=== PATIENT | female | born 1940 | race Caucasian/White ===

== ENCOUNTER 2019-03-13 09:21 | Emergency (ER) | payer OTHER ==
--- NOTE | 2019-03-13 10:03 | RAD REPORT ---
EXAM DESCRIPTION: CT - CTHCSPWOC - 03/13/2019 9:51 am CLINICAL HISTORY: Trauma, head and neck injury. PAIN COMPARISON: No comparisons TECHNIQUE: Axial 5 mm thick images of the head were obtained. Axial 2 mm thick images of the cervical spine were obtained with sagittal and coronal reconstruction images generated and reviewed. All CT scans are performed using dose optimization technique as appropriate and may include automated exposure control or mA/KV adjustment according to patient size. FINDINGS: CT HEAD WITHOUT CONTRAST: No acute hemorrhage, hydrocephalus or extra-axial collection is identified.Advanced generalized brain atrophy is present with advanced periventricular and deep white matter chronic microvascular ischemi c changes.No areas of brain edema or midline shift. The paranasal sinuses and mastoids are clear.The calvarium is intact. 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 Moderate multilevel cervical degenerative changes. Nonspecific sclerosis is seen i nvolving the right petrous apex and clivus of unclear etiology and significance. IMPRESSION: No acute intracranial or cervical spine findings.
--- NOTE | 2019-03-13 10:15 | RAD REPORT ---
EXAM DESCRIPTION: RAD - Chest Single View - 03/13/2019 10:09 am CLINICAL HISTORY: TRAUMA Chest pain. COMPARISON: CHEST SINGLE VIEW dated 04/16/2015 FINDINGS: Portable technique limits examination quality. The lungs are grossly clear. The heart is mildly prominent. No displaced fractures.Left-sided port ca theter tip in the SVC. IMPRESSION: No acute intrathoracic process suspected.
--- NOTE | 2019-03-13 10:21 | RAD REPORT ---
EXAM DESCRIPTION: RAD - Ankle Left 3 View - 03/13/2019 10:10 am CLINICAL HISTORY: Trauma, ankle pain COMPARISON: None. FINDINGS: Transverse fracture of the medial malleolus is present distraction measuring 2 mm. No disp lacement. An oblique fracture is present through the distal fibula. No distraction or angulation defo rmity. Patient also has a coronal oriented fracture of the posterior malleolus. Ankle mortise is norm ally positioned. No joint effusion seen. No joint space narrowing. Soft tissue swelling is present. N o foreign body. IMPRESSION: Trimalleolar fracture left ankle as detailed.
--- NOTE | 2019-03-13 10:46 | RAD REPORT ---
EXAM DESCRIPTION: RAD - Tib Fib Left - 03/13/2019 10:10 am CLINICAL HISTORY: PAIN COMPARISON: Ankle Left 3 View dated 03/13/2019 FINDINGS: Osteopenia is noted. Fracture is seen involving the proximal neck of the fibula. Trimalleo lar ankle fracture is also present.
[2019-03-13] MEDS ORDERED: HYDROMORPHONE HCL 0.5 MG/0.5 ML INJ ONE ×2 (11:11→13:22)
[2019-03-13 11:24] LABS: Absolute Lymphocytes (CBC) 2.4 K/uL (0.7-4.9); Basophils % 0.7 % (0-1.3); Hematocrit 46.6 % (36.0-45.0); Lymphocytes % 16.2 % (15.3-44.8); MPV 9.1 fL (7.6-11.3); RBC Red Blood Cell Count 5.11 M/uL (3.86-4.86)
[2019-03-13 11:26] LABS: Protime INR 0.96
[2019-03-13 11:29] LABS: Potassium 3.8 mmol/L (3.5-5.1)
--- NOTE | 2019-03-13 11:36 | EKG ---
Test Date: 2019-03-13 Test Time: 10:17:38 Emergency Response Technician: ANTONIO MEASUREMENT RESULTS: Intervals: Rate: 77 DC: QRSD: 82 QT: 322 QTc: 364 [place]: P: DC: QRS: 45 T: 263 INTERPRETIVE STATEMENTS: Atrial fibrillation Septal infarct, age undetermined Abnormal ECG Compared to ECG 04/17/2015 05:41:57 Atrial flutter no longer present ST (T wave) deviation no longer present Myocardial infarct finding still present Electronically Signed On 03-13-19 11:35:27 CDT by Edu Mccloud
--- NOTE | 2019-03-13 13:03 | EDPHYS ---
Physician Documentation [facility] Name: Radha Hastings Age: 78 yrs Sex: Female : 1940 Arrival Date: 03/13/2019 Time: 09:20 Bed 17 Private MD: ED Physician Kuldeep Cade HPI: 03/13 12:55 This 78 yrs old Female presents to ER via EMS with complaints of Fall Injury. gs 12:55 Details of fall: The patient fell from an upright position, while walking. Onset: The gs symptoms/episode began/occurred acutely, just prior to arrival. 12:59 Associated injuries: The patient sustained injury to the head, abrasion, anterior gs aspect of left ankle, obvious fracture, painful injury, swelling. Severity of symptoms: in the emergency department the symptoms are unchanged. The patient has not experienced similar symptoms in the past. Historical: - Allergies: 09:23 Ambien; ch 09:23 Compazine; 09:23 [place]; 09:23 Aspirin; - Home Meds: 09:26 Buspirone Oral [Active]; clopidogrel oral oral [Active]; Digoxin Oral [Active]; ch duloxetine oral oral [Active]; Hyoscyamine Sulfate SL [Active]; Lisinopril Oral [Active]; Morphine Oral [Active]; naproxen Oral [Active]; Bisacodyl Oral [Active]; felodipine oral oral [Active]; Prednisone Oral [Active]; tizanidine oral oral [Active]; - PMHx: 09:23 Atrial Fib; Hypertension; brain tumor; Thyroid problem; ch - Immunization history:: Adult Immunizations up to date. - Social history:: Smoking status: Patient/guardian denies using tobacco. - Immunization history: Last tetanus immunization: - up to date. - Ebola Screening: : Patient negative for fever greater than or equal to 101.5 degrees Fahrenheit, and additional compatible Ebola Virus Disease symptoms Patient denies exposure to infectious person Patient denies travel to an Ebola-affected area in the 21 days before illness onset No symptoms or risks identified at this time. ROS: 12:59 All other systems are negative. gs Exam: 12:59 Head/Face: Normocephalic, atraumatic. Eyes: Pupils equal round and reactive to light, gs extra-ocular motions intact. Lids and lashes normal. Conjunctiva and sclera are non-icteric and not injected. Cornea within normal limits. Periorbital areas with no swelling, redness, or edema. ENT: Nares patent. No nasal discharge, no septal abnormalities noted. Tympanic membranes are normal and external auditory canals are clear. Oropharynx with no redness, swelling, or masses, exudates, or evidence of obstruction, uvula midline. Mucous membranes moist. Neck: Trachea midline, no thyromegaly or masses palpated, and no cervical lymphadenopathy. Supple, full range of motion without nuchal rigidity, or vertebral point tenderness. No Meningismus. Chest/axilla: Normal chest wall appearance and motion. Nontender with no deformity. No lesions are appreciated. Cardiovascular: Regular rate and rhythm with a normal S1 and S2. No gallops, murmurs, or rubs. Normal PMI, no JVD. No pulse deficits. Respiratory: Lungs have equal breath sounds bilaterally, clear to auscultation and percussion. No rales, rhonchi or wheezes noted. No increased work of breathing, no retractions or nasal flaring. Abdomen/GI: Soft, non-tender, with normal bowel sounds. No distension or tympany. No guarding or rebound. No evidence of tenderness throughout. Back: No spinal tenderness. No costovertebral tenderness. Full range of motion. Skin: Warm, dry with normal turgor. Normal color with no rashes, no lesions, and no evidence of cellulitis. Neuro: Awake and alert, GCS 15, oriented to person, place, time, and situation. Cranial nerves II-XII grossly intact. Motor strength 5/5 in all extremities. Sensory grossly intact. Cerebellar exam normal. Normal gait. 12:59 Constitutional: The patient appears alert, awake, in obvious distress, severely distressed. 12:59 Musculoskeletal/extremity: Pulses: are normal with no appreciated deficits, Sensation intact. Joints: the left ankle displays deformity, painful range of motion, swelling, tenderness. Vital Signs: 09:26 BP 148 / 82; Pulse 86; Resp 14; Temp 98.5; Pulse Ox 99% on R/A; Weight 90.72 kg; Height ch 5 ft. 5 in. (165.10 cm); 11:05 BP 116 / 79; Pulse 77; Resp 16; Pulse Ox 99% ; sv 11:30 BP 109 / 69; Pulse 81; Resp 15; Pulse Ox 97% ; sv 12:39 BP 106 / 61; Pulse 84; Resp 19; Pulse Ox 95% ; sv 13:34 BP 123 / 79; Pulse 95; Resp 16; Pulse Ox 95% ; sv 09:26 Body Mass Index 33.28 (90.72 kg, 165.10 cm) ch Jeanette Coma Score: 09:40 Eye Response: spontaneous(4). Verbal Response: oriented(5). Motor Response: obeys ch commands(6). Total: 15. 11:05 Eye Response: spontaneous(4). Verbal Response: oriented(5). Motor Response: obeys sv commands(6). Total: 15. Trauma Score (Adult): 09:40 Eye Response: spontaneous(1); Verbal Response: oriented(1); Motor Response: obeys ch commands(2); Systolic BP: > 89 mm Hg(4); Respiratory Rate: 10 to 29 per min(4); Jeanette Score: 15; Trauma Score: 12 11:05 Eye Response: spontaneous(1); Verbal Response: oriented(1); Motor Response: obeys sv commands(2); Systolic BP: > 89 mm Hg(4); Respiratory Rate: 10 to 29 per min(4); [place] Score: 15; Trauma Score: 12 Procedures: 12:59 Splinting: Splint applied to left leg using Orthoglass splint, applied by tech. Examined by me, post splint application: neurovascular intact, 2+ distal pulses palpable, brisk capillary refill noted, Patient tolerated well. MDM: 09:30 Patient medically screened. 12:59 Differential diagnosis: closed head injury, fracture. Data reviewed: vital signs, nurses notes, lab test result(s), EKG, radiologic studies. Counseling: I had a detailed discussion with the patient and/or guardian regarding: the historical points, exam findings, and any diagnostic results supporting the discharge/admit diagnosis, the need for outpatient follow up. Response to treatment: the patient's symptoms have mildly improved after treatment. Physician consultation: Zach Alvarez MD regarding patient's condition, need to evaluate the patient as soon as possible, and will see patient in 2-3 days, arrangements for home health and wheelchair obtained. 03/13 09:32 Order name: CBC with Diff; Complete Time: 12:07 03/13 09:32 Order name: Basic Metabolic Panel; Complete Time: 12:07 03/13 09:32 Order name: CT Head C Spine; Complete Time: 10:51 03/13 09:32 Order name: Ankle Left 3 View XRAY; Complete Time: 10:51 03/13 09:32 Order name: Tib Fib Left XRAY; Complete Time: 10:51 03/13 09:32 Order name: Protime (+inr); Complete Time: 12:07 03/13 09:32 Order name: Chest Single View XRAY; Complete Time: 10:51 03/13 09:32 Order name: EKG; Complete Time: 09:33 03/13 09:32 Order name: EKG - Nurse/Tech; Complete Time: 11:47 03/13 10:17 Order name: Splint - Ankle: Orthoglass: Stirrup; Complete Time: 12:15 03/13 10:17 Order name: Splint - Ankle: Posterior; Complete Time: 12:15 03/13 11:02 Order name: Social Service Consult; Complete Time: 12:55 EDMS Administered Medications: 11:05 Drug: Dilaudid 0.5 mg {Note: RASS1.} Route: IVP; Site: right forearm; sv 12:00 Follow up: Response: No adverse reaction; RASS: Alert and Calm (0) sv 13:33 Drug: Dilaudid 0.5 mg Route: IVP; Site: right forearm; sv 13:53 Follow up: Response: No adverse reaction; RASS: Alert and Calm (0) sv Disposition: 03/13/19 13:02 Discharged to Home. Impression: Trimalleolar fracture of lower leg. - Condition is Stable. - Discharge Instructions: Ankle Fracture, [id number]. - Medication Reconciliation Form, Thank You Letter, Antibiotic Education, Prescription Opioid Use form. - Follow up: Zach Alvarez MD; When: 2 - 3 days; Reason: Re-evaluation by your physician. - Notes: nonweightbearing Signatures: Dispatcher [employer] EDMS Hilda Peraza RN RN Catrachita Nieves RN RN sv Starr, Gregory, MD MD Corrections: (The following items were deleted from the chart) 13:49 13:02 03/13/2019 13:02 Discharged to Home. Impression: Trimalleolar fracture of lower sv leg. Condition is Stable. Forms are Medication Reconciliation Form, Thank You Letter, Antibiotic Education, Prescription Opioid Use. Follow up: Zach Alvarez; When: 2 - 3 days; Reason: Re-evaluation by your physician. gs
--- NOTE | 2019-03-13 13:03 | ER ---
Nurse's Notes [facility] Name: Radha Hastings Age: 78 yrs Sex: Female : 1940 Arrival Date: 03/13/2019 Time: 09:20 Bed 17 Private MD: Diagnosis: Trimalleolar fracture of lower leg Presentation: 03/13 09:21 Presenting complaint: EMS states: slipped in dog vomit, her ankle twisted. obvious ch deformity. Transition of care: patient was not received from another setting of care. Onset of symptoms was March 13, 2019 at 08:50. Risk Assessment: Do you want to hurt yourself or someone else? Patient reports no desire to harm self or others. Initial Sepsis Screen: Does the patient meet any 2 criteria? No. Patient's initial sepsis screen is negative. Does the patient have a suspected source of infection? No. Patient's initial sepsis screen is negative. Care prior to arrival: None. 09:21 Method Of Arrival: EMS: [facility] 09:21 Acuity: [place] 3 10:07 Mechanism of Injury: Fall from standing position. Trauma event details: Injury occurred in the [facility], Injury occurred: at home. Injury occurred: March 13, 2019 Injury occurred at: 08:50. Triage Assessment: 09:26 General: Appears in no apparent distress. uncomfortable, Behavior is cooperative, ch appropriate for age. Pain: Complains of pain in medial aspect of left calf, left medial ankle, left hinkle and anterior aspect of left ankle Pain currently is 6 out of 10 on a pain scale. Neuro: No deficits noted. Level of Consciousness is awake, alert, obeys commands, Oriented to person, place, time, situation, Drophammer Operator are equal bilaterally Weakness Speech is normal, Facial symmetry appears normal, Facial symmetry: tongue is midline. Trauma Activation: Alert Physician: ED Physician; Name: ; Notified At: ; Arrived At: Physician: General Surgeon; Name: ; Notified At: ; Arrived At: Physician: Radiology; Name: ; Notified At: ; Arrived At: Physician: Respiratory; Name: ; Notified At: ; Arrived At: Physician: Lab; Name: ; Notified At: ; Arrived At: Historical: - Allergies: 09:23 Ambien; ch 09:23 Compazine; 09:23 [place]; ch 09:23 Aspirin; ch - Home Meds: 09:26 Buspirone Oral [Active]; clopidogrel oral oral [Active]; Digoxin Oral [Active]; ch duloxetine oral oral [Active]; Hyoscyamine Sulfate SL [Active]; Lisinopril Oral [Active]; Morphine Oral [Active]; naproxen Oral [Active]; Bisacodyl Oral [Active]; felodipine oral oral [Active]; Prednisone Oral [Active]; tizanidine oral oral [Active]; - PMHx: 09:23 Atrial Fib; Hypertension; brain tumor; Thyroid problem; ch - Immunization history:: Adult Immunizations up to date. - Social history:: Smoking status: Patient/guardian denies using tobacco. - Immunization history: Last tetanus immunization: - up to date. - Ebola Screening: : Patient negative for fever greater than or equal to 101.5 degrees Fahrenheit, and additional compatible Ebola Virus Disease symptoms Patient denies exposure to infectious person Patient denies travel to an Ebola-affected area in the 21 days before illness onset No symptoms or risks identified at this time. Screenin:40 Abuse screen: Denies threats or abuse. Denies injuries from another. Tuberculosis ch screening: No symptoms or risk factors identified. 09:40 Nutritional screening: No deficits noted. Fall Risk Fall in past 12 months (25 points). ch Secondary diagnosis (15 points) No IV (0 pts). Ambulatory Aid- Crutches/Cane/Walker (15 pts). Gait- Impaired (20 pts.). Mental Status- Overestimates/Forgets Limitations (15 pts.). Total Golden Fall Scale indicates High Risk Score (45 or more points). Fall prevention measures have been instituted. Side Rails Up X 2 Placed Close to Nursing Station Frequent Obs/Assessments Occuring Family Present and informed to notify staff if the need to leave the bedside As available patient and family educated on Fall Prevention Program and Strategies. Primary Survey: :40 NO uncontrolled hemorrhage observed. 09:40 A: The patient is alert. Airway: patent. Breathing/Chest: Respiratory pattern: regular, Respiratory effort: spontaneous, unlabored, Breath sounds: clear. Circulation: Heart tones present. Disability Alert. Exposure/Environment: All clothing and personal items were removed. Forensic evidence collection is not deemed to be indicated at this time. Items placed in patient belonging bag. There is no evidence of uncontrolled external bleeding. Obvious injury(ies) are noted at this time: L ankle / lower leg A warming method has been applied: A warm blanket has been provided to the patient. 11:00 Reassessment Airway Airway Patent Oxygen No O2 Oral cavity Clear Trachea Midline sv Breathing/Chest Respiratory pattern Regular Respiratory effort Spontaneous Unlabored Chest inspection Symmetrical Circulation Heart tones Present Pulses Palpable Color [place] Temperature Warm Dry Disability Alert. Secondary Survey: 09:40 HEENT: No deficits noted. Gastrointestinal: No deficits noted. Abdomen is soft, Bowel ch sounds present in all quadrants. Palpation No deficit noted. : No signs and/or symptoms were reported regarding the genitourinary system. Musculoskeletal: Capillary refill < 3 seconds, in bilateral fingers. toes. Bony deformity noted of left lateral ankle and anterior aspect of left ankle and left hinkle. Assessment: 09:40 Pain: Complains of pain in left lateral ankle and left leg Pain currently is 2 out of ch 10 on a pain scale. 09:47 General: Appears in no apparent distress. comfortable. 12:15 Reassessment: Patient appears in no apparent distress at this time. Patient and/or sv family updated on plan of care and expected duration. Pain level reassessed. Patient is alert, oriented x 3, equal unlabored respirations, skin warm/dry/pink. Cardiovascular: Capillary refill < 3 seconds is brisk in left toes on skin. Patient's skin is warm and dry. 13:10 Reassessment: Pt waiting for prescription written for wheelchair at home. sv Vital Signs: 09:26 BP 148 / 82; Pulse 86; Resp 14; Temp 98.5; Pulse Ox 99% on R/A; Weight 90.72 kg; Height ch 5 ft. 5 in. (165.10 cm); 11:05 BP 116 / 79; Pulse 77; Resp 16; Pulse Ox 99% ; sv 11:30 BP 109 / 69; Pulse 81; Resp 15; Pulse Ox 97% ; sv 12:39 BP 106 / 61; Pulse 84; Resp 19; Pulse Ox 95% ; sv 13:34 BP 123 / 79; Pulse 95; Resp 16; Pulse Ox 95% ; sv 09:26 Body Mass Index 33.28 (90.72 kg, 165.10 cm) Jeanette Coma Score: 09:40 Eye Response: spontaneous(4). Verbal Response: oriented(5). Motor Response: obeys ch commands(6). Total: 15. 11:05 Eye Response: spontaneous(4). Verbal Response: oriented(5). Motor Response: obeys sv commands(6). Total: 15. Trauma Score (Adult): 09:40 Eye Response: spontaneous(1); Verbal Response: oriented(1); Motor Response: obeys ch commands(2); Systolic BP: > 89 mm Hg(4); Respiratory Rate: 10 to 29 per min(4); [place] Score: 15; Trauma Score: 12 11:05 Eye Response: spontaneous(1); Verbal Response: oriented(1); Motor Response: obeys sv commands(2); Systolic BP: > 89 mm Hg(4); Respiratory Rate: 10 to 29 per min(4); [place] Score: 15; Trauma Score: 12 ED Course: 09:20 Patient arrived in ED. ch 09:22 Triage completed. ch 09:24 Kuldeep Cade MD is Attending Physician. gs 09:26 Arm band placed on right wrist. Patient placed in an exam room, on lunchroom monitor, on pulse oximetry. 09:40 Patient has correct armband on for positive identification. Placed in gown. Bed in low ch position. Call light in reach. Side rails up X2. 09:40 Patient maintains SpO2 saturation greater than 95% on room air. Thermoregulation: warm ch blanket given to patient. 09:40 Missed attempt(s): 22 gauge in right forearm. 24 gauge in right upper arm. ch 09:51 CT Head C Spine In Process Unspecified. EDMS 09:57 Catrachita Nieves RN is Primary Nurse. sv 09:57 Report received from Hilda JASON. sv 10:03 Ankle Left 3 View XRAY In Process Unspecified. EDMS 10:03 Tib Fib Left XRAY In Process Unspecified. EDMS 10:03 Chest Single View XRAY In Process Unspecified. EDMS 10:39 EKG done, by geoscience laboratory technician. reviewed by Kuldeep Cade MD. at1 10:50 Missed attempt(s): 24 gauge in right forearm. done by Kaylan JASON. Bleeding controlled, sv band aid applied, catheter tip intact. 11:00 Accessed peripheral vein via ultrasound, utilizing dynamic ultrasound technique using sv ,sterile technique, per hospital protocol. Clean \T\ dry. Dressing intact. Good blood return. Flushes easily. 22G diffusics. 12:15 Orthoglass splint: Posterior short lleg splint applied on left leg. stirrup splint sv applied on left leg. 13:02 Zach Alvarez MD is Referral Physician. 13:14 faxed prescription and documentation to Rachelle at [phone]. gm 13:34 Cleaned of incontinence. sv 13:48 No provider procedures requiring assistance completed. IV discontinued, intact, sv bleeding controlled, No redness/swelling at site. Pressure dressing applied. Administered Medications: 11:05 Drug: Dilaudid 0.5 mg {Note: RASS1.} Route: IVP; Site: right forearm; sv 12:00 Follow up: Response: No adverse reaction; RASS: Alert and Calm (0) sv 13:33 Drug: Dilaudid 0.5 mg Route: IVP; Site: right forearm; sv 13:53 Follow up: Response: No adverse reaction; RASS: Alert and Calm (0) sv Intake: 09:40 PO: 0ml; Total: 0ml. Outcome: 11:50 Patient's length of stay in the Emergency Department was greater than 2 hours. due to sv waiting for manager social media to come speak to MD and family.Patient's length of stay extended due to 13:02 Discharge ordered by MD. 13:49 Discharged to home via wheelchair, with family, via [employer] wheelchair van sv 13:49 Condition: stable 13:49 Discharge instructions given to patient, family, Instructed on discharge instructions, follow up and referral plans. Demonstrated understanding of instructions, follow-up care. 13:49 Patient left the ED. sv Signatures: Dispatcher [employer] EDMS Hilda Peraza, RN EREN Catrachita Nieves RN RN sv Meghan Yusuf, director of recruiting EKG Tat1 Kuldeep Cade MD MD gs Moya, Gabriella
[2019-03-13 13:54] VITALS: TEMP 98.5
[2019-03-13 13:58] VITALS: BP 123/79; O2SAT 95
== END 2019-03-13 13:49 | disposition home or self-care (01) ==
LOC: ER 09:21
PROC: 2W3RX1Z Immobilization of Left Lower Leg using Splint (ICD-10-PCS; principal; 2019-03-13)
DX: S82.852A Displaced trimalleolar fracture of left lower leg, initial encounter for closed fracture (principal); W19.XXXA Unspecified fall, initial encounter; Y93.01 Activity, walking, marching and hiking; Y92.9 Unspecified place or not applicable; I10 Essential (primary) hypertension; I48.91 Unspecified atrial fibrillation; E07.9 Disorder of thyroid, unspecified
CPT/HCPCS: 93005; 85025; 80048; 36415; 85610; 70450; 72125; 71045; 73590; 73610; 96374; 99285; 29515; J1170 ×2

== ENCOUNTER 2019-03-18 16:40 | Observation (INO) | payer OTHER ==
[2019-03-18] MEDS ORDERED: MORPHINE 2 MG/ML SYR IV PRN (17:12)
[2019-03-18] MEDS ORDERED: ACETAMINOPHEN 500 MG TAB PO PRN (17:12)
[2019-03-18] MEDS ORDERED: ONDANSETRON 4 MG/2 ML VIAL IV PRN (17:12)
[2019-03-18 18:51] VITALS: BMI 32.5
[2019-03-18] MEDS ORDERED: HYDROCODONE/APAP 5/325 MG TAB PO PRN (19:33)
--- NOTE | 2019-03-18 20:13 | RAD REPORT ---
EXAM DESCRIPTION: RAD - Chest Pa And Lat (2 Views) - 03/18/2019 6:15 pm CLINICAL HISTORY: cough COMPARISON: March 13 TECHNIQUE: PA and lateral views of the chest were obtained. FINDINGS: The lungs are clear. Lung markings are similar to comparison. No failure or volume overlo ad suspected. Port-A-Cath is in place on the left. Heart size is normal and central vasculature is wi thin normal limits. No pleural effusion or pneumothorax seen. No acute bony finding noted. No aort ic abnormality. No significant change from comparison. IMPRESSION: No acute cardiopulmonary process.
[2019-03-18] MEDS: HYDROCODONE/APAP 10/325 TAB PO PRN (20:19)
[2019-03-18 20:50] LABS: Urine Appearance CLOUDY; Urine Bilirubin NEGATIVE (NEG); Urine Blood NEGATIVE (NEG); Urine Color YELLOW; Urine Glucose NEGATIVE (NEG); Urine Protein NEGATIVE (NEG); Urine pH 6.5 (5.0-7.0)
[2019-03-18 20:52] LABS: Urine Microscopic Reflex ORDER UMIC
[2019-03-18 20:59] LABS: Urine Amorphous Sediment 1+ /HPF (NONE SEEN); Urine Bacteria <20 /HPF (<20); Urine Culture Reflex Order REFLEXED; Urine RBC <5 /HPF (NONE SEEN)
[2019-03-18] MEDS: GABAPENTIN 300 MG CAP PO SCH (22:26)
[2019-03-18] MEDS: D5 0.45 NS 1,000 ML IV SCH (22:28)
[2019-03-18] MEDS: LISINOPRIL 20 MG TAB PO SCH (22:40)
[2019-03-18 22:49] LABS: Absolute Lymphocytes (CBC) 2.8 K/uL (0.7-4.9); Basophils % 0.9 % (0-1.3); Hematocrit 38.5 % (36.0-45.0); Lymphocytes % 27.2 % (15.3-44.8); MPV 9.1 fL (7.6-11.3); RBC Red Blood Cell Count 4.23 M/uL (3.86-4.86)
[2019-03-18 23:04] LABS: Albumin 3.1 g/dL (3.4-5.0); Bilirubin Total 0.8 mg/dL (0.2-1.0); Magnesium 2.1 mg/dL (1.8-2.4); Phosphorus 2.8 mg/dL (2.5-4.9); Potassium 3.4 mmol/L (3.5-5.1); Protein, Total 5.8 g/dL (6.4-8.2)
[2019-03-18] MEDS ORDERED: POTASSIUM 25 MEQ EFFERV TAB PO ONE (23:44)
--- NOTE | 2019-03-19 00:20 | CON ---
Date of Consultation: 03/18/[address] Lee's service on 03/18/2019. I have seen the patient on 03/18/2019. Reason For Consultation: Cardiac clearance for ankle fracture and history of atrial fibrillation. History Of Present Illness: Ms. Hastings is a 78-year-old white woman. She has a history of atrial fib rillation that is chronic. She has a history of brain tumor, thyroid disorder, and hypertension. No previous history of coronary artery disease or congestive heart failure. No previous history of CAB G or stents. Denied any diabetes or dyslipidemia. She broke her ankle on 03/13/2019, was admitted o n 03/18/2019 for ankle surgery on 03/19/[address] Alvarez. The patient denied any chest pain, pa lpitation, nausea, vomiting, diaphoresis, PND, orthopnea, pedal edema, palpitations, or syncope. Past Medical History: As stated above. Allergies: ASPIRIN, AMBIEN, SKIP, AND COMPAZINE. Review of Systems: Negative. Social History: Negative. Family History: Noncontributory. Medications At Home: Tegretol, Omnicef, Cymbalta, Toprol, Zestril, Plavix, Plendil, and Zocor. Physical Examination: General: She is very pleasant, alert and oriented x3. She was in atrial fibrillation at a rate of 8 2. She was afebrile. HEENT: Negative. Neck: Supple without any bruit, lymphadenopathy, JVD, or thyromegaly. Chest: Clear to auscultation and percussion. Cardiac: Revealed atrial fibrillation and what sounds like an aortic sclerosis, murmur. Abdomen: Benign. Extremities: Revealed no clubbing, cyanosis, or edema. Her left leg was wrapped with an Baljinder bandage . Skin: Dry and intact. She had pulses in the distal extremities. Neurological: She was nonfocal. Diagnostic Data: Her chest x-ray was negative. Laboratory evaluation was pending. EKG showed atria l fibrillation at a rate of 82. Impression And Plan: 1.Patient with chronic atrial fibrillation. No previous cardiac workup available to us. No history of coronary artery disease or congestive heart failure. She is clinically asymptomatic from a heart standpoint. Nevertheless, I still like to get an echocardiogram on her. She is not taking any bloo d thinners except for Plavix. I would not necessarily wait for the echo before cardiac clearance. I think she is at acceptable risk from a perioperative mortality standpoint. 2.History of brain tumor. 3.History of dyslipidemia. 4.History of hypertension, well controlled. 5.History of hypothyroidism. I would personally continue her present regimen. I cleared her for piña rgery. Get an echocardiogram and I will follow her along with Dr. Alvarez. EMMETT/DOROTHEA Voice ID: [id number] Report ID: [id number]
[2019-03-19] MEDS: HYDROCODONE/APAP 10/325 TAB PO PRN ×2 (00:38→23:07)
--- NOTE | 2019-03-19 03:00 | HP ---
Date of Admission: 03/18/2019 Primary Care Physician: None. Consultants: Dr. Alvarez, Orthopedics; and Dr. Christensen, Cardiology. Chief Complaint: Ankle fracture. Code Status: DNR. History Of Present Illness: The patient is a 78-year-old female with past medical history of TIA, CVA in 2004, hypertension, meningioma, status post radiation therapy 1 year ago, who was recently initiated on hospice, who had a mechanical fall, slipping on dog vomitus and fell and fractured her ankle on the left side. Patient was evaluated by Dr. Alvarez and then was admitted directly to the hospital for further evaluation and management. Patient reports pain. She was placed in a sugar-tong cast and has been nonweightbearing. The patient's symptoms are constant, moderate, progressively worsening. Denies any fevers, chills, chest pain, or shortness of breath. Past Medical History: Hypertension, history of TIA/CVA in 2004, meningioma, status post radiation therapy at [facility], last therapy was 1 year ago, bone graft in the neck, back surgery, appendectomy, cholecystectomy. Allergies: TO ASPIRIN, COMPAZINE, AND AMBIEN. Medications: List reviewed. Social History: Patient denies any tobacco use, alcohol use, or illicit drug use. The patient normally uses a walker for ambulation, currently is nonambulatory due to her fracture, has been getting around in the wheelchair. Has good social support. Lives at home. Family History: Noncontributory in this 78-year-old. Review of Systems: Ten-point system reviewed, negative except as per HPI. Physical Examination: Vital Signs: Temperature is 98, heart rate 77 blood pressure 127/67, respirations 18, O2 saturation 95% on room air. General: Awake, alert, oriented x3. Some mild distress due to pain. Elderly female. HEENT: Normocephalic, atraumatic. PERRLA. EOMI. Moist mucous membranes. Oropharynx is clear. Poor dentition. Conjunctivae anicteric. Neck: Supple. No JVD. Trachea midline. CV: S1, S2. No murmurs. Peripheral pulses present. Respiratory: Moving air well bilaterally. No wheezing or stridor. No use of accessory muscles. Gastrointestinal: Abdomen is soft, nontender, nondistended. Positive bowel sounds. No guarding or rigidity. Extremities: No clubbing, cyanosis. The patient has minimal edema of the left lower extremity. Neuro: Cranial nerves 2 through 12 intact grossly. No focal neurological deficit. Speech is normal. Musculoskeletal: Left lower extremity decreased range of motion in splint with Baljinder bandage around. Tenderness to palpation. Skin: No rashes. Normal skin turgor. Psych: Mood is okay. Affect is full. Insight and judgment are good. Laboratory Data: Labs are currently pending. Imaging Studies: Tib-fib x-ray from 03/13/2019 shows osteopenia, fracture involving the proximal neck of the fibula, trimalleolar ankle fracture is also present. CT scan of the head and neck also from March 13, 2019 shows no acute hemorrhage, hydrocephalus, or extra-axial collection. Advanced generalized brain atrophy present with advanced periventricular and deep white matter chronic microvascular ischemic changes. No areas of the brain with edema or midline shift. Paranasal sinuses and mastoids are clear. Calvarium is intact. 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 No prevertebral soft tissue swelling. Multilevel degenerative changes, sclerosis, nonspecific, involving the right petrous apex and clivus of unclear etiology and significance. No acute intracranial or cervical spine findings. Assessment And Plan: A 78-year-old female with: 1. Status post mechanical fall. 2. Left trimalleolar ankle fracture and proximal neck of the fibula fracture. The patient currently nonambulatory with a splint in place. Dr. Alvarez has been consulted. He recommends surgical intervention. The patient will need cardiac clearance. We will obtain EKG and echocardiogram, consult Cardiology. Patient does have a history of atrial fibrillation; however, not on any anticoagulants. 3. History of transient ischemic attack, cerebrovascular accident. No residual deficits. We will resume home medications as appropriate. We will hold any anti-platelet therapy due to impending surgery. 4. Essential hypertension. Resume home medications as appropriate. 5. History of meningioma, status post radiation therapy 1 year ago at [facility]. CT head from the does not identify any meningioma. According to the patient, meningioma has shrunk after radiation therapy. We will need to obtain records and verify diagnosis. Patient apparently has been on hospice since August. 6. History of atrial fibrillation, rate controlled, not on any anticoagulation at this time. We will continue with cardiac monitoring. Check INR. Plan: Admit the patient to Med-Surg, place as inpatient. Anticipate surgery in a.m. once cardiac clearance has been obtained. Length of stay >2 midnights SARKIS Voice ID: [id number] MTDD
[2019-03-19] MEDS: MORPHINE 4 MG/ML SYR IV PRN ×2 (05:11→20:53)
[2019-03-19 06:05] LABS: Protime INR 0.99
[2019-03-19 06:07] LABS: Absolute Lymphocytes (CBC) 2.7 K/uL (0.7-4.9); Basophils % 0.9 % (0-1.3); Lymphocytes % 33.8 % (15.3-44.8); RBC Red Blood Cell Count 4.16 M/uL (3.86-4.86)
[2019-03-19 06:17] LABS: Albumin 3.1 g/dL (3.4-5.0); Potassium 3.9 mmol/L (3.5-5.1); Protein, Total 5.8 g/dL (6.4-8.2)
--- NOTE | 2019-03-19 06:52 | EKG ---
Test Date: 2019-03-18 Test Time: 17:27:28 Director Of Diagnostic Imaging: SANG MEASUREMENT RESULTS: Intervals: Rate: 81 VT: QRSD: 82 QT: 360 QTc: 418 Athena: P: VT: QRS: 40 T: -9 INTERPRETIVE STATEMENTS: Atrial fibrillation Nonspecific ST and T wave abnormality, probably digitalis effect Abnormal ECG Compared to ECG 03/13/2019 10:17:38 ST (T wave) deviation now present Myocardial infarct finding no longer present Electronically Signed On 03-19-19 06:51:41 CDT by Edu Mccloud
[2019-03-19] MEDS ORDERED: KCL 20 MEQ/100 mL IVPB 20 MEQ/100 ML BAG IV SCH (08:00)
[2019-03-19] MEDS ORDERED: INFLUENZA VACCINE (for 3y+) 0.5 ML DOSE IMVAC ONE (08:00)
[2019-03-19] MEDS ORDERED: DULOXETINE 20 MG CAP PO SCH (09:00)
[2019-03-19] MEDS: FELODIPINE 5 MG TAB PO SCH (09:26)
[2019-03-19] MEDS: predniSONE 5 MG TAB PO SCH (09:27)
[2019-03-19] MEDS: GABAPENTIN 300 MG CAP PO SCH ×3 (09:27→20:56)
[2019-03-19] MEDS: HYOSCYAMINE SULF 0.125 MG TAB PO SCH (09:27)
[2019-03-19] MEDS: DIGOXIN 0.125 MG TABLET PO SCH (09:28)
[2019-03-19] MEDS: DULOXETINE 30 MG CAP PO SCH (09:28)
[2019-03-19] MEDS: D5 0.45 NS 1,000 ML IV SCH ×2 (09:30→23:06)
[2019-03-19] MEDS ORDERED: NS 0.9% VIAL 20 ML ONE (10:59)
[2019-03-19] MEDS ORDERED: LIDOCAINE 2% MPF 5 ML VIAL ONE ×2 (11:00→11:45)
[2019-03-19] MEDS ORDERED: dexAMETHasone 10 MG/ML VIAL ONE (11:00)
[2019-03-19] MEDS ORDERED: MIDAZOLAM HCL 2 MG/2 ML INJ ONE (11:00)
[2019-03-19] MEDS ORDERED: ROPLVACAINE HCL 40 ML ONE (11:01)
[2019-03-19] MEDS ORDERED: FENTANYL CITR 100 MCG/2 ML ONE (11:44)
[2019-03-19] MEDS ORDERED: PROPOFOL 200 MG/20 ML VIAL IV ONE (11:45)
--- NOTE | 2019-03-19 11:57 | PN ---
Patient was seen and examined. Chart reviewed and case discussed with RN and Dr. Mccloud as well as Steffany Alvarez. Patient has been cleared from cardiac standpoint for ankle surgery. The patient's mery n is well controlled. No family at the bedside. Medications: List reviewed. Physical Examination: Vital Signs: Temperature 97.4, heart rate 82, blood pressure 133/69, respirations 18, O2 at 92% on r oom air. General: Awake, alert, oriented x3. Elderly female, obese, not in any acute distress. CV: S1, S2. Irregularly irregular. Respiratory: Moving air well bilaterally. No wheezing or stridor. No use of accessory muscles. Gastrointestinal: Abdomen is soft, nontender, nondistended. Positive bowel sounds. No guarding or rigidity. Extremities: No clubbing, cyanosis, mild edema of the left lower extremity. Musculoskeletal: Left lower extremity in splint and Baljinder wrapped. Decreased range of motion. Neurologic: Nonfocal. Laboratory Data: Sodium 141, potassium 3.9, chloride 107, CO2 of 31, BUN 14, creatinine 0.83, glucos e 104, calcium 8.1. WBC 8.1, H and H 13.5 and 38, platelets 230, neutrophils 52%. Assessment And Plan: A 78-year-old female with; 1.Status post mechanical fall. 2.Left trimalleolar ankle fracture and proximal neck of fibula fracture. Cleared for surgery from C ardiology standpoint. Scheduled for surgery at [address] Alvarez. 3.History of transient ischemic attack, cerebrovascular accident. No residual deficits. We will ho ld Plavix due to impending surgery, stable. 4.Essential hypertension, stable. Continue home medications. 5.History of meningioma or other brain tumor, status post radiation therapy. Recent head CT from does not show any signs of meningioma. 6.History of atrial fibrillation, rate controlled. We will continue beta naresh, not on any antico agulation other than Plavix which was held due to surgery. 7.Obesity, BMI 34.4. Plan: Anticipate surgery this afternoon. SA/MODL Voice ID: [id number] Report ID: [id number]
[2019-03-19] MEDS ORDERED: Ringers Lactate 1,000 ML IV ONE (13:15)
[2019-03-19] MEDS ORDERED: CEFAZOLIN/SWI 1gm 1 GM/10 ML SYR ONE (13:39)
--- NOTE | 2019-03-19 13:56 | ECHO ---
HEIGHT: 5 ft 4 in WEIGHT: 190 lb 0 oz DATE OF STUDY: 03/19/[address]: Leonid Christensen MD 2-DIMENSIONAL: YES M.MODE: YES DOPPLER: YES COLOR FLOW: YES TDS: YES PORTABLE: DEFINITY: BUBBLE STUDY: DIAGNOSIS: ATRIAL FIBRILLATION, CARDIAC CLEARANCE CARDIAC HISTORY: CATHERIZATION: NO SURGERY: NO PROSTHETIC VALVE: NO PACEMAKER: NO MEASUREMENTS (cm) DIASTOLIC (NORMALS) SYSTOLIC (NORMALS) IVSd 1.1 (0.6-1.2) LA Diam 3.7 (1.9-4.0) LVEF 52% LVIDd 4.0 (3.5-5.7) LVIDs 3.0 (2.0-3.5) %FS 26% LVPWd 1.2 (0.6-1.2) Ao Diam 2.9 (2.0-3.7) 2 DIMENSIONAL ASSESSMENT: RIGHT ATRIUM: NORMAL LEFT ATRIUM: NORMAL RIGHT VENTRICLE: NORMAL LEFT VENTRICLE: NORMAL TRICUSPID VALVE: NORMAL MITRAL VALVE: NORMAL PULMONIC VALVE: NORMAL AORTIC VALVE: MILD SCLEROSIS PERICARDIAL EFFUSION: NONE AORTIC ROOT: NORMAL LEFT VENTRICULAR WALL MOTION: NORMAL DOPPLER/COLOR FLOW: MILD TRICUSPID REGURGITATION. MILD AORTIC REGURGITATION. NORMAL RIGHT VENTRICULAR SYSTOLIC PRESSURE. NO AORTIC STENOSIS. COMMENTS: NORMAL LEFT VENTRICULAR EJECTION FRACTION. AORTIC SCLEROSIS WITH NO AORTIC STENOSIS. MILD AORTIC REGURGITATION AND TRICUSPID REGURGITATION. TECHNOLOGIST: JULIEN MILAN
[2019-03-19] MEDS ORDERED: KETAMINE HCL 500 MG/5 ML VIAL ONE (14:15)
[2019-03-19] MEDS ORDERED: NS 0.9% VIAL 10 ML ONE ×2 (14:16→14:20)
[2019-03-19] MEDS ORDERED: Phenylephrine HCl 10 MG/ML 1 ML VIAL ONE (14:20)
--- NOTE | 2019-03-19 15:43 | P.BOP ---
Preoperative diagnosis: left bimalleolar ankle fracture Postoperative diagnosis: same Primary procedure: ORIF bimalleolar ankle fracture Estimated blood loss: 10 ccs Anesthesia: General Complications: None Transferred to: Recovery Room Condition: Good
[2019-03-19] MEDS: LISINOPRIL 20 MG TAB PO SCH (20:45)
--- NOTE | 2019-03-20 03:18 | OP ---
Date of Procedure: 03/19/2019 Surgeon: Zach Alvarez MD Preoperative Diagnosis: Left ankle bimalleolar ankle fracture. Postoperative Diagnosis: Left ankle bimalleolar ankle fracture. Procedure: Open reduction and internal fixation of medial and lateral malleolus. The lateral malleo dany is repaired using the Acumed locking fibular plate. Estimated Blood Loss: 10 mL. Specimens: No pathology specimens sent. Indications For Operation: Ms. Hastings is a 78-year-old female who unfortunately slid and injured her left lower extremity. We discussed with her whether or not she walks and [place] w ith a walker with her family, although somewhat slowly. She is definitely ambulatory. She was seen and examined in the emergency room where she was ruled out for other injuries; however, it was found that she had a bimalleolar ankle fracture. She saw me in my office yesterday. Because of her overly ing medical conditions and that she is on hospice, the family really is unable to take care of her an d at this time, the hospitalist was nice enough to admit her. She does have a history of atrial fibr illation as well as history of meningioma, hypercholesterolemia, and hypertension. She is on blood t hinners. She had a history of a stroke, really could not have her seen in efficient manner because s he does not have a primary care physician or infant lead teacher here, but she has been cleared since being admitted, and all risks, benefits, and alternatives to this have been discussed with the patient and family. They state they understand things as presented and wished to proceed. Description Of Procedure: The patient was taken to the operating room and placed in supine position. General anesthesia was obtained by staff. Following this, a well-padded tourniquet placed on super ior left thigh. Left lower extremity was then prepped and draped in the usual sterile fashion. Foll owing this, the leg was then elevated, but not exsanguinated and the tourniquet was raised. A standa rd medial approach was taken down carefully through skin and soft tissues. Meticulous hemostasis was being maintained using Bovie electrocautery. The fracture site itself was encountered. The bone it self appeared to be extremely osteoporotic. A towel clip was used to aid in reduction. However, thi s was very easily placed into the bone with just simple finger pressure. It was held in place with t wo 4-0 cannulated screws that were placed, appeared to have established a reduction with some slight compression. However, care was made not to overtighten the further fragment on medial side. After t his, it was irrigated and the skin was closed using interrupted Vicryl followed by lana. Attentio n was then turned to the lateral aspect. A standard lateral incision was taken down carefully throug h skin, soft tissue. Meticulous hemostasis being maintained using Bovie electrocautery. This led do wn to the fibula itself. Fibula again was quite osteoporotic and the clamp was used to maintain the reduction, as the clamp definitely digs into the bone quite easily. Decision was made to move forwar d with a locking plate to give further stability. One nonlocking screw was then placed at the superi or most aspect. This allowed a good pivot for the plate and it was not tightened completely as it do es add some rotation to the distal aspect. The distal aspect was fixed in the correct position and t he fracture was reduced. The distal locking screws were then placed in standard fashion and appeared to hold on to this quite well. The plate was little off the bone, which was fine. A locking screw was placed second from the toppiece chopper hole. The toppiece chopper was then replaced with a locking screw to h ave stability and then another screw was placed in nonlocked fashion followed distally. The wound wa s then irrigated. The skin was closed using interrupted Vicryl sutures, followed by lana. The pa tient was then placed in extremely well-padded sterile dressing as well as a plaster, U splint, and f ootplate and awakened and taken to recovery room in good condition. ENRIQUE Voice ID: [id number] Report ID: [id number]
--- NOTE | 2019-03-20 04:39 | DS ---
I saw this patient in my office yesterday. She arrived to see me. She has a very small abrasion ove r the medial aspect of the knee, somewhat far from the medial malleolus. Otherwise, she has bruising and swelling of her left ankle. She relates that she tripped over some liquid left by the dog, sust ained an injury to her ankle on . She was seen in the emergency room where she was ruled out for other injuries, however, x-rays demonstrated a bimalleolar ankle fracture and she was there was seen in my office. She does have multiple other medical problems, including atrial fibrillation and she is on hospice. We discussed with both her and her family that bimalleolar ankle fractures are ge ntly treated with open reduction and internal fixation in people that are ambulatory. Family really did not have any access to spray mixer or primary care physician, therefore decision was made to ask the hospitalist that they could admit her to the hospital. They have done this and she has undergon e evaluation at this time state that she is cleared for surgery. All risks, benefits, and alternativ es to surgery have been discussed with the patient and family. They state they understand things as presented and will plan on proceeding with this shortly. ENRIQUE Voice ID: [id number] Report ID: [id number]
[2019-03-20 06:13] LABS: Absolute Lymphocytes (CBC) 1.5 K/uL (0.7-4.9); Basophils % 0.2 % (0-1.3); Hematocrit 37.3 % (36.0-45.0); Lymphocytes % 10.1 % (15.3-44.8); MPV 9.5 fL (7.6-11.3)
[2019-03-20 06:16] LABS: Albumin 2.9 g/dL (3.4-5.0); Bilirubin Total 0.6 mg/dL (0.2-1.0); Protein, Total 5.7 g/dL (6.4-8.2)
[2019-03-20 07:16] LABS: Blood Morphology Comment NOT SEEN (NOT SEEN); Platelet Estimate ADEQ
--- NOTE | 2019-03-20 08:02 | RAD REPORT ---
EXAM DESCRIPTION: RAD - Ankle Left 2 View - 03/20/2019 7:44 am FINDINGS: There were 9 portable C-arm views obtained during a fluoroscopic assisted fracture hardwar e placement procedure. Fluoro time was 0.7 minutes. No suspicious or unexpected finding.
[2019-03-20] MEDS: HYOSCYAMINE SULF 0.125 MG TAB PO SCH (08:12)
[2019-03-20] MEDS: FELODIPINE 5 MG TAB PO SCH (08:12)
[2019-03-20] MEDS: DULOXETINE 30 MG CAP PO SCH (08:12)
[2019-03-20] MEDS: DIGOXIN 0.125 MG TABLET PO SCH (08:12)
[2019-03-20] MEDS: predniSONE 5 MG TAB PO SCH (08:14)
[2019-03-20] MEDS: GABAPENTIN 300 MG CAP PO SCH ×3 (08:14→20:03)
[2019-03-20] MEDS: D5 0.45 NS 1,000 ML IV SCH (10:00)
--- NOTE | 2019-03-20 13:06 | PN ---
Date of Progress Note: 03/20/2019 Ms. Hastings had her ankle surgery. She is doing well postoperatively. She has atrial fibrillation chr onic with rate control. Her heart rate is 89. She is on digoxin only. She has a history of hyperte nsion and TIA. Hemodynamically stable. Blood pressure is 104/55, heart rate of 89, afebrile. Last creatinine is 0.84. Last hemoglobin is 12.7. We will sign off her case. Continue digoxin. Conside r long-term anticoagulation. I will leave that up to Dr. Lee in Orthopedic Surgery. EMMETT/DOROTHEA Voice ID: [id number] Report ID: [id number]
[2019-03-20] MEDS: HYDROCODONE/APAP 10/325 TAB PO PRN ×2 (13:35→17:37)
[2019-03-20] MEDS: CLOPIDOGREL 75 MG TABLET PO SCH (15:25)
[2019-03-20] MEDS: MORPHINE 4 MG/ML SYR IV PRN ×2 (15:28→20:05)
[2019-03-20] MEDS ORDERED: ENOXAPARIN 40 MG/0.4 ML SQ SCH (17:00)
[2019-03-20] MEDS: LISINOPRIL 20 MG TAB PO SCH (20:03)
--- NOTE | 2019-03-20 20:04 | PN ---
Date of Progress Note: 03/20/2019 Subjective: Patient seen and examined. Chart reviewed and case discussed with RN. Patient did well postoperatively. No family at the bedside. Patient does not complain of any pain. Case discussed with Dr. Christensen. Medications: List reviewed. Physical Examination: Vital Signs: Temperature 98.3, heart rate 80, blood pressure 106/61, respirations 17, O2 of 95% on room air. General: Awake, alert, oriented x3. Elderly female, obese. CV: S1 and S2, irregularly irregular. Peripheral pulses present. Respiratory: Moving air well bilaterally. No wheezing or stridor. Gastrointestinal: Abdomen is soft, nontender, nondistended. Positive bowel sounds. Extremities: No clubbing, cyanosis, or edema. Musculoskeletal: Left lower extremity in splint with Baljinder wrapped. Neurologic: Nonfocal. Sensation intact to light touch. Patient able to wiggle her left toes, moves foot. Laboratory Data: Sodium 140, potassium 4, chloride 107, CO2 of 26, BUN 14, creatinine 0.84, glucose 157, calcium 7.9, AST 46, ALT 58, albumin 2.9. WBC 14.7, hemoglobin and hematocrit 12.7 and 37.3, platelets 239, 84% segmented neutrophils. Urine culture growing out mixed adri. Assessment And Plan: A 78-year-old female with; 1. Status post mechanical fall. 2. Left bimalleolar ankle fracture and proximal neck of fibula fracture, status post open reduction and internal fixation. We will start on Lovenox for deep venous thrombosis prophylaxis and patient work with PT as per Ortho recommendations. 3. History of transient ischemic attack, cerebrovascular accident. No residual deficits. Resume Plavix 24 hours post surgery. 4. Essential hypertension, stable. 5. History of meningioma, status post radiation therapy, stable. 6. History of atrial fibrillation, rate controlled. Continue beta-naresh. Patient was taking Plavix at home. No other chronic anticoagulation. 7. Obesity. BMI 32.6. 8. Hypokalemia, replaced. Plan: Patient is still on hospice, therefore cannot be accepted to inpatient rehab. We will discuss with Case Management and geriatric social worker regarding placement, may need to do physical therapy at home. We will have PT eval and go from there. /DOROTHEA Voice ID: [id number] Report ID: [id number] MTDD
[2019-03-21 06:06] LABS: Absolute Lymphocytes (CBC) 3.4 K/uL (0.7-4.9); Basophils % 0.2 % (0-1.3); Hematocrit 35.1 % (36.0-45.0); Lymphocytes % 21.7 % (15.3-44.8); MPV 9.1 fL (7.6-11.3); RBC Red Blood Cell Count 3.84 M/uL (3.86-4.86)
[2019-03-21 06:12] LABS: Bilirubin Total 0.5 mg/dL (0.2-1.0); Potassium 3.7 mmol/L (3.5-5.1); Protein, Total 5.6 g/dL (6.4-8.2)
[2019-03-21] MEDS: HYDROCODONE/APAP 10/325 TAB PO PRN ×3 (06:23→14:59)
[2019-03-21] MEDS ORDERED: POTASSIUM CL SA 10 MEQ TAB PO ONE (07:52)
[2019-03-21] MEDS: HYOSCYAMINE SULF 0.125 MG TAB PO SCH (08:31)
[2019-03-21] MEDS: GABAPENTIN 300 MG CAP PO SCH ×2 (08:32→13:45)
[2019-03-21] MEDS: CLOPIDOGREL 75 MG TABLET PO SCH (08:32)
[2019-03-21] MEDS: DIGOXIN 0.125 MG TABLET PO SCH (08:32)
[2019-03-21] MEDS: predniSONE 5 MG TAB PO SCH (08:32)
[2019-03-21] MEDS: DULOXETINE 30 MG CAP PO SCH (08:32)
[2019-03-21] MEDS: FELODIPINE 5 MG TAB PO SCH (08:32)
[2019-03-21] MEDS ORDERED: POTASSIUM CL SA 10 MEQ TAB PO SCH (09:00)
[2019-03-21] MEDS ORDERED: POTASSIUM 25 MEQ EFFERV TAB PO ONE (09:00)
[2019-03-21 11:47] VITALS: O2SAT 97
[2019-03-21 18:22] VITALS: BP 136/69; TEMP 98
--- NOTE | 2019-03-22 05:12 | PN ---
Date of Progress Note: 03/21/2019 Patient is seen today. She is resting comfortably in her room. She is in her splint. Her toes are pink and doing well. Pain appears to be under control. She wiggles her toes easily. She appears to be doing well. Primary obstacle is discharge planning. The hospitalist I think is working with the 7th grade social studies teacher for this. She is obviously okay to discharge with nonweightbearing on her left lower extremity. We would see her back for suture removal and placed in a cast in 2 weeks. Otherwise, all of her questions have been answered today. /DOROTHEA Voice ID: [id number] Report ID: [id number]
--- NOTE | 2019-03-22 05:57 | DS ---
Date of Discharge: 03/21/2019 Consultants: Dr. Alvarez with orthopedics, Dr. Christensen with cardiology. Procedures: On 03/19/2019, left ankle bimalleolar ankle fracture, open reduction and internal fixation of medial and lateral malleolus. Admitting Diagnoses: 1. Status post mechanical fall. 2. Left bimalleolar ankle fracture and proximal neck of fibula closed. initial encounter. 3. History of transient ischemic attack and cerebrovascular accident. No residual deficits. 4. Essential hypertension, stable. 5. History of meningioma, status post radiation therapy. 6. History of atrial fibrillation, rate controlled on Plavix only. Discharge Diagnoses: 1. Status post mechanical fall. 2. Left bimalleolar ankle fracture and proximal neck of fibula fracture, status post open reduction and internal fixation. 3. History of transient ischemic attack and cerebrovascular accident, stable. 4. Essential hypertension, stable. 5. History of meningioma, status post radiation therapy. 6. History of atrial fibrillation, rate controlled, on Plavix. 7. Obesity, BMI 32.6. 8. Hypokalemia, replaced. Hospital Course: Patient is a 78-year-old female who was in hospice for brain tumor apparently was stated to be a meningioma. Patient had radiation therapy and improved, however still on hospice. Patient also had history of TIA, CVA, hypertension, and AFib, on Plavix, comes in with mechanical fall and fracture of her left ankle. Patient was on hospice; therefore, the patient was admitted to the hospital by Dr. Alvarez under hospitalist service to facilitate her evaluation and treatment for the fracture and this was unable to be done as an outpatient basis. Hospice actually was not revoked as this was unrelated to her hospice diagnosis. The patient had ORIF as mentioned above by Dr. Alvarez. Patient was cleared by Dr. Christensen for surgery. Patient is not a good candidate for anticoagulation due to her comorbid conditions, history of falls, and history of brain tumor. Patient is on Plavix alone likely for her history of TIA and CVA. Patient did well postoperatively. She is nonweightbearing for 6 weeks. Unfortunately, due to patient's condition, she is not a candidate for rehab. Family also does not wish to revoke hospice. Granddaughter is the medical power of health care attorney. Patient cannot qualify for SNF as she is under observation status. Family does not wish to set up home health with PT as they wish to continue hospice care at home. They will likely need to get a bedside commode for her. They understand that patient is not weightbearing for 6 weeks and without physical therapy, patient will have a longer recovery time with risk of falls. They understand, they wish to take the patient under hospice care and to continue care and comfort measures. Patient was then discharged home. She was cleared from orthopedic standpoint. Condition On Discharge: Stable. Activity: Nonweightbearing on the right leg for 6 weeks. Diet: Heart healthy. Followup: Follow up with hospice doctor in 2 to 3 days. Follow up with Dr. Alvarez in 7 to 10 days. Return to ER for worsening condition. Medications: As per medication reconciliation list. Physical Examination: General: Awake, alert, and oriented x3. Elderly female, obese. CV: S1, S2. Irregularly irregular. Respiratory: Moving air well bilaterally. Abdomen: Abdomen is soft, nontender, and nondistended. Positive bowel sounds. Extremities: No clubbing, cyanosis, or edema. Neurologic: Nonfocal. SA/MODL Voice ID: [id number] Report ID: [id number] BRAYDEN
== END 2019-03-21 17:45 | disposition hospice, home (50) ==
LOC: 2ND 16:40 → INTOOBSV 16:40
PROVIDERS: ADMIT Family Medicine; ATTEND Family Medicine
PROC: 0QSH04Z Reposition Left Tibia with Internal Fixation Device, Open Approach (ICD-10-PCS; 2019-03-19)
PROC: 0QSK04Z Reposition Left Fibula with Internal Fixation Device, Open Approach (ICD-10-PCS; principal; 2019-03-19 14:00)
DX: S82.842A Displaced bimalleolar fracture of left lower leg, initial encounter for closed fracture (principal); W01.0XXA Fall on same level from slipping, tripping and stumbling without subsequent striking against object, initial encounter; Y92.009 Unspecified place in unspecified non-institutional (private) residence as the place of occurrence of the external cause; I10 Essential (primary) hypertension; I48.20 Chronic atrial fibrillation, unspecified; E03.9 Hypothyroidism, unspecified; Z86.73 Personal history of transient ischemic attack (TIA), and cerebral infarction without residual deficits; Z86.011 Personal history of benign neoplasm of the brain; Z88.6 Allergy status to analgesic agent; E66.9 Obesity, unspecified; Z68.34 Body mass index [BMI] 34.0-34.9, adult; E87.6 Hypokalemia; Z79.01 Long term (current) use of anticoagulants
CPT/HCPCS: 93005; 93306; 87088; 85025 ×4; 87086; 36415 ×3; 83735; 84100; 85610; 82962 ×2; 80053 ×4; 71046; 73600; 97110 ×3; 97112; 97161; 97530 ×5; 94760 ×6; 27814; J2704; J2370; J1650; J2250; J3010; J1100; J2270; J2795; J0690; G0378 ×7; J7799 ×3; J7120; G0379; 81003; 81015; J7512

== ENCOUNTER 2019-03-27 22:30 | Emergency (ER) | payer OTHER ==
[2019-03-28 00:39] LABS: Absolute Lymphocytes (CBC) 3.8 K/uL (0.7-4.9); Basophils % 1.3 % (0-1.3); Hematocrit 42.4 % (36.0-45.0); Lymphocytes % 29.1 % (15.3-44.8); MPV 8.3 fL (7.6-11.3); RBC Red Blood Cell Count 4.65 M/uL (3.86-4.86)
[2019-03-28 01:00] LABS: Potassium 3.5 mmol/L (3.5-5.1)
--- NOTE | 2019-03-28 01:35 | ER ---
Nurse's Notes [facility] Name: Radha Hastings Age: 78 yrs Sex: Female : 1940 Arrival Date: 03/27/2019 Time: 22:31 Bed 17 Private MD: Diagnosis: Contusion of other part of head;Sprain of ligaments of cervical spine;Fracture of shaft of fibula Presentation: 03/27 23:00 Presenting complaint: Patient states: Patient's granddaughter states: "At around 1400H cc3 this afternoon she fell at home from chair to potty chair unwitnessed and hit her head on the floor. She complains of abdominal pain, left foot pain, back and neck pain" Patient said she did not have loss of consciousness but cannot remember what she actually was doing prior to her fall. Patient and her granddaughter said she frequently falls at home whenever she transfers from her wheelchair. Patient's granddaughter said the ambulance were there at their house this afternoon when she first fell but patient refused to be transferred to a hospital that time but they were informed to go to a hospital in case her symptoms persists. Transition of care: patient was not received from another setting of care. Onset of symptoms was March 27, 2019 at 14:00. Risk Assessment: Do you want to hurt yourself or someone else? Patient reports no desire to harm self or others. Initial Sepsis Screen: Does the patient meet any 2 criteria? HR > 90 bpm. Does the patient have a suspected source of infection? No. Patient's initial sepsis screen is negative. Care prior to arrival: Medication(s) given: Patient said she took Tramadol prior to coming to ER. 23:00 Method Of Arrival: Wheelchair cc3 23:00 Acuity: NYASIA 3 cc3 23:00 Mechanism of Injury: Fall out of chair an unknown distance. Trauma event details: cc3 Injury occurred in the [facility]. Triage Assessment: 23:00 Headache History: Denies prior headaches. General: Appears in no apparent distress. cc3 uncomfortable, Behavior is calm, cooperative, appropriate for age. Pain: Complains of pain in abdomen, neck, left leg Pain currently is 8 out of 10 on a pain scale. Quality of pain is described as aching, Pain began 1400H today afternoon Also complains of no other associated symptoms. EENT: Reports pain in neck. Neuro: Level of Consciousness is awake, alert, obeys commands, Oriented to person, place, time, Hotel Receptionist are equal bilaterally Full function in bilateral hand(s) Gait is unsteady, Speech is normal, Facial symmetry appears normal, Pupils are PERRLA. Cardiovascular: Heart tones S1 S2 present Capillary refill < 3 seconds in bilateral fingers Patient's skin is warm and dry. Respiratory: Airway is patent Respiratory effort is even, unlabored, Respiratory pattern is regular, symmetrical, Breath sounds are clear bilaterally. GI: Abdomen is round non-distended, Bowel sounds present X 4 quads. : No signs and/or symptoms were reported regarding the genitourinary system. Derm: Bruising that is bright red, dark purple, on bilateral forearms, left hip. Musculoskeletal: Circulation, motion, and sensation intact. Range of motion: limited in left leg. Injury Description: Head injury. Trauma Activation: Physician: ED Physician; Name: ; Notified At: ; Arrived At: Physician: General Surgeon; Name: ; Notified At: ; Arrived At: Physician: Radiology; Name: ; Notified At: ; Arrived At: Physician: Respiratory; Name: ; Notified At: ; Arrived At: Physician: Lab; Name: ; Notified At: ; Arrived At: 23:00 n/a cc3 Historical: - Allergies: 23:00 ambien; cc3 23:00 Aspirin; cc3 23:00 Compazine; cc3 23:00 [place]; cc3 - Home Meds: 23:00 Bisacodyl Oral [Active]; Buspirone Oral [Active]; clopidogrel Oral [Active]; Digoxin cc3 Oral [Active]; duloxetine Oral [Active]; felodipine Oral [Active]; Hyoscyamine Sulfate SL [Active]; lisinopril Oral [Active]; Morphine Oral [Active]; Naproxen Oral [Active]; Prednisone Oral [Active]; tizanidine Oral [Active]; - PMHx: 23:00 Atrial Fib; BRAIN TUMOR; Hypertension; Thyroid problem; cc3 - PSHx: 23:00 left leg surgery; cc3 - Immunization history:: Adult Immunizations not up to date. - Social history:: Smoking status: Patient/guardian denies using tobacco, never smoked. - Immunization history: Last tetanus immunization: unknown. - Ebola Screening: : No symptoms or risks identified at this time. Screenin:00 Abuse screen: Denies threats or abuse. Denies injuries from another. Nutritional cc3 screening: No deficits noted. Tuberculosis screening: No symptoms or risk factors identified. Fall Risk Ambulatory Aid- None/Bed Rest/Nurse Assist (0 pts). Gait- Impaired (20 pts.). Mental Status- Oriented to own ability (0 pts). Primary Survey: 23:00 NO uncontrolled hemorrhage observed. A: The patient is alert. Airway: patent, No cc3 supplemental oxygen in use on arrival. Oral cavity: clear, gag reflex present, Trachea midline. Breathing/Chest: Respiratory pattern: regular, Respiratory effort: spontaneous, unlabored, Breath sounds: clear, bilaterally. Chest inspection: symmetrical rise and fall of the chest. Circulation: Cardiac rhythm: atrial fibrillation Heart tones present. Skin temperature: warm, dry. Disability Alert. Exposure/Environment: All clothing and personal items were removed. Forensic evidence collection is not deemed to be indicated at this time. Items placed in patient belonging bag. There is no evidence of uncontrolled external bleeding. No obvious injuries are noted at this time. A warming method has been applied: A warm blanket has been provided to the patient. 23:00 Reassessment Airway Airway Patent Breathing/Chest Respiratory pattern Regular cc3 Respiratory effort Spontaneous Unlabored Breath sounds Clear Chest inspection Symmetrical Circulation Heart tones Present Disability Alert. Secondary Survey: 23:00 HEENT: Head No injury/deformity Face No injury/deformity Eyes: No injury or deformity cc3 noted. to bilateral eyes. Ears: clear bilaterally. Nose: clear to bilateral nares. Gastrointestinal: Abdomen is soft, non-distended, Bowel sounds present in all quadrants. Palpation No deficit noted. : No signs and/or symptoms were reported regarding the genitourinary system. Musculoskeletal: Range of motion: limited in left leg. Injury Description: head trauma and injury to left leg. Assessment: 23:00 General: see triage assessment. cc3 03/28 00:17 Reassessment: Patient appears in no apparent distress at this time. Patient and/or cc3 family updated on plan of care and expected duration. Pain level reassessed. Patient is alert, oriented x 3, equal unlabored respirations, skin warm/dry/pink. 01:00 Reassessment: Patient appears in no apparent distress at this time. Patient and/or cc3 family updated on plan of care and expected duration. Pain level reassessed. Patient is alert, oriented x 3, equal unlabored respirations, skin warm/dry/pink. Patient came back from CT scan department, awaiting result. 01:50 Reassessment: Patient appears in no apparent distress at this time. Patient and/or cc3 family updated on plan of care and expected duration. Pain level reassessed. Patient is alert, oriented x 3, equal unlabored respirations, skin warm/dry/pink. Dr. Cade ordered discharge for the patient. Called Kendra (patient's granddaughter) in her mobile number [phone] and informed her that the patient is for discharge home. 02:30 Reassessment: Patient appears in no apparent distress at this time. Patient and/or cc3 family updated on plan of care and expected duration. Pain level reassessed. Patient is alert, oriented x 3, equal unlabored respirations, skin warm/dry/pink. Patient's granddaughter came and Dr. Cade explained her regarding the patient's case. Dr. Cade said no need to put a knee immobilizer now on the patient's left leg then discharged the patient home. IV cannula removed and patient left ER vitally stable by wheelchair escorted by me and the patient's granddaughter. No valuables left in the patient's room. Patient states feeling better. Patient states symptoms have improved. Vital Signs: 03/27 23:00 BP 118 / 89; Pulse 94; Resp 17 S; Temp 98.1(O); Pulse Ox 98% on R/A; Weight 83.91 kg cc3 (R); Height 5 ft. 4 in. (162.56 cm) (R); Pain 8/10; 03/28 00:30 BP 145 / 96; Pulse 85; Resp 14 S; Pulse Ox 100% on R/A; cc3 01:15 BP 152 / 90; Pulse 82; Resp 17 S; Pulse Ox 96% on R/A; cc3 02:20 BP 139 / 89; Pulse 85; Resp 16 S; Pulse Ox 98% on R/A; Pain 4/10; cc3 03/27 23:00 Body Mass Index 31.75 (83.91 kg, 162.56 cm) cc3 Houston Coma Score: 03/27 23:00 Eye Response: spontaneous(4). Verbal Response: oriented(5). Motor Response: obeys cc3 commands(6). Total: 15. Trauma Score (Adult): 23:00 Eye Response: spontaneous(1); Verbal Response: oriented(1); Motor Response: obeys cc3 commands(2); Systolic BP: > 89 mm Hg(4); Respiratory Rate: 10 to 29 per min(4); [place] Score: 15; Trauma Score: 12 ED Course: 22:31 Patient arrived in ED. ag3 23:00 Patient maintains SpO2 saturation greater than 95% on room air. cc3 23:00 Thermoregulation: warm blanket given to patient. cc3 23:00 Arm band placed on right wrist. Patient notified of wait time. cc3 23:00 Patient has correct armband on for positive identification. Placed in gown. Bed in low cc3 position. Call light in reach. Side rails up X2. patient monitor on. Pulse ox on. NIBP on. 23:07 Lisa Pastrana is Primary Nurse. cc3 23:25 Kuldeep Cade MD is Attending Physician. gs 23:48 Triage completed. cc3 23:55 Inserted saline lock: 24 gauge in left forearm, using aseptic technique. Blood cc3 collected. inserted by EREN Rivera. 03/28 00:23 Radiology exam delayed due to Patient is currently having X-Rays completed. kw1 01:03 Knee Left 3 View XRAY In Process Unspecified. EDMS 01:03 Knee Right 3 View XRAY In Process Unspecified. EDMS 01:07 CT Head C Spine In Process Unspecified. EDMS 02:30 No provider procedures requiring assistance completed. IV discontinued, intact, cc3 bleeding controlled, No redness/swelling at site. Pressure dressing applied. Administered Medications: 01:45 Drug: morphine 4 mg {Note: RASS 0.} Route: IVP; Site: left forearm; cc3 02:30 Follow up: Response: No adverse reaction; Pain is decreased; RASS: Alert and Calm (0) cc3 Intake: 02:30 PO: 0ml; Total: 0ml. cc3 Outcome: 01:33 Discharge ordered by . gs 02:30 Discharged to home via wheelchair, with family. cc3 02:30 Condition: stable 02:30 Discharge instructions given to patient, family, Instructed on discharge instructions, follow up and referral plans. Demonstrated understanding of instructions, follow-up care. 02:30 Patient's length of stay in the Emergency Department was greater than 2 hours. waited cc3 for diagnostic exam resultsPatient's length of stay extended due to 02:44 Patient left the ED. cc3 Signatures: Dispatcher [employer] EDMS Kuldeep Cade MD MD Tamanna Schreiber kw1 Lisa Pastrana cc3 Faviola Monte ag3 Corrections: (The following items were deleted from the chart) 03/27 23:54 23:00 Presenting complaint: Patient states: Patient's daughter states: "At around 1400H cc3 this afternoon she fell at home from chair to potty chair unwitnessed and hit her head on the floor. She complains of abdominal pain, left foot pain, back and neck pain" Patient said she did not have loss of consciousness but cannot remember what she actually was doing prior to her fall. Patient and her daughter said she frequently falls at home whenever she transfers from her wheelchair. Patient's daughter said the ambulance were there at their house this afternoon when she first fell but patient refused to be transferred to a hospital that time but they were informed to go to a hospital in case her symptoms persists. cc3 03/28 03:14 03/27 23:00 Derm: Bruising that is bright red, dark purple, on bilateral forearms cc3 cc3
--- NOTE | 2019-03-28 01:35 | EDPHYS ---
Physician Documentation [facility] Name: Radha Hastings Age: 78 yrs Sex: Female : 1940 Arrival Date: 03/27/2019 Time: 22:31 Bed 17 Private MD: ED Physician Kuldeep Cade HPI: 03/28 01:26 This 78 yrs old Female presents to ER via Wheelchair with complaints of Fall gs Injury. 01:26 Details of fall: The patient fell from an upright position. Onset: The symptoms/episode gs began/occurred 5 day(s) ago. Associated injuries: The patient sustained injury to the head, contusion, neck injury, pain with movement. Severity of symptoms: At their worst the symptoms were moderate, in the emergency department the symptoms are unchanged. The patient has experienced similar episodes in the past, several times, HAS WOUND ON LEFT FOOT SOSA BANDAGE SLIDES ON FLOOR. Historical: - Allergies: 03/27 23:00 ambien; cc3 23:00 Aspirin; cc3 23:00 Compazine; cc3 23:00 [place]; cc3 - Home Meds: 23:00 Bisacodyl Oral [Active]; Buspirone Oral [Active]; clopidogrel Oral [Active]; Digoxin cc3 Oral [Active]; duloxetine Oral [Active]; felodipine Oral [Active]; Hyoscyamine Sulfate SL [Active]; lisinopril Oral [Active]; Morphine Oral [Active]; Naproxen Oral [Active]; Prednisone Oral [Active]; tizanidine Oral [Active]; - PMHx: 23:00 Atrial Fib; BRAIN TUMOR; Hypertension; Thyroid problem; cc3 - PSHx: 23:00 left leg surgery; cc3 - Immunization history:: Adult Immunizations not up to date. - Social history:: Smoking status: Patient/guardian denies using tobacco, never smoked. - Immunization history: Last tetanus immunization: unknown. - Ebola Screening: : No symptoms or risks identified at this time. ROS: 03/28 01:26 All other systems are negative. gs Exam: 01:26 Head/Face: Normocephalic, atraumatic. Eyes: Pupils equal round and reactive to light, gs extra-ocular motions intact. Lids and lashes normal. Conjunctiva and sclera are non-icteric and not injected. Cornea within normal limits. Periorbital areas with no swelling, redness, or edema. ENT: Nares patent. No nasal discharge, no septal abnormalities noted. Tympanic membranes are normal and external auditory canals are clear. Oropharynx with no redness, swelling, or masses, exudates, or evidence of obstruction, uvula midline. Mucous membranes moist. Chest/axilla: Normal chest wall appearance and motion. Nontender with no deformity. No lesions are appreciated. Respiratory: Lungs have equal breath sounds bilaterally, clear to auscultation and percussion. No rales, rhonchi or wheezes noted. No increased work of breathing, no retractions or nasal flaring. Abdomen/GI: Soft, non-tender, with normal bowel sounds. No distension or tympany. No guarding or rebound. No evidence of tenderness throughout. Back: No spinal tenderness. No costovertebral tenderness. Full range of motion. 01:26 Neuro: Awake and alert, GCS 15, oriented to person, place, time, and situation. Cranial nerves II-XII grossly intact. Motor strength 5/5 in all extremities. Sensory grossly intact. Cerebellar exam normal. Normal gait. 01:26 Constitutional: The patient appears alert, awake. 01:26 Neck: C-spine: vertebral tenderness, that is moderate, appreciated at C3 and C4. 01:26 Cardiovascular: Rate: normal, Rhythm: irregularly irregular, Pulses: no pulse deficits are appreciated. 01:26 Musculoskeletal/extremity: Extremities: no acute changes, Perfusion: the patient is normally perfused throughout. 01:34 Musculoskeletal/extremity: Joints: the left knee and right knee displays tenderness. Vital Signs: 03/27 23:00 BP 118 / 89; Pulse 94; Resp 17 S; Temp 98.1(O); Pulse Ox 98% on R/A; Weight 83.91 kg cc3 (R); Height 5 ft. 4 in. (162.56 cm) (R); Pain 8/10; 03/28 00:30 BP 145 / 96; Pulse 85; Resp 14 S; Pulse Ox 100% on R/A; cc3 01:15 BP 152 / 90; Pulse 82; Resp 17 S; Pulse Ox 96% on R/A; cc3 02:20 BP 139 / 89; Pulse 85; Resp 16 S; Pulse Ox 98% on R/A; Pain 4/10; cc3 10/24 23:00 Body Mass Index 31.75 (83.91 kg, 162.56 cm) cc3 Powers Coma Score: 03/27 23:00 Eye Response: spontaneous(4). Verbal Response: oriented(5). Motor Response: obeys cc3 commands(6). Total: 15. Trauma Score (Adult): 23:00 Eye Response: spontaneous(1); Verbal Response: oriented(1); Motor Response: obeys cc3 commands(2); Systolic BP: > 89 mm Hg(4); Respiratory Rate: 10 to 29 per min(4); Powers Score: 15; Trauma Score: 12 MDM: 03/28 00:02 Patient medically screened. : Differential diagnosis: closed head injury, contusion, fracture. Data reviewed: vital gs signs, nurses notes, lab test result(s), EKG, radiologic studies. Response to treatment: the patient's symptoms have markedly improved after treatment, and as a result, I will discharge patient. 03/27 23:26 Order name: C-Reactive Protein; Complete Time: 03/27 23: Order name: ESR; Complete Time: 03/28 00:03 Order name: CBC with Diff; Complete Time: 03/28 00:03 Order name: Basic Metabolic Panel; Complete Time: 03/28 00:03 Order name: Knee Left 3 View XRAY 03/28 00:03 Order name: Knee Right 3 View XRAY 03/28 00:03 Order name: EKG - Nurse/Tech; Complete Time: 03/28 00:18 Order name: CT Head C Spine gs Administered Medications: 01:45 Drug: morphine 4 mg {Note: RASS 0.} Route: IVP; Site: left forearm; cc3 02:30 Follow up: Response: No adverse reaction; Pain is decreased; RASS: Alert and Calm (0) cc3 Disposition: 03/28/19 01:33 Discharged to Home. Impression: Contusion of other part of head, Sprain of ligaments of cervical spine, Fracture of shaft of fibula. - Condition is Stable. - Discharge Instructions: Head Injury, Adult, Tibial and Fibular Fracture, Adult, Cervical Sprain. - Medication Reconciliation Form, Thank You Letter, Antibiotic Education, Prescription Opioid Use, SBAR form form. - Follow up: Private Physician; When: 2 - 3 days; Reason: Re-evaluation by your physician. Signatures: Dispatcher [employer] [facility] Kuldeep Cade MD MD Lisa Pastrana cc3 Corrections: (The following items were deleted from the chart) 00:35 00:04 C Spine Wo Con+CT.RAD.BRZ ordered. EDVT EDVT 00:36 03/27 23:26 Head Brain Wo Cont+CT.RAD.BRZ ordered. [facility] 03/28 02:44 01:34 Knee Immobilizer ordered. cc3 02:44 01:33 03/28/2019 01:33 Discharged to Home. Impression: Contusion of other part of head; cc3 Sprain of ligaments of cervical spine; Fracture of shaft of fibula. Condition is Stable. Forms are SBAR form, Medication Reconciliation Form, Thank You Letter, Antibiotic Education, Prescription Opioid Use. Follow up: Private Physician; When: 2 - 3 days; Reason: Re-evaluation by your physician.
[2019-03-28] MEDS ORDERED: MORPHINE 4 MG/ML SYR ONE (01:44)
[2019-03-28 03:12] VITALS: TEMP 98.1
[2019-03-28 03:15] VITALS: BP 152/90; O2SAT 96
--- NOTE | 2019-03-28 07:22 | EKG ---
Test Date: 2019-03-28 Test Time: 00:16:24 Hand Plug Shaper: FERN MEASUREMENT RESULTS: Intervals: Rate: 83 UT: QRSD: 86 QT: 380 QTc: 446 [place]: P: UT: QRS: 30 T: -42 INTERPRETIVE STATEMENTS: Atrial fibrillation Anteroseptal infarct, age undetermined Abnormal ECG Compared to ECG 03/18/2019 17:27:28 Myocardial infarct finding now present ST (T wave) deviation no longer present Electronically Signed On 03-28-19 07:21:42 CDT by Leonid Christensen
--- NOTE | 2019-03-28 08:28 | RAD REPORT ---
EXAM DESCRIPTION: RAD - Knee Left 3 View - 03/28/2019 1:03 am CLINICAL HISTORY: PAIN COMPARISON: No comparisons FINDINGS: Mildly impacted fracture affects the proximal fibular neck. No additional fracture or disl ocation seen. Trace suprapatellar joint effusion.
--- NOTE | 2019-03-28 08:30 | RAD REPORT ---
EXAM DESCRIPTION: RAD - Knee Right 3 View - 03/28/2019 1:03 am CLINICAL HISTORY: PAIN COMPARISON: No comparisons FINDINGS: No fracture, dislocation or joint effusion identified.
--- NOTE | 2019-03-31 14:38 | RAD REPORT ---
EXAM DESCRIPTION: Head C Spine Mpr Wo Con CLINICAL HISTORY: PAIN COMPARISON: None. TECHNIQUE: CT HEAD NECK WITHOUT IV CONTRAST on 03/28/2019 12:18 AM CDT This exam was performed according to our departmental dose-optimization program, which includes autom ated exposure control, adjustment of the mA and/or kV according to patient size and/or use of iterati ve reconstruction technique. FINDINGS: Brain: There is no acute hemorrhage, mass effect or midline shift. There are small old lef t basal ganglia lacunar infarcts. There is no hydrocephalus. There is no significant volume loss for age. The calvarium is intact. Orbits and globes are unremarkable. The paranasal sinuses are clear. Mastoid air cells are clear. Cervical Spine: There is no acute fracture. Alignment is anatomic. There is fusion of C4-5 and C5-6 d iscs. There are ventral osteophytes in the lower cervical spine. There is moderate diffuse facet arth ritis. Disc spaces are maintained. Vertebral body heights are preserved. Soft tissues are unremarkable. IMPRESSION: No definite post traumatic findings. Electronically signed by: Robert Villanueva MD 03/28/2019 1:15 AM CDT Due to temporary technical issues with the PACS/Fluency reporting system, reports are being signed by the in house radiologist as a courtesy to ensure prompt reporting. The interpreting radiologist is f ully responsible for the content of the report.
== END 2019-03-28 02:44 | disposition home or self-care (01) ==
LOC: ER 22:30
DX: S82.402A Unspecified fracture of shaft of left fibula, initial encounter for closed fracture (principal); S13.4XXA Sprain of ligaments of cervical spine, initial encounter; W19.XXXA Unspecified fall, initial encounter; Y93.9 Activity, unspecified; Y92.9 Unspecified place or not applicable; Z88.6 Allergy status to analgesic agent; Z88.8 Allergy status to other drugs, medicaments and biological substances; Z91.018 Allergy to other foods; I10 Essential (primary) hypertension; I48.91 Unspecified atrial fibrillation; E07.9 Disorder of thyroid, unspecified
CPT/HCPCS: 36415; 70450; 72125; 80048; 85025; 85652; 86140; 93005; 96374; 99285

== ENCOUNTER 2019-04-22 13:03 | Emergency (ER) | payer OTHER ==
--- NOTE | 2019-04-22 14:35 | RAD REPORT ---
EXAM DESCRIPTION: RAD - Wrist Right 3 View - 04/22/2019 2:24 pm CLINICAL HISTORY: PAIN Fall, pain COMPARISON: None FINDINGS: Right wrist and right hand- multiple projections are submitted Diffuse osteopenia. Ulnar styloid fracture is likely present and there is mild adjacent soft tissue s welling. A small fracture of the triquetrum is also suspected. Deformity of the distal fifth metacarp al is seen, which may be old. Recommend correlation with point tenderness in this location.
[2019-04-22] MEDS ORDERED: HYDROCODONE/APAP 5/325 MG TAB ONE (14:50)
--- NOTE | 2019-04-22 15:10 | EDPHYS ---
Physician Documentation [facility] Name: Radha Hastings Age: 78 yrs Sex: Female : 1940 Arrival Date: 04/22/2019 Time: 13:06 Bed 14 Private MD: ED Physician Moises Helms HPI: 04/22 15:07 This 78 yrs old Female presents to ER via Wheelchair with complaints of Fall pm1 Injury, Wrist Injury. 15:07 Details of fall: The patient fell from an upright position, while standing, and struck pm1 a carpeted surface. 15:07 Onset: The symptoms/episode began/occurred today. Associated injuries: The patient pm1 sustained right wrist. Severity of symptoms: in the emergency department the symptoms are unchanged. right 5th metacarpal fracture that heal incorrectly due to patient not following up with ortho. The patient has been recently seen by a physician: with different complaint(s), left lower extremity surgery by Dr. Alvarez. Cast present on left lower extermity. Patient was walking/hopping around on her left lower leg cast (not supposed) and she lost her balance and fell to the side and injured her right wrist. No headache, head injury, neck pain, LOC. Historical: - Allergies: 13:18 ambien; hb 13:18 Aspirin; hb 13:18 Compazine; hb 13:18 Harrison; hb - PMHx: 13:18 BRAIN TUMOR; Hypertension; Atrial Fib; Thyroid problem; hb 15:25 Opioid dependence; ph - PSHx: 13:18 left leg surgery; hb - Immunization history:: Adult Immunizations up to date. - Social history:: Smoking status: Patient/guardian denies using tobacco. - Ebola Screening: : No symptoms or risks identified at this time. ROS: 15:07 Constitutional: Negative for fever, chills, and weight loss, Neck: Negative for injury, pm1 pain, and swelling, Cardiovascular: Negative for chest pain, palpitations, and edema, Respiratory: Negative for shortness of breath, cough, wheezing, and pleuritic chest pain, Abdomen/GI: Negative for abdominal pain, nausea, vomiting, diarrhea, and constipation, Back: Negative for injury and pain. 15:07 Skin: Negative for injury, rash, and discoloration, Neuro: Negative for headache, weakness, numbness, tingling, and seizure. 15:07 MS/extremity: Positive for pain, swelling, tenderness, of the right wrist, Negative for paresthesias, tingling. Exam: 15:07 Constitutional: This is a well developed, well nourished patient who is awake, alert, pm1 and in no acute distress. Head/Face: Normocephalic, atraumatic. Neck: Trachea midline, no thyromegaly or masses palpated, and no cervical lymphadenopathy. Supple, full range of motion without nuchal rigidity, or vertebral point tenderness. No Meningismus. Chest/axilla: Normal chest wall appearance and motion. Nontender with no deformity. No lesions are appreciated. Cardiovascular: Regular rate and rhythm with a normal S1 and S2. No gallops, murmurs, or rubs. Normal PMI, no JVD. No pulse deficits. Respiratory: Lungs have equal breath sounds bilaterally, clear to auscultation and percussion. No rales, rhonchi or wheezes noted. No increased work of breathing, no retractions or nasal flaring. Abdomen/GI: Soft, non-tender, with normal bowel sounds. No distension or tympany. No guarding or rebound. No evidence of tenderness throughout. Back: No spinal tenderness. No costovertebral tenderness. Full range of motion. Skin: Warm, dry with normal turgor. Normal color with no rashes, no lesions, and no evidence of cellulitis. 15:07 Musculoskeletal/extremity: Extremities: grossly normal except: noted in the dorsal aspect of right wrist: tenderness, There is no evidence of laceration. Vital Signs: 13:18 BP 112 / 77; Pulse 68; Resp 16; Temp 97.5; Pulse Ox 100% on R/A; Weight 81.65 kg; hb Height 5 ft. 4 in. (162.56 cm); Pain 06/13; 13:18 Body Mass Index 30.90 (81.65 kg, 162.56 cm) hb Procedures: 18:24 Splinting: Splint applied to right wrist using Sugar tong splint. applied by tech. pm1 Examined by me, post splint application: neurovascular intact, 2+ distal pulses palpable, brisk capillary refill noted, Patient tolerated well. MDM: 13:22 Patient medically screened. pm1 13:40 ED course: Daughter who has medical power of staff attorney present in the room does not want pm1 the patient to receive any narcotics in the ER. Patient has tramadol at home and it works according to the daughter. The patient wants additional pain medications, but the daughter said no.. 15:08 Data reviewed: vital signs. Data interpreted: Pulse oximetry: on room air is 100 %. pm1 Interpretation: normal. Counseling: I had a detailed discussion with the patient and/or guardian regarding: the historical points, exam findings, and any diagnostic results supporting the discharge/admit diagnosis, radiology results, the need for outpatient follow up, for definitive care, a orthopedic surgeon, to return to the emergency department if symptoms worsen or persist or if there are any questions or concerns that arise at home. 04/22 13:40 Order name: Wrist Right 3 View XRAY; Complete Time: 14:59 pm1 04/22 13:40 Order name: Hand Right 3 View XRAY pm1 04/22 15:07 Order name: Sugar Tong Forearm Splint; Complete Time: 15:39 pm1 04/22 15:07 Order name: Sling; Complete Time: 15:39 pm1 Administered Medications: 14:59 Drug: Newsoms 5 mg-325 mg 1 tabs Route: PO; ph 15:39 Follow up: Response: No adverse reaction; Pain is decreased; RASS: Alert and Calm (0) ph Disposition: 04/22/19 15:10 Discharged to Home. Impression: Nondisplaced fracture of right ulna styloid process, Nondisplaced fracture of triquetrum [cuneiform] bone, left wrist. - Condition is Stable. - Discharge Instructions: Wrist Fracture Treated With Immobilization. - Medication Reconciliation Form, Thank You Letter, Antibiotic Education, Prescription Opioid Use form. - Follow up: Emergency Department; When: As needed; Reason: Worsening of condition. Follow up: Jim Singer MD; When: 2 - 3 days; Reason: Recheck today's complaints, Continuance of care, Re-evaluation by your physician. - Problem is new. - Symptoms have improved. Addendum: 04/28/2019 07:07 Co-signature as Attending Physician, Moises Helms MD Did not see or evaluate patient. p s1 Chart signed for administrative purposes. Not and endorsement of care. . Signatures: Dispatcher [employer] Rekha Sanchez RN RN ph Marck Miller, PAULY DYEING MACHINE BACK TENDER pm1 Melany Lundberg, EREN RN hb Moises Helms MD MD ps1 Corrections: (The following items were deleted from the chart) 04/22 16:21 15:10 04/22/2019 15:10 Discharged to Home. Impression: Nondisplaced fracture of right ph ulna styloid process; Nondisplaced fracture of triquetrum [cuneiform] bone, left wrist. Condition is Stable. Forms are Medication Reconciliation Form, Thank You Letter, Antibiotic Education, Prescription Opioid Use. Follow up: Emergency Department; When: As needed; Reason: Worsening of condition. Follow up: Dr. Jim Signer; When: 2 - 3 days; Reason: Recheck today's complaints, Continuance of care, Re-evaluation by your physician. Problem is new. Symptoms have improved. pm1
--- NOTE | 2019-04-22 15:10 | ER ---
Nurse's Notes [facility] Name: Radha Hastings Age: 78 yrs Sex: Female : 1940 Arrival Date: 04/22/2019 Time: 13:06 Bed 14 Private MD: Diagnosis: Nondisplaced fracture of right ulna styloid process;Nondisplaced fracture of triquetrum [cuneiform] bone, left wrist Presentation: 04/22 13:16 Presenting complaint: Slipped while transferring from chair, landed on buttocks and hb outstretched right hand, c/o right wrist and hand pain 03/13. Care prior to arrival: None. 13:16 Method Of Arrival: Wheelchair hb 13:16 Acuity: NYASIA 4 hb 15:38 Transition of care: patient was not received from another setting of care. Onset of ph symptoms was April 22, 2019. Risk Assessment: Do you want to hurt yourself or someone else? Patient reports no desire to harm self or others. Initial Sepsis Screen: Does the patient meet any 2 criteria? No. Patient's initial sepsis screen is negative. Does the patient have a suspected source of infection? No. Patient's initial sepsis screen is negative. Historical: - Allergies: 13:18 ambien; hb 13:18 Aspirin; hb 13:18 Compazine; hb 13:18 Luis Llorens Torres; hb - PMHx: 13:18 BRAIN TUMOR; Hypertension; Atrial Fib; Thyroid problem; hb 15:25 Opioid dependence; ph - PSHx: 13:18 left leg surgery; hb - Immunization history:: Adult Immunizations up to date. - Social history:: Smoking status: Patient/guardian denies using tobacco. - Ebola Screening: : No symptoms or risks identified at this time. Screenin:36 Abuse screen: Denies threats or abuse. Denies injuries from another. Nutritional ph screening: No deficits noted. Tuberculosis screening: No symptoms or risk factors identified. Fall Risk Fall in past 12 months (25 points). No secondary diagnosis (0 pts). No IV (0 pts). Ambulatory Aid- Crutches/Cane/Walker (15 pts). Gait- Impaired (20 pts.). Mental Status- Oriented to own ability (0 pts). Total Golden Fall Scale indicates High Risk Score (45 or more points). Fall prevention measures have been instituted. Side Rails Up X 2 Placed Close to Nursing Station Frequent Obs/Assessments Occuring Family Present and informed to notify staff if the need to leave the bedside As available patient and family educated on Fall Prevention Program and Strategies. Assessment: 13:45 General: Appears in no apparent distress. comfortable, well groomed, Behavior is calm, ph cooperative, appropriate for age. Pain: Complains of pain in right wrist and right hand Pain radiates to dorsal aspect of right forearm. Neuro: Level of Consciousness is awake, alert, obeys commands, Oriented to person, place, time, situation. Cardiovascular: Capillary refill < 3 seconds in bilateral fingers Patient's skin is warm and dry. Respiratory: Airway is patent Respiratory effort is even, unlabored. Derm: Skin is fragile, is thin, Skin is pink, warm \T\ dry. Musculoskeletal: Circulation, motion, and sensation intact. Range of motion: intact in all extremities, cast noted to L foot. 15:22 Reassessment: Patient appears in no apparent distress at this time. Patient and/or ph family updated on plan of care and expected duration. Pain level reassessed. Patient is alert, oriented x 3, equal unlabored respirations, skin warm/dry/pink. Pt sitting in wheelchair at bedside, family at bedside. Vital Signs: 13:18 BP 112 / 77; Pulse 68; Resp 16; Temp 97.5; Pulse Ox 100% on R/A; Weight 81.65 kg; hb Height 5 ft. 4 in. (162.56 cm); Pain 06/13; 13:18 Body Mass Index 30.90 (81.65 kg, 162.56 cm) hb ED Course: 13:06 Patient arrived in ED. mr 13:17 Triage completed. hb 13:19 Arm band placed on. hb 13:21 Rekha Corley, EREN is Primary Nurse. ph 13:22 Marck Miller NP is PHCP. pm1 13:22 Moises Helms MD is Attending Physician. pm1 14:22 X-ray completed. Portable x-ray completed in exam room. Patient tolerated procedure jb2 well. 14:25 Wrist Right 3 View XRAY In Process Unspecified. EDMS 14:25 Hand Right 3 View XRAY In Process Unspecified. EDMS 15:08 Jim Singer MD is Referral Physician. pm1 15:38 Patient has correct armband on for positive identification. Call light in reach. Door ph closed. Noise minimized. 15:43 Orthoglass splint: Sugar tong splint applied on right arm. Sling applied to right arm. em1 16:19 No provider procedures requiring assistance completed. Patient did not have IV access ph during this emergency room visit. Administered Medications: 14:59 Drug: Vincent 5 mg-325 mg 1 tabs Route: PO; ph 15:39 Follow up: Response: No adverse reaction; Pain is decreased; RASS: Alert and Calm (0) ph Outcome: 15:10 Discharge ordered by MD. pm1 16:19 Discharged to home via wheelchair, with family. ph 16:19 Condition: good 16:19 Discharge instructions given to patient, family, Instructed on discharge instructions, follow up and referral plans. medication usage, Demonstrated understanding of instructions, follow-up care, medications, splint care. 16:21 Patient left the ED. ph 17:24 Instructed on called pt granddaughter to ask pt be brought back to ER for replacement iw of splint that was placed originally, granddaughter states they have a f/u appt with ortho in two days, Marck COATS requests pt return today if possible, granddaughter agrees Signatures: Dispatcher [employer] MARIA E Zia Felipa De La VegaDenny jb2 [place] Rosales RN RN iw Martinez, Eric em1 Rekha Corley RN RN ph Marinas, Patrick, NP [employer] HARVESTING SUPERVISOR pm1 Melany Lundberg RN RN
[2019-04-22 16:53] VITALS: BP 112/77; TEMP 97.5; O2SAT 100
== END 2019-04-22 16:21 | disposition home or self-care (01) ==
LOC: ER 13:03
PROC: 2W3CX1Z Immobilization of Right Lower Arm using Splint (ICD-10-PCS; principal; 2019-04-22)
DX: S52.614A Nondisplaced fracture of right ulna styloid process, initial encounter for closed fracture (principal); S62.115A Nondisplaced fracture of triquetrum [cuneiform] bone, left wrist, initial encounter for closed fracture; W01.0XXA Fall on same level from slipping, tripping and stumbling without subsequent striking against object, initial encounter; Y93.89 Activity, other specified; Y92.9 Unspecified place or not applicable; Z88.6 Allergy status to analgesic agent; Z91.018 Allergy to other foods
CPT/HCPCS: 99283

== ENCOUNTER 2019-07-16 22:06 | Emergency (ER) | payer OTHER ==
[2019-07-17 00:13] LABS: Absolute Lymphocytes (CBC) 3.6 K/uL (0.7-4.9); Hematocrit 41.6 % (36.0-45.0); Lymphocytes % 36.9 % (15.3-44.8); MPV 9.9 fL (7.6-11.3); RBC Red Blood Cell Count 4.72 M/uL (3.86-4.86)
[2019-07-17 01:10] LABS: BUN Blood Urea Nitrogen 12 mg/dL (7-18); Bicarbonate 25 mmol/L (21-32); Glucose Level 95 mg/dL (74-106); NT PRO-BNP 742 pg/mL (<450); Sodium Level 140 mmol/L (136-145); Thyroid Stimulating Hormone 0.424 uIU/mL (0.360-3.740); Troponin (Emerg Dept Use Only) < 0.02 ng/mL (0.0-0.045)
--- NOTE | 2019-07-17 01:30 | ER ---
Nurse's Notes [facility] Name: Radha Hastings Age: 79 yrs Sex: Female : 1940 Arrival Date: 07/16/2019 Time: 22:08 Bed 7 Private MD: Diagnosis: Hypertension Presentation: 07/16 22:10 Presenting complaint: family states that pt's BP has been elevated all evening and she aa1 was concerned bc she gave her her PRN doxazosin and it is still elevated. Reports BP max at home of 184/106. States pt also had brief episode of CP at home which lasted only a couple minutes then resolved. Denies pain at this time. States, "I just feel kind of winded.". Transition of care: patient was not received from another setting of care. Onset of symptoms was July 16, 2019. Risk Assessment: Do you want to hurt yourself or someone else? Patient reports no desire to harm self or others. Initial Sepsis Screen: Does the patient meet any 2 criteria? No. Patient's initial sepsis screen is negative. Does the patient have a suspected source of infection? No. Patient's initial sepsis screen is negative. Care prior to arrival: None. 22:10 Method Of Arrival: Ambulatory aa1 22:10 Acuity: NYASIA 3 aa1 Triage Assessment: 22:10 General: Appears in no apparent distress. comfortable, Behavior is calm, cooperative, aa1 appropriate for age. Pain: Denies pain. Historical: - Allergies: 22:33 ambien; aa1 22:33 Compazine; aa1 22:33 Jean Claude; aa1 - Home Meds: 22:33 lisinopril 40 mg oral tab 1 tab once daily [Active]; felodipine 10 mg oral Tb24 1 tab aa1 once daily [Active]; digoxin 250 mcg oral tab 1 tab once daily [Active]; clopidogrel 75 mg oral tab 1 tab once daily [Active]; gabapentin 300 mg oral cap 1 cap twice a day [Active]; carbamazepine 200 mg Oral tab 1 tab nightly [Active]; levothyroxine 125 mcg tab 1 tab once daily [Active]; duloxetine 60 mg oral cpDR 1 cap once daily [Active]; prednisone 10 mg oral tab 1 tab once daily [Active]; - PMHx: 22:33 Atrial Fib; BRAIN TUMOR; Hypertension; Opioid Dependence; Thyroid problem; CVA; aa1 Depression; - PSHx: 22:33 left leg surgery; Appendectomy; Cholecystectomy; port-a-cath (non-functional); back sx; aa1 Knee surgery; - Immunization history:: Flu vaccine is up to date. - Coronavirus screen:: The patient has NOT traveled to [place] in the past 14 days. Proceed with normal triage process as indicated. - Social history:: Smoking status: Patient denies any tobacco usage or history of. - Family history:: not pertinent. - Ebola Screening: : No symptoms or risks identified at this time. - Hospitalizations: : No recent hospitalization is reported. Screenin:15 Abuse screen: Denies threats or abuse. Nutritional screening: No deficits noted. jb4 Tuberculosis screening: No symptoms or risk factors identified. Fall Risk Ambulatory Aid- Crutches/Cane/Walker (15 pts). Total Golden Fall Scale indicates No Risk (0-24 pts). Assessment: 22:15 General: Appears in no apparent distress. comfortable, Behavior is calm, cooperative, jb4 appropriate for age. Pain: Denies pain. Neuro: Level of Consciousness is awake, alert, obeys commands, Oriented to person, place, time, situation. Cardiovascular: Patient's skin is warm and dry. Respiratory: Airway is patent Respiratory effort is even, unlabored, Respiratory pattern is regular, symmetrical, Breath sounds are clear bilaterally. GI: No signs and/or symptoms were reported involving the gastrointestinal system. : No signs and/or symptoms were reported regarding the genitourinary system. EENT: No signs and/or symptoms were reported regarding the EENT system. Derm: Skin is intact, Skin is pink, warm \\T\\ dry. Musculoskeletal: Circulation, motion, and sensation intact. Range of motion: intact in all extremities. 23:46 Reassessment: Patient appears in no apparent distress at this time. Patient and/or jb4 family updated on plan of care and expected duration. Pain level reassessed. Patient is alert, oriented x 3, equal unlabored respirations, skin warm/dry/pink. 07/17 00:59 Reassessment: Patient appears in no apparent distress at this time. Patient and/or jb4 family updated on plan of care and expected duration. Pain level reassessed. Patient is alert, oriented x 3, equal unlabored respirations, skin warm/dry/pink. :20 Reassessment: Patient appears in no apparent distress at this time. DR TRUJILLO TALKED TO rv THE PATIENT AND RELATIVE REGARDING THE RESULTS OF BLOOD WORKS AND SCAN. EXPLAINED THE PLAN OF CARE. PATIENT AND FAMILY, AGREED. Vital Signs: 07/16 22:10 BP 157 / 92; Pulse 83; Resp 20; Temp 98.1; Pulse Ox 98% on R/A; Weight 81.65 kg; Height aa1 5 ft. 4 in. (162.56 cm); Pain 0/10; 23:30 BP 162 / 81; Pulse 86; Resp 18; Pulse Ox 97% on R/A; jb4 23:45 BP 131 / 88; Pulse 80; Resp 19; Pulse Ox 97% on R/A; rv 07/17 00:45 BP 152 / 71; Pulse 79; Resp 21; Pulse Ox 93% on R/A; jb4 01:00 BP 142 / 83; Pulse 80; Resp 18; Pulse Ox 95% on R/A; rv 07/16 22:10 Body Mass Index 30.90 (81.65 kg, 162.56 cm) aa1 ED Course: 07/16 22:08 Patient arrived in ED. ag3 22:09 Manuel Trujillo MD is Attending Physician. rn 22:10 Neri Fernandez, EREN is Primary Nurse. jb4 22:10 Arm band placed on left wrist. Patient placed in an exam room, on a stretcher. aa1 22:15 Patient has correct armband on for positive identification. Placed in gown. Bed in low jb4 position. Call light in reach. Side rails up X 1. surveillance system monitor on. Pulse ox on. NIBP on. 22:24 Triage completed. aa1 22:35 Missed attempt(s): 22 gauge in right forearm. Bleeding controlled, band aid applied, jb4 catheter tip intact. 23:26 Missed attempt(s): 22 gauge in left antecubital area. rv 07/17 00:00 No provider procedures requiring assistance completed. rv 00:00 Initial lab(s) drawn, by botany laboratory assistant, sent to lab. rv 01:21 Patient did not have IV access during this emergency room visit. rv Administered Medications: No medications were administered Outcome: :22 Discharged to home ambulatory, with family. rv 01:22 Condition: good 01:28 Discharge ordered by . rn 01:33 Discharge instructions given to patient, family, Instructed on discharge instructions, rv follow up and referral plans. Demonstrated understanding of instructions, follow-up care. 01:34 Patient left the ED. rv Signatures: Jayne Maloney, RN RN aa1 Manuel Trujillo MD MD rn Bryson, James, RN RN jb4 Abdiel Lemos RN RN Faviola Marroquin3
--- NOTE | 2019-07-17 01:30 | EDPHYS ---
Physician Documentation [facility] Name: Radha Hastings Age: 79 yrs Sex: Female : 1940 Arrival Date: 07/16/2019 Time: 22:08 Bed 7 Private MD: ED Physician Manuel Trujillo HPI: 07/16 22:33 This 79 yrs old Female presents to ER via Ambulatory with complaints of High rn Blood Pressure. 22:33 The patient has elevated blood pressure and discovered this at home. Onset: The rn symptoms/episode began/occurred at an unknown time. Modifying factors:. Associated signs and symptoms: Pertinent positives: chest pain, headache, Pertinent negatives: lightheadedness, visual changes, vomiting, weakness. Severity of symptoms: At its worst the blood pressure was moderate, in the emergency department the blood pressure is improved. The patient has experienced similar episodes in the past. Granddaughter brought her in for high BP, reports was 180s/100s took her medication and improved but then started creeping back up, patient reported "a few seconds" of chest pain, as well as short lasting headache. Granddaughter reports when BP gets high she sweats a little and complains of dyspnea. Currently patient denies pain. Has afib. Told to take doxazosin when BP is high as "emergency blood pressure medication". Takes BP everyday several times and has been trending upward last few days. . Historical: - Allergies: : ambien; aa1 22: Compazine; aa1 22: Jean Claude; aa1 - Home Meds: :33 lisinopril 40 mg oral tab 1 tab once daily [Active]; felodipine 10 mg oral Tb24 1 tab aa1 once daily [Active]; digoxin 250 mcg oral tab 1 tab once daily [Active]; clopidogrel 75 mg oral tab 1 tab once daily [Active]; gabapentin 300 mg oral cap 1 cap twice a day [Active]; carbamazepine 200 mg Oral tab 1 tab nightly [Active]; levothyroxine 125 mcg tab 1 tab once daily [Active]; duloxetine 60 mg oral cpDR 1 cap once daily [Active]; prednisone 10 mg oral tab 1 tab once daily [Active]; - PMHx: : Atrial Fib; BRAIN TUMOR; Hypertension; Opioid Dependence; Thyroid problem; CVA; aa1 Depression; - PSHx: 22:33 left leg surgery; Appendectomy; Cholecystectomy; port-a-cath (non-functional); back sx; aa1 Knee surgery; - Immunization history:: Flu vaccine is up to date. - Coronavirus screen:: The patient has NOT traveled to [place] in the past 14 days. Proceed with normal triage process as indicated. - Social history:: Smoking status: Patient denies any tobacco usage or history of. - Family history:: not pertinent. - Ebola Screening: : No symptoms or risks identified at this time. - Hospitalizations: : No recent hospitalization is reported. ROS: 22:35 Constitutional: Negative for fever, chills, and weight loss, Eyes: Negative for injury, rn pain, redness, and discharge, Neck: Negative for injury, pain, and swelling, Cardiovascular: Negative for palpitations, and edema, Respiratory: Negative for shortness of breath, cough, wheezing, and pleuritic chest pain, Abdomen/GI: Negative for abdominal pain, nausea, vomiting, diarrhea, and constipation, MS/Extremity: Negative for injury and deformity, Skin: Negative for injury, rash, and discoloration, Neuro: Negative for weakness, numbness, tingling, and seizure. Exam: 22:35 Constitutional: This is a well developed, well nourished patient who is awake, alert, rn and in no acute distress. Head/Face: Normocephalic, atraumatic. ENT: MMM Neck: Trachea midline, no thyromegaly or masses palpated, and no cervical lymphadenopathy. Supple, full range of motion without nuchal rigidity, or vertebral point tenderness. No Meningismus. Cardiovascular: Regular rate, irregular rhythm. No pulse deficits. Respiratory: No increased work of breathing, no retractions or nasal flaring. Abdomen/GI: soft, non-tender MS/ Extremity: Pulses equal, no cyanosis. Neurovascular intact. Full, normal range of motion. Equal circumference. Neuro: Awake and alert, GCS 15, oriented to person, place, time, and situation. Cranial nerves II-XII grossly intact. Motor strength 5/5 in all extremities. Sensory grossly intact. Cerebellar exam normal. Vital Signs: 22:10 BP 157 / 92; Pulse 83; Resp 20; Temp 98.1; Pulse Ox 98% on R/A; Weight 81.65 kg; Height aa1 5 ft. 4 in. (162.56 cm); Pain 0/10; 23:30 BP 162 / 81; Pulse 86; Resp 18; Pulse Ox 97% on R/A; jb4 23:45 BP 131 / 88; Pulse 80; Resp 19; Pulse Ox 97% on R/A; rv 07/17 00:45 BP 152 / 71; Pulse 79; Resp 21; Pulse Ox 93% on R/A; jb4 01:00 BP 142 / 83; Pulse 80; Resp 18; Pulse Ox 95% on R/A; rv 07/16 22:10 Body Mass Index 30.90 (81.65 kg, 162.56 cm) aa1 MDM: 07/16 22:09 Patient medically screened. rn 07/17 01:26 Differential diagnosis: hypertensive crisis, Malignant HTN. Data reviewed: vital signs, rn nurses notes, lab test result(s), EKG, radiologic studies, CT scan, and as a result, I will discharge patient. Counseling: I had a detailed discussion with the patient and/or guardian regarding: the historical points, exam findings, and any diagnostic results supporting the discharge/admit diagnosis, lab results, radiology results, the need for outpatient follow up, to return to the emergency department if symptoms worsen or persist or if there are any questions or concerns that arise at home. Response to treatment: the patient's condition has returned to base line, the patient is now symptom free, and as a result, I will discharge patient. Special discussion: I discussed with the patient/guardian in detail that at this point there is no indication for admission to the hospital. It is understood, however, that if the symptoms persist or worsen the patient needs to return immediately for re-evaluation. Based on the history and exam findings, there is no indication for further emergent testing or inpatient evaluation. I discussed with the patient/guardian the need to see the guide dog instructor for further evaluation of the symptoms. I discussed with the patient/guardian the need to see the primary care provider for further evaluation of the symptoms. ED course: Pt with resolution of nonspecific symptoms, BP improved without treatment, had long conversation with patient and granddaughter regarding blood pressure and emergency management, no acute findings in blood or ECG either. . 07/16 21: Order name: CBC with Diff rn 07/16 21: Order name: Basic Metabolic Panel rn 02/12 22:29 Order name: BNP rn 07/16 22:29 Order name: Troponin (emerg Dept Use Only) rn 07/16 22:35 Order name: TSH rn 07/16 22:35 Order name: T4 Free rn 07/16 22:35 Order name: Digoxin rn 07/17 00:14 Order name: CBC with Automated Diff; Complete Time: 00:23 EDMS 07/17 01:13 Order name: Basic Metabolic Panel EDMS 07/17 01:13 Order name: Troponin (Emerg Dept Use Only) EDVA 07/17 01:13 Order name: NT PRO-BNP EDMS 07/17 01:13 Order name: T4 Free EDMS 07/17 01:13 Order name: Digoxin Level EDMS 07/17 01:14 Order name: Thyroid Stimulating Hormone EDVA 07/16 22:28 Order name: CT Head Brain wo Cont rn 07/16 22:29 Order name: EKG; Complete Time: 22:30 rn 07/16 22:29 Order name: EKG - Nurse/Tech; Complete Time: 23:27 rn 07/16 22:29 Order name: XRAY Chest (1 view) rn Administered Medications: No medications were administered Disposition: 07/17/19 01:28 Discharged to Home. Impression: Hypertension. - Condition is Stable. - Discharge Instructions: Hypertension, Managing Your Hypertension. - Medication Reconciliation Form, Thank You Letter, Antibiotic Education, Prescription Opioid Use form. - Follow up: Private Physician; When: As needed; Reason: Recheck today's complaints, Re-evaluation by your physician. - Problem is an ongoing problem. - Symptoms have improved. Signatures: Dispatcher [employer] [facility] Jayne Maloney RN RN aa1 Manuel Trujillo MD MD rn Vicente, Ronaldo, RN RN rv Corrections: (The following items were deleted from the chart) 07/16 22:36 22:33 Granddaughter brought her in for high BP, reports was 180s/100s took her care director rn and improved but then started creeping back up, patient reported "a few seconds" of chest pain, as well as short lasting headache. . rn 07/17 01:34 01:28 07/17/2019 01:28 Discharged to Home. Impression: Hypertension. Condition is rv Stable. Forms are Medication Reconciliation Form, Thank You Letter, Antibiotic Education, Prescription Opioid Use. Follow up: Private Physician; When: As needed; Reason: Recheck today's complaints, Re-evaluation by your physician. Problem is an ongoing problem. Symptoms have improved. rn
--- NOTE | 2019-07-17 06:35 | RAD REPORT ---
EXAM DESCRIPTION: RAD - Chest Single View - 07/16/2019 10:51 pm CLINICAL HISTORY: CHEST PAIN Chest pain. COMPARISON: Chest Pa And Lat (2 Views) dated 03/18/2019; Chest Single View dated 03/13/2019; CHEST S CHANCE VIEW dated 04/16/2015 FINDINGS: Portable technique limits examination quality. The lungs are grossly clear. The heart is mildly enlarged in size. No displaced fractures.Left port c atheter has tip in the SVC. IMPRESSION: No acute intrathoracic process suspected.
--- NOTE | 2019-07-17 09:22 | EKG ---
Test Date: 2019-07-16 Test Time: 22:31:21 Environmental Educator: MURPHY MEASUREMENT RESULTS: Intervals: Rate: 86 AL: QRSD: 82 QT: 368 QTc: 440 [place]: P: AL: QRS: 39 T: 22 INTERPRETIVE STATEMENTS: Atrial fibrillation Septal infarct, age undetermined Abnormal ECG Compared to ECG 03/28/2019 00:16:24 No significant changes Electronically Signed On 07-17-19 09:22:29 SOFTBALL CORE MOLDER by Edu Mccloud
--- NOTE | 2019-07-17 11:15 | RAD REPORT ---
EXAM DESCRIPTION: CT Head Without Intravenous Contrast CLINICAL HISTORY: The patient is 79 years old and is Female; HTN, headache TECHNIQUE: Axial computed tomography images of the head/brain without intravenous contrast. Sagitt al and coronal reformatted images were created and reviewed. This CT exam was performed using one o r more of the following dose reduction techniques: automated exposure control, adjustment of the mA and/or kV according to patient size, and/or use of iterative reconstruction technique. COMPARISON: No relevant prior studies available. FINDINGS: BRAIN: There is diffuse cerebral atrophy present, consistent with this patient's age. There is patchy hypoattenuation of the deep white matter which is non-specific, but most likely owing to chronic small vessel ischemic change in a patient of this age group. Evidence of prior left bas al ganglia lacunar infarct is noted. The ruano-white differentiation is maintained. There is no intrac ranial hemorrhage, mass effect, or midline shift. There are no extra-axial fluid collections. VENTRICLES: Unremarkable. No ventriculomegaly. BONES/JOINTS: No acute fracture. SOFT TISSUES: Unremarkable. SINUSES: Unremarkable as visualized. No acute sinusitis. MASTOID AIR CELLS: Unremarkable as visualized. No mastoid effusion. ORBITS: Unremarkable as visualized. IMPRESSION: Age-related atrophy and chronic white matter ischemic changes, with no evidence of an ac [place] intracranial abnormality. Electronically signed by: Angeline Howell MD 07/16/2019 11:00 PM WEATHER STRIPPER Due to temporary technical issues with the PACS/Fluency reporting system, reports are being signed by the in house radiologist as a courtesy to ensure prompt reporting. The interpreting radiologist is f ully responsible for the content of the report.
[2019-07-18 05:11] VITALS: TEMP 98.1
[2019-07-18 05:16] VITALS: BP 142/83; O2SAT 95
== END 2019-07-17 01:34 | disposition home or self-care (01) ==
LOC: ER 22:06
DX: I10 Essential (primary) hypertension (principal); Z88.8 Allergy status to other drugs, medicaments and biological substances; Z91.018 Allergy to other foods; F32.9 Major depressive disorder, single episode, unspecified; Z86.73 Personal history of transient ischemic attack (TIA), and cerebral infarction without residual deficits; I48.91 Unspecified atrial fibrillation
CPT/HCPCS: 36415; 70450; 71045; 80048; 80162; 83880; 84439; 84443; 84484; 85025; 93005; 99284

== ENCOUNTER 2019-08-12 17:46 | Emergency (ER) | payer OTHER ==
--- NOTE | 2019-08-12 18:32 | RAD REPORT ---
EXAM DESCRIPTION: CT - [id number] - 08/12/2019 6:17 pm CLINICAL HISTORY: Trauma, head and neck injury. PAIN COMPARISON: Head C Spine Mpr Wo Con dated 03/28/2019; Head C Spine Mpr Wo Con dated 03/13/2019 TECHNIQUE: Axial 5 mm thick images of the head were obtained. Axial 2 mm thick images of the cervical spine were obtained with sagittal and coronal reconstruction images generated and reviewed. All CT scans are performed using dose optimization technique as appropriate and may include automated exposure control or mA/KV adjustment according to patient size. FINDINGS: CT HEAD WITHOUT CONTRAST: No acute hemorrhage, hydrocephalus or extra-axial collection is identified.Moderate generalized brain atrophy is present with moderate periventricular and deep white matter chronic microvascular ischemi c changes.No areas of brain edema or midline shift. The paranasal sinuses and mastoids are clear.Vertebral atherosclerosis.The calvarium is intact. Left frontal scalp hematoma noted. 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 Moderate lower cervical degenerat giancarlo changes.No prevertebral soft tissues swelling is identified. IMPRESSION: No acute intracranial or cervical spine findings. Moderate cervical degenerative changes.
--- NOTE | 2019-08-12 19:03 | ER ---
Nurse's Notes [facility] Name: Radha Hastings Age: 79 yrs Sex: Female : 1940 Arrival Date: 08/12/2019 Time: 17:49 Bed 6 Private MD: Diagnosis: Fall due to bumping against object;Contusion of knee-bilateral;Superficial injury of head-forehead hematoma Presentation: 08/11 17:57 Chief complaint: Patient states: fall from standing 15 minutes ago. Hematoma noted to L ss side of forehead. +blood thinners. Coronavirus screen: The patient has NOT traveled to a country currently being monitored by the [facility] within the last 14 days. Proceed with normal triage procedures. Ebola Screen: Patient denies exposure to infectious person. Patient denies travel to an Ebola-affected area in the 21 days before illness onset. Risk Assessment: Do you want to hurt yourself or someone else? Patient reports no desire to harm self or others. 17:57 Method Of Arrival: Wheelchair ss 17:57 Acuity: [place] 2 ss 18:00 Initial Sepsis Screen: Does the patient meet any 2 criteria? No. Patient's initial sv sepsis screen is negative. Does the patient have a suspected source of infection? No. Patient's initial sepsis screen is negative. 18:00 Care prior to arrival: None. Mechanism of Injury: Fall from standing position. Trauma sv event details: Injury occurred in the [facility], Injury occurred: at home. Injury occurred: August 12, 2019 Injury occurred at: 17:40. 18:00 Onset of symptoms was August 12, 2019. sv Triage Assessment: 19:15 General: Appears in no apparent distress. comfortable, obese, well groomed, Behavior is lw1 calm, cooperative, quiet. Pain: Complains of pain in forehead Pain currently is 4 out of 10 on a pain scale. Trauma Activation: Alert Physician: ED Physician; Name: Dr Quiñonez; Notified At: 17:54; Arrived At: 18:01 Physician: General Surgeon; Name: ; Notified At: 17:54; Arrived At: Physician: Radiology; Name: Sherman; Notified At: 17:54; Arrived At: 18:00 Physician: Respiratory; Name: ; Notified At: 17:54; Arrived At: Physician: Lab; Name: ; Notified At: 17:54; Arrived At: Historical: - Allergies: 17:58 ambien; ss 17:58 Compazine; ss 17:58 [place]; ss - Home Meds: 18:29 carbamazepine 200 mg Oral tab 1 tab nightly [Active]; lisinopril 40 mg Oral tab 1 tab sv once daily [Active]; felodipine 10 mg Oral Tb24 1 tab once daily [Active]; digoxin 250 mcg Oral tab 1 tab once daily [Active]; clopidogrel 75 mg Oral tab 1 tab once daily [Active]; gabapentin 300 mg Oral cap 1 cap twice a day [Active]; levothyroxine 125 mcg tab 1 tab once daily [Active]; duloxetine 60 mg Oral cpDR 1 cap once daily [Active]; prednisone 10 mg Oral tab 1 tab once daily [Active]; - PMHx: 17:58 Atrial Fib; BRAIN TUMOR; Hypertension; Depression; CVA; Opioid Dependence; Thyroid ss problem; - PSHx: 17:58 left leg surgery; Appendectomy; port-a-cath (non-functional); Cholecystectomy; back sx; ss Knee surgery; - Immunization history:: Adult Immunizations up to date. - Social history:: Smoking status: Patient denies any tobacco usage or history of. - Immunization history: Last tetanus immunization: - up to date. Screenin:00 Abuse screen: Denies threats or abuse. Denies injuries from another. Tuberculosis sv screening: No symptoms or risk factors identified. 18:00 Nutritional screening: No deficits noted. Fall Risk None identified. sv Primary Survey: 18:00 NO uncontrolled hemorrhage observed. A: The patient is alert. Airway: patent, No sv supplemental oxygen in use on arrival. Oral cavity: clear, Trachea midline. Breathing/Chest: Respiratory pattern: regular, Respiratory effort: spontaneous, unlabored, Chest inspection: symmetrical rise and fall of the chest. Circulation: Pulses: palpable right radial artery, right dorsalis pedis artery, left radial artery and left dorsalis pedis artery. Skin color: pale, Skin temperature: warm, dry. Disability Alert. Exposure/Environment: All clothing and personal items were removed. Forensic evidence collection is not deemed to be indicated at this time. Items placed in patient belonging bag. There is no evidence of uncontrolled external bleeding. Obvious injury(ies) are noted at this time: hematoma to the left forehead A warming method has been applied: A warm blanket has been provided to the patient. 18:51 Reassessment Airway Airway Patent Oxygen No O2 Oral cavity Clear Trachea Midline sv Breathing/Chest Circulation Pulses Palpable Color [place] Temperature Warm Dry Disability Alert. Secondary Survey: 18:00 HEENT: Head Other hematoma noted to the left side of forehead. Gastrointestinal: No sv deficits noted. : No deficits noted. No signs and/or symptoms were reported regarding the genitourinary system. Musculoskeletal: No deficits noted. No signs and/or symptoms reported regarding the musculoskeletal system. Injury Description: hematoma to left side of forehead. Assessment: 19:17 Reassessment: Patient is alert, oriented x 3, equal unlabored respirations, skin lw1 warm/dry/pink. General: Appears in no apparent distress. comfortable, obese, well groomed, well nourished. Pain: Complains of pain in forehead Pain currently is 4 out of 10 on a pain scale. Neuro: No deficits noted. Level of Consciousness is awake, alert, obeys commands. EENT: No deficits noted. Cardiovascular: Rhythm is atrial fibrillation. Respiratory: No deficits noted. GI: No deficits noted. Abdomen is round. : No deficits noted. Derm: No deficits noted. Musculoskeletal: Capillary refill < 3 seconds, in bilateral fingers. toes. Injury Description: Abrasion sustained to forehead. Vital Signs: 18:00 BP 143 / 90; Pulse 80; Resp 16; Temp 98; Pulse Ox 97% ; Weight 76.2 kg; Height 5 ft. 4 sv in. (162.56 cm); Pain 5/10; 18:52 BP 152 / 97; Pulse 76; Resp 15; Temp 98; Pulse Ox 96% on R/A; sv 19:13 BP 148 / 89; Pulse 72; Resp 20; Temp 97.8(O); Pulse Ox 97% on R/A; lw1 18:00 Body Mass Index 28.84 (76.20 kg, 162.56 cm) sv [place] Coma Score: 18:01 Eye Response: spontaneous(4). Verbal Response: oriented(5). Motor Response: obeys sv commands(6). Total: 15. 18:52 Eye Response: spontaneous(4). Verbal Response: oriented(5). Motor Response: obeys sv commands(6). Total: 15. Trauma Score (Adult): 18:01 Eye Response: spontaneous(1); Verbal Response: oriented(1); Motor Response: obeys sv commands(2); Systolic BP: > 89 mm Hg(4); Respiratory Rate: 10 to 29 per min(4); Jeanette Score: 15; Trauma Score: 12 18:52 Eye Response: spontaneous(1); Verbal Response: oriented(1); Motor Response: obeys sv commands(2); Systolic BP: > 89 mm Hg(4); Respiratory Rate: 10 to 29 per min(4); Jeanette Score: 15; Trauma Score: 12 ED Course: 17:49 Patient arrived in ED. ag5 17:54 Akil Quiñonez MD is Attending Physician. [facility] 17:57 Triage completed. ss 17:58 Arm band placed on right wrist. ss 18:00 Catrachita Nieves RN is Primary Nurse. sv 18:00 Patient has correct armband on for positive identification. Placed in gown. Bed in low sv position. Call light in reach. Adult w/ patient. quality assurance monitor body on. Pulse ox on. NIBP on. Door closed. Head of bed elevated. 18:00 Patient maintains SpO2 saturation greater than 95% on room air. sv 18:00 Thermoregulation: warm blanket given to patient. sv 18:01 ED physician to see patient. sv 18:19 CT Head C Spine In Process Unspecified. EDMS 18:56 Report given to Zach RN and Candelaria RN. sv 19:08 Primary Nurse role handed off by Catrachita Nieves RN lw1 19:08 Mariah Cote RN is Primary Nurse. lw1 19:16 No provider procedures requiring assistance completed. lw1 19:35 Patient did not have IV access during this emergency room visit. lw1 Administered Medications: No medications were administered Intake: 18:01 PO: 0ml; Total: 0ml. sv 18:52 PO: 0ml; Total: 0ml. sv Output: 18:01 Urine: 0ml; Total: 0ml. sv 18:52 Urine: 0ml; Total: 0ml. sv Outcome: 19:01 Discharge ordered by . rohini 19:35 Discharged to home via wheelchair, with family. lw1 19:35 Condition: stable 19:35 Discharge instructions given to patient, family. 19:36 Patient's length of stay was not longer than 2 hours. lw1 19:36 Patient left the ED. lw1 Signatures: Dispatcher [employer] Catrachita Suazo, RN RN Akil Mayorga MD MD cha Smirch, Shelby, RN RN Kip Baez [facility] Mariah Cote RN RN lw1 Corrections: (The following items were deleted from the chart) 18:50 17:54 Trauma Activation: Alert; ED Physician Dr Quiñonez notified at 17:54; General Surgeon notified at 17:54; Radiology Sherman notified at 17:54; Respiratory notified at 17:54; Lab notified at 17:54 sv
--- NOTE | 2019-08-12 19:03 | EDPHYS ---
Physician Documentation [facility] Name: Radha Hastings Age: 79 yrs Sex: Female : 1940 Arrival Date: 08/12/2019 Time: 17:49 Bed 6 Private MD: ED Physician Akil Quiñonez HPI: 08/11 18:05 This 79 yrs old Female presents to ER via Wheelchair with complaints of Fall rohini Injury, Head Injury-Adult. 18:05 Details of fall: The patient fell from an upright position, while walking. Onset: The rohini symptoms/episode began/occurred just prior to arrival. Associated injuries: The patient sustained injury to the head. Severity of symptoms: At their worst the symptoms were mild, in the emergency department the symptoms are unchanged. Historical: - Allergies: 17:58 ambien; ss 17:58 Compazine; ss 17:58 Jean Claude; ss - Home Meds: 18:29 carbamazepine 200 mg Oral tab 1 tab nightly [Active]; lisinopril 40 mg Oral tab 1 tab sv once daily [Active]; felodipine 10 mg Oral Tb24 1 tab once daily [Active]; digoxin 250 mcg Oral tab 1 tab once daily [Active]; clopidogrel 75 mg Oral tab 1 tab once daily [Active]; gabapentin 300 mg Oral cap 1 cap twice a day [Active]; levothyroxine 125 mcg tab 1 tab once daily [Active]; duloxetine 60 mg Oral cpDR 1 cap once daily [Active]; prednisone 10 mg Oral tab 1 tab once daily [Active]; - PMHx: 17:58 Atrial Fib; BRAIN TUMOR; Hypertension; Depression; CVA; Opioid Dependence; Thyroid ss problem; - PSHx: 17:58 left leg surgery; Appendectomy; port-a-cath (non-functional); Cholecystectomy; back sx; ss Knee surgery; - Immunization history:: Adult Immunizations up to date. - Social history:: Smoking status: Patient denies any tobacco usage or history of. - Immunization history: Last tetanus immunization: - up to date. ROS: 18:06 Constitutional: Negative for fever, chills, and weight loss, Eyes: Negative for injury, rohini pain, redness, and discharge, ENT: Negative for injury, pain, and discharge, Neck: Negative for injury, pain, and swelling, Cardiovascular: Negative for chest pain, palpitations, and edema, Respiratory: Negative for shortness of breath, cough, wheezing, and pleuritic chest pain, Abdomen/GI: Negative for abdominal pain, nausea, vomiting, diarrhea, and constipation, Back: Negative for injury and pain, : Negative for injury, bleeding, discharge, and swelling, MS/Extremity: Negative for injury and deformity, Neuro: Negative for headache, weakness, numbness, tingling, and seizure, Psych: Negative for depression, anxiety, suicide ideation, homicidal ideation, and hallucinations, Allergy/Immunology: Negative for hives, rash, and allergies, Endocrine: Negative for neck swelling, polydipsia, polyuria, polyphagia, and marked weight changes. 18:06 Skin: Positive for avulsion, swelling, of the forehead. Exam: 18:06 Constitutional: This is a well developed, well nourished patient who is awake, alert, rohini and in no acute distress. Eyes: Pupils equal round and reactive to light, extra-ocular motions intact. Lids and lashes normal. Conjunctiva and sclera are non-icteric and not injected. Cornea within normal limits. Periorbital areas with no swelling, redness, or edema. ENT: Nares patent. No nasal discharge, no septal abnormalities noted. Tympanic membranes are normal and external auditory canals are clear. Oropharynx with no redness, swelling, or masses, exudates, or evidence of obstruction, uvula midline. Mucous membranes moist. Neck: Trachea midline, no thyromegaly or masses palpated, and no cervical lymphadenopathy. Supple, full range of motion without nuchal rigidity, or vertebral point tenderness. No Meningismus. Chest/axilla: Normal chest wall appearance and motion. Nontender with no deformity. No lesions are appreciated. Cardiovascular: Regular rate and rhythm with a normal S1 and S2. No gallops, murmurs, or rubs. Normal PMI, no JVD. No pulse deficits. Respiratory: Lungs have equal breath sounds bilaterally, clear to auscultation and percussion. No rales, rhonchi or wheezes noted. No increased work of breathing, no retractions or nasal flaring. Abdomen/GI: Soft, non-tender, with normal bowel sounds. No distension or tympany. No guarding or rebound. No evidence of tenderness throughout. Back: No spinal tenderness. No costovertebral tenderness. Full range of motion. Skin: Warm, dry with normal turgor. Normal color with no rashes, no lesions, and no evidence of cellulitis. Neuro: Awake and alert, GCS 15, oriented to person, place, time, and situation. Cranial nerves II-XII grossly intact. Motor strength 5/5 in all extremities. Sensory grossly intact. Cerebellar exam normal. Normal gait. Psych: Awake, alert, with orientation to person, place and time. Behavior, mood, and affect are within normal limits. 18:06 Musculoskeletal/extremity: Circulation is intact in all extremities. Sensation intact. Compartment Syndrome exam of affected extremity: is normal. Joints: the left knee and right knee displays tenderness, DVT Exam: pain, swelling, tenderness, of the right leg, of the left leg, of the right leg and left leg. Vital Signs: 18:00 BP 143 / 90; Pulse 80; Resp 16; Temp 98; Pulse Ox 97% ; Weight 76.2 kg; Height 5 ft. 4 sv in. (162.56 cm); Pain 5/10; 18:52 BP 152 / 97; Pulse 76; Resp 15; Temp 98; Pulse Ox 96% on R/A; sv 19:13 BP 148 / 89; Pulse 72; Resp 20; Temp 97.8(O); Pulse Ox 97% on R/A; lw1 18:00 Body Mass Index 28.84 (76.20 kg, 162.56 cm) sv Hollywood Coma Score: 18:01 Eye Response: spontaneous(4). Verbal Response: oriented(5). Motor Response: obeys sv commands(6). Total: 15. 18:52 Eye Response: spontaneous(4). Verbal Response: oriented(5). Motor Response: obeys sv commands(6). Total: 15. Trauma Score (Adult): 18:01 Eye Response: spontaneous(1); Verbal Response: oriented(1); Motor Response: obeys sv commands(2); Systolic BP: > 89 mm Hg(4); Respiratory Rate: 10 to 29 per min(4); Hollywood Score: 15; Trauma Score: 12 18:52 Eye Response: spontaneous(1); Verbal Response: oriented(1); Motor Response: obeys sv commands(2); Systolic BP: > 89 mm Hg(4); Respiratory Rate: 10 to 29 per min(4); Jeanette Score: 15; Trauma Score: 12 MDM: 17:54 Patient medically screened. [facility] 18:08 Data reviewed: vital signs, nurses notes, radiologic studies, CT scan. [facility] 08/11 18:05 Order name: CT Head C Spine; Complete Time: 19:00 [facility] 08/11 18:05 Order name: Ice pack; Complete Time: 18:10 [facility] 08/11 18:05 Order name: Wound dressing; Complete Time: 18:10 [facility] Administered Medications: No medications were administered Disposition: 08/12/19 19:01 Discharged to Home. Impression: Fall due to bumping against object, Contusion of knee - bilateral, Superficial injury of head - forehead hematoma. - Condition is Stable. - Discharge Instructions: Abrasion, Head Injury, Adult, Hematoma, Hematoma, [id number], Abrasion, Elhm-ys-Pmnt, Head Injury, Adult, [id number]. - Prescriptions for Keflex 500 mg Oral Capsule - take 1 capsule by ORAL route every 6 hours for 10 days; 28 capsule. - Medication Reconciliation Form, Thank You Letter, Antibiotic Education, Prescription Opioid Use form. - Follow up: Private Physician; When: 2 - 3 days; Reason: Recheck today's complaints, Continuance of care, Re-evaluation by your physician. - Problem is new. - Symptoms have improved. Signatures: Dispatcher [employer] EDCatrachita Alfredo, RN Akil Gonzalez MD MD cha Smirch, Shelby, RN RN ss Webster, LaDonna, RN RN lw1 Corrections: (The following items were deleted from the chart) 19:36 19:01 08/12/2019 19:01 Discharged to Home. Impression: Fall due to bumping against lw1 object; Contusion of knee - bilateral; Superficial injury of head - forehead hematoma. Condition is Stable. Discharge Instructions: Abrasion, Head Injury, Adult, Hematoma, Hematoma, [id number], Abrasion, Olon-br-Yhfr, Head Injury, Adult, [id number]-[id number]. Prescriptions for Keflex 500 mg Oral Capsule - take 1 capsule by ORAL route every 6 hours for 10 days; 28 capsule. and Forms are Medication Reconciliation Form, Thank You Letter, Antibiotic Education, Prescription Opioid Use. Follow up: Private Physician; When: 2 - 3 days; Reason: Recheck today's complaints, Continuance of care, Re-evaluation by your physician. Problem is new. Symptoms have improved. rohini
[2019-08-12 19:45] VITALS: BP 148/89; TEMP 97.8; O2SAT 97
== END 2019-08-12 19:36 | disposition home or self-care (01) ==
LOC: ER 17:46
DX: S00.90XA Unspecified superficial injury of unspecified part of head, initial encounter (principal); W18.30XA Fall on same level, unspecified, initial encounter; W18.00XA Striking against unspecified object with subsequent fall, initial encounter; Y93.9 Activity, unspecified; Y92.9 Unspecified place or not applicable; Z88.8 Allergy status to other drugs, medicaments and biological substances; I10 Essential (primary) hypertension; E07.9 Disorder of thyroid, unspecified
CPT/HCPCS: 70450; 72125; 99284

== ENCOUNTER 2019-10-08 14:58 | Emergency (ER) | payer OTHER ==
--- OUTSIDE RECORDS SUMMARY | 2019-10-08 15:00 | XMS REPORT ---
:1940 Author Organization [employer] Care Team Providers Name Role Phone Yin Carroll Provider Role Unavailable Allergies No Known Allergies Problems Problem Type Condition Code Onset Dates Condition Statu s Problem Chronic right-sided headaches R51 Active Problem History of meningioma Z86.018 Active Problem Abnormal heart rhythm I49.9 Active Problem Blood in right ear canal H92.21 Act giancarlo Problem Hyperglycemia R73.9 Active Problem Anxiety F41.9 Active Problem History of cardiac arrhythmia Z86.79 Active Problem Hypertension I10 Active Problem Otalgia, right ear H92.01 Active Problem Essential hypertension I10 Activ e Problem Hypertriglyceridemia E78.1 Active Problem Urinary incontinence, unspecified R32 Active type Problem Gallstones K80.20 Active Problem Migraines G43.909 Active Problem Abnormal thyroid function test R94.6 Active Problem Thyroid disorder E07.9 Active Problem History of stroke Z86.73 Active Problem Swelling R60.9 Active Problem Pain in unspecified knee M25.569 Act giancarlo Problem Other chronic pain G89.29 Active Problem Memory problem R41.3 Active Problem Frequent falls R29.6 Active Problem Depression with anxiety F41.8 Acti ve Problem Chronic pain syndrome G89.4 Active Problem Stroke I63.9 Active Problem Osteoporosis M81.0 Active Problem Acquired hypothyroidism E03.9 Acti ve Problem Depression F32.9 Active Medications No Known Medications Results No Known Results Summary Purpose [employer] Submission
--- OUTSIDE RECORDS SUMMARY | 2019-10-08 15:00 | XMS REPORT ---
:1940 Author Organization [facility] t Address [address] [place] [address] Care Team Providers Name Role Phone Unavailable Unavailable Unavailable Problems Condition Condition Condition Status Onset Resolution Last Treatin g Comments Name Details Category Date Date Treatment Clinician Date Hyperglycem Hyperglycem Problem Active ia ia Hypertrigly Hypertrigly Problem Active ceridemia ceridemia Abnormal Abnormal Problem Active thyroid thyroid function function test test History of History of Problem Active cardiac cardiac arrhythmia arrhythmia Essential Essential Problem Active hypertensio hypertensio n n Chronic Chronic Problem Active right-sided right-sided headaches headaches History of History of Problem Active meningioma meningioma Abnormal Abnormal Problem Active heart heart rhythm rhythm Blood in Blood in Problem Active right ear right ear canal canal Anxiety Anxiety Problem Active Otalgia, Otalgia, Problem Active right ear right ear Urinary Urinary Problem Active incontinenc incontinenc e, e, unspecified unspecified type type Gallstones Gallstones Problem Active Migraines Migraines Problem Active History of History of Problem Active stroke stroke Thyroid Thyroid Problem Active disorder disorder Depression Depression Problem Active with with anxiety anxiety Swelling Swelling Problem Active Pain in Pain in Problem Active unspecified unspecified knee knee Other Other Problem Active chronic chronic pain pain Memory Memory Problem Active problem problem Acquired Acquired Problem Active hypothyroid hypothyroid ism ism Frequent Frequent Problem Active falls falls Chronic Chronic Problem Active pain pain syndrome syndrome Stroke Stroke Problem Active Osteoporosi Osteoporosi Problem Active s s Depression Depression Problem Active Allergies, Adverse Reactions, Alerts Allergy Allergy Status Severity Reaction(s) Onset Inactive Treating C omments Name Type Date Date Clinician Valium Adverse Active Info Not Reaction Available Aspirin Adverse Active Info Not Reaction Available Ambien Adverse Active Info Not Reaction Available Medications Ordered Filled Start Stop Current Ordering Indication Dosage Frequency Signature Comments Components Medication Medication Date Date Medication? Clinician (SIG) Name Name Gabapentin Gabapentin Yes Yin 1 capsule Millender Bisacodyl Bisacodyl Yes Yin 1 tablet Millender as needed Plavix Plavix Yes Yin 1 tablet Millender Lisinopril Lisinopril Yes Yin 1 tablet Millender Carbamazepi Carbamazepi Yes Yin TAKE ONE ne ne Millender (1) TABLET(S) BY MOUTH TWICE A DAY. Levothyroxi Levothyroxi Yes Yin 1 tablet ne Sodium ne Sodium Millender in the morning on an empty stomach Fish Oil Fish Oil Yes Yin (otc) 1 Millender capsule Melatonin Melatonin Yes Yin 1 tablet Millender at bedtime as needed Duloxetine Duloxetine Yes Yin 1 capsule HCl HCl Millender Morphine Morphine Yes Yin not Sulfate Sulfate Millender defined Felodipine Felodipine Yes Yin 1 tablet ER ER Millender Estradiol Estradiol Yes Yin 1/2 gm Millender Doxazosin Doxazosin Yes Yin 1 tablet Mesylate Mesylate Millender Digoxin Digoxin Yes Yin 1 tablet Millender Tramadol Tramadol Yin 1 tablet HCl HCl 05-07 Millender as needed 00:00 for severe :00 pain Encounters Start End Encounter Admission Attending Care Care Encounter Date/Time Date/Time Type Type Clinicians Facility Department ID 2019-09-20 2019-09-20 Outpatient Clare Sparks [id number] 23:09:00 23:09:00 [facility] 2019-09-09 2019-09-09 Outpatient Clare Sparks [id number] 10:15:00 10:15:00 [facility]
[2019-10-08] MEDS ORDERED: LIDOCAINE 1% W/EPI 1:100,000 MDV 20 ML VIAL ONE (15:14)
--- NOTE | 2019-10-08 15:56 | RAD REPORT ---
EXAM DESCRIPTION: CT - [id number] - 10/08/2019 3:42 pm CLINICAL HISTORY: Trauma, head and neck injury. fall injury, pain COMPARISON: Head C Spine Mpr Wo Con dated 08/12/2019; Head C Spine Mpr Wo Con dated 03/28/2019; Head C Spine Mpr Wo Con dated 03/13/2019 TECHNIQUE: Axial 5 mm thick images of the head were obtained. Axial 2 mm thick images of the cervical spine were obtained with sagittal and coronal reconstruction images generated and reviewed. All CT scans are performed using dose optimization technique as appropriate and may include automated exposure control or mA/KV adjustment according to patient size. FINDINGS: CT HEAD WITHOUT CONTRAST: No acute hemorrhage, hydrocephalus or extra-axial collection is identified.Moderate periventricular a nd deep white matter chronic microvascular ischemic changes seen.No areas of brain edema or midline s hift. Vertebral arteries are atherosclerotic. The paranasal sinuses and mastoids are clear.The calvarium is intact. Small right frontal scalp hemat paz. 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 Multilevel degenerative spondyl osis is present lower cervical levels.No prevertebral soft tissues swelling is identified. IMPRESSION: No acute intracranial or cervical spine findings.
--- NOTE | 2019-10-08 16:16 | EDPHYS ---
Physician Documentation [facility] Name: Radha Hastings Age: 79 yrs Sex: Female : 1940 Arrival Date: 10/08/2019 Time: 14:59 Bed 4 Private MD: ED Physician Cameron Vogel HPI: 10/07 16:02 This 79 yrs old Female presents to ER via Wheelchair with complaints of Fall jr8 Injury, Head Injury-Adult. 16:02 Details of fall: The patient fell from an upright position, while standing. Onset: The jr8 symptoms/episode began/occurred acutely, today. Associated injuries: The patient sustained injury to the head, hematoma, laceration, 3 cm(s), pain, swelling, tenderness. Severity of symptoms: At their worst the symptoms were moderate, in the emergency department the symptoms are unchanged. The patient has experienced similar episodes in the past, a few times. The patient has not recently seen a physician. Stated that she tripped hitting her head. Denies LOC . Historical: - Allergies: 15:24 ambien; jl7 15:24 Compazine; jl7 15:24 Jean Claude; jl7 - Home Meds: 15:24 carbamazepine 200 mg Oral tab 1 tab nightly [Active]; clopidogrel 75 mg Oral tab 1 tab jl7 once daily [Active]; digoxin 250 mcg Oral tab 1 tab once daily [Active]; duloxetine 60 mg Oral cpDR 1 cap once daily [Active]; felodipine 10 mg Oral Tb24 1 tab once daily [Active]; gabapentin 300 mg Oral cap 1 cap twice a day [Active]; levothyroxine 125 mcg tab 1 tab once daily [Active]; lisinopril 40 mg Oral tab 1 tab once daily [Active]; prednisone 10 mg Oral tab 1 tab once daily [Active]; - PMHx: 15:24 Atrial Fib; BRAIN TUMOR; CVA; Depression; Hypertension; Opioid Dependence; Thyroid jl7 problem; - PSHx: 15:24 Appendectomy; Cholecystectomy; Knee surgery; back sx; left leg surgery; port-a-cath jl7 (non-functional); - Immunization history:: Adult Immunizations unknown. - Social history:: Smoking status: unknown. ROS: 16:02 Eyes: Negative for injury, pain, redness, and discharge, ENT: Negative for injury, jr8 pain, and discharge, Neck: Negative for injury, pain, and swelling, Cardiovascular: Negative for chest pain, palpitations, and edema, Respiratory: Negative for shortness of breath, cough, wheezing, and pleuritic chest pain, Abdomen/GI: Negative for abdominal pain, nausea, vomiting, diarrhea, and constipation, Back: Negative for injury and pain, MS/Extremity: Negative for injury and deformity. 16:02 Skin: Positive for laceration(s), of the face. 16:02 Neuro: Positive for headache, Negative for altered mental status, dizziness, gait disturbance, hearing loss, loss of consciousness, numbness, seizure activity, speech changes, syncope, near syncope, tingling, tinnitus, tremor, visual changes, weakness. Exam: 16:02 Eyes: Pupils equal round and reactive to light, extra-ocular motions intact. Lids and jr8 lashes normal. Conjunctiva and sclera are non-icteric and not injected. Cornea within normal limits. Periorbital areas with no swelling, redness, or edema. ENT: Nares patent. No nasal discharge, no septal abnormalities noted. Tympanic membranes are normal and external auditory canals are clear. Oropharynx with no redness, swelling, or masses, exudates, or evidence of obstruction, uvula midline. Mucous membranes moist. Neck: Trachea midline, no thyromegaly or masses palpated, and no cervical lymphadenopathy. Supple, full range of motion without nuchal rigidity, or vertebral point tenderness. No Meningismus. Cardiovascular: Regular rate and rhythm with a normal S1 and S2. No gallops, murmurs, or rubs. Normal PMI, no JVD. No pulse deficits. Respiratory: Lungs have equal breath sounds bilaterally, clear to auscultation and percussion. No rales, rhonchi or wheezes noted. No increased work of breathing, no retractions or nasal flaring. Abdomen/GI: Soft, non-tender, with normal bowel sounds. No distension or tympany. No guarding or rebound. No evidence of tenderness throughout. Back: No spinal tenderness. No costovertebral tenderness. Full range of motion. Skin: Warm, dry with normal turgor. Normal color with no rashes, no lesions, and no evidence of cellulitis. MS/ Extremity: Pulses equal, no cyanosis. Neurovascular intact. Full, normal range of motion. Neuro: Awake and alert, GCS 15, oriented to person, place, time, and situation. Cranial nerves II-XII grossly intact. Motor strength 5/5 in all extremities. Sensory grossly intact. Cerebellar exam normal. Normal gait. 16:02 Head/face: Noted is hematoma, that is moderate, of the forehead, a laceration(s), that is deep, that is linear, 3 cm(s), of the right forehead , tenderness, that is moderate, of the forehead. Vital Signs: 15:00 BP 132 / 100; Pulse 82; Resp 17 S; Pulse Ox 100% on R/A; jl7 17:00 BP 128 / 91; Pulse 81; Resp 18; Temp 97.9; Pulse Ox 100% on R/A; ph Mclaughlin Coma Score: 15:00 Eye Response: spontaneous(4). Verbal Response: oriented(5). Motor Response: obeys jl7 commands(6). Total: 15. Trauma Score (Adult): 15:00 Eye Response: spontaneous(1); Verbal Response: oriented(1); Motor Response: obeys jl7 commands(2); Systolic BP: > 89 mm Hg(4); Respiratory Rate: 10 to 29 per min(4); Jeanette Score: 15; Trauma Score: 12 Laceration: 16:14 Wound Repair of 3cm ( 1.2in ) subcutaneous laceration to forehead. Irregularly shaped.. jr8 Distal neuro/vascular/tendon intact. Anesthesia: Local anesthetic administered with 2 mls of 1% lidocaine w/ Epi. Wound prep: Extensive cleansing with betadine, Wound irrigation with saline, Wound explored extensively. Skin closed with 4 4-0 Prolene using interrupted sutures and sterile technique. Patient tolerated well. MDM: 15:19 Patient medically screened. jr8 16:02 Data reviewed: vital signs, nurses notes, radiologic studies, CT scan. Data jr8 interpreted: Pulse oximetry: on room air is 100 %. Interpretation: normal. Counseling: I had a detailed discussion with the patient and/or guardian regarding: the historical points, exam findings, and any diagnostic results supporting the discharge/admit diagnosis, radiology results, the need for outpatient follow up, a family practitioner, to return to the emergency department if symptoms worsen or persist or if there are any questions or concerns that arise at home. 10/07 15:20 Order name: CT Head C Spine jr8 10/07 15:40 Order name: Head C Spine Mpr Wo Con; Complete Time: 16:14 EDGA 10/07 15:26 Order name: Prolene, Sutures; Complete Time: 15:26 jl7 10/07 15:26 Order name: Dressing - Wound; Complete Time: 16:37 jl7 10/07 15:26 Order name: Gloves, Sterile; Complete Time: 15:26 jl7 10/07 15:26 Order name: Setup Suture Tray; Complete Time: 15:26 jl7 Administered Medications: 15:33 Drug: Lidocaine-Epinephrine -1%: (1:100,000) 1 vials Volume: 20 ml; Route: Infiltration;ph 17:00 Follow up: Response: No adverse reaction ph Disposition: 17:14 Co-signature as Attending Physician, Cameron Vogel MD I agree with the assessment and kdr plan of care. Disposition: 10/08/19 16:15 Discharged to Home. Impression: Laceration without foreign body of other part of head, Hematoma Forehead . - Condition is Stable. - Discharge Instructions: Hematoma, Laceration Care, Adult, Facial Laceration. - Medication Reconciliation Form, Thank You Letter, Antibiotic Education, Prescription Opioid Use form. - Follow up: Private Physician; When: 1 week; Reason: Wound Recheck, Recheck today's complaints, Continuance of care, Staple/Suture removal, Re-evaluation by your physician. - Problem is new. - Symptoms have improved. Signatures: Dispatcher [employer] [facility] Cameron Vogel MD MD kdr Roszak, Josh, PA PA jr8 Rekha Corley RN RN Yuli Elias RN RN jl7 Corrections: (The following items were deleted from the chart) 16:16 16:15 10/08/2019 16:15 Discharged to Home. Impression: Laceration without foreign body jr8 of other part of head. Condition is Stable. Forms are Medication Reconciliation Form, Thank You Letter, Antibiotic Education, Prescription Opioid Use. Follow up: Private Physician; When: 1 week; Reason: Wound Recheck, Recheck today's complaints, Continuance of care, Staple/Suture removal, Re-evaluation by your physician. Problem is new. Symptoms have improved. jr8 17:13 16:16 10/08/2019 16:15 Discharged to Home. Impression: Laceration without foreign body ph of other part of head; Hematoma Forehead . Condition is Stable. Discharge Instructions: Hematoma, Laceration Care, Adult, Facial Laceration. Forms are Medication Reconciliation Form, Thank You Letter, Antibiotic Education, Prescription Opioid Use. Follow up: Private Physician; When: 1 week; Reason: Wound Recheck, Recheck today's complaints, Continuance of care, Staple/Suture removal, Re-evaluation by your physician. Problem is new. Symptoms have improved. jr8
--- NOTE | 2019-10-08 16:16 | ER ---
Nurse's Notes [facility] Name: Radha Hastings Age: 79 yrs Sex: Female : 1940 Arrival Date: 10/08/2019 Time: 14:59 Bed 4 Private MD: Diagnosis: Laceration without foreign body of other part of head;Hematoma Forehead Presentation: 10/07 15:00 Chief complaint: Patient's son or daughter states: She was reaching for her cane and jl7 fell, hit her head on the side table. Denies LOC. Care prior to arrival: Bleeding of injury controlled. Mechanism of Injury: Fall from standing position. Trauma event details: Injury occurred in the [facility], Injury occurred: at home. Injury occurred: October 08, 2019 Injury occurred at: 14:45. 15:00 Acuity: [place] 2 jl7 15:00 Method Of Arrival: Wheelchair jl7 15:23 Coronavirus screen: Proceed with normal triage. Patient denies a cough. Patient denies jl7 shortness of breath or difficulty breathing. Patient denies measured and/or subjective temperature greater than 100.4F prior to today's visit. Patient denies travel on a cruise ship or to a country the [facility] currently lists as an affected area. Patient denies contact with known and/or suspected case of COVID-19. Ebola Screen: No symptoms or risks identified at this time. Initial Sepsis Screen: Does the patient meet any 2 criteria? No. Patient's initial sepsis screen is negative. Does the patient have a suspected source of infection? No. Patient's initial sepsis screen is negative. Risk Assessment: Do you want to hurt yourself or someone else? Patient reports no desire to harm self or others. Onset of symptoms was October 08, 2019 at 14:45. Historical: - Allergies: 15:24 ambien; jl7 15:24 Compazine; jl7 15:24 Laton; jl7 - Home Meds: 15:24 carbamazepine 200 mg Oral tab 1 tab nightly [Active]; clopidogrel 75 mg Oral tab 1 tab jl7 once daily [Active]; digoxin 250 mcg Oral tab 1 tab once daily [Active]; duloxetine 60 mg Oral cpDR 1 cap once daily [Active]; felodipine 10 mg Oral Tb24 1 tab once daily [Active]; gabapentin 300 mg Oral cap 1 cap twice a day [Active]; levothyroxine 125 mcg tab 1 tab once daily [Active]; lisinopril 40 mg Oral tab 1 tab once daily [Active]; prednisone 10 mg Oral tab 1 tab once daily [Active]; - PMHx: 15:24 Atrial Fib; BRAIN TUMOR; CVA; Depression; Hypertension; Opioid Dependence; Thyroid jl7 problem; - PSHx: 15:24 Appendectomy; Cholecystectomy; Knee surgery; back sx; left leg surgery; port-a-cath jl7 (non-functional); - Immunization history:: Adult Immunizations unknown. - Social history:: Smoking status: unknown. Screenin:00 Abuse screen: Denies threats or abuse. Denies injuries from another. Tuberculosis jl7 screening: No symptoms or risk factors identified. 17:00 Nutritional screening: No deficits noted. Fall Risk None identified. ph Primary Survey: 15:00 NO uncontrolled hemorrhage observed. Breathing/Chest: Respiratory pattern: regular, jl7 Respiratory effort: spontaneous, unlabored, Chest inspection: symmetrical rise and fall of the chest. Circulation: Pulses: palpable right radial artery and left radial artery. Skin color: pink, Skin temperature: warm. Disability Alert. Exposure/Environment: There is no evidence of uncontrolled external bleeding. Obvious injury(ies) are noted at this time: laceration and hematoma noted to right aspect of forehead A warming method has been applied: A warm blanket has been provided to the patient. 17:00 Reassessment Airway Airway Patent Breathing/Chest Respiratory pattern Regular ph Respiratory effort Spontaneous Unlabored Chest inspection Symmetrical Disability Alert. Assessment: 15:00 General: Appears in no apparent distress. uncomfortable, Behavior is calm, cooperative, jl7 appropriate for age. Pain: Complains of pain in face Pain currently is 8 out of 10 on a pain scale. Neuro: Level of Consciousness is awake, alert, obeys commands, Oriented to person, place, time, situation. Cardiovascular: Patient's skin is warm and dry. Respiratory: Airway is patent Respiratory effort is even, unlabored, Respiratory pattern is regular, symmetrical. Derm: Skin is pink, warm \T\ dry. Musculoskeletal: Swelling present in forehead. 16:00 Reassessment: Patient appears in no apparent distress at this time. Patient and/or ph family updated on plan of care and expected duration. Pain level reassessed. Patient is alert, oriented x 3, equal unlabored respirations, skin warm/dry/pink. Pt d/c home w/ granddaughter, instructed to have sutures removed in 7-10 days. Vital Signs: 15:00 BP 132 / 100; Pulse 82; Resp 17 S; Pulse Ox 100% on R/A; jl7 17:00 BP 128 / 91; Pulse 81; Resp 18; Temp 97.9; Pulse Ox 100% on R/A; ph York Coma Score: 15:00 Eye Response: spontaneous(4). Verbal Response: oriented(5). Motor Response: obeys jl7 commands(6). Total: 15. Trauma Score (Adult): 15:00 Eye Response: spontaneous(1); Verbal Response: oriented(1); Motor Response: obeys jl7 commands(2); Systolic BP: > 89 mm Hg(4); Respiratory Rate: 10 to 29 per min(4); York Score: 15; Trauma Score: 12 ED Course: 14:59 Patient arrived in ED. ag5 15:00 Patient has correct armband on for positive identification. Placed in gown. Bed in low jl7 position. Call light in reach. Side rails up X2. Pulse ox on. NIBP on. 15:00 Arm band placed on Patient placed in an exam room, on a stretcher. jl7 15:00 Patient maintains SpO2 saturation greater than 95% on room air. Thermoregulation: warm jl7 blanket given to patient. 15:02 Gabe Collazo PA is PHCP. jr8 15:02 Cameron Vogel MD is Attending Physician. jr8 15:19 Triage completed. jl7 15:26 Assist provider with laceration repair on forehead that was between 7.6 to 12.5 cm jl7 using sutures. Set up tray. Performed by Gabe MARTEL Patient tolerated well. 15:44 Head C Spine Mpr Wo Con In Process Unspecified. EDMS 16:16 Rekha Corley, EREN is Primary Nurse. ph 17:00 Patient did not have IV access during this emergency room visit. ph Administered Medications: 15:33 Drug: Lidocaine-Epinephrine -1%: (1:100,000) 1 vials Volume: 20 ml; Route: Infiltration;ph 17:00 Follow up: Response: No adverse reaction ph Intake: 17:00 PO: 0ml; Total: 0ml. ph Output: 17:00 Urine: 0ml; Total: 0ml. ph Outcome: 16:15 Discharge ordered by MD. webb 17:10 Discharged to home via wheelchair, with family. ph 17:10 Condition: good 17:10 Discharge instructions given to patient, family, Instructed on discharge instructions, follow up and referral plans. Demonstrated understanding of instructions, follow-up care. 17:13 Patient left the ED. ph 17:13 Patient's length of stay was not longer than 2 hours. ph Signatures: Dispatcher [employer] EDMS Gabe Collazo PA PA jr8 Rekha Corley RN RN Yuli Salazar RN RN jl7 Kip Simpson [facility]
[2019-10-09 15:51] VITALS: BP 132/100; O2SAT 100
== END 2019-10-08 17:13 | disposition home or self-care (01) ==
LOC: ER 14:58
PROC: 0JQ10ZZ Repair Face Subcutaneous Tissue and Fascia, Open Approach (ICD-10-PCS; principal; 2019-10-08)
DX: S01.81XA Laceration without foreign body of other part of head, initial encounter (principal); W01.10XA Fall on same level from slipping, tripping and stumbling with subsequent striking against unspecified object, initial encounter; Y93.01 Activity, walking, marching and hiking; Y92.9 Unspecified place or not applicable; Z88.8 Allergy status to other drugs, medicaments and biological substances; Z86.73 Personal history of transient ischemic attack (TIA), and cerebral infarction without residual deficits; Z91.018 Allergy to other foods; I10 Essential (primary) hypertension; E07.9 Disorder of thyroid, unspecified; I48.91 Unspecified atrial fibrillation; F32.9 Major depressive disorder, single episode, unspecified
CPT/HCPCS: 70450; 72125; 99284

== ENCOUNTER 2019-12-14 15:16 | Emergency (ER) | payer OTHER ==
--- OUTSIDE RECORDS SUMMARY | 2019-12-14 15:21 | XMS REPORT ---
:1940 Author Organization eClinicalWorks Care Team Providers Name Role Phone Carolann Gates Provider Role Unavailable Allergies, Adverse Reactions, Alerts Substance Reaction Event Type Valium Info Not Available Drug Allergy Aspirin Info Not Available Drug Allergy Ambien Info Not Available Drug Allergy Problems Problem Type Condition Code Onset Dates Condition Statu s Assessment Urinary incontinence, unspecified R32 Active type Assessment Urinary tract infection without N39.0 Active hematuria, site unspecified Problem Chronic right-sided headaches R51 Active Problem [...] Acti ve Problem Depression F32.9 Active Medications Medication Code Code Instructions Start End Status Dosage System Date Date Melatonin [facility] 73592183911 10 MG Orally Active 1 tab let Once a day at bedtime as needed Bisacodyl [facility] 45023414022 5 MG Orally Active 1 tabl et Once a day as needed Fish Oil ND 01514642347 1000 MG Orally Active (otc ) 1 Once a day capsule Doxazosin ND 16184916461 1 MG Orally Active 1 tabl et Mesylate Once a day as needed BP > or = 150/90 Gabapentin [facility] 65753838693 300 MG Orally Active 1 c apsule Twice daily Carbamazepine [facility] 23876343197 200 MG Oral Active TA KE ONE (1) TABLET(S) BY MOUTH TWICE A DAY. Estradiol [facility] 00176430410 0.1 MG/GM Active 1/2 gm Vaginal Two times a Week Lisinopril [facility] 16666071344 40 MG Orally Active 1 ta blet Once a day Felodipine ER [facility] 16062069469 10 MG Orally Active 1 tablet Once a day Digoxin [facility] 95409583432 250 MCG Orally Active 1 tab let Once a day Plavix [facility] 69255449767 75 MG Orally Active 1 table t Once a day Duloxetine HCl [facility] 93698279583 60 MG Orally Active 1 capsule Once a day Levothyroxine [facility] 45826597756 125 MCG Orally Active 1 tablet Sodium Once a day in the morning on an empty stomach Morphine Sulfate [facility] [address]-91 Active n ot defined Results No Known Results Summary Purpose eClinicalWorks Submission
--- OUTSIDE RECORDS SUMMARY | 2019-12-14 15:21 | XMS REPORT | Continuity of Care Document ---
:1940 Author Organization [facility] t Address [address] [place] [address] Care Team Providers Name Role Phone Unavailable Unavailable Unavailable Problems Condition Condition Condition Status Onset Resolution Last Treating Co mments Source Name Details Category Date Date Treatment Clinician Date Hyperglyce Hyperglyce Problem Active [facility] Hypertrigl Hypertrigl Problem Active [facility] yceridemia yceridemia Radha kes - [facility] Abnormal Abnormal Problem [facility] thyroid thyroid [facility] function function [facility] a test test l [facility] History of History of Problem Active [facility] cardiac cardiac [facility] - arrhythmia arrhythmia Me moria l [facility] Essential Essential Problem Active [facility] hypertensi hypertensi Radha kes - on on [facility] l [facility] Chronic Chronic Problem Active [facility] right-side right-side Radha kes - d d Memoria headaches headaches l [facility] History of History of Problem Active [facility] meningioma meningioma Radha kes - [facility] Abnormal Abnormal Problem Active [facility] heart heart [facility] rhythm rhythm [facility] Blood in Blood in Problem Active [facility] right ear right ear Luke s - canal canal [facility] Anxiety Anxiety Problem Active [facility] Otalgia, Otalgia, Problem Active [facility] right ear right ear Luke [facility] Urinary Urinary Problem Active [facility] incontinen incontinen Radha kes - ce, ce, Memoria unspecifie unspecifie l d type d type [facility] Gallstones Gallstones Problem Active [facility] Migraines Migraines Problem Active [facility] History of History of Problem Active [facility] stroke stroke [facility] Thyroid Thyroid Problem Active [facility] disorder disorder [facility] Depression Depression Problem Active [facility] with with [facility] anxiety anxiety [facility] Swelling Swelling Problem Active [facility] Pain in Pain in Problem Active [facility] unspecifie unspecifie Radha kes - d knee d knee [facility] l [facility] Other Other Problem Active [facility] chronic chronic [facility] pain pain [facility] Memory Memory Problem Active [facility] problem problem [facility] Acquired Acquired Problem Active [facility] hypothyroi hypothyroi Radha kes - dism dism [facility] Frequent Frequent Problem Active [facility] falls falls [facility] Chronic Chronic Problem Active [facility] pain pain [facility] syndrome syndrome [facility] a l [facility] Stroke Stroke Problem Active [facility] Osteoporos Osteoporos Problem Active [facility] is is [facility] Depression Depression Problem Active [facility] Urinary Urinary Diagnosis Active [facility] tract tract [facility] infection infection Mina samson without without l hematuria, hematuria, Ou tpati site site ent unspecifie unspecifie Cl inics d d Allergies, Adverse Reactions, Alerts Allergy Allergy Status Severity Reaction(s) Onset Inactive Treating Comm ents Source Name Type Date Date Clinician Valium Adverse Active Info Not [facility] Reaction Available [facility] Aspirin Adverse Active Info Not [facility] Reaction Available [facility] Ambien Adverse Active Info Not [facility] Reaction Available [facility] Medications Ordered Filled Start Stop Current Ordering Indication Dosage Frequency Signature Comments Components Source Medication Medication Date Date Medication? Clinician (SIG) Name Name Gabapentin Gabapentin Yes Carolann [address] [facility] Bisacodyl Bisacodyl Yes Carolann [address] [facility] Kody as needed k[facility] - [facility] Plavix Plavix Yes Carolann [address] [facility] [facility] Anza [facility] Lisinopril Lisinopril Yes Carolann [address] [facility] Carbamazepi Carbamazepi Yes Carolann TAKE ONE [facility] ne ne Kody (1) [facility] - TABLET(S) Memoria BY MOUTH l TWICE A Outpati DAY. ent Clinics Levothyroxi Levothyroxi Yes Carolann [address] [facility] ne Sodium ne Sodium Anza in the [facility] - morning on Memoria an empty l stomach Outpati ent Clinics Fish Oil Fish Oil Yes Carolann (otc) [address] [facility] Anza capsule [facility] Melatonin Melatonin Yes Carolann [address] [facility] [facility] Anza at bedtime [facility] - as needed Memoria l Outpati ent Clinics Duloxetine Duloxetine Yes Carolann [address] HCl HCl Anza [facility] Morphine Morphine Yes Carolann not [facility] Sulfate Sulfate Anza defined Radha kes - [facility] Felodipine Felodipine Yes Carolann [address] [facility] ER ER Anza [facility] Estradiol Estradiol Yes Carolann 1/[address] [facility] Doxazosin Doxazosin Yes Carolann [address] Mesylate Mesylate Anza Juanis es - [facility]oria l [facility] Digoxin Digoxin Yes Carolann [address] [facility] [facility] Procedures This patient has no known procedures. Encounters Start End Encounter Admission Attending Care Care Encounter Source Date/Time Date/Time Type Type Clinicians Facility Department ID 2019-10-29 2019-10-29 Outpatient Rosalio Sparks [id number] 09:30:00 09:30:00 t Specialty/U Radha kes - Specialty rology [facility] 2019-10-16 2019-10-16 Outpatient Rosalio Santamariat [id number] 09:40:00 09:40:00 t [facility] Medicine l Medicine [facility] 2019-09-20 2019-09-20 Outpatient Rosalio Santamariat [id number] [address] 23[facility]09:00 23:09:00 t [facility] Medicine l Medicine [facility] 2019-09-09 2019-09-09 Outpatient Rosalio Santam[facility] [id number] 10:15:00 10:15:00 [facility] Family Medicine Medicine Outpat[facility] ent Clinics Results This patient has no known results.
--- OUTSIDE RECORDS SUMMARY | 2019-12-14 15:21 | XMS REPORT ---
:1940 Author Organization eClinicalWorks Care Team Providers Name Role Phone Melissa Bain Provider Role Unavailable Allergies, Adverse Reactions, Alerts Substance Reaction Event Type Valium Info Not Available Drug Allergy Aspirin Info Not Available Drug Allergy Ambien Info Not Available Drug Allergy Problems Problem Type Condition Code Onset Dates Condition Statu s Assessment Visit for suture removal Z48.02 Act giancarlo Problem Chronic right-sided headaches R51 Active Problem [...] Start End Status Dosage System Date Date Carbamazepine [facility] 77184763281 200 MG Oral Active TA KE ONE (1) TABLET(S) BY MOUTH TWICE A DAY. Estradiol [facility] 23987322026 0.1 MG/GM Active 1/2 gm Vaginal Two times a Week Gabapentin ND 86570636725 300 MG Orally Active 1 c apsule Twice daily Duloxetine HCl ND 69456918112 60 MG Orally Active 1 capsule Once a day Melatonin ND 52976300803 10 MG Orally Active 1 tab let Once a day at bedtime as needed Felodipine ER [facility] 77054885963 10 MG Orally Active 1 tablet Once a day Lisinopril [facility] 85521860501 40 MG Orally Active 1 ta blet Once a day Levothyroxine [facility] 49166665788 125 MCG Orally Active 1 tablet Sodium Once a day in the morning on an empty stomach Fish Oil [facility] 15767674644 1000 MG Orally Active (otc ) 1 Once a day capsule Digoxin [facility] 82281931160 250 MCG Orally Active 1 tab let Once a day Morphine Sulfate [facility] [address]-84 Active n ot defined Plavix [facility] 85774193645 75 MG Orally Active 1 table t Once a day Bisacodyl [facility] 46511678574 5 MG Orally Active 1 tabl et Once a day as needed Doxazosin [facility] 67271193954 1 MG Orally Active 1 tabl et Mesylate Once a day as needed BP > or = 150/90 Results No Known Results Summary Purpose eClinicalWorks Submission
--- NOTE | 2019-12-14 16:41 | RAD REPORT ---
EXAM DESCRIPTION: CT - Head C Spine Mpr Wo Con - 12/14/2019 4:12 pm CLINICAL HISTORY: Head and neck injury status post fall. Head and neck pain COMPARISON: 10/2019 TECHNIQUE: Computed axial tomography of the head and cervical spine was obtained. Sagittal and coronal reconstruction was performed. All CT scans are performed using dose optimization technique as appropriate and may include automated exposure control or mA/KV adjustment according to patient size. FINDINGS: An intracranial bleed is not seen. The ventricles are normal in caliber. An extra-axial fl uid collection is not noted. Old left basal ganglia lacunar infarction. Mild to moderate low-density areas within periventricular, deep and subcortical white matter likely i schemic changes secondary small vessel disease. Fluid within the visualized sinuses and mastoids is not seen A cervical fracture is not visualized. No dislocation is noted. Anterior fusion C5 and C6. Spondylosi s involves cervical spine. Small to moderate right posterior-lateral disc herniation C5-6 IMPRESSION: No acute intracranial abnormality is seen. A cervical fracture is not visualized. If the patient continues to have symptoms to suggest intracra nial /spinal cord pathology then MRI would be recommended
--- NOTE | 2019-12-14 16:45 | ER ---
Nurse's Notes [facility] Name: Radha Hastings Age: 79 yrs Sex: Female : 1940 Arrival Date: 12/14/2019 Time: 15:17 Bed 8 Private MD: Diagnosis: Superficial injury of head;Contusion of unspecified part of neck Presentation: 12/13 15:50 Chief complaint: Patient states: Lost my balance and fell backwards, hit the top of my ca1 head on the door. I can feel a knot now right there. Denies LOC, reports a little blurry vision post fall. Pt reports on blood thinners Plavix. Happened 45 minutes ago. Reports head and neck pain. 15:53 Coronavirus screen: Proceed with normal triage. Patient denies a cough. Patient denies ca1 shortness of breath or difficulty breathing. Patient denies measured and/or subjective temperature greater than 100.4F prior to today's visit. Patient denies travel on a cruise ship or to a country the [facility] currently lists as an affected area. Patient denies contact with known and/or suspected case of COVID-19. Ebola Screen: Patient negative for fever greater than or equal to 101.5 degrees Fahrenheit, and additional compatible Ebola Virus Disease symptoms Patient denies exposure to infectious person. Patient denies travel to an Ebola-affected area in the 21 days before illness onset. No symptoms or risks identified at this time. Initial Sepsis Screen: Does the patient meet any 2 criteria? No. Patient's initial sepsis screen is negative. Does the patient have a suspected source of infection? No. Patient's initial sepsis screen is negative. Risk Assessment: Do you want to hurt yourself or someone else? Patient reports no desire to harm self or others. Onset of symptoms was December 14, 2019. 15:53 Method Of Arrival: Wheelchair ca1 15:53 Acuity: [place]AS[place] 2 ca1 16:00 Care prior to arrival: None. Mechanism of Injury: Fall. Trauma event details: Injury bp occurred in the [facility], Injury occurred: at home. Injury occurred: December 14, 2019 Injury occurred at: 15:00. Triage Assessment: 15:57 General: Appears in no apparent distress. comfortable, Behavior is calm, cooperative, ca1 appropriate for age. Neuro: Level of Consciousness is awake, alert, obeys commands, Oriented to person, place, time, situation. Trauma Activation: Consult Physician: ED Physician; Name: ; Notified At: ; Arrived At: Physician: General Surgeon; Name: ; Notified At: ; Arrived At: Physician: Radiology; Name: ; Notified At: ; Arrived At: Physician: Respiratory; Name: ; Notified At: ; Arrived At: Physician: Lab; Name: ; Notified At: ; Arrived At: Historical: - Allergies: 15:53 ambien; ca1 15:53 Compazine; ca1 15:53 [place]; ca1 - Home Meds: 15:57 clopidogrel 75 mg Oral tab 1 tab once daily [Active]; ca1 - PMHx: 15:56 Atrial Fib; BRAIN TUMOR; CVA; Depression; Hypertension; Opioid Dependence; Thyroid ca1 problem; - PSHx: 15:56 Appendectomy; Cholecystectomy; Knee surgery; back sx; left leg surgery; port-a-cath ca1 (non-functional); - Immunization history:: Adult Immunizations up to date. - Social history:: Smoking status: Patient denies any tobacco usage or history of. - Immunization history: Last tetanus immunization: - up to date. - Family history:: not pertinent. - Hospitalizations: : No recent hospitalization is reported. Screenin:00 Abuse screen: Denies threats or abuse. Denies injuries from another. Tuberculosis bp screening: No symptoms or risk factors identified. 17:39 Nutritional screening: No deficits noted. Fall Risk None identified. bp Primary Survey: 16:00 NO uncontrolled hemorrhage observed. A: The patient is alert. Airway: patent. bp Breathing/Chest: Respiratory pattern: regular, Respiratory effort: spontaneous, unlabored. Circulation: Skin color: pink, Skin temperature: warm, dry. Disability Alert. Exposure/Environment: There is no evidence of uncontrolled external bleeding. 17:17 Reassessment Breathing/Chest Respiratory pattern Regular Respiratory effort Spontaneous bp Unlabored. Assessment: 16:00 General: Appears in no apparent distress. uncomfortable, Behavior is calm, cooperative, bp appropriate for age. Pain: Complains of pain in back of head. Neuro: Level of Consciousness is awake, alert, obeys commands, Oriented to person, place, time, situation, Appropriate for age. EENT: No deficits noted. Cardiovascular: No deficits noted. Respiratory: No deficits noted. GI: No signs and/or symptoms were reported involving the gastrointestinal system. : No signs and/or symptoms were reported regarding the genitourinary system. Derm: No deficits noted. Musculoskeletal: No deficits noted. Vital Signs: 15:53 BP 161 / 92; Pulse 95; Resp 17 S; Temp 98.6; Pulse Ox 97% on R/A; Weight 65.77 kg (R); ca1 Height 5 ft. 4 in. (162.56 cm); Pain 7/10; 17:16 BP 148 / 99; Pulse 64; Resp 17; Temp 98.5; Pulse Ox 96% ; bp 15:53 Body Mass Index 24.89 (65.77 kg, 162.56 cm) ca1 [place] Coma Score: 16:00 Eye Response: spontaneous(4). Verbal Response: oriented(5). Motor Response: obeys bp commands(6). Total: 15. Trauma Score (Adult): 16:00 Eye Response: spontaneous(1); Verbal Response: oriented(1); Motor Response: obeys bp commands(2); Systolic BP: > 89 mm Hg(4); Respiratory Rate: 10 to 29 per min(4); Jean[place] Score: 15; Trauma Score: 12 ED Course: 15:17 Patient arrived in ED. ag5 15:55 Triage completed. ca1 15:59 Desmond Hebert, EREN is Primary Nurse. bp 16:00 Manuel Trujillo MD is Attending Physician. rn 16:00 Patient has correct armband on for positive identification. Bed in low position. Call bp light in reach. Side rails up X2. 16:00 Patient maintains SpO2 saturation greater than 95% on room air. Thermoregulation: warm bp blanket given to patient. 16:12 CT Head C Spine In Process Unspecified. EDMS 17:16 No provider procedures requiring assistance completed. Patient did not have IV access bp during this emergency room visit. Administered Medications: No medications were administered Intake: 16:00 PO: 0ml; Total: 0ml. bp Output: 16:00 Urine: 0ml; Total: 0ml. bp Outcome: 16:44 Discharge ordered by . rn 17:38 Discharged to home via wheelchair, with family. bp 17:38 Condition: stable 17:38 Patient's length of stay was not longer than 2 hours. 17:38 Instructed on discharge instructions, follow up and referral plans. bp 17:39 Patient left the ED. bp Signatures: Dispatcher [employer] EDMS Manuel Trujillo MD MD rn Peltier, Brian RN RN Sharon Mitchell RN RN ca1 Kip Simpson ag5 Corrections: (The following items were deleted from the chart) 15:55 15:50 Chief complaint: Patient states: Lost my balance and fell backwards, hit the top ca1 of my head on the door. I can feel a knot now right there. Denies LOC, reports a little blurry vision post fall. Pt reports on blood thinners Plavix ca1
--- NOTE | 2019-12-14 16:45 | EDPHYS ---
Physician Documentation [facility] Name: Radha Hastings Age: 79 yrs Sex: Female : 1940 Arrival Date: 12/14/2019 Time: 15:17 Bed 8 Private MD: ED Physician Manuel Trujillo HPI: 12/13 16:03 This 79 yrs old Female presents to ER via Wheelchair with complaints of Fall rn Injury, Head Injury-Adult. 16:03 Details of fall: The patient fell from an upright position. Onset: The symptoms/episode rn began/occurred. 16:03 Associated injuries: The patient sustained injury to the head, neck injury. Severity of rn symptoms: At their worst the symptoms were mild, in the emergency department the symptoms are unchanged. The patient has experienced similar episodes in the past. Reports falls frequently, fell backward today from standing position, no LOC, takes plavix, reports mild headache and neck pain, no other injuries, remembers all events, hit head on door. . Historical: - Allergies: 15:53 ambien; ca1 15:53 Compazine; ca1 15:53 [place]; ca1 - Home Meds: 15:57 clopidogrel 75 mg Oral tab 1 tab once daily [Active]; ca1 - PMHx: 15:56 Atrial Fib; BRAIN TUMOR; CVA; Depression; Hypertension; Opioid Dependence; Thyroid ca1 problem; - PSHx: 15:56 Appendectomy; Cholecystectomy; Knee surgery; back sx; left leg surgery; port-a-cath ca1 (non-functional); - Immunization history:: Adult Immunizations up to date. - Social history:: Smoking status: Patient denies any tobacco usage or history of. - Immunization history: Last tetanus immunization: - up to date. - Family history:: not pertinent. - Hospitalizations: : No recent hospitalization is reported. ROS: 16:03 Constitutional: Negative for fever, chills, and weight loss, ENT: No oral trauma Neck: rn + mild neck pain Cardiovascular: Negative for chest pain, palpitations, and edema, Respiratory: Negative for shortness of breath, cough, wheezing, and pleuritic chest pain, Abdomen/GI: Negative for abdominal pain, nausea, vomiting, diarrhea, and constipation, Back: Negative for injury and pain, MS/Extremity: Negative for injury and deformity, Skin: Negative for injury, rash, and discoloration, Neuro: + mild headache Exam: 16:03 Constitutional: This is a well developed, well nourished patient who is awake, alert, rn and in no acute distress. Head/Face: Normocephalic, no depression of skull or open wounds ENT: No oral trauma Neck: NO neck swelling or midline tenderness Cardiovascular: No pulse deficits. Respiratory: Speaking full sentences. No increased work of breathing, no retractions or nasal flaring. Abdomen/GI: soft, non-tender MS/ Extremity: Pulses equal, no cyanosis. Neurovascular intact. Full, normal range of motion. Equal circumference. Neuro: Awake and alert, GCS 15, oriented to person, place, time, and situation. Moves all 4 extremities, ambulatory from wheelchair to bed. Vital Signs: 15:53 BP 161 / 92; Pulse 95; Resp 17 S; Temp 98.6; Pulse Ox 97% on R/A; Weight 65.77 kg (R); ca1 Height 5 ft. 4 in. (162.56 cm); Pain 7/10; 17:16 BP 148 / 99; Pulse 64; Resp 17; Temp 98.5; Pulse Ox 96% ; bp 15:53 Body Mass Index 24.89 (65.77 kg, 162.56 cm) ca1 [place] Coma Score: 16:00 Eye Response: spontaneous(4). Verbal Response: oriented(5). Motor Response: obeys bp commands(6). Total: 15. Trauma Score (Adult): 16:00 Eye Response: spontaneous(1); Verbal Response: oriented(1); Motor Response: obeys bp commands(2); Systolic BP: > 89 mm Hg(4); Respiratory Rate: 10 to 29 per min(4); [place] Score: 15; Trauma Score: 12 MDM: 16:00 Patient medically screened. rn 16:43 Differential diagnosis: abrasion, closed head injury, contusion, fracture. Differential rn diagnosis: sprain. Data reviewed: vital signs, nurses notes. Data reviewed: radiologic studies, CT scan, and as a result, I will discharge patient. Counseling: I had a detailed discussion with the patient and/or guardian regarding: the historical points, exam findings, and any diagnostic results supporting the discharge/admit diagnosis, radiology results, the need for outpatient follow up, to return to the emergency department if symptoms worsen or persist or if there are any questions or concerns that arise at home. Response to treatment: the patient's symptoms have markedly improved after treatment, and as a result, I will discharge patient. Special discussion: Based on the patient's history, exam and DX evaluation, there is no indication for emergent intervention or inpatient TX. It is understood by the patient/guardian that if the SXs persist or worsen they need to return immediately for re-evaluation. I discussed with the patient/guardian in detail that at this point there is no indication for admission to the hospital. It is understood, however, that if the symptoms persist or worsen the patient needs to return immediately for re-evaluation. ED course: Neg ct head/cspine, will dc home with pcp f/u and return precautions. . 12/13 16:03 Order name: CT Head C Spine; Complete Time: 16:43 rn Administered Medications: No medications were administered Disposition: 12/14/19 16:44 Discharged to Home. Impression: Superficial injury of head, Contusion of unspecified part of neck. - Condition is Stable. - Discharge Instructions: Contusion, Head Injury, Adult. - Medication Reconciliation Form, Thank You Letter, Antibiotic Education, Prescription Opioid Use form. - Follow up: Private Physician; When: As needed; Reason: Recheck today's complaints, Re-evaluation by your physician. - Problem is new. - Symptoms have improved. Signatures: Dispatcher [employer] EDMS Manuel Trujillo MD MD rn Peltier, Brian, RN RN bp Acob, Cheryl, RN RN ca1 Corrections: (The following items were deleted from the chart) 17:39 16:44 12/14/2019 16:44 Discharged to Home. Impression: Superficial injury of head; bp Contusion of unspecified part of neck. Condition is Stable. Forms are Medication Reconciliation Form, Thank You Letter, Antibiotic Education, Prescription Opioid Use. Follow up: Private Physician; When: As needed; Reason: Recheck today's complaints, Re-evaluation by your physician. Problem is new. Symptoms have improved. rn
[2019-12-14 17:53] VITALS: BP 148/99; TEMP 98.5; O2SAT 96
== END 2019-12-14 17:39 | disposition home or self-care (01) ==
LOC: ER 15:16
DX: S10.93XA Contusion of unspecified part of neck, initial encounter (principal); W19.XXXA Unspecified fall, initial encounter; Y93.89 Activity, other specified; Y92.9 Unspecified place or not applicable; I10 Essential (primary) hypertension; Z88.1 Allergy status to other antibiotic agents; Z88.8 Allergy status to other drugs, medicaments and biological substances; Z91.018 Allergy to other foods
CPT/HCPCS: 70450; 72125; 99284; G0390

== ENCOUNTER 2020-01-27 09:24 | Emergency (ER) | payer OTHER ==
--- OUTSIDE RECORDS SUMMARY | 2020-01-27 09:35 | XMS REPORT | Continuity of Care Document ---
:1940 Author Organization [facility] Address [address] [place] [address] [address] [place] [address] Care Team Providers Name Role Phone Unavailable Unavailable Unavailable Problems Condition Condition Condition Status Onset Resolution Last Treating Co mments Source Name Details Category Date Date Treatment Clinician Date Hyperglyce Hyperglyce Problem Active [facility] Hypertrigl Hypertrigl Problem Active [facility] yceridemia yceridemia Radha kes - [facility] Abnormal Abnormal Problem Active [facility] thyroid [facility] function function [facility] a test test l [facility] History of History of Problem Active [facility] cardiac cardiac [facility] - arrhythmia arrhythmia Me moria l [facility] Essential Essential Problem Active [facility] hypertensi hypertensi Radha kes - on on [facility] l [facility] Chronic Chronic Problem Active [facility] right-side right-side Radha kes - d d [facility]oria headaches headaches l [facility] History of History of Problem Active [facility] meningioma meningioma Radha kes - [facility] Abnormal Abnormal Problem Active [facility] heart heart [facility] rhythm rhythm [facility] Blood in Blood in Problem Active [facility] right ear right ear Luke s - canal canal [facility] Anxiety Anxiety Problem Active [facility] Otalgia, Otalgia, Problem Active [facility] right ear right ear Luke [facility] - [facility] Urinary Urinary Problem Active [facility] incontinen incontinen Radha kes - ce, ce, Memoria unspecifie unspecifie l d type d type [facility] Gallstones Gallstones Problem Active [facility] Migraines Migraines Problem Active [facility] History of History of Problem Active [facility] stroke stroke [facility] Thyroid Thyroid Problem Active [facility] disorder disorder [facility] Depression Depression Problem Active [facility] with with [facility] anxiety anxiety [facility] Swelling Swelling Problem Active [facility] Pain in Pain in Problem Active [facility] unspecifie unspecifie Radha kes - d knee d knee [facility] Other Other Problem Active [facility] chronic chronic [facility] pain pain [facility] Memory Memory Problem Active [facility] problem problem [facility] Acquired Acquired Problem Active [facility] hypothyroi hypothyroi Radha kes - dism dism [facility] Frequent Frequent Problem Active [facility] [place] [facility] Chronic Chronic Problem Active [facility] pain pain [facility] - syndrome syndrome [facility] a [facility] Stroke Stroke Problem Active [facility] Osteoporos Osteoporos Problem Active [facility] is is [facility]ics Depression Depression Problem Active [facility] Urinary Urinary Diagnosis Active [facility] tract [facility] infection infection Mina samson without without l hematuria, hematuria, Ou tpati site site ent unspecifie unspecifie Cl inics d d Allergies, Adverse Reactions, Alerts Allergy Allergy Status Severity Reaction(s) Onset Inactive Treating Comm ents Source Name Type Date Date Clinician Valium Adverse Active Info Not [facility] Reaction Available [facility] Aspirin Adverse Active Info Not [facility] Reaction Available [facility] Ambien Adverse Active Info Not [facility] Reaction Available [facility] Medications Ordered Filled Start Stop Current Ordering Indication Dosage Frequency Signature Comments Components Source Medication Medication Date Date Medication? Clinician (SIG) Name Name Gabapentin Gabapentin Yes Carolann [address] [facility] [place] [facility] Bisacodyl Bisacodyl Yes Carolann [address] [facility] Kody as needed [facility] Plavix Plavix Yes Carolann [address] [facility] [place] [facility] Lisinopril Lisinopril Yes Carolann [address] [facility] Kody [facility] Carbamazepi Carbamazepi Yes Carolann TAKE ONE [facility] ne ne Kody (1) [facility] - TABLET(S) Memoria BY MOUTH l TWICE A Outpati DAY. ent Clinics Levothyroxi Levothyroxi Yes Carolann [address] [facility] ne Sodium ne Sodium [place] in the [facility] - morning on Memoria an empty l stomach Outpati ent Clinics Fish Oil Fish Oil Yes Carolann (otc) [address] [facility] [facility] [place] capsule [facility] Melatonin Melatonin Yes Carolann [address] [facility] [place] at bedtime [facility] - as needed Memoria l Outpati ent Clinics Duloxetine Duloxetine Yes Carolann [address] [facility] [address] HCl HCl Kody [facility] Morphine Morphine Yes Carolann not [facility] Sulfate Sulfate Kody defined Radha kes - [facility] Felodipine Felodipine Yes Carolann [address] [facility] ER ER Kody [facility] Estradiol Estradiol Yes Carolann 1/[address] [facility]ody [facility] Doxazosin Doxazosin Yes Carolann [address] [facility] [address] Mesylate Mesylate Kody Juanis es - [facility] Digoxin Digoxin Yes Carolann [address] [facility] Kody [facility] Procedures This patient has no known procedures. Encounters Start End Encounter Admission Attending Care Care Encounter Source Date/Time Date/Time Type Type Clinicians Facility Department ID 2019-10-29 2019-10-29 Outpatient Rosalio Sparks [id number] [facility] [address] 09:30:00 09:30:00 t Specialty/U Radha kes - Specialty rology [facility] a /Urology Clinic l Clinic [facility] 2019-10-16 2019-10-16 Outpatient Rosalio Sparks [id number] 09:40:00 09:40:00 t [facility] Medicine l Medicine [facility] 2019-09-20 2019-09-20 Outpatient Rosalio Sparks [id number] [facility] 23:09:00 23:09:00 t [facility] Medicine [facility] 2019-09-09 2019-09-09 Outpatient Rosalio Sparks [id number] 10:15:00 10:15:00 [facility] Family Medicine Medicine Outpat[facility] ent Clinics Results This patient has no known results.
--- OUTSIDE RECORDS SUMMARY | 2020-01-27 09:36 | XMS REPORT ---
[...] End Status Dosage System Date Date Melatonin [facility] 87461454127 10 MG Orally Active 1 tab let Once a day at bedtime as needed Bisacodyl [facility] 35032405854 5 MG Orally Active 1 tabl et Once a day as needed Fish Oil ND 50699095740 1000 MG Orally Active (otc ) 1 Once a day capsule Doxazosin ND 60779482953 1 MG Orally Active 1 tabl et Mesylate Once a day as needed BP > or = 150/90 Gabapentin [facility] 14378096995 300 MG Orally Active 1 c apsule Twice daily Carbamazepine [facility] 72828759536 200 MG Oral Active TA KE ONE (1) TABLET(S) BY MOUTH TWICE A DAY. Estradiol [facility] 95609758504 0.1 MG/GM Active 1/2 gm Vaginal Two times a Week Lisinopril [facility] 30203238786 40 MG Orally Active 1 ta blet Once a day Felodipine ER [facility] 65649971476 10 MG Orally Active 1 tablet Once a day Digoxin [facility] 33405598558 250 MCG Orally Active 1 tab let Once a day Plavix [facility] 70774676584 75 MG Orally Active 1 table t Once a day Duloxetine HCl [facility] 52826065965 60 MG Orally Active 1 capsule Once a day Levothyroxine [facility] 13349222326 125 MCG Orally Active 1 tablet Sodium Once a day in the morning on an empty stomach Morphine Sulfate [facility] [address]-36 Active n ot defined Results No Known Results Summary Purpose eClinicalWorks Submission
--- NOTE | 2020-01-27 10:02 | RAD REPORT ---
EXAM DESCRIPTION: CT - Head C Spine Mpr Wo Con - 01/27/2020 9:45 am CLINICAL HISTORY: Head and neck injury status post fall. Head and neck pain COMPARISON: 12/2019 TECHNIQUE: Computed axial tomography of the head and cervical spine was obtained. Sagittal and coronal reconstruction was performed. All CT scans are performed using dose optimization technique as appropriate and may include automated exposure control or mA/KV adjustment according to patient size. FINDINGS: An intracranial bleed is not seen. The ventricles are normal in caliber. An extra-axial fl uid collection is not noted.Fluid within the visualized sinuses and mastoids is not seen. Old basal g anglia lacunar infarctions. Mild to moderate low-density areas within periventricular, deep and subco rtical white matter likely ischemic changes secondary to small vessel disease. Right frontal scalp swelling A cervical fracture is not visualized. No dislocation is noted.Anterior fusion C5 and C6. Spondylosis involves cervical spine. Small to moderate right posterior-lateral disc herniation C5-6. Spondylosis C3-4 results in moderate to marked right foraminal stenosis IMPRESSION: No acute intracranial abnormality is seen. A cervical fracture is not visualized. If the patient continues to have symptoms to suggest intracra nial /spinal cord pathology then MRI would be recommended
--- NOTE | 2020-01-27 11:01 | RAD REPORT ---
EXAM DESCRIPTION: RAD - Ankle Left 3 View -01/27/2020 10:01 am CLINICAL HISTORY: Left ankle pain FINDINGS: Sideplate and screws affix lateral and medial malleolar fractures. Bones are osteoporotic No acute fracture or dislocation
--- NOTE | 2020-01-27 11:04 | RAD REPORT ---
EXAM DESCRIPTION: RAD - Foot Left 3 View - 01/27/2020 10:01 am CLINICAL HISTORY: Left Foot pain FINDINGS: Osteoporosis No acute fracture or dislocation. Old metatarsal fractures are noted.
[2020-01-27] MEDS ORDERED: TETANUS & DIPHTHERIA TOX,ADULT 0.5 ML VIAL ONE (11:15)
[2020-01-27] MEDS ORDERED: ACETAMINOPHEN 325 MG TABLET ONE (11:15)
--- NOTE | 2020-01-27 11:25 | ER ---
Nurse's Notes [facility] Name: Radha Hastings Age: 79 yrs Sex: Female : 1940 Arrival Date: 01/27/2020 Time: : Bed 18 Private MD: Diagnosis: Laceration without foreign body of other part of head-right side scalp;Contusion of left foot-hematoma;Repeated falls Presentation: 01/26 09:28 Chief complaint: granddaughter reports that patient fell this morning from standing ss position. C/o pain to L foot and head. Dried blood noted to R side of head. Care prior to arrival: None. Mechanism of Injury: Fall from standing position. Trauma event details: Injury occurred in the [facility], Injury occurred: at home. Injury occurred: January 27, 2020. 09:28 Acuity: [place] 2 ss 09:28 Method Of Arrival: Wheelchair ss 09:28 Coronavirus screen: Client denies travel out of the [place] in the last 14 days. At this sv time, the client does not indicate any symptoms associated with coronavirus-19. Ebola Screen: No symptoms or risks identified at this time. Initial Sepsis Screen: Does the patient meet any 2 criteria? No. Patient's initial sepsis screen is negative. Does the patient have a suspected source of infection? No. Patient's initial sepsis screen is negative. Risk Assessment: Do you want to hurt yourself or someone else? Patient reports no desire to harm self or others. Onset of symptoms was January 27, 2020. Trauma Activation: Alert Physician: ED Physician; Name: ; Notified At: ; Arrived At: Physician: General Surgeon; Name: ; Notified At: ; Arrived At: Physician: Radiology; Name: ; Notified At: ; Arrived At: Physician: Respiratory; Name: ; Notified At: ; Arrived At: Physician: Lab; Name: ; Notified At: ; Arrived At: Historical: - Allergies: 09:39 ambien; sv 09:39 Compazine; sv 09:39 Jean Claude; sv - Home Meds: 09:39 felodipine 10 mg Oral Tb24 1 tab once daily [Active]; lisinopril 40 mg Oral tab 1 tab sv once daily [Active]; duloxetine 60 mg Oral cpDR 1 cap once daily [Active]; clopidogrel 75 mg Oral tab 1 tab once daily [Active]; gabapentin 300 mg Oral cap 1 cap twice a day [Active]; carbamazepine 200 mg Oral tab 1 tab nightly [Active]; levothyroxine 125 mcg tab 1 tab once daily [Active]; - PMHx: 09:39 Atrial Fib; BRAIN TUMOR; Opioid Dependence; CVA; Depression; Hypertension; Thyroid sv problem; - PSHx: 09:39 Appendectomy; Cholecystectomy; Knee surgery; port-a-cath (non-functional); back sx; sv left leg surgery; - Immunization history:: Adult Immunizations up to date. - Social history:: Smoking status: Patient denies any tobacco usage or history of. Screenin:28 Abuse screen: Denies threats or abuse. Denies injuries from another. Tuberculosis ss screening: No symptoms or risk factors identified. Never had TB. 09:28 Nutritional screening: No deficits noted. Fall Risk None identified. sv Primary Survey: :28 NO uncontrolled hemorrhage observed. A: The patient is alert. Airway: patent, No ss supplemental oxygen in use on arrival. Breathing/Chest: Respiratory pattern: regular. Circulation: Pulses: palpable right radial artery and left radial artery. Disability Alert. Exposure/Environment: All clothing and personal items were removed. Clothing may be used as evidence. Items were removed and preserved. 10:15 Reassessment Airway Airway Patent Oxygen No O2 Oral cavity Clear Trachea Midline sv Breathing/Chest Respiratory pattern Regular Respiratory effort Spontaneous Unlabored Chest inspection Symmetrical Circulation Heart tones Present Pulses Palpable Color [place] Temperature Warm Dry Disability Alert. Secondary Survey: :28 HEENT: Head Other hematoma with dried blood noted to the right side of head. sv Gastrointestinal: No deficits noted. : No deficits noted. No signs and/or symptoms were reported regarding the genitourinary system. Musculoskeletal: Reports pain in left foot. Vital Signs: 09:28 BP 147 / 85; Pulse 76; Resp 18; Pulse Ox 98% on R/A; Weight 73.94 kg; Pain 9/10; ss 09:28 Temp 98; sv 10:15 BP 180 / 99; Pulse 77; Resp 14; Temp 98; Pulse Ox 100% ; sv [place] Coma Score: 09:28 Eye Response: spontaneous(4). Verbal Response: oriented(5). Motor Response: obeys ss commands(6). Total: 15. 10:15 Eye Response: spontaneous(4). Verbal Response: confused(4). Motor Response: obeys sv commands(6). Total: 14. 11:16 Eye Response: spontaneous(4). Verbal Response: oriented(5). Motor Response: obeys rohini commands(6). Total: 15. Trauma Score (Adult): 09:28 Eye Response: spontaneous(1); Verbal Response: oriented(1); Motor Response: obeys ss commands(2); Systolic BP: > 89 mm Hg(4); Respiratory Rate: 10 to 29 per min(4); Jeanette Score: 15; Trauma Score: 12 10:15 Eye Response: spontaneous(1); Verbal Response: confused(1); Motor Response: obeys sv commands(2); Systolic BP: > 89 mm Hg(4); Respiratory Rate: 10 to 29 per min(4); Jeanette Score: 14; Trauma Score: 12 ED Course: 09:25 Patient arrived in ED. ds1 09:28 Patient has correct armband on for positive identification. Bed in low position. Call ss light in reach. 09:28 Arm band placed on. sv 09:28 Patient maintains SpO2 saturation greater than 95% on room air. ss 09:28 Thermoregulation: warm blanket given to patient. sv 09:29 Catrachita Nieves RN is Primary Nurse. sv 09:29 Akil Quiñonez MD is Attending Physician. rohini 09:36 Triage completed. ss 09:37 Dressings: 4X4s X 1; right temporal area with carlee wrap. sv 09:[address] via stretcher. sv 09:44 Head C Spine Mpr Wo Con In Process Unspecified. EDMS 10:00 Foot Left 3 View XRAY In Process Unspecified. EDMS 10:00 Ankle Left 3 View XRAY In Process Unspecified. EDMS 10:15 Awaiting radiology results. Awaiting ED provider evaluation. sv 10:44 Assist provider with laceration repair on right temporal area using lana. Set up sv tray. Performed by Akil Quiñonez MD Dressed with 4X4s, carlee wrap Patient tolerated well. 11:22 Patient did not have IV access during this emergency room visit. sv Administered Medications: 11:21 Drug: Tetanus-Diphtheria Toxoid Adult 0.5 ml {Cad Administrator: Alt[employer]re. Exp: sv 07/18/2021. Lot #: [id number]. } Route: IM; Site: right deltoid; 11:53 Follow up: Response: No adverse reaction sv 11:22 Drug: Tylenol 650 mg Route: PO; sv 11:53 Follow up: Response: No adverse reaction sv Intake: 09:28 PO: 0ml; Total: 0ml. sv 10:15 PO: 0ml; Total: 0ml. sv Output: 09:28 Urine: 0ml; Total: 0ml. sv 10:15 Urine: 0ml; Total: 0ml. sv Outcome: 11:24 Discharge ordered by . [facility] 11:53 Discharged to home via wheelchair, with family. sv 11:53 Condition: stable 11:53 Discharge instructions given to patient, family, Instructed on discharge instructions, follow up and referral plans. Demonstrated understanding of instructions, follow-up care. 11:53 Patient left the ED. sv Signatures: Dispatcher [employer] Catrachita Suazo RN RN sv Anderson, Corey, MD MD cha Sanford, Demi ds1 Amanda Kaye RN RN ss Corrections: (The following items were deleted from the chart) 11:22 10:44 Assist provider with laceration repair on right temporal area using lana. Set sv up tray. Performed by Akil Quiñonez MD Patient tolerated well. sv
--- NOTE | 2020-01-27 11:25 | EDPHYS ---
Physician Documentation [facility] Name: Radha Hastings Age: 79 yrs Sex: Female : 1940 Arrival Date: 01/27/2020 Time: : Bed 18 Private MD: JENNY Physician Akil Quiñonez HPI: 01/26 10:43 This 79 yrs old Female presents to ER via Wheelchair with complaints of Fall rohini Injury, Head Injury-Adult. 10:43 Details of fall: The patient fell from an upright position, while standing, while rohini walking. Associated injuries: The patient sustained injury to the head, dorsum of left foot, deformity, ecchymosis, hematoma, painful injury, swelling. Severity of symptoms: At their worst the symptoms were mild, in the emergency department the symptoms have improved, mildly. The patient has experienced similar episodes in the past. Historical: - Allergies: 09:39 ambien; sv 09:39 Compazine; sv 09:39 Jean Claude; sv - Home Meds: 09:39 felodipine 10 mg Oral Tb24 1 tab once daily [Active]; lisinopril 40 mg Oral tab 1 tab sv once daily [Active]; duloxetine 60 mg Oral cpDR 1 cap once daily [Active]; clopidogrel 75 mg Oral tab 1 tab once daily [Active]; gabapentin 300 mg Oral cap 1 cap twice a day [Active]; carbamazepine 200 mg Oral tab 1 tab nightly [Active]; levothyroxine 125 mcg tab 1 tab once daily [Active]; - PMHx: 09:39 Atrial Fib; BRAIN TUMOR; Opioid Dependence; CVA; Depression; Hypertension; Thyroid sv problem; - PSHx: 09:39 Appendectomy; Cholecystectomy; Knee surgery; port-a-cath (non-functional); back sx; sv left leg surgery; - Immunization history:: Adult Immunizations up to date. - Social history:: Smoking status: Patient denies any tobacco usage or history of. ROS: 10:54 MS/extremity: Positive for decreased range of motion, laceration pain, swelling, rohini tenderness, of the face. 10:54 Constitutional: Negative for fever, chills, and weight loss, Eyes: Negative for injury, pain, redness, and discharge, ENT: Negative for injury, pain, and discharge, Neck: Negative for injury, pain, and swelling, Cardiovascular: Negative for chest pain, palpitations, and edema, Respiratory: Negative for shortness of breath, cough, wheezing, and pleuritic chest pain, Abdomen/GI: Negative for abdominal pain, nausea, vomiting, diarrhea, and constipation, Back: Negative for injury and pain, : Negative for injury, bleeding, discharge, and swelling, Skin: Negative for injury, rash, and discoloration, Psych: Negative for depression, anxiety, suicide ideation, homicidal ideation, and hallucinations, Allergy/Immunology: Negative for hives, rash, and allergies, Endocrine: Negative for neck swelling, polydipsia, polyuria, polyphagia, and marked weight changes, Hematologic/Lymphatic: Negative for swollen nodes, abnormal bleeding, and unusual bruising. 10:54 MS/extremity: Positive for ecchymosis, pain, swelling, tenderness, of the dorsum of left foot. Exam: 10:54 Constitutional: This is a well developed, well nourished patient who is awake, alert, rohini and in no acute distress. Eyes: Pupils equal round and reactive to light, extra-ocular motions intact. Lids and lashes normal. Conjunctiva and sclera are non-icteric and not injected. Cornea within normal limits. Periorbital areas with no swelling, redness, or edema. ENT: Nares patent. No nasal discharge, no septal abnormalities noted. Tympanic membranes are normal and external auditory canals are clear. Oropharynx with no redness, swelling, or masses, exudates, or evidence of obstruction, uvula midline. Mucous membranes moist. Neck: Trachea midline, no thyromegaly or masses palpated, and no cervical lymphadenopathy. Supple, full range of motion without nuchal rigidity, or vertebral point tenderness. No Meningismus. Chest/axilla: Normal chest wall appearance and motion. Nontender with no deformity. No lesions are appreciated. Cardiovascular: Regular rate and rhythm with a normal S1 and S2. No gallops, murmurs, or rubs. Normal PMI, no JVD. No pulse deficits. Respiratory: Lungs have equal breath sounds bilaterally, clear to auscultation and percussion. No rales, rhonchi or wheezes noted. No increased work of breathing, no retractions or nasal flaring. Abdomen/GI: Soft, non-tender, with normal bowel sounds. No distension or tympany. No guarding or rebound. No evidence of tenderness throughout. Back: No spinal tenderness. No costovertebral tenderness. Full range of motion. Female : Normal external genitalia. Skin: Warm, dry with normal turgor. Normal color with no rashes, no lesions, and no evidence of cellulitis. Neuro: Awake and alert, GCS 15, oriented to person, place, time, and situation. Cranial nerves II-XII grossly intact. Motor strength 5/5 in all extremities. Sensory grossly intact. Cerebellar exam normal. Normal gait. Psych: Awake, alert, with orientation to person, place and time. Behavior, mood, and affect are within normal limits. 10:54 Head/face: Noted is abrasion(s), ecchymosis, hematoma, a laceration(s), that is deep, 2.5 cm(s), of the right side of the back of head. 10:54 Musculoskeletal/extremity: Extremities: noted in the dorsum of left foot: decreased ROM, deformity, ecchymosis, pain, ROM: full active range of motion, full passive range of motion, limited active range of motion due to pain, limited passive range of motion due to pain, Circulation is intact in all extremities. Sensation intact. Compartment Syndrome exam of affected extremity: is normal. Joints: All joints appear normal with full range of motion. Weight bearing: able to fully bear weight, DVT Exam: No signs of deep vein thrombosis. negative Homans' sign noted on exam, no appreciated bluish discoloration, no erythema, no increased warmth. 10:54 Neuro: Orientation: is normal, appropriate for stated age, no acute changes, Mentation: is normal, appropriate for stated age, no acute changes, Memory: is normal, appropriate for stated age, no acute changes, Cranial nerves: grossly normal, is grossly normal based on the patient's age, no acute changes, Cerebellar function: is grossly normal based on the patient's age, no acute changes, Motor: is normal, is grossly normal based on the patient's age, no acute changes, Gait: not applicable is steady, appropriate for age, Babinski testing is normal, seizure activity, is not displayed by the patient. Vital Signs: 09:28 BP 147 / 85; Pulse 76; Resp 18; Pulse Ox 98% on R/A; Weight 73.94 kg; Pain 9/10; ss 09:28 Temp 98; sv 10:15 BP 180 / 99; Pulse 77; Resp 14; Temp 98; Pulse Ox 100% ; sv [place] Coma Score: 09:28 Eye Response: spontaneous(4). Verbal Response: oriented(5). Motor Response: obeys ss commands(6). Total: 15. 10:15 Eye Response: spontaneous(4). Verbal Response: confused(4). Motor Response: obeys sv commands(6). Total: 14. 11:16 Eye Response: spontaneous(4). Verbal Response: oriented(5). Motor Response: obeys rohini commands(6). Total: 15. Trauma Score (Adult): 09:28 Eye Response: spontaneous(1); Verbal Response: oriented(1); Motor Response: obeys ss commands(2); Systolic BP: > 89 mm Hg(4); Respiratory Rate: 10 to 29 per min(4); Jeanette Score: 15; Trauma Score: 12 10:15 Eye Response: spontaneous(1); Verbal Response: confused(1); Motor Response: obeys sv commands(2); Systolic BP: > 89 mm Hg(4); Respiratory Rate: 10 to 29 per min(4); Jeanette Score: 14; Trauma Score: 12 Laceration: 11:16 Wound Repair of 2.5cm ( 1.0in ) subcutaneous laceration to right side of the back of [facility] head. Linear shaped.. Skin/tissue flap noted.. Distal neuro/vascular/tendon intact. Anesthesia: no anesthesia with 0 mls of none. Wound prep: Moderate cleansing with betadine by dc, Copious irrigation. Skin closed with 3 1-0 [place] using staple gun. Dressed with pressure dressing, non-adherent dressing. Patient tolerated well. MDM: 09:29 Patient medically screened. [facility] 11:16 Differential diagnosis: Contusion of Hematoma on Laceration of Intracranial bleed- [facility] Concussion cerebral contusion, fracture, sprain. Differential diagnosis: closed head injury, contusion, laceration. Data reviewed: vital signs, nurses notes, radiologic studies, CT scan, plain films. Data interpreted: equipment monitor phototypesetting: rate is 77 beats/min, rhythm is regular, Pulse oximetry: on room air is 100 %. Counseling: I had a detailed discussion with the patient and/or guardian regarding: the historical points, exam findings, and any diagnostic results supporting the discharge/admit diagnosis, radiology results, the need for outpatient follow up, for definitive care, a family practitioner. ED course: discussed with daughter, plan and follow up. 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 Exp: sv 07/18/2021. Lot #: [id number]. } Route: IM; Site: right deltoid; 11:53 Follow up: Response: No adverse reaction sv 11:22 Drug: Tylenol 650 mg Route: PO; sv 11:53 Follow up: Response: No adverse reaction sv Disposition: 01/27/20 11:24 Discharged to Home. Impression: Laceration without foreign body of other part of head - right side scalp, Contusion of left foot - hematoma, Repeated falls. - Condition is Stable. - Discharge Instructions: Foot Contusion, Head Injury, Adult, Laceration Care, Adult, [id number], Fall Prevention in the Home, [id number], Foot Contusion, [id number]-[id number], Head Injury, Adult, [id number]. - Medication Reconciliation Form, Thank You Letter, Antibiotic Education, Prescription Opioid Use form. - Follow up: Private Physician; When: 2 - 3 days; Reason: Recheck today's complaints, Continuance of care, Re-evaluation by your physician. - Problem is new. - Symptoms have improved. Signatures: Dispatcher [employer] [facility] Catrachita Nieves RN RN sv Anderson, Corey, MD MD cha Corrections: (The following items were deleted from the chart) 09:43 09:35 Head Brain Wo Cont+CT.RAD.BRZ ordered. [facility] EDIL 11:53 11:24 01/27/2020 11:24 Discharged to Home. Impression: Laceration without foreign body sv of other part of head - right side scalp; Contusion of left foot - hematoma; Repeated falls. Condition is Stable. Forms are Medication Reconciliation Form, Thank You Letter, Antibiotic Education, Prescription Opioid Use. Follow up: Private Physician; When: 2 - 3 days; Reason: Recheck today's complaints, Continuance of care, Re-evaluation by your physician. Problem is new. Symptoms have improved. rohini
[2020-01-31 13:21] VITALS: TEMP 98
[2020-01-31 13:22] VITALS: BP 180/99; O2SAT 100
== END 2020-01-27 11:53 | disposition home or self-care (01) ==
LOC: ER 09:24
PROC: 0JQ00ZZ Repair Scalp Subcutaneous Tissue and Fascia, Open Approach (ICD-10-PCS; principal; 2020-01-27)
DX: S01.81XA Laceration without foreign body of other part of head, initial encounter (principal); W18.30XA Fall on same level, unspecified, initial encounter; Y93.01 Activity, walking, marching and hiking; Y92.9 Unspecified place or not applicable; Z23 Encounter for immunization; Z88.8 Allergy status to other drugs, medicaments and biological substances; Z91.018 Allergy to other foods; I10 Essential (primary) hypertension; E07.9 Disorder of thyroid, unspecified; F32.9 Major depressive disorder, single episode, unspecified; I25.2 Old myocardial infarction
CPT/HCPCS: 70450; 72125; 90471; 90714; 99284; G0390

== ENCOUNTER 2020-06-09 04:59 | Emergency (ER) | payer OTHER ==
--- OUTSIDE RECORDS SUMMARY | 2020-06-09 05:03 | XMS REPORT | Continuity of Care Document ---
:1940 Author Organization [facility] t Address [address] [place] [address] Care Team Providers Name Role Phone Unavailable Unavailable Unavailable Problems Condition Condition Condition Status Onset Resolution Last Treating Co mments Source Name Details Category Date Date Treatment Clinician Date Hyperglyce Hyperglyce Problem Active [facility] bianca bianca [facility] Hypertrigl Hypertrigl Problem Active [facility] yceridemia yceridemia Radha kes - [facility]oria l [facility] Abnormal Abnormal Problem [facility] thyroid thyroid [facility] - function function [facility] a test test l [facility] History of History of Problem Active [facility] cardiac cardiac [facility] - arrhythmia arrhythmia Me moria l [facility] Essential Essential Problem Active [facility] hypertensi hypertensi Radha kes - on on [facility]oria l [facility] Chronic Chronic Problem Active [facility] right-side right-side Radha kes - d d Memoria headaches headaches l [facility] History of History of Problem Active [facility] meningioma meningioma Radha kes - [facility]oria l [facility] Abnormal Abnormal Problem Active [facility] heart heart [facility] - rhythm rhythm [facility] l [facility] Blood in Blood in Problem Active [facility] right ear right ear Luke s - canal canal Memoria l [facility] Anxiety Anxiety Problem Active [facility] Otalgia, Otalgia, Problem Active [facility] right ear right ear Luke s - [facility] Urinary Urinary Problem Active [facility] incontinen incontinen Radha kes - ce, ce, Memoria unspecifie unspecifie l d type d type [facility] Gallstones Gallstones Problem Active [facility] Migraines Migraines Problem Active [facility] History of History of Problem Active [facility] stroke stroke [facility] Thyroid Thyroid Problem Active [facility] disorder disorder [facility] Depression Depression Problem Active [facility] with with [facility] - anxiety anxiety [facility] l [facility] Swelling Swelling Problem Active [facility] Pain in Pain in Problem Active [facility] unspecifie unspecifie Radha kes - d knee d knee Memoria l [facility] Other Other Problem Active [facility] chronic chronic [facility] - pain pain [facility] l [facility] Memory Memory Problem Active [facility] problem problem [facility] Acquired Acquired Problem Active [facility] hypothyroi [facility]roi [facility] Frequent Frequent Problem Active [facility] falls falls [facility] Chronic Chronic Problem Active [facility] pain pain [facility] - syndrome syndrome Memori a l [facility] Stroke Stroke Problem Active [facility] Osteoporos Osteoporos Problem Active C [facility] is is [facility] Depression Depression Problem Active [facility] Urinary Urinary Diagnosis Active [facility] tract tract [facility] - infection infection Mina samson without without l hematuria, hematuria, Ou tpati site site ent unspecifie unspecifie Cl inics d d Allergies, Adverse Reactions, Alerts Allergy Allergy Status Severity Reaction(s) Onset Inactive Treating Comm ents Source Name Type Date Date Clinician Valium Adverse Active Info Not [facility] Reaction Available [facility] Aspirin Adverse Active Info Not [facility] Reaction Available kes - Memoria [facility] Ambien Adverse Active Info Not [facility] Reaction Available [facility] Medications Ordered Filled Start Stop Current Ordering Indication Dosage Frequency Signature Comments Components Source Medication Medication Date Date Medication? Clinician (SIG) Name Name Gabapentin Gabapentin Yes Carolann [address] [facility] [place] [facility] Bisacodyl Bisacodyl Yes Carolann [address] [facility] [place] as needed kes - Memoria [facility] Plavix Plavix Yes Carolann [address] [facility] [place] [facility] Lisinopril Lisinopril Yes Carolann [address] [facility] [address] [place] [facility] Carbamazepi Carbamazepi Yes Carolann TAKE ONE [facility] ne ne [place] (1) [facility] - TABLET(S) Memoria BY MOUTH l TWICE A Outpati DAY. ent Clinics Levothyroxi Levothyroxi Yes Carolann [address] ne Sodium ne Sodium [place] in the [facility] - morning on Memoria an empty l stomach [facility] Fish Oil Fish Oil Yes Carolann (otc) [address] [facility] [place] capsule [facility] Melatonin Melatonin Yes Carolann [address] [facility] [place] at bedtime [facility] - as needed Memoria l [facility] Duloxetine Duloxetine Yes Carolann [address] HCl HCl [place] [facility] Morphine Morphine Yes Carolann not [facility] Sulfate Sulfate [place] defined Radha kes - Memoria l [facility] Felodipine Felodipine Yes Carolann [address] ER ER [place] [facility] Estradiol Estradiol Yes Carolann 1/[address] [place] [facility] Doxazosin Doxazosin Yes Carolann [address] Mesylate Mesylate [place]ody Juanis es - Memoria l [facility] Digoxin Digoxin Yes Carolann [address] [facility] [place] [facility] Procedures This patient has no known procedures. Encounters Start End Encounter Admission Attending Care Care Encounter Source Date/Time Date/Time Type Type Clinicians Facility Department ID 2019-10-29 2019-10-29 Outpatient Rosalio Sparks [id number] 09:30:00 09:30:00 t Specialty/U Radha kes - Specialty rology [facility] a /Urology Clinic l Clinic [facility] 2019-10-16 2019-10-16 Outpatient Rosalio [facility] [id number] 09:40:00 09:40:00 t [facility] Medicine l Medicine [facility] 2019-09-20 2019-09-20 Outpatient Rosalio [facility] [id number] 23:09:00 23:09:00 t [facility] Medicine l Medicine [facility] 2019-09-09 2019-09-09 Outpatient Rosalio [facility] [id number] 10:15:00 10:15:00 [facility] Family Medicine Medicine Outpati ent Clinics Results This patient has no known results.
--- NOTE | 2020-06-09 06:50 | ER ---
Nurse's Notes [facility] Name: Radha Hastings Age: 80 yrs Sex: Female : 1940 Arrival Date: 06/09/2020 Time: 05:01 Bed 8 Private MD: Diagnosis: Fracture of one rib, right side Presentation: 06/09 05:14 Chief complaint: Parent and/or Guardian states: Reports she had an unwitnessed fall, sg reports pain in her right back side. Pt denied LOC, or hitting head. Coronavirus screen: At this time, the client does not indicate any symptoms associated with coronavirus-19. Ebola Screen: No symptoms or risks identified at this time. Initial Sepsis Screen: Does the patient meet any 2 criteria? No. Patient's initial sepsis screen is negative. Does the patient have a suspected source of infection? No. Patient's initial sepsis screen is negative. Risk Assessment: Do you want to hurt yourself or someone else? Patient reports no desire to harm self or others. Onset of symptoms was June 09, 2020. 05:14 Method Of Arrival: Wheelchair 05:14 Acuity: NYASIA 3 05:20 Care prior to arrival: None. Mechanism of Injury: Fall from standing position. Trauma sg event details: Injury occurred in the [facility], Injury occurred: at home. Injury occurred: June 09, 2020. Trauma Activation: Alert Physician: ED Physician; Name: ; Notified At: ; Arrived At: Physician: General Surgeon; Name: ; Notified At: ; Arrived At: Physician: Radiology; Name: ; Notified At: ; Arrived At: Physician: Respiratory; Name: ; Notified At: ; Arrived At: Physician: Lab; Name: ; Notified At: ; Arrived At: Historical: - Allergies: 05:19 ambien; sg 05:19 Compazine; sg 05:19 Jean Claude; sg - Home Meds: 05:19 carbamazepine 200 mg Oral tab 1 tab nightly [Active]; clopidogrel 75 mg Oral tab 1 tab sg once daily [Active]; digoxin 250 mcg Oral tab 1 tab once daily [Active]; duloxetine 60 mg Oral cpDR 1 cap once daily [Active]; felodipine 10 mg Oral Tb24 1 tab once daily [Active]; gabapentin 300 mg Oral cap 1 cap twice a day [Active]; levothyroxine 125 mcg tab 1 tab once daily [Active]; lisinopril 40 mg Oral tab 1 tab once daily [Active]; prednisone 10 mg Oral tab 1 tab once daily [Active]; - PMHx: 05:19 Thyroid problem; Opioid Dependence; Hypertension; Depression; BRAIN TUMOR; Atrial Fib; sg CVA; - PSHx: 05:19 left leg surgery; back sx; port-a-cath (non-functional); Knee surgery; Cholecystectomy; sg Appendectomy; - Immunization history:: Adult Immunizations up to date. - Immunization history: Last tetanus immunization: unknown. - Social history:: Smoking status: Patient denies any tobacco usage or history of. - Family history:: not pertinent. - Hospitalizations: : No recent hospitalization is reported. Screenin:13 Abuse screen: Denies threats or abuse. Tuberculosis screening: No symptoms or risk rv factors identified. 05:13 Abuse screen: Denies threats or abuse. Nutritional screening: No deficits noted. sg Tuberculosis screening: No symptoms or risk factors identified. Fall Risk Fall in past 12 months (25 points). 05:14 Nutritional screening: No deficits noted. rv Primary Survey: 05:12 NO uncontrolled hemorrhage observed. A: The patient is alert. Airway: patent. rv Breathing/Chest: Respiratory pattern: regular, Respiratory effort: spontaneous, Breath sounds: clear, bilaterally. Chest inspection: symmetrical rise and fall of the chest, HEMATOMA ON THE RIGHT CHEST/BREAST. Circulation: Skin color: pink, Skin temperature: warm. Disability Alert. Exposure/Environment: All clothing and personal items were removed. Forensic evidence collection is not deemed to be indicated at this time. Items placed in patient belonging bag. There is no evidence of uncontrolled external bleeding. A warming method has been applied: A warm blanket has been provided to the patient. 06:16 Reassessment Airway Airway Patent Breathing/Chest Respiratory pattern Regular ea Respiratory effort Spontaneous Unlabored. Secondary Survey: 05:23 HEENT: No deficits noted. Gastrointestinal: No deficits noted. Injury Description: sg Abrasion sustained to right mid back Bruise sustained to right breast is green, purple, yellow. Assessment: 05:20 General: Appears in no apparent distress. Behavior is appropriate for age. Pain: sg Complains of pain in right subscapular area and right mid back. Neuro: Level of Consciousness is awake, alert, obeys commands, Oriented to person, place. Cardiovascular: Patient's skin is warm and dry. Respiratory: Airway is patent Respiratory effort is even, unlabored, Respiratory pattern is regular, symmetrical. Derm: Bruising that is yellow, green and purple bruising noted to right breast, abrasion and swelling noted to right posterior side . 06:15 Reassessment: Patient and/or family updated on plan of care and expected duration. Pain ea level reassessed. Patient is alert, oriented x 3, equal unlabored respirations, skin warm/dry/pink. Family stepped out, states " I need to be contacted if any medical decisions need to be made" Kendra [phone]. 07:20 Reassessment: Patient and/or family updated on plan of care and expected duration. Pain ea level reassessed. Patient is alert, oriented x 3, equal unlabored respirations, skin warm/dry/pink. Discharge instruction given to patient and family, verbalized the understanding of instruction. Vital Signs: 05:14 BP 151 / 106; Pulse 98; Resp 18; Temp 98.0; Pulse Ox 100% on R/A; Weight 77.11 kg; sg Height 5 ft. 4 in. (162.56 cm); 06:45 BP 150 / 80; Pulse 80; Resp 18; Pulse Ox 98% ; ea 05:14 Body Mass Index 29.18 (77.11 kg, 162.56 cm) sg Jeanette Coma Score: 05:16 Eye Response: spontaneous(4). Verbal Response: oriented(5). Motor Response: obeys sg commands(6). Total: 15. Trauma Score (Adult): 05:16 Eye Response: spontaneous(1); Verbal Response: confused(1); Motor Response: obeys sg commands(2); Systolic BP: > 89 mm Hg(4); Respiratory Rate: 10 to 29 per min(4); Jeanette Score: 14; Trauma Score: 12 ED Course: 05:01 Patient arrived in ED. es 05:03 Manuel Trujillo MD is Attending Physician. rn 05:12 Abdiel Lemos RN is Primary Nurse. rv 05:14 Patient maintains SpO2 saturation greater than 95% on room air. Thermoregulation: warm sg blanket given to patient. 05:16 Triage completed. sg 05:16 Patient has correct armband on for positive identification. Placed in gown. Bed in low sg position. Call light in reach. Side rails up X2. Pulse ox on. NIBP on. 05:20 Arm band placed on right wrist. Patient placed in an exam room, on a stretcher, on sg pulse oximetry. 05:47 CT Head C Spine In Process Unspecified. EDMS 05:47 CT Chest Wo Con In Process Unspecified. EDMS 07:20 No provider procedures requiring assistance completed. Patient did not have IV access ea during this emergency room visit. Administered Medications: 07:19 Drug: traMADol 50 mg Route: PO; ea 07:19 Follow up: Response: Medication administered at discharge. ea Intake: 06:45 PO: 0ml; Total: 0ml. ea Outcome: 06:49 Discharge ordered by . rn 07:20 Discharged to home via wheelchair, with family. ea 07:20 Condition: stable 07:20 Discharge instructions given to patient, family, Instructed on discharge instructions, follow up and referral plans. Demonstrated understanding of instructions, follow-up care. 07:21 Patient left the ED. ea Signatures: Dispatcher [employer] EDZach Sexton, RN RN Nkechi Woody Roman, MD MD rn Antunez, Elena, RN RN ea Vicente, Ronaldo RN RN rv
--- NOTE | 2020-06-09 06:50 | EDPHYS ---
Physician Documentation [facility] Name: Radha Hastings Age: 80 yrs Sex: Female : 1940 Arrival Date: 06/09/2020 Time: 05:01 Bed 8 Private MD: ED Physician Manuel Trujillo HPI: 06/09 05:17 This 80 yrs old Female presents to ER via Wheelchair with complaints of Fall rn Injury. 05:17 The patient or guardian reports chest pain that is located primarily in the right rn lateral posterior chest and right lateral anterior chest. Onset: The symptoms/episode began/occurred today. The pain does not radiate. Associated signs and symptoms: Pertinent positives:. 05:20 The chest pain is described as sharp. Duration: The patient or guardian reports rn multiple episodes, that are intermittent. Modifying factors: The symptoms are alleviated by nothing. the symptoms are aggravated by deep breath, palpation of area. Severity of pain: At its worst the pain was moderate in the emergency department the pain is unchanged. The patient has experienced similar episodes in the past. The patient has not recently seen a physician. Reports fall, landed on box of pictures, does not think hit head but does not recall the fall, on plavix. Reports right sided chest wall pain, worse with deep breath. Denies abd pain/neck pain/back pain/extremity pain. Daughter reports patient walking ok after the fall. . Historical: - Allergies: 05:19 ambien; sg 05:19 Compazine; sg 05:19 Jean Claude; sg - Home Meds: 05:19 carbamazepine 200 mg Oral tab 1 tab nightly [Active]; clopidogrel 75 mg Oral tab 1 tab sg once daily [Active]; digoxin 250 mcg Oral tab 1 tab once daily [Active]; duloxetine 60 mg Oral cpDR 1 cap once daily [Active]; felodipine 10 mg Oral Tb24 1 tab once daily [Active]; gabapentin 300 mg Oral cap 1 cap twice a day [Active]; levothyroxine 125 mcg tab 1 tab once daily [Active]; lisinopril 40 mg Oral tab 1 tab once daily [Active]; prednisone 10 mg Oral tab 1 tab once daily [Active]; - PMHx: 05:19 Thyroid problem; Opioid Dependence; Hypertension; Depression; BRAIN TUMOR; Atrial Fib; sg CVA; - PSHx: 05:19 left leg surgery; back sx; port-a-cath (non-functional); Knee surgery; Cholecystectomy; sg Appendectomy; - Immunization history:: Adult Immunizations up to date. - Immunization history: Last tetanus immunization: unknown. - Social history:: Smoking status: Patient denies any tobacco usage or history of. - Family history:: not pertinent. - Hospitalizations: : No recent hospitalization is reported. ROS: 05:20 Constitutional: Negative for fever, chills, and weight loss, Eyes: Negative for injury, rn pain, redness, and discharge, ENT: Negative for injury, pain, and discharge, Neck: Negative for injury, pain, and swelling, Cardiovascular: Negative for palpitations, and edema, Respiratory: Negative for shortness of breath, cough, wheezing Abdomen/GI: Negative for abdominal pain, nausea, vomiting, diarrhea, and constipation, Back: Negative for injury and pain, MS/Extremity: Negative for injury and deformity, Neuro: Negative for headache, weakness, numbness, tingling, and seizure. Exam: 05:20 Constitutional: This is a well developed, well nourished patient who is awake, alert, rn appears in pain Head/Face: Normocephalic, atraumatic. Eyes: Periorbital areas with no swelling, redness, or edema. ENT: NO oral injury Neck: NO midline cervical tenderness Chest/axilla: + old healing right breast ecchymosis and mobile hematoma. + right lateral/posterior/inferior rib tenderness with linear 8 cm hematoma. No crepitus. Cardiovascular: Regular rate and rhythm . No pulse deficits. Respiratory: No increased work of breathing, no retractions or nasal flaring. Abdomen/GI: soft, non-tender Skin: Warm, dry MS/ Extremity: Pulses equal, no cyanosis. Neurovascular intact. Full, normal range of motion. Equal circumference. Neuro: Awake and alert, GCS 15 Vital Signs: 05:14 BP 151 / 106; Pulse 98; Resp 18; Temp 98.0; Pulse Ox 100% on R/A; Weight 77.11 kg; sg Height 5 ft. 4 in. (162.56 cm); 06:45 BP 150 / 80; Pulse 80; Resp 18; Pulse Ox 98% ; ea 05:14 Body Mass Index 29.18 (77.11 kg, 162.56 cm) Jeanette Coma Score: 05:16 Eye Response: spontaneous(4). Verbal Response: oriented(5). Motor Response: obeys sg commands(6). Total: 15. Trauma Score (Adult): 05:16 Eye Response: spontaneous(1); Verbal Response: confused(1); Motor Response: obeys sg commands(2); Systolic BP: > 89 mm Hg(4); Respiratory Rate: 10 to 29 per min(4); Murdock Score: 14; Trauma Score: 12 MDM: 05:03 Patient medically screened. rn 06:47 Differential diagnosis: Blunt Chest Trauma Chest Wall Contusion Chest Wall Injury rn Pneumothorax Pulmonary Contusion Rib Fracture. Data reviewed: vital signs, nurses notes, radiologic studies, CT scan, plain films, and as a result, I will discharge patient. Counseling: I had a detailed discussion with the patient and/or guardian regarding: the historical points, exam findings, and any diagnostic results supporting the discharge/admit diagnosis, radiology results, the need for outpatient follow up, to return to the emergency department if symptoms worsen or persist or if there are any questions or concerns that arise at home. Response to treatment: the patient's symptoms have mildly improved after treatment, and as a result, I will discharge patient. Special discussion: I discussed with the patient/guardian in detail that at this point there is no indication for admission to the hospital. It is understood, however, that if the symptoms persist or worsen the patient needs to return immediately for re-evaluation. ED course: Single right rib fracture, no pulmonary contusion or pneumothorax, spoke with Kendra, patient's daughter, will dc home with incentive spirometer and tramadol. Daughter states has taken tramadol before, if she takes too much can make her dizzy, will try tylenol and motrin unless breakthrough pain. Gave daughter tips to minimize atelectasis and complications of rib fracture. . 06/09 05:13 Order name: CT Head C Spine rn 06/09 05:13 Order name: CT Chest Wo Con rn 06/09 06:47 Order name: INCENTIVE SPIROMETRY rn Administered Medications: 07:19 Drug: traMADol 50 mg Route: PO; ea 07:19 Follow up: Response: Medication administered at discharge. ea Disposition: 06/09/20 06:49 Discharged to Home. Impression: Fracture of one rib, right side. - Condition is Stable. - Discharge Instructions: Rib Fracture. - Prescriptions for Tramadol 50 mg Oral Tablet - take 1 tablet by ORAL route every 8-12 hours As needed as needed; 15 tablet. - Medication Reconciliation Form, Thank You Letter, Antibiotic Education, Prescription Opioid Use form. - Follow up: Private Physician; When: As needed; Reason: Recheck today's complaints, Re-evaluation by your physician. - Problem is new. - Symptoms have improved. Signatures: Dispatcher [employer] EDZach Sexton RN RN sg Nieto, Roman, MD MD rn Antunez, Elena, RN RN ea Corrections: (The following items were deleted from the chart) 07:21 06:49 06/09/2020 06:49 Discharged to Home. Impression: Fracture of one rib, right side. ea Condition is Stable. Forms are Medication Reconciliation Form, Thank You Letter, Antibiotic Education, Prescription Opioid Use. Follow up: Private Physician; When: As needed; Reason: Recheck today's complaints, Re-evaluation by your physician. Problem is new. Symptoms have improved. rn
[2020-06-09] MEDS ORDERED: TRAMADOL HCL 50 MG TAB ONE (07:16)
--- NOTE | 2020-06-09 12:17 | RAD REPORT ---
EXAM DESCRIPTION: CT - [place] - 06/09/2020 6:34 am CLINICAL HISTORY: The patient is 80 years old and is Female; fall, right chest wall pain;Pain TECHNIQUE: Axial computed tomography images of the chest without intravenous contrast. Sagittal an d coronal reformatted images were created and reviewed. This CT exam was performed using one or mor e of the following dose reduction techniques: automated exposure control, adjustment of the mA and/ or kV according to patient size, and/or use of iterative reconstruction technique. COMPARISON: No relevant prior studies available. FINDINGS: Lungs: Linear atelectasis or scarring left lower lobe. No pulmonary consolidation or groundglass opacities. Pleural space: No significant pleural fluid. No pneumothorax. Heart: Cardiomegaly. No significant pericardial fluid. Coronary artery calcifications. Bones/joints: Acute fracture right posterior ninth rib. L1 compression fracture, incompletely evaluated. Old T12 compression fracture. No dislocation. Soft tissues: Right posterior chest sarah soft tissue contusion. Vasculature: Diffusely dilated ascending aorta without focal aneurysm, average diameter 4.4 cm. Descending thoracic aorta is unremarkable. Lymph nodes: No pathologically enlarged lymph nodes. Tubes, lines and devices: Left subclavian chest port with the catheter tip in the distal innomin ate vein. IMPRESSION: 1. Acute fracture right posterior ninth rib. 2. L1 compression fracture, incompletely evaluated. Old T12 compression fracture. 3. Diffusely dilated ascending aorta without focal aneurysm, average diameter 4.4 cm. Electronically signed by: Catrachita Espinal MD 06/09/2020 6:00 AM NUTRITION PARTNER Due to temporary technical issues with the PACS/Fluency reporting system, reports are being signed by the in house radiologist without review as a courtesy to ensure prompt reporting. The interpreting r adiologist is fully responsible for the content of the report.
--- NOTE | 2020-06-09 12:18 | RAD REPORT ---
EXAM DESCRIPTION: CT - [id number] - 06/09/2020 6:32 am CLINICAL HISTORY: Fall, on plavix COMPARISON: 01/27/2020 and 03/18/2019 TECHNIQUE: Axial CT of the head obtained from the skull apex to the skull base without contrast. Axi al CT images of the cervical spine obtained from the skull base through the thoracic inlet. Sagittal and coronal reformatted images available. FINDINGS: CT head: No acute intracranial hemorrhage identified. No mass, mass effect, shift of the midline, abnormal ext ra-axial fluid collection or CT evidence of acute ischemic change identified. Mild enlargement of the ventricular system and sulcal spaces compatible with cerebral atrophy. Confluent areas of hypodens ities throughout the supratentorial white matter are nonspecific and may represent sequela of chronic small vessel ischemic change. The visualized paranasal sinuses and the mastoids are clear. No skull fracture identified. Visual ized orbits and globes are unremarkable. Atherosclerotic calcification of the intracranial carotid ar teries. Cervical CT: Straightening of the cervical lordosis may be secondary to patient positioning. Fusion of the C4-C6 v ertebral bodies. The atlantoaxial, atlantodental, and occipitoatlantal intervals are preserved. N o acute fracture identified. Prevertebral soft tissues are unremarkable. Mild to moderate multilevel loss of intervertebral disc height with endplate spondylosis, facet arthr opathy, and uncovertebral spurring. Spurring of the atlantodental articulation. Visualized skull base is intact. No fracture of the visualized facial bones. Visualized mastoid air c ells and paranasal sinuses are well aerated. Visualized thyroid is unremarkable. No cervical lymphadenopathy. No pneumothorax in the visualized lung apices. Artery atherosclerosis. IMPRESSION: 1. No acute intracranial abnormality. 2. No acute fracture or subluxation of the cervical spine. 3. Multilevel degenerative change of the cervical spine. This exam was performed according to our departmental dose-optimization program, which includes autom ated exposure control, adjustment of the mA and/or kV according to patient size and/or use of iterati ve reconstruction technique. Electronically signed by: Alexx Franks 06/09/2020 6:01 AM TECHNICAL SUPPORT REPRESENTATIVE Due to temporary technical issues with the PACS/Fluency reporting system, reports are being signed by the in house radiologist without review as a courtesy to ensure prompt reporting. The interpreting r adiologist is fully responsible for the content of the report.
== END 2020-06-09 07:21 | disposition home or self-care (01) ==
LOC: ER 04:59
DX: S22.31XA Fracture of one rib, right side, initial encounter for closed fracture (principal); W18.39XA Other fall on same level, initial encounter; Y93.9 Activity, unspecified; Y92.009 Unspecified place in unspecified non-institutional (private) residence as the place of occurrence of the external cause; Z79.01 Long term (current) use of anticoagulants; Z86.73 Personal history of transient ischemic attack (TIA), and cerebral infarction without residual deficits; Z88.1 Allergy status to other antibiotic agents; Z88.8 Allergy status to other drugs, medicaments and biological substances; Z91.018 Allergy to other foods; I10 Essential (primary) hypertension; E07.9 Disorder of thyroid, unspecified; I48.91 Unspecified atrial fibrillation
CPT/HCPCS: 70450; 71250; 72125; 99284; G0390

== ENCOUNTER 2020-09-25 21:43 | Emergency (ER) | payer OTHER ==
--- OUTSIDE RECORDS SUMMARY | 2020-09-25 21:46 | XMS REPORT | Continuity of Care Document ---
:1940 Author Organization [facility] t Address [address] [place] [address] Care Team Providers Name Role Phone Unavailable Unavailable Unavailable Problems Condition Condition Condition Status Onset Resolution Last Treating Co mments Source Name Details Category Date Date Treatment Clinician Date Hyperglyce Hyperglyce Problem Active [facility] Hypertrigl Hypertrigl Problem Active [facility] yceridemia yceridemia Radha kes - [facility] Abnormal Abnormal Problem [facility] thyroid [facility] function function [facility] a test test l [facility] History of History of Problem Active [facility] cardiac cardiac [facility] - arrhythmia arrhythmia Me moria l [facility] Essential Essential Problem Active [facility] hypertensi hypertensi Radha kes - on on [facility] Chronic Chronic Problem Active [facility] right-side right-side Radha kes - d d [facility] headaches headaches l [facility] History of History of Problem Active [facility] meningioma meningioma Radha kes - [facility] Abnormal Abnormal Problem Active [facility] heart heart [facility] rhythm rhythm [facility] Blood in Blood in Problem Active [facility] right ear right ear [facility] - canal canal [facility] Anxiety Anxiety Problem Active [facility] Otalgia, Otalgia, Problem Active [facility] right ear right ear [facility] - [facility] Urinary Urinary Problem Active [facility] incontinen incontinen Radha kes - ce, ce, [facility] unspecifie unspecifie l d type d type [facility] Gallstones Gallstones Problem Active [facility] Migraines Migraines Problem Active [facility] History of History of Problem Active [facility] stroke stroke [facility] Thyroid Thyroid Problem Active [facility] disorder disorder [facility] Depression Depression Problem Active [facility] with with [facility] - anxiety anxiety [facility] Swelling Swelling Problem [facility] Pain in Pain in Problem Active [facility] unspecifie unspecifie Radha kes - d knee d knee [facility] Other Other Problem Active [facility] chronic chronic [facility] pain pain [facility] Memory Memory Problem Active [facility] problem problem [facility] Acquired Acquired Problem Active [facility] hypothyroi hypothyroi Radha kes - dism dism [facility] Frequent Frequent Problem Active [facility] falls [facility] Chronic Chronic Problem Active [facility] pain pain [facility] syndrome syndrome [facility] a l [facility] Stroke Stroke Problem Active [facility] Osteoporos Osteoporos Problem Active [facility] is is [facility] Depression Depression Problem Active [facility] Urinary Urinary Diagnosis Active [facility] [...] St Reaction Available [facility] Aspirin Adverse Active Info Not [facility] Reaction Available [facility] Ambien Adverse Active Info Not [facility] Reaction Available [facility] Medications Ordered Filled Start Stop Current Ordering Indication Dosage Frequency Signature Comments Components Source Medication Medication Date Date Medication? Clinician (SIG) Name Name Gabapentin Gabapentin Yes Carolann [address] [facility] [place] [facility] Bisacodyl Bisacodyl Yes Carolann [address] [facility] [place] as needed [facility] Plavix Plavix Yes Carolann [address] [facility] [place] [facility] Lisinopril Lisinopril Yes Carolann [address] [facility] [place] [facility] Carbamazepi Carbamazepi Yes Carolann TAKE ONE [facility] ne ne [place] (1) [facility] - TABLET(S) Memoria BY MOUTH l TWICE A [facility]pat[facility] DAY. ent Clinics Levothyroxi Levothyroxi Yes Carolann [address] [facility] ne Sodium ne Sodium [place] in the [facility] - morning on [facility] an empty l stomach [facility] Fish Oil Fish Oil Yes Carolann (otc) [address] [facility] [place] capsule [facility] Melatonin Melatonin Yes Carolann [address] [facility] [place] at bedtime [facility] - as needed [facility] Duloxetine Duloxetine Yes Carolann [address] HCl HCl [place] [facility] Morphine Morphine Yes Carolann not [facility] Sulfate Sulfate [place] defined Radha kes - [facility] Felodipine Felodipine Yes Carolann [address] ER ER [place] [facility] Estradiol Estradiol Yes Carolann 1/[address] [place] [facility] Doxazosin Doxazosin Yes Carolann [address] [address] Mesylate Mesylate [place] Juanis es - [facility] Digoxin Digoxin Yes Carolann [address] [facility] [place] [facility] Procedures This patient has no known procedures. Encounters Start End Encounter Admission Attending Care Care Encounter Source Date/Time Date/Time Type Type Clinicians Facility Department ID 2019-10-29 2019-10-29 Outpatient Rosalio Sparks [id number] [facility] 09[facility]30:00 09:30:00 t Specialty/U Radha kes - Specialty rology [facility] a [facility]Urology [facility] l [facility] 2019-10-16 2019-10-16 Outpatient Rosalio Santamariat [id number] [facility] 09:40:00 09:40:00 t [facility] Medicine l Medicine [facility] 2019-09-20 2019-09-20 Outpatient Rosalio Santamariat [id number] [facility] 23:09:00 23:09:00 t [facility] Medicine Medicine [facility] 2019-09-09 2019-09-09 Outpatient Rosalio Sparsk [id number] [facility] 10[facility] 10[facility]15[facility]00 [facility] Family Medicine Medicine Outpat[facility] ent Clinics Results This patient has no known results.
[2020-09-25 22:59] LABS: Absolute Lymphocytes (CBC) 2.7 K/uL (0.7-4.9); Basophils % 0.9 % (0-1.3); Hematocrit 45.5 % (36.0-45.0); Lymphocytes % 33.8 % (15.3-44.8); MPV 9.1 fL (7.6-11.3); RBC Red Blood Cell Count 5.09 M/uL (3.86-4.86)
[2020-09-25] MEDS ORDERED: FENTANYL CITR 100 MCG/2 ML ONE (23:00)
[2020-09-25] MEDS ORDERED: LIDOCAINE 1% W/EPI 1:100,000 MDV 20 ML VIAL ONE (23:01)
[2020-09-26] MEDS ORDERED: HYDRALAZINE HCL 20 MG/ML VIAL ONE (00:06)
[2020-09-26] MEDS ORDERED: lisinopriL 20 MG TAB ONE (00:07)
[2020-09-26 00:27] LABS: Protime INR 1.02
[2020-09-26 00:32] LABS: BUN Blood Urea Nitrogen 9 mg/dL (7-18); Bicarbonate 28 mmol/L (21-32); Glucose Level 91 mg/dL (74-106); Potassium 3.9 mmol/L (3.5-5.1); Sodium Level 134 mmol/L (136-145)
--- NOTE | 2020-09-26 01:23 | ER ---
Nurse's Notes [facility] Name: Radha Hastings Age: 80 yrs Sex: Female : 1940 Arrival Date: 09/25/2020 Time: 21:44 Bed 8 Private MD: Diagnosis: Laceration without foreign body of unspecified part of head;Fall on same level from slipping, tripping and stumbling Presentation: 09/25 22:10 Chief complaint: granddaughter states pt fell and hit her head on the toilet unknown if bb she had LOC. Care prior to arrival: None. Mechanism of Injury: Fall from standing position. Trauma event details: Injury occurred in the [facility], Injury occurred: at home. Injury occurred: September 25, 2020. 22:10 Acuity: NYASIA 2 bb 22:10 Method Of Arrival: Wheelchair bb 22:12 Coronavirus screen: At this time, the client does not indicate any symptoms associated bb with coronavirus-19. Ebola Screen: No symptoms or risks identified at this time. Initial Sepsis Screen: Does the patient meet any 2 criteria? No. Patient's initial sepsis screen is negative. Does the patient have a suspected source of infection? No. Patient's initial sepsis screen is negative. Risk Assessment: Do you want to hurt yourself or someone else? Patient reports no desire to harm self or others. Onset of symptoms was September 25, 2020. Trauma Activation: Alert Physician: ED Physician; Name: ; Notified At: ; Arrived At: Physician: General Surgeon; Name: ; Notified At: ; Arrived At: Physician: Radiology; Name: ; Notified At: ; Arrived At: Physician: Respiratory; Name: ; Notified At: ; Arrived At: Physician: Lab; Name: ; Notified At: ; Arrived At: - Immunization history: Last tetanus immunization: unknown. - Social history:: Smoking status: unknown. Screenin/25 00:12 Abuse screen: Denies threats or abuse. Denies injuries from another. Nutritional mg2 screening: No deficits noted. Tuberculosis screening: No symptoms or risk factors identified. Fall Risk IV access (20 points). Primary Survey: 09/25 22:10 NO uncontrolled hemorrhage observed. A: Airway: patent. bb 09/26 00:14 Breathing/Chest: Respiratory pattern: regular, Respiratory effort: spontaneous, mg2 unlabored, Breath sounds: clear, bilaterally. Circulation: Skin color: pink. Disability Alert. Exposure/Environment: All clothing and personal items were removed. Forensic evidence collection is not deemed to be indicated at this time. Items placed in patient belonging bag. There is no evidence of uncontrolled external bleeding. No obvious injuries are noted at this time. A warming method has been applied: A warm blanket has been provided to the patient. 00:50 Reassessment Breathing/Chest Respiratory pattern Regular. mg2 Secondary Survey: 00:13 HEENT: Head Other with laceration in the forehead. mg2 Assessment: 00:13 General: Appears in no apparent distress. comfortable, Behavior is calm, cooperative. mg2 Pain: Complains of pain in forehead. Neuro: Level of Consciousness is awake, alert, obeys commands, Oriented to person, place, time, situation. EENT: No signs and/or symptoms were reported regarding the EENT system. Cardiovascular: Capillary refill < 3 seconds Patient's skin is warm and dry. Respiratory: Airway is patent Respiratory effort is even, unlabored, Respiratory pattern is regular, symmetrical. GI: No signs and/or symptoms were reported involving the gastrointestinal system. : No signs and/or symptoms were reported regarding the genitourinary system. Derm: Wound noted forehead. Musculoskeletal: Circulation, motion, and sensation intact. Capillary refill < 3 seconds. 01:00 Reassessment: Patient appears in no apparent distress at this time. Patient and/or mg2 family updated on plan of care and expected duration. Pain level reassessed. Patient is alert, oriented x 3, equal unlabored respirations, skin warm/dry/pink. Vital Signs: 09/25 22:10 BP 171 / 109; Pulse 99; Resp 16 S; Temp 98(O); Pulse Ox 97% on R/A; Weight 78.47 kg bb (R); Height 5 ft. 4 in. (162.56 cm) (R); 09/26 00:15 BP 165 / 107; Pulse 93; Resp 18; Pulse Ox 100% on R/A; mg2 09/25 22:10 Body Mass Index 29.70 (78.47 kg, 162.56 cm) bb [place] Coma Score: 00:15 Eye Response: spontaneous(4). Verbal Response: oriented(5). Motor Response: obeys mg2 commands(6). Total: 15. Trauma Score (Adult): 09/25 22:10 Eye Response: spontaneous(1); Verbal Response: oriented(1); Motor Response: obeys bb commands(2); Systolic BP: > 89 mm Hg(4); Respiratory Rate: 10 to 29 per min(4); Jeanette Score: 15; Trauma Score: 12 ED Course: 21:44 Patient arrived in ED. bp1 22:10 Patient has correct armband on for positive identification. Placed in gown. Bed in low jp3 position. Call light in reach. Side rails up X2. Warm blanket given. Verbal reassurance given. Pulse ox on. NIBP on. 22:11 Triage completed. bb 22:12 Akil Maguire PA is PHCP. cp 22:13 Kiran Clayton MD is Attending Physician. cp 22:15 Initial lab(s) drawn, by me, sent to lab. T\T\S collected, blood band applied to patient. jp3 Inserted saline lock: 20 gauge in right antecubital area, using aseptic technique. Blood collected. 22:15 Rigid cervical collar applied and checked by physician. Patient maintains SpO2 jp3 saturation greater than 95% on room air. 22:24 Miguel Alejandro, RN is Primary Nurse. mg2 23:51 CT Traumagram (Head C Spine CAP W Con) In Process Unspecified. EDMS 09/26 00:15 Thermoregulation: warm blanket given to patient. mg2 01:00 Assist provider with laceration repair on forehead that was 2.5 cm. or less using mg2 sutures. Set up tray. Performed by Akil MARTEL Dressed with Neosporin, Patient tolerated well. 5 sititches done by the provider. 01:37 IV discontinued, intact, bleeding controlled, No redness/swelling at site. Pressure mg2 dressing applied. 01:37 Arm band placed on. mg2 Administered Medications: 09/25 23:09 Drug: fentaNYL (PF) 25 mcg Route: IVP; Site: right antecubital; mg2 23:44 CANCELLED (Physician Discretion): morphine 2 mg IVP once; RASS on ADMIN: Combtv4, Very cp Agttd3, Agttd2, Rstlss1, AlertClm0, Drwsy-1, Lt Sdtn-2, Mod Sdtn-3, Dp Sdtn-4, UnArsble-5 23:54 Drug: hydrALAZINE 10 mg Route: IV; Rate: calculated rate; Site: right antecubital; mg2 23:54 Drug: fentaNYL (PF) 25 mcg Route: IVP; Site: right antecubital; mg2 23:55 Drug: Lisinopril 40 mg Route: PO; mg2 09/26 00:15 Drug: Lidocaine-Epinephrine -1%: (1:100,000) 10 ml {Note: administered by the mg2 provider.} Volume: 20 ml; Route: Infiltration; Intake: 00:15 PO: 0ml; Total: 0ml. mg2 Outcome: 01:22 Discharge ordered by MD. cp 01:37 Discharged to home via wheelchair, with family. mg2 01:37 Condition: stable 01:37 Discharge instructions given to patient, family, Instructed on discharge instructions, follow up and referral plans. wound care, Demonstrated understanding of instructions, follow-up care, wound care. 01:37 Patient's length of stay was not longer than 2 hours. mg2 01:38 Patient left the ED. mg2 Signatures: Dispatcher [employer] EDSubha Lance RN RN bb Akil Maguire PA PA cp [place], Michele, EREN RN mg2 Jeremias Akers jp3 Dina Osuna Corrections: (The following items were deleted from the chart) 01:37 00:14 No provider procedures requiring assistance completed. mg2 mg2
--- NOTE | 2020-09-26 01:23 | EDPHYS ---
Physician Documentation [facility] Name: Radha Hastings Age: 80 yrs Sex: Female : 1940 Arrival Date: 09/25/2020 Time: 21:44 Bed 8 Private MD: ED Physician Kiran Clayton HPI: 09/25 22:30 This 80 yrs old Female presents to ER via Wheelchair with complaints of Fall cp Injury, Head Injury-Adult, Laceration To Forehead, Neck Pain, <24hrs Old. 22:30 Details of fall: The patient fell from an upright position, while standing, and struck toilet. Onset: The symptoms/episode began/occurred just prior to arrival. Associated injuries: The patient sustained injury to the head, hematoma, laceration, of the forehead, neck injury, pain, pain with movement. - Immunization history: Last tetanus immunization: unknown. - Social history:: Smoking status: unknown. ROS: 22:35 Skin: Positive for hematoma, laceration(s), of the forehead. cp 22:35 Constitutional: Negative for fever. cp 22:35 Neck: Positive for pain with movement, pain at rest. 22:35 Cardiovascular: Negative for chest pain. 22:35 Abdomen/GI: Negative for abdominal pain, nausea, vomiting, and diarrhea. 22:35 Neuro: Positive for headache. 22:35 All other systems are negative. Exam: 22:40 Constitutional: The patient appears in no acute distress, alert, awake, cp non-diaphoretic, non-toxic, well developed, well nourished. 22:40 Head/face: Noted is a laceration(s), that is deep, that is linear, of the forehead, cp swelling, that is mild, of the forehead. 22:40 Eyes: Periorbital structures: appear normal, Pupils: equal, round, and reactive to light and accomodation, Extraocular movements: intact throughout, Conjunctiva: normal, no exudate, no injection, Sclera: no appreciated abnormality, Lids and lashes: appear normal, bilaterally. 22:40 ENT: External ear(s): are unremarkable, Ear canal(s): are normal, clear, TM's: dullness, bilaterally, Nose: is normal, Mouth: Lips: moist, Oral mucosa: moist, Posterior pharynx: Airway: no evidence of obstruction, patent. 22:40 Neck: C-spine: C-collar placed in ED, vertebral tenderness, that is mild, appreciated at C5 and C6, crepitus, is not appreciated, ROM/movement: pain, that is mild, with any movement. 22:40 Chest/axilla: Inspection: normal, Palpation: crepitus, is not appreciated, tenderness, that is mild, of the left lateral posterior chest, right lateral posterior chest, left lateral anterior chest and right lateral anterior chest. 22:40 Cardiovascular: Rate: normal, Rhythm: regular, Edema: is not appreciated, JVD: is not appreciated. 22:40 Respiratory: the patient does not display signs of respiratory distress, Respirations: normal, no use of accessory muscles, no retractions, labored breathing, is not present, Breath sounds: are clear throughout, no decreased breath sounds, no stridor, no wheezing. 22:40 Abdomen/GI: Inspection: abdomen appears normal, Palpation: abdomen is soft and non-tender, in all quadrants. 22:40 Back: pain, that is moderate, of the thoracic area, ROM is painful. 22:40 Musculoskeletal/extremity: Exam is negative for decreased range of motion, deformity, injury. 22:40 Neuro: Orientation: no acute changes, per family, Mentation: no acute changes, per family. Vital Signs: 22:10 BP 171 / 109; Pulse 99; Resp 16 S; Temp 98(O); Pulse Ox 97% on R/A; Weight 78.47 kg bb (R); Height 5 ft. 4 in. (162.56 cm) (R); 09/26 00:15 BP 165 / 107; Pulse 93; Resp 18; Pulse Ox 100% on R/A; mg2 09/25 22:10 Body Mass Index 29.70 (78.47 kg, 162.56 cm) bb Jeanette Coma Score: 00:15 Eye Response: spontaneous(4). Verbal Response: oriented(5). Motor Response: obeys mg2 commands(6). Total: 15. Trauma Score (Adult): 09/25 22:10 Eye Response: spontaneous(1); Verbal Response: oriented(1); Motor Response: obeys bb commands(2); Systolic BP: > 89 mm Hg(4); Respiratory Rate: 10 to 29 per min(4); [place] Score: 15; Trauma Score: 12 Laceration: 09/26 00:32 Wound Repair of 3cm ( 1.2in ) subcutaneous laceration to right side of forehead. Linear cp shaped.. Distal neuro/vascular/tendon intact. Anesthesia: Wound infiltrated with 5 mls of 1% lidocaine w/ Epi. Wound prep: Simple cleansing by me. Skin closed with 5 6-0 Prolene using interrupted sutures and sterile technique. Dressed with Bacitracin, bandaid. Patient tolerated well. MDM: 09/25 22:22 Patient medically screened. cp 23:00 Differential diagnosis: closed head injury, contusion, fracture, laceration, multiple cp trauma. 09/26 01:20 Data reviewed: vital signs, nurses notes, lab test result(s), radiologic studies, CT cp scan. 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 Response to treatment: the patient's symptoms have markedly improved after treatment, and as a result, I will discharge patient. ED course: VSS. CT trauma gram negative for acute trauma. Will discharge to home for continued monitoring. 09/25 22:31 Order name: Basic Metabolic Panel 09/25 22:31 Order name: CBC with Diff; Complete Time: 23:32 09/25 23:32 Interpretation: Normal except: RBC 5.09; HGB 15.1; HCT 45.5. 09/25 22:31 Order name: CT Traumagram (Head C Spine CAP W Con) 09/25 22:31 Order name: PT-INR 09/25 22:31 Order name: Labs collected and sent; Complete Time: 22:32 09/25 22:31 Order name: Dressing - Wound; Complete Time: 22:47 09/25 22:31 Order name: Gloves, Sterile; Complete Time: 22:47 09/25 22:31 Order name: Setup Suture Tray; Complete Time: 22:47 cp 09/25 22:31 Order name: C-Collar; Complete Time: 22:32 cp Administered Medications: 09/25 23:09 Drug: fentaNYL (PF) 25 mcg Route: IVP; Site: right antecubital; [facility] [place] 23:44 CANCELLED (Physician Discretion): morphine 2 mg IVP once; RASS on ADMIN: Combtv4, Very cp Agttd3, Agttd2, Rstlss1, AlertClm0, Drwsy-1, Lt Sdtn-2, Mod Sdtn-3, Dp Sdtn-4, UnArsble-5 23:54 Drug: hydrALAZINE 10 mg Route: IV; Rate: calculated rate; Site: right antecubital; [facility] [place] 23:54 Drug: fentaNYL (PF) 25 mcg Route: IVP; Site: right antecubital; mg2 23:55 Drug: Lisinopril 40 mg Route: PO; [facility] [place] 09/26 00:15 Drug: Lidocaine-Epinephrine -1%: (1:100,000) 10 ml {Note: administered by the [facility] [place] provider.} Volume: 20 ml; Route: Infiltration; Disposition: 01:45 Chart complete. cp 06:46 Co-signature as Attending Physician, Kiran Clayton MD. 7 Disposition: 09/26/20 01:22 Discharged to Home. Impression: Laceration without foreign body of unspecified part of head, Fall on same level from slipping, tripping and stumbling. - Condition is Stable. - Discharge Instructions: Fall Prevention in the Home, Facial Laceration. - Medication Reconciliation Form, Thank You Letter, Antibiotic Education, Prescription Opioid Use form. - Follow up: Private Physician; When: 1 week; Reason: Staple/Suture removal. - Problem is new. - Symptoms have improved. Signatures: Dispatcher [employer] EDSubha Lance RN RN bb Page, Corey, PA PA cp [place]ose, Michele, RN RN mg2 Kiran Clayton MD MD 7 Corrections: (The following items were deleted from the chart) 09/25 23:44 23:34 morphine 2 mg IVP once; RASS on ADMIN: Combtv4, Very Agttd3, Agttd2, Rstlss1, cp AlertClm0, Drwsy-1, Lt Sdtn-2, Mod Sdtn-3, Dp Sdtn-4, UnArsble-5 ordered. cp 09/26 00:36 09/25 22:30 Severity of symptoms: in the emergency department the symptoms are cp unchanged, despite EMS interventions, cp 09/26 01:38 01:22 09/26/2020 01:22 Discharged to Home. Impression: Laceration without foreign body mg2 of unspecified part of head; Fall on same level from slipping, tripping and stumbling. Condition is Stable. Forms are Medication Reconciliation Form, Thank You Letter, Antibiotic Education, Prescription Opioid Use. Follow up: Private Physician; When: 1 week; Reason: Staple/Suture removal. Problem is new. Symptoms have improved. cp
[2020-09-26 01:45] VITALS: TEMP 98
[2020-09-26 01:46] VITALS: BP 165/107; O2SAT 100
--- NOTE | 2020-09-27 10:21 | RAD REPORT ---
EXAM DESCRIPTION: CT - Head C Spine Cap [place] - 09/26/2020 6:15 am CLINICAL HISTORY: Fall. TECHNIQUE: Axial, coronal, and sagittal images through the brain were performed in the absence of in travenous contrast. CT of the cervical spine was performed without contrast. Axial, coronal, and sagittal reconstructions were created and sent to PACS. CT of the chest, abdomen, and pelvis was performed following intravenous administration of iodinated contrast. Oral contrast was not administered. Axial, coronal, and sagittal reconstructions were creat ed and sent to PACS. These exams were performed according to our departmental dose-optimization program which includes use of Automated Exposure Control, adjustment of the mA and/or kV according to patient size and/or use o f iterative reconstruction technique. COMPARISON: CT head, cervical spine, and chest from June 09, 2020. FINDINGS: CT Head: There is diffuse age-appropriate atrophy seen throughout the brain parenchyma. Moderate periventricul ar white matter changes are seen to be present and there is moderate ex vacuo dilatation of the ventr icular system. Small chronic bilateral basal ganglia lacunar infarcts. There is no intra-axial or ext ra-axial bleed. There is no mass or mass effect. The visualized paranasal sinuses and mastoid air cells are patent. No fracture is identified. Unchang ed nonspecific sclerosis in the posterior clivus. Mild focal soft tissue thickening along the left fr ontoparietal scalp. CT cervical spine: Osteopenia. Unchanged small lucent regions in the dens. No acute osseous abnormality identified. Part ial osseous fusion of the C4-5 vertebral bodies. Complete osseous fusion of the C5-6 vertebral bodies . Vertebral body height and alignment are maintained. No atlantodental interval widening. Atlantoaxia l alignment is maintained. C2-C3: Tiny posterior disc osteophyte complex. Mild left-sided neuroforaminal stenosis due to uncinat e and facet hypertrophy. No significant central canal or right-sided neuroforaminal narrowing. C3-C4: Small posterior disc osteophyte complex. Moderate right-sided neuroforaminal narrowing due to uncinate and facet hypertrophy. No significant central canal or left-sided neuroforaminal narrowing. C4-C5: No significant central canal or neuroforaminal narrowing. C5-C6: Fused level. Posterior osteophytes result in borderline central canal narrowing to 0.8 cm AP. No significant neuroforaminal narrowing. C6-C7: Posterior disc osteophyte complex results in mild central canal narrowing to 0.7 cm AP. Mild l eft neuroforaminal stenosis due to uncinate and facet hypertrophy. No significant right-sided neurofo raminal narrowing. Paraspinal soft tissues: Mild to moderate calcific atherosclerosis. CT chest, abdomen, and pelvis: Lungs and pleura: Faint patchy mosaic attenuation. Right upper lobe groundglass 0.6 cm nodule, new si nce the prior exam. Unchanged tiny nodule more inferiorly in the right upper lobe, measuring approxim ately 0.4 x 0.2 cm. No pulmonary consolidation. No pleural effusion. No pneumothorax. Mediastinum and neck: No mediastinal lymphadenopathy identified by CT size criteria. Cardiac: No cardiomegaly or pericardial effusion. No thoracic aortic aneurysm or dissection. Left-katie ed infusion port catheter terminates in the region of the distal left brachiocephalic vein, unchanged . Mild atherosclerosis. Hepatobiliary: No concerning hepatic lesion identified. The hepatic and portal veins are patent. The gallbladder is surgically absent. No pathologic biliary ductal dilatation. Pancreas: Unremarkable. Spleen: Unremarkable. Gastrointestinal: No evidence of bowel obstruction or perienteric inflammation. The appendix is not d efinitely visualized, but there are no pericecal inflammatory changes. Mild sigmoid diverticulosis. Adrenals: No abnormality identified in either adrenal gland. Renal: Few tiny bilateral renal hypodensities, likely cysts. No concerning parenchymal abnormality in either kidney. No hydronephrosis or urolithiasis. Bladder/Reproductive: Unremarkable appearance of the urinary bladder by CT technique. Prior hysterect david. Vascular/Lymphatics: No lymphadenopathy identified by CT size criteria. Abdominal aorta is normal in caliber. Moderate mixed atherosclerosis. The major visceral vessels are patent. Musculoskeletal: No concerning osseous lesion identified. Osteopenia. No acute fracture identified. M oderate wedge compression deformity at L1 status post vertebroplasty. Mild chronic anterior wedge com pression deformity at T12. Disc and endplate degenerative changes at L5-S1. Fluid / peritoneum: No significant free fluid. No free intraperitoneal air identified. IMPRESSION: 1. No acute intracranial abnormality identified. Chronic basal ganglia lacunar infarct s, and age-related and microvascular ischemic changes. 2. No acute osseous abnormality identified in the cervical spine. Multilevel degenerative changes. 3. No acute traumatic abnormality identified in the chest, abdomen, or pelvis by CT. 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 4. Right lower lobe 6 mm ground-glass pulmonary nodule, new since June 2020. Unless the patient has cancer, recommend a non-contrast Chest CT at 6-12 months to confirm persistence (Reference: Radio logy. 2017; 284(1):228-43). Electronically signed by: Sindhu Townsend MD 09/26/2020 12:25 AM CDT Due to temporary technical issues with the PACS/Fluency reporting system, reports are being signed by the in house radiologist without review as a courtesy to ensure prompt reporting. The interpreting r adiologist is fully responsible for the content of the report.
== END 2020-09-26 01:38 | disposition home or self-care (01) ==
LOC: ER 21:43
PROC: 0JQ10ZZ Repair Face Subcutaneous Tissue and Fascia, Open Approach (ICD-10-PCS; principal; 2020-09-26)
DX: S01.81XA Laceration without foreign body of other part of head, initial encounter (principal); W01.198A Fall on same level from slipping, tripping and stumbling with subsequent striking against other object, initial encounter; Y93.89 Activity, other specified
CPT/HCPCS: 85025; 80048; 36415; 85610; 82565; 70450; 72125; 71260; 74177; 96375; 96374; 99285; 12013; Q9967; J3010; G0390

== ENCOUNTER 2021-03-30 17:46 | Emergency (ER) | payer OTHER ==
--- NOTE | 2021-03-30 18:44 | RAD REPORT ---
EXAM DESCRIPTION: CT - Ct Stroke Brain Wo Cont - 03/30/2021 6:16 pm CLINICAL HISTORY: WEAKNESS Headache, drowsiness, CVA symptomology COMPARISON: Head Brain Wo Cont dated 07/16/2019 TECHNIQUE: All CT scans are performed using dose optimization technique as appropriate and may inclu de automated exposure control or mA/KV adjustment according to patient size. FINDINGS: No intracranial hemorrhage, hydrocephalus or extra-axial fluid collection.Moderate general ized brain atrophy is present with moderate periventricular and deep white matter chronic microvascul ar ischemic changes.Areas of old infarction are seen in both basal ganglia. No midline shift. The paranasal sinuses and mastoids are clear. The calvarium is intact. IMPRESSION: No acute intracranial abnormality. If there is continued clinical concern for CVA, MR i maging of the brain would be recommended. The findings were discussed with Dr Trujillo in the ER on 03/30/2021 at 6:30 p.m. by telephone.
--- NOTE | 2021-03-30 18:47 | RAD REPORT ---
EXAM DESCRIPTION: RAD - Chest Single View - 03/30/2021 6:32 pm CLINICAL HISTORY: weakness Chest pain. COMPARISON: Chest Single View dated 07/16/2019; Chest Pa And Lat (2 Views) dated 03/18/2019; Chest Si ngle View dated 03/13/2019; CHEST SINGLE VIEW dated 04/16/2015; Thorax Wo Con dated 06/09/2020 FINDINGS: Portable technique limits examination quality. The lungs are grossly clear. The heart is normal in size. No displaced fractures.Left port catheter h as tip in the SVC. IMPRESSION: No acute intrathoracic process suspected.
[2021-03-30 19:30] LABS: Absolute Lymphocytes (CBC) 2.1 K/uL (0.7-4.9); Basophils % 0.6 % (0-1.3); Hematocrit 44.4 % (36.0-45.0); MPV 9.5 fL (7.6-11.3); RBC Red Blood Cell Count 5.01 M/uL (3.86-4.86)
[2021-03-30 20:16] LABS: BUN Blood Urea Nitrogen 18 mg/dL (7-18); Bicarbonate 19 mmol/L (21-32); Glucose Level 87 mg/dL (74-106); Magnesium 1.9 mg/dL (1.8-2.4); Potassium 3.9 mmol/L (3.5-5.1); Sodium Level 143 mmol/L (136-145); Troponin (Emerg Dept Use Only) < 0.02 ng/mL (0.0-0.045)
--- NOTE | 2021-03-30 21:53 | RAD REPORT ---
EXAM DESCRIPTION: CT - Head angio - 03/30/2021 9:37 pm CLINICAL HISTORY: WEAKNESS Headache, drowsiness, CVA symptomology COMPARISON: Ct Stroke Brain Wo Cont dated 03/30/2021; Head Brain Wo Cont dated 07/16/2019 TECHNIQUE: CT angiography of the head was performed with MIPs. All CT scans are performed using dose optimization technique as appropriate and may include automated exposure control or mA/KV adjustment according to patient size. FINDINGS: No evidence of aneurysm is detected. No flow-limiting stenosis or vascular malformation id entified. Antegrade flow is seen in the vertebral arteries. Atherosclerosis of the right vertebral artery is no chanda. Mild narrowing of the distal right vertebral artery is noted. The visualized dural venous sinuses are patent. IMPRESSION: No significant flow abnormality is detected.
--- NOTE | 2021-03-30 21:57 | RAD REPORT ---
EXAM DESCRIPTION: CT - Neck Angio - 03/30/2021 9:36 pm CLINICAL HISTORY: NUMBNESS Headache, drowsiness COMPARISON: Head C Spine Mpr Wo Con dated 06/09/2020; Head C Spine Mpr Wo Con dated 01/27/2020 TECHNIQUE: CT angiography of the neck vessels was performed with MIPs. All CT scans are performed using dose optimization technique as appropriate and may include automated exposure control or mA/KV adjustment according to patient size. FINDINGS: A left aortic arch is identified with normal three vessel configuration of the great vesse ls. Mild atherosclerosis of the right common carotid artery is seen. No flow abnormality of significance seen in either common carotid artery. Moderate hard plaque is present in both carotid bulbs. The degree of hard plaque is greater involving the right carotid bulb. However, based on NASCET criteria, stenosis is less than 50%. Normal flow is seen within both vertebral arteries. IMPRESSION: No significant carotid stenosis is identified.
--- NOTE | 2021-03-30 22:33 | ER ---
Nurse's Notes [facility] Name: Radha Hastings Age: 80 yrs Sex: Female : 1940 Arrival Date: 03/30/2021 Time: 17:48 Bed 4 Private MD: Diagnosis: Acute ischemic stroke Presentation: 03/30 17:53 Chief complaint: granddaughter says around 2pm she was still in bed. and i was like ok tw2 and let her rest. then i left to go to the store but my called me around 445pm today and said that she cant move her RIGHT arm or her RIGHT leg. Coronavirus screen: At this time, the client does not indicate any symptoms associated with coronavirus-19. Ebola Screen: Patient denies travel to an Ebola-affected area in the 21 days before illness onset. Onset of symptoms was March 30, 2021. 17:53 Method Of Arrival: Wheelchair tw2 17:53 Acuity: NYASIA 3 tw2 Triage Assessment: 17:58 The onset of the patients symptoms was less than three hours ago. tw2 17:58 General: Appears in no apparent distress. Behavior is appropriate for age. Pain: Denies tw2 pain. Neuro: Level of Consciousness is awake, alert, Oriented to person, place, Paralysis in right Facial droop on right, Reports tingling in RIGHT hand. Historical: - Allergies: 17:56 Compazine; tw2 17:56 [place]; tw2 17:56 ambien; adverse reaction; tw2 17:56 Valium; "nightmares"; tw2 - PMHx: 17:56 Atrial Fib; BRAIN TUMOR; Hypertension; Depression; Opioid Dependence; Thyroid problem; tw2 CVA; - Immunization history:: Client reports receiving the 2nd dose of the Covid vaccine. - Social history:: Smoking status: . - Family history:: not pertinent. - Hospitalizations: : No recent hospitalization is reported. Screenin:41 Abuse screen: Denies threats or abuse. Denies injuries from another. Nutritional jt3 screening: No deficits noted. Tuberculosis screening: No symptoms or risk factors identified. Fall Risk Gait- Impaired (20 pts.). Assessment: 18:03 Reassessment: pt taking to CT via stretcher at this time. tw2 18:41 VAN Scoring: Arm Drift: Flaccid/no antigravity Visual Disturbance: No visual jt3 disturbance noted. Aphasia: Expressive aphasia noted. Provider notified of +VAN scoring. Neglect: No neglect noted. T-PA (Activase) Screening: Contraindications: Is the patient on Aspirin, Heparin, or Warfarin: Yes. Neuro: Reports Pt. has right sided weakness in both arm and leg since last night. Last known normal was at 2130. Alert and oriented x4. Expressive aphasia present, facial droop on right side present. . Respiratory: No deficits noted. 19:10 General: Appears in no apparent distress. comfortable, slender, Behavior is calm, dc2 cooperative. 19:10 Pain: Denies pain. Neuro: Level of Consciousness is awake, alert, obeys commands, dc2 Oriented to person, place, time, Licensed Dispensing Optician are weak on right no movement to right upper extremity, strong supervisor crack off on left upper extremity. Gait is did not visualize ambulation, pt unable to move right lower extremity, able to slightly move right foot and wiggle right toes, unable to move leg or keep up when lifted. . Reports being thirsty and hungry. Cardiovascular: Heart tones present Capillary refill < 3 seconds Patient's skin is warm and dry. Skin tear to right arm. Rhythm is atrial fibrillation. Respiratory: Airway is patent Respiratory effort is even, unlabored, Respiratory pattern is regular, Breath sounds are clear bilaterally. Denies cough, shortness of breath. GI: No deficits noted. No signs and/or symptoms were reported involving the gastrointestinal system. Parent/caregiver reports the patient having Decrease in appetite and is not drinking much of anything. Derm: Skin is fragile, is thin, with poor turgor has skin tears on Right forearm. Musculoskeletal: No movement to right upper or lower extremity. 19:30 Reassessment: Daughter to desk, states pt would like something to drink. Advised dc2 nothing to drink at this time pending further CT results and swallow study. 19:40 Reassessment: Plebotomy at bedside, unable to obtain blood. Will attempt blood , IV. dc2 Phlebotomy states she will ask another leather worker to attempt blood. 21:00 The patient did not tolerate 90mL of water. Drooling, immediate coughing, gurgling, or dc2 clearing of the throat was noted. Bedside swallow screening discontinued. Patient kept NPO until cleared by Speech Therapy or Physician. The patient failed the bedside swallow screening. The patient will be kept NPO until cleared by Speech Therapy or Physician. 23:05 Reassessment: Report given to May at [facility] . transfer signed by erica and ephraim updated on POC regarding room number and nurse. Voices understanding of transfer. Vital Signs: 17:53 BP 139 / 91; Pulse 107; Resp 17; Temp 97.4(TE); Pulse Ox 100% on R/A; Weight 77.11 kg tw2 (R); 18:45 BP 150 / 106; Pulse 101; Resp 17; Pulse Ox 98% on R/A; jt3 20:00 BP 152 / 103; Pulse 94; Resp 18; Temp 98.2; Pulse Ox 98% ; Pain 0/10; dc2 23:00 BP 157 / 98; Pulse 90; Resp 17; Temp 98.2(O); Pulse Ox 98% ; Pain 0/10; dc2 NIH Stroke Scale Scores: 18:41 NIHSS Score: 14 jt3 ED Course: 17:48 Patient arrived in ED. mr 17:55 Triage completed. tw2 17:58 Arm band placed on. tw2 17:59 Manuel Trujillo MD is Attending Physician. rn 18:08 Galen Mitchell RN is Primary Nurse. jt3 18:22 Patient has correct armband on for positive identification. jh5 18:35 CT Stroke Brain w/o Contrast In Process Unspecified. EDMS 18:37 Stroke CXR 1 View In Process Unspecified. EDMS 18:41 No provider procedures requiring assistance completed. Inserted saline lock: 24 gauge jt3 ,using aseptic technique. Chest. 19:04 Attending Physician role handed off by Manuel Trujillo MD pkl 19:04 Reji Patterson MD is Attending Physician. pkl 20:07 Inserted saline lock: 22 gauge in right wrist, using aseptic technique. lh3 20:[address] via stretcher. dc2 20:48 Patient moved back from CT. dc2 21:[address] In Process Unspecified. EDMS 21:[address] In Process Unspecified. EDMS 21:44 initiated a transfer with Stephan from [facility]. mw2 21:45 Patient moved back from CT. dc2 21:[address] Patterson with Dr. Thompson the Neurologist from [facility]. mw2 22:[address] Patterson with Dr. Souza the Hospitalist from [facility]. mw2 22:33 COVID-19 (Coronavirus) Document "Date of Onset" if Symptomatic Sent. 3 22:35 administrative approval given by Stephan Patel/ patient has been accepted to [address] rm 2242/Dr. Souza accepted the patient in transfer/ report to be called to [phone]. Administered Medications: 23:00 Drug: NS 0.9% 1000 ml Route: IV; Rate: 100 ml/hr; Site: right wrist; Delivery: Primary dc2 tubing; Outcome: 22:33 ER care complete, transfer ordered by pkdayo 23:20 Transferred by ground EMS to [facility], Transfer form completed. dc2 23:20 Condition: stable 23:28 Patient left the ED. dc2 NIH Stroke Scale - NIH Stroke Score Date: 03/30/2021 Time: 18:41 Total Score = 14 1a. Level of Consciousness (LOC) - 0(Alert) 1b. Level of Consciousness (LOC) (Month \\T\\ Age) - 0(Both) 1c. LOC Commands (Open \\T\\ Closes Eyes/Sales And Service Associate) - 0(Both) 2. Best Gaze (Lateral Gaze Paresis) - 0(Normal) 3. Visual Field Loss - 1(Partial hemianopia) 4. Facial Palsy - 2(Partial paralysis) 5a. Left Arm: Motor (10-second hold) - 0(No drift) 5b. Right Arm: Motor (10-second hold) - 3(No effort against gravity) 6a. Left Leg: Motor (5-second hold - always test supine) - 0(No drift) 6b. Right Leg: Motor (5-second hold - always test supine) - 3(No effort against gravity) 7. Limb Ataxia (finger/nose \\T\\ heel/hinkle - test with eyes open) - 2(Present in two limbs) 8. Sensory Loss (pinprick arms/legs/face) - 1(Mild to moderate loss) 9. Best Language: Aphasia (description/naming/reading) - 1(Mild to moderate aphasia) 10. Dysarthria (speech clarity - read or repeat words) - 1(Mild to Moderate) 11. Extinction and Inattention (visual/tactile/auditory/spatial/personal) - 0(No abnormality) Initials: jt3 Signatures: Dispatcher [employer] EDReji Ferrer MD MD [facility] Felipa LizarragaManuel kuhn MD MD rn Keke Reynolds RN RN 2 Fermin [facility] Jemma Alonso RN RN 3 Simin Renner, RN RN wi2 Galen Mitchell RN RN jt3 Leta Wray RN RN 5 Corrections: (The following items were deleted from the chart) 21:[address] Patterson with Dr. Thompson from [address] : 22:[address] Patterson with Dr. Souza from [address]
--- NOTE | 2021-03-30 22:34 | EDPHYS ---
Physician Documentation [facility] Name: Radha Hastings Age: 80 yrs Sex: Female : 1940 Arrival Date: 03/30/2021 Time: 17:48 Bed 4 Private MD: ED Physician Reji Patterson HPI: 03/30 18:51 This 80 yrs old Female presents to ER via Wheelchair with complaints of rn Slurred Speech, weakness of arm and leg. 18:51 The patient presents to the emergency department with weakness of the right upper rn extremity, right lower extremity, right side of the face, a speech or higher order brain function problem. Onset: The symptoms/episode began/occurred at an unknown time. Context: occurred at home, occurred while the patient was at rest. Associated signs and symptoms: Pertinent positives: weakness, Pertinent negatives: fever, headache. Severity of symptoms: At their worst the symptoms were severe in the emergency department the symptoms are unchanged. Current symptoms: paralysis or paresis. The patient has not experienced similar symptoms in the past. The patient has not recently seen a physician. Granddaughter states last known normal around 9 or 9:30 PM last night. Slept in today and so they did not wake her. When they woke her up had no use of the right side of her body. She just checked with family member who states last night when helped her to the bathroom she was unable to support herself.. Historical: - Allergies: 17:56 Compazine; tw2 17:56 [place]; tw2 17:56 ambien; adverse reaction; tw2 17:56 Valium; "nightmares"; tw2 - PMHx: 17:56 Atrial Fib; BRAIN TUMOR; Hypertension; Depression; Opioid Dependence; Thyroid problem; tw2 CVA; - Immunization history:: Client reports receiving the 2nd dose of the Covid vaccine. - Social history:: Smoking status: . - Family history:: not pertinent. - Hospitalizations: : No recent hospitalization is reported. ROS: 18:51 Constitutional: Negative for fever, chills, and weight loss, Eyes: Negative for injury, rn pain, redness, and discharge, Neck: Negative for injury, pain, and swelling, Cardiovascular: Negative for chest pain, palpitations, and edema, Respiratory: Negative for shortness of breath, cough, wheezing, and pleuritic chest pain, Abdomen/GI: Negative for abdominal pain, nausea, vomiting, diarrhea, and constipation, Back: Negative for injury and pain, MS/Extremity: Negative for injury and deformity, Skin: Negative for injury, rash, and discoloration, Neuro: Negative for headache, seizure. Exam: 18:51 Constitutional: This is a well developed, well nourished patient who is awake, alert, rn and in no acute distress. Head/Face: Normocephalic, atraumatic. Eyes: Periorbital areas with no swelling, redness, or edema. Cardiovascular: Tachycardic, regular. No pulse deficits. Respiratory: No increased work of breathing, no retractions or nasal flaring. Abdomen/GI: Soft, non-tender Skin: Warm, dry with normal turgor. Normal color with no rashes, no lesions, and no evidence of cellulitis. MS/ Extremity: Pulses equal, no cyanosis. Neuro: Awake and alert, GCS 15, oriented to person place and situation. Noticeable right lower facial droop. Patient unable to move right upper extremity at all. Patient able to move foot of right lower extremity only with gravity eliminated. Sensation to painful and soft touch intact. Mild slurred speech. Vital Signs: 17:53 BP 139 / 91; Pulse 107; Resp 17; Temp 97.4(TE); Pulse Ox 100% on R/A; Weight 77.11 kg tw2 (R); 18:45 BP 150 / 106; Pulse 101; Resp 17; Pulse Ox 98% on R/A; jt3 20:00 BP 152 / 103; Pulse 94; Resp 18; Temp 98.2; Pulse Ox 98% ; Pain 0/10; dc2 23:00 BP 157 / 98; Pulse 90; Resp 17; Temp 98.2(O); Pulse Ox 98% ; Pain 0/10; dc2 NIH Stroke Scale Scores: 18:41 NIHSS Score: 14 jt3 MDM: 17:59 Patient medically screened. rn 18:06 ED course: Granddaughter states last known normal last night at 2130.. rn 18:36 ED course: No acute findings on ct head per Dr. Eaton. . rn 18:51 Data reviewed: vital signs, nurses notes, radiologic studies, CT scan. rn 20:59 ED course: Talked to Dr. Charles, no Thrombolytic ( patient outside window for pkl treatment ) Recommend patient to [facility] for further evaluations and treatment. 22:09 ED course: Talked to Dr. Thompson, will consult. To admit to Hospitalist. pkl 22:30 ED course: Talked to Dr. Souza ( Hospitalist ) Accepted transfer. [facility] 03/30 18:06 Order name: Basic Metabolic Panel; Complete Time: 20:25 rn 03/30 18:06 Order name: CBC with Diff; Complete Time: 20:05 rn 03/30 18:06 Order name: Magnesium; Complete Time: 20:25 rn 03/30 18:06 Order name: Troponin (emerg Dept Use Only); Complete Time: 20:25 rn 03/30 18:06 Order name: CT Stroke Brain w/o Contrast; Complete Time: 19:08 03/30 18:06 Order name: Stroke CXR 1 View; Complete Time: 19:08 03/30 18:28 Order name: Glucose, Ancillary Testing; Complete Time: 19:08 EDVT 03/30 18:43 Order name: Head Angio CT; Complete Time: 22:03 03/30 19:46 Order name: Neck Angio CT; Complete Time: 22:03 la1 03/30 20:10 Order name: COVID-19 (Coronavirus) Document "Date of Onset" if Symptomatic 2 03/30 20:26 Order name: SARS-COV-2 RT PCR; Complete Time: 22:28 EDMS 03/30 18:06 Order name: EKG; Complete Time: 18:07 03/30 18:06 Order name: Accucheck; Complete Time: 18:47 rn 03/30 18:06 Order name: Cardiac monitoring; Complete Time: 18:47 rn 03/30 18:06 Order name: EKG - Nurse/Tech; Complete Time: 18:47 rn 03/30 18:06 Order name: IV Saline Lock; Complete Time: 18:47 rn 03/30 18:06 Order name: Labs collected and sent; Complete Time: 18:47 rn 03/30 18:06 Order name: NPO; Complete Time: 18:47 rn 03/30 18:06 Order name: O2 Per Protocol; Complete Time: 18:47 rn 03/30 18:06 Order name: O2 Sat Monitoring; Complete Time: 18:47 rn 03/30 18:06 Order name: Stroke Swallow Screen rn Administered Medications: 23:00 Drug: NS 0.9% 1000 ml Route: IV; Rate: 100 ml/hr; Site: right wrist; Delivery: Primary dc2 tubing; Disposition Summary: 03/30/21 22:33 Transfer Ordered Transfer Location: [facility] pkl Reason: Higher level of care pkl Condition: Stable pkl Problem: new pkl Symptoms: are unchanged pkl Accepting Physician: Dr. Souza(03/30/21 23:28) dc2 Diagnosis - Acute ischemic stroke pkl Forms: - Medication Reconciliation Form pkl - SBAR form pkl NIH Stroke Scale - NIH Stroke Score Date: 03/30/2021 Time: 18:41 Total Score = 14 1a. Level of Consciousness (LOC) - 0(Alert) 1b. Level of Consciousness (LOC) (Month \\T\\ Age) - 0(Both) 1c. LOC Commands (Open \\T\\ Closes Eyes/Hospital Receptionist) - 0(Both) 2. Best Gaze (Lateral Gaze Paresis) - 0(Normal) 3. Visual Field Loss - 1(Partial hemianopia) 4. Facial Palsy - 2(Partial paralysis) 5a. Left Arm: Motor (10-second hold) - 0(No drift) 5b. Right Arm: Motor (10-second hold) - 3(No effort against gravity) 6a. Left Leg: Motor (5-second hold - always test supine) - 0(No drift) 6b. Right Leg: Motor (5-second hold - always test supine) - 3(No effort against gravity) 7. Limb Ataxia (finger/nose \\T\\ heel/hinkle - test with eyes open) - 2(Present in two limbs) 8. Sensory Loss (pinprick arms/legs/face) - 1(Mild to moderate loss) 9. Best Language: Aphasia (description/naming/reading) - 1(Mild to moderate aphasia) 10. Dysarthria (speech clarity - read or repeat words) - 1(Mild to Moderate) 11. Extinction and Inattention (visual/tactile/auditory/spatial/personal) - 0(No abnormality) Initials: jt3 Signatures: Dispatcher [employer] EDReji Ferrer MD MD pkManuel James MD MD rn Jhon Rodriguez, BRAILLE OPERATOR-C BRAILLE OPERATOR-Cla1 Keke Reynolds, RN RN tw2 Simin Renner RN RN dc2 Corrections: (The following items were deleted from the chart) 20:11 CORONAVIRUS ordered. EDMS EDMS 23:28 22:33 Dr. Libby drew dc2
[2021-03-30 23:36] VITALS: O2SAT 98
[2021-03-30 23:38] VITALS: TEMP 98.2
[2021-03-30 23:39] VITALS: BP 157/98
[2021-03-30] MEDS ORDERED: NA CHLORIDE 0.9% 1,000 ML ONE (23:50)
== END 2021-03-30 23:28 | disposition short-term general hospital (02) ==
LOC: ER 17:46
DX: I63.9 Cerebral infarction, unspecified (principal); I10 Essential (primary) hypertension; R29.714 NIHSS score 14; Z88.1 Allergy status to other antibiotic agents; Z88.5 Allergy status to narcotic agent; Z91.018 Allergy to other foods; Z20.822 Contact with and (suspected) exposure to COVID-19
CPT/HCPCS: 93005; 85025; 80048; 36415; 83735; 82947; 84484; 70496; 70498; 70450; 71045; 99285; U0003; Q9967; J7030

== ENCOUNTER 2021-05-25 00:03 | Observation (INO) | payer OTHER, SELFPAY ==
--- OUTSIDE RECORDS SUMMARY | 2021-05-25 00:08 | XMS REPORT | Continuity of Care Document ---
:1940 Author Organization [facility] t Address [facility] [address] [place] [address] Care Team Providers Name Role Phone VILMA Attending Clinician Unavailable ANUPAM JACOBS Attending Clinician Unavailable LANCE CHARLES Admitting Clinician Unavailable Payers Payer Name Policy Type Policy Number Effective Date Expiration Date S miryam [facility] [id number] 2020 [facility] 00:00:00 Problems Condition Condition Condition Status Onset Resolution Last Treating Co mments Source Name Details Category Date Date Treatment Clinician Date Hyperglyce Hyperglyce Problem Active [facility]ian[facility] b[facility]ca [facility] Hypertrigl Hypertrigl Problem Active [facility] yceridemia yceridemia Radha k[facility] - [facility] Abnormal Abnormal Problem Active [facility] thyroid [facility] - function function [facility] a test test l [facility] History of History of Problem Active [facility] cardiac cardiac [facility] - arrhythmia arrhythmia Me moria l [facility] Essential Essential Problem Active [facility] hypertensi hypertensi Radha kes - on on [facility] Chronic Chronic Problem Active [facility] right-side right-side Radha kes - d d Memoria headaches headaches l [facility] History of History of Problem Active [facility] meningioma meningioma Radha kes - [facility] Abnormal Abnormal Problem Active [facility] heart heart [facility] - rhythm rhythm [facility] Blood in Blood in Problem Active [facility] right ear right ear Luke [facility] - canal canal [facility] l [facility] Anxiety Anxiety Problem Active [facility] Otalgia, Otalgia, Problem Active [facility] right ear right ear [facility] - [facility] Urinary Urinary Problem Active [facility] incontinen incontinen Radha kes - ce, ce, Memoria unspecifie unspecifie l d type d type [facility] Gallstones Gallstones Problem Active [facility] Migraines Migraines Problem Active [facility] History of History of Problem Active [facility] stroke stroke [facility] Thyroid Thyroid Problem Active [facility] disorder disorder [facility] Depression Depression Problem Active [facility] with with [facility] - anxiety anxiety [facility]oria l [facility] Swelling Swelling Problem [facility] Pain in Pain in Problem Active [facility] unspecifie unspecifie Radha kes - d knee d knee Memoria l [facility] Other Other Problem Active [facility] chronic chronic [facility] pain pain [facility] Memory Memory Problem Active [facility] problem problem [facility] Acquired Acquired Problem Active [facility] hypothyroi hypothyroi Radha kes - dism dism [facility] Frequent Frequent Problem Active [facility] [place] [facility] Chronic Chronic Problem Active [facility] pain pain [facility] - syndrome syndrome [facility] a [facility] Stroke Stroke Problem Active [facility] Osteoporos Osteoporos Problem Active [facility] is is [facility] Depression Depression Problem Active [facility] Urinary Urinary Diagnosis Active [facility] tract tract [facility] - infection infection Mina samson without without l hematuria, hematuria, Ou tpati site site ent unspecifie unspecifie Cl inics d d Allergies, Adverse Reactions, Alerts Allergy Allergy Status Severity Reaction(s) Onset Inactive Treating Comm ents Source Name Type Date Date Clinician ZOLPIDEM Allergy Active 2020-[address] [facility] 0-28 [facility] 00:[facility]: Medical 00 [place] PROCHLOR Allergy Active 2020-[address] PERAZINE 0-28 [facility] SKIP Allergy Active 2020-[address] [facility] DIAZEPAM Allergy Active Other 2021-[address] [facility] [facility] Valium Adverse Active Info Not [facility] Reaction Available [facility] Aspirin Adverse Active Info Not [facility] Reaction Available [facility] Ambien Adverse Active Info Not [facility] Reaction Available [facility] Medications Ordered Filled Start Stop Current Ordering Indication Dosage Frequency Signature Comments Components Source Medication Medication Date Date Medication? Clinician (SIG) Name Name Gabapentin Gabapentin Yes Carolann [address] [facility] [place] [facility] Bisacodyl Bisacodyl Yes Carolann [address] [facility] [place] as needed [facility] Plavix Plavix Yes Carolann [address] [facility] [place] [facility] Lisinopril Lisinopril Yes Carolann [address] [facility] [place] [facility] Carbamazepi Carbamazepi Yes Carolann TAKE ONE [facility] ne ne [place]ody (1) [facility] - TABLET(S) Memoria BY MOUTH l TWICE A [facility] Levothyroxi Levothyroxi Yes Carolann [address] [facility] ne Sodium ne Sodium Kody in the [facility] - morning on Memoria an empty l stomach [facility] Fish Oil Fish Oil Yes Carolann (otc) [address] [place] capsule [facility] Melatonin Melatonin Yes Carolann [address] [facility] [place] at bedtime [facility] - as needed [facility] Duloxetine Duloxetine Yes Carolann [address] HCl HCl [facility] Morphine Morphine Yes Carolann not [facility] Sulfate Sulfate Kody defined Radha kes - [facility] Felodipine Felodipine Yes Carolann [address] ER ER [place] [facility] Estradiol Estradiol Yes Carolann 1/[address] [place] [facility] Doxazosin Doxazosin Yes Carolann [address] Mesylate Mesylate Kody Juanis es - [facility]oria [facility] Digoxin Digoxin Yes Carolann [address] [facility] [place] [facility] Vital Signs Vital Name Observation Time Observation Value Comments Source WEIGHT 2021-03-31 00:56:00 77.157 kg WEIGHT 2021-03-31 00:56:00 77.157 kg Procedures This patient has no known procedures. Encounters Start End Encounter Admission Attending Care Care Encounter Source Date/Time Date/Time Type Type Clinicians Facility Department ID 2021-03-31 2021-04-08 Inpatient ER BILL [facility] Neuro ICU [id number] [facility] 00:33:00 10:25:00 ONEIL 2021-04-01 2021-04[facility]01 [id number]:00[facility]00 [facility]59:00 [facility] 2019-10-29 2019-10-29 [facility] [id number] [address] 09:30:00 09:30:00 t Specialty/U Radha kes - Specialty rology [facility] a /Urology Clinic l [facility] 2019-10-16 2019-10-16 [facility] [id number] 09:40:00 09:40:00 [facility] 2019-09-20 2019-09-20 [facility] [id number] 23:09:00 23:09:00 [facility] 2019-09-09 2019-09-09 [facility] [id number] 10:15:00 10:15:00 [facility] Results Test Description Test Time Test Comments Results Result Comments Source POCT-GLUCOSE METER 2021-04-08 06:49:12 Test Item Value Reference Range Interpretation Comme nts POC-GLUCOSE METER (walkby) 93 mg/dL 70-110 : TESTED AT [facility] [address] (test code = 1538) RICKEY Benavides, [address]: Driver Examiner/Techni ashley ID = [id number] for OJHANA URBANO POCT-GLUCOSE [id number] 00:10:23 Test Item Value Reference Range Interpretation Comments POC-GLUCOSE METER 105 mg/dL 70-110 : TESTED A T [facility] [address] (walkby) (test code = VASQUEZ HARTMANN, 1538) [address]25[address]: Driver Examiner/Techni ashley ID = [id number] for STEFANO AZUL SARS-COV2/RT-PCR ([facility])2021-04-07 21:30:13 Test Item Value Reference Range Interpretation Comments SARS-COV2/RT-PCR (test code = Negative Negative [id number]) Negative result for this test determines that SARS-CoV-2 RNA was not present in the specimen above the Limit of Detection (LOD). However, Negative results do not preclude SARS-CoV-2 infection and should not be used as the sole basis for treatment or patient management decisions. Negative results must be combined with clinical observations, patient history, and epidemiological information. A false negative result may occur if a specimen is improperly collected, transported, or handled. A false negative result should be considered if patient's recent exposures or clinical presentation indicate that COVID-19 (SARS-CoV-2) is likely and diagnostic tests for other causes of illness are negative. Re-testing should be considered in cases of suspected false negatives.The limit of detection for this assay is 100 copies/mL.This SARS-CoV-2 test is a real-time RT_PCR test intended for the qualitative detection of nucleic acid from SARS-CoV-2 in a nasopharyngeal swab specimen collected from individuals suspected of COVID-19 by their healthcare provider.This test has not been Food and Drug Administration (FDA) cleared or approved. This is a modified version of an approved Emergency Use Authorization (EUA) and is in the process of review by the FDA. Once authorized by the FDA, the issued EUA will be e ffective until the declaration that circumstances exist justifying the authorization of the emergency use of in vitro diagnostic tests for detection and/or diagnosis of COVID-19 is terminated under Section 564(b)(2) of the Act or the EUA is revoked under Section 564(g) of the Act.Testing was performedusing the Lazo SARS-CoV-2 assay.Fact Sheet for Healthcare Providers:https://www.molecular.lazo/guillermina/RT SARS-CoV-2 HCP Fact Sheet 51- 256529.pdfFact Sheet for Healthcare Patients:https://www.molecular.lazo/guillermina/RT SARS-CoV-2 Patient Fact Sheet EN 51-761409I1.pdfPOCT-GLUCOSE [id number] 18:05:02 Test Item Value Reference Range Interpretation Comments POC-GLUCOSE METER 87 mg/dL 70-110 : TESTED A T [facility] 67[address] (BEAKER) (test code = [facility], 153) [address]: Driver Examiner/Techni ashley ID = [id number] for RODG ERS, JAMECA POCT-GLUCOSE [id number] 12:50:08 Test Item Value Reference Range Interpretation Comments POC-GLUCOSE METER 98 mg/dL 70-110 : TESTED A T [facility] [address] (BEAKER) (test code = [facility], 1538) 38646: Driver Examiner/Techni ashley ID = [id number] for RODG ERS, JAMECA POCT-GLUCOSE [id number] 06:17:51 Test Item Value Reference Range Interpretation Comments POC-GLUCOSE METER 79 mg/dL 70-110 : TESTED A T [facility] [address] (BEAKER) (test code = [facility], 1538) 51758: Driver Examiner/Techni ashley ID = [id number] for MARIA ELENA EISENBERG REITTA POCT-GLUCOSE [id number] 22:06:24 Test Item Value Reference Range Interpretation Comments POC-GLUCOSE METER 124 mg/dL 70-110 H : TESTED A T [facility] [address] (BEAKER) (test code = [facility], 1538) 97548: Driver Examiner/Techni ashley ID = [id number] for MARTINEZ ADAMTONI HAIRA POCT-GLUCOSE [id number] 17:34:40 Test Item Value Reference Range Interpretation Comments POC-GLUCOSE METER 131 mg/dL 70-110 H : TESTED A T [facility] [address] (BEAKER) (test code = [facility], 1538) 13840: Driver Examiner/Techni ashley ID = [id number] for An Lori caldera T3, [id number] 12:49:30 Test Item Value Reference Range Interpretation Comments T3 FREE (BEAKER) (test code = 908) See scanned reportPOCT-GLUCOSE [id number] 12:19:12 Test Item Value Reference Range Interpretation Comments POC-GLUCOSE METER 105 mg/dL 70-110 : TESTED A T [facility] [address] (BEAKER) (test code = [facility], 1538) 22244: Driver Examiner/Techni ashley ID = [id number] for An verenice, Lori POCT-GLUCOSE [id number] 06:53:56 Test Item Value Reference Range Interpretation Comments POC-GLUCOSE METER 79 mg/dL 70-110 : TESTED A T [facility] [address] (BEAKER) (test code = [facility], 1538) 83968: Driver Examiner/Techni ashley ID = [id number] for Ubaldo sam, Leigha POCT-GLUCOSE [id number] 17:18:22 Test Item Value Reference Range Interpretation Comments POC-GLUCOSE METER 111 mg/dL 70-110 H : TESTED A T [facility] [address] (BEAKER) (test code = [facility], 1538) 92080: Driver Examiner/Techni ashley ID = [id number] for An verenice, Lori POCT-GLUCOSE [id number] 11:56:15 Test Item Value Reference Range Interpretation Comments POC-GLUCOSE METER 106 mg/dL 70-110 : TESTED A T [facility] [address] (BEAKER) (test code = [facility], 1538) 19624: Driver Examiner/Techni ashley ID = [id number] for Stephanie Mckeon POCT-GLUCOSE [id number] 00:49:01 Test Item Value Reference Range Interpretation Comments POC-GLUCOSE METER 119 mg/dL 70-110 H : TESTED A T [facility] [address] (BEAKER) (test code = [facility], 1538) 44530: Driver Examiner/Techni ashley ID = [id number] for Terrell silva, Leigha POCT-GLUCOSE [id number] 17:41:43 Test Item Value Reference Range Interpretation Comments POC-GLUCOSE METER 97 mg/dL 70-110 : TESTED A T [facility] [address] (BEAKER) (test code = [facility], 1538) 55981: Driver Examiner/Techni ashley ID = [id number] for Kris goode, Lori POCT-GLUCOSE [id number] 12:34:08 Test Item Value Reference Range Interpretation Comments POC-GLUCOSE METER 105 mg/dL 70-110 : TESTED A T [facility] [address] (BEAKER) (test code = [facility], 1538) 23795: Driver Examiner/Techni ashley ID = [id number] for Lori De La Vega [id number] 06:27:45 Test Item Value Reference Range Interpretation Comments PHOSPHORUS (BEAKER) (test code = 4.8 mg/dL 2.3-4.7 H 604) Driver Examiner ID - DBBASIC METABOLIC [id number] 06:27:44 Test Item Value Reference Range Interpretation Comments SODIUM (BEAKER) 140 meq/L 136-145 (test code = 381) POTASSIUM (BEAKER) 3.6 meq/L 3.5-5.1 (test code = 379) CHLORIDE (BEAKER) 108 meq/L 98-107 H (test code = 382) CO2 (BEAKER) (test 23 meq/L 22-29 code = 355) BLOOD UREA NITROGEN 15 mg/dL 7-21 (BEAKER) (test code = 354) CREATININE (BEAKER) 0.61 mg/dL 0.57-1.25 (test code = 358) GLUCOSE RANDOM 100 mg/dL 70-105 (BEAKER) (test code = 652) CALCIUM (BEAKER) 8.5 mg/dL 8.4-10.2 (test code = 697) EGFR (BEAKER) (test 94 mL/min/1.73 ESTIMA BALDO GFR IS code = 1092) sq m NOT ACCURATE CREATININE CLEARANCE IN PREDICTING GLOMERULAR FILTRATION RATE . ESTIMATED GFR I S NOT APPLICABLE FOR DIALYSIS PATIEN TS. Driver Examiner ID - [id number] 06:27:44 Test Item Value Reference Range Interpretation Comments MAGNESIUM (BEAKER) (test code = 1.7 mg/dL 1.6-2.6 627) Driver Examiner ID - DBPOCT-GLUCOSE [id number] 05:51:54 Test Item Value Reference Range Interpretation Comments POC-GLUCOSE METER 105 mg/dL 70-110 : TESTED A T [facility] [address] (BEAKER) (test code = [facility], 1538) 16548: Driver Examiner/Techni ashley ID = [id number] for MARTINEZ ADAMTONI CONRAD POCT-GLUCOSE [id number] 05:39:10 Test Item Value Reference Range Interpretation Comments POC-GLUCOSE METER 112 mg/dL 70-110 H : TESTED A T [facility] [address] (BEAKER) (test code = [facility], 1538) 40614: Driver Examiner/Techni ashley ID = [id number] for CONRAD PATTERSON POCT-GLUCOSE [id number] 17:22:04 Test Item Value Reference Range Interpretation Comments POC-GLUCOSE METER 102 mg/dL 70-110 : TESTED A T [facility] [address] (BEAKER) (test code = [facility], 1538) 61016: Driver Examiner/Techni ashley ID = [id number] for An Lori caldera POCT-GLUCOSE [id number] 12:14:57 Test Item Value Reference Range Interpretation Comments POC-GLUCOSE METER 102 mg/dL 70-110 : TESTED A T [facility] [address] (BEAKER) (test code = [facility], 1538) 15806: Driver Examiner/Techni ashley ID = [id number] for An Lori caldera CREATINE KINASE (CK)2021-04-03 09:58:58 Test Item Value Reference Range Interpretation Comments CREATINE KINASE TOTAL (BEAKER) (test 90 U/L 29-200 code = 380) Driver Examiner ID - DBOperator ID - MITCH [id number] 08:27:19 Test Item Value Reference Range Interpretation Comments MAGNESIUM (BEAKER) 2.1 mg/dL 1.6-2.6 Specimen slightly (test code = 627) hemolyzed Driver Examiner ID - [id number] 08:27:19 Test Item Value Reference Range Interpretation Comments PHOSPHORUS (BEAKER) 4.1 mg/dL 2.3-4.7 Specimen slightly (test code = 604) hemolyzed Driver Examiner ID - DBBASIC METABOLIC [id number] 08:27:19 Test Item Value Reference Range Interpretation Comments SODIUM (BEAKER) 140 meq/L 136-145 (test code = 381) POTASSIUM (BEAKER) 3.5 meq/L 3.5-5.1 Specimen slightly (test code = 379) hemolyzed CHLORIDE (BEAKER) 107 meq/L 98-107 (test code = 382) CO2 (BEAKER) (test 24 meq/L 22-29 code = 355) BLOOD UREA NITROGEN 10 mg/dL 7-21 (BEAKER) (test code = 354) CREATININE (BEAKER) 0.65 mg/dL 0.57-1.25 Specimen slightly (test code = 358) hemolyzed GLUCOSE RANDOM 101 mg/dL 70-105 (BEAKER) (test code = 652) CALCIUM (BEAKER) 8.7 mg/dL 8.4-10.2 (test code = 697) EGFR (BEAKER) (test 88 mL/min/1.73 ESTIMA BALDO GFR IS code = 1092) sq m NOT ACCURATE CREATININE CLEARANCE IN PREDICTING GLOMERULAR FILTRATION RATE . ESTIMATED GFR I S NOT APPLICABLE FOR DIALYSIS PATIEN TS. Driver Examiner ID - DBPOCT-GLUCOSE [id number] 06:15:05 Test Item Value Reference Range Interpretation Comments POC-GLUCOSE METER 102 mg/dL 70-110 : TESTED A T [facility] [address] (BEAKER) (test code = [facility], 1538) 80549: Driver Examiner/Techni ashley ID = [id number] for Ga llien (contract), Lianna la POCT-GLUCOSE [id number] 23:44:26 Test Item Value Reference Range Interpretation Comments POC-GLUCOSE METER 102 mg/dL 70-110 : TESTED A T [facility] [address] (BEAKER) (test code = [facility], 1538) 28461: Driver Examiner/Techni ashley ID = [id number] for Ga llien (contract), Lianna la POCT-GLUCOSE [id number] 17:18:34 Test Item Value Reference Range Interpretation Comments POC-GLUCOSE METER 111 mg/dL 70-110 H : TESTED A T [facility] [address] (BEAKER) (test code = [facility], 1538) 71693: Driver Examiner/Techni ashley ID = [id number] for IVAN NASCIMENTO BASIC METABOLIC [id number] 07:48:15 Test Item Value Reference Range Interpretation Comments SODIUM (BEAKER) 137 meq/L 136-145 (test code = 381) POTASSIUM (BEAKER) 4.2 meq/L 3.5-5.1 Specimen moderately (test code = 379) hemolyzed CHLORIDE (BEAKER) 108 meq/L 98-107 H (test code = 382) CO2 (BEAKER) (test 17 meq/L 22-29 L code = 355) BLOOD UREA NITROGEN 10 mg/dL 7-21 (BEAKER) (test code = 354) CREATININE (BEAKER) 0.60 mg/dL 0.57-1.25 Specimen moderately (test code = 358) hemolyzed GLUCOSE RANDOM 80 mg/dL 70-105 (BEAKER) (test code = 652) CALCIUM (BEAKER) 8.2 mg/dL 8.4-10.2 L (test code = 697) EGFR (BEAKER) (test 96 mL/min/1.73 ESTIMA BALDO GFR IS code = 1092) sq m NOT ACCURATE CREATININE CLEARANCE IN PREDICTING GLOMERULAR FILTRATION RATE . ESTIMATED GFR I S NOT APPLICABLE FOR DIALYSIS PATIEN TS. Driver Examiner ID - AMY [id number] 07:48:14 Test Item Value Reference Range Interpretation Comments MAGNESIUM (BEAKER) 1.9 mg/dL 1.6-2.6 Specimen moderately (test code = 627) hemolyzed Driver Examiner ID Bryan REYES [id number] 07:48:14 Test Item Value Reference Range Interpretation Comments PHOSPHORUS (BEAKER) 3.7 mg/dL 2.3-4.7 Specimen moderately (test code = 604) hemolyzed Driver Examiner ID Bryan REYES MCREATINE KINASE (CK)2021-04-01 06:18:13 Test Item Value Reference Range Interpretation Comments CREATINE KINASE TOTAL (BEAKER) (test 254 U/L 29-200 H code = 380) Driver Examiner ID - DUONG [id number] 06:18:12 Test Item Value Reference Range Interpretation Comments MAGNESIUM (BEAKER) (test code = 1.7 mg/dL 1.6-2.6 627) Driver Examiner ID - DUONG [id number] 06:18:12 Test Item Value Reference Range Interpretation Comments PHOSPHORUS (BEAKER) (test code = 3.6 mg/dL 2.3-4.7 604) Driver Examiner ID Bryan WATTERS WCOMPREHENSIVE METABOLIC [id number] 06:18:11 Test Item Value Reference Range Interpretation Comments TOTAL PROTEIN 5.8 gm/dL 6.0-8.3 L (BEAKER) (test code = 770) ALBUMIN (BEAKER) 3.4 g/dL 3.5-5.0 L (test code = 1145) ALKALINE PHOSPHATASE 86 U/L 40-150 (BEAKER) (test code = 346) BILIRUBIN TOTAL 0.8 mg/dL 0.2-1.2 (BEAKER) (test code = 377) SODIUM (BEAKER) (test 139 meq/L 136-145 code = 381) POTASSIUM (BEAKER) 3.0 meq/L 3.5-5.1 L (test code = 379) CHLORIDE (BEAKER) 106 meq/L 98-107 (test code = 382) CO2 (BEAKER) (test 22 meq/L 22-29 code = 355) BLOOD UREA NITROGEN 13 mg/dL 7-21 (BEAKER) (test code = 354) CREATININE (BEAKER) 0.61 mg/dL 0.57-1.25 (test code = 358) GLUCOSE RANDOM 91 mg/dL 70-105 (BEAKER) (test code = 652) CALCIUM (BEAKER) 8.4 mg/dL 8.4-10.2 (test code = 697) AST (SGOT) (BEAKER) 37 U/L 5-34 H (test code = 353) ALT (SGPT) (BEAKER) 21 U/L 6-55 (test code = 347) EGFR (BEAKER) (test 94 mL/min/1.73 ESTIMA BALDO GFR IS code = 1092) sq m NOT ACCURATE CREATININE CLEARANCE IN PREDICTING GLOMERULAR FILTRATION RATE . ESTIMATED GFR I S NOT APPLICABLE FOR DIALYSIS PATIEN TS. Driver Examiner ID - KYA LOperator ID Bryan WATTERS [id number] 05:24:04 Test Item Value Reference Range Interpretation Comments CORTISOL, TOTAL (BEAKER) (test code 6.6 ug/dL 3.7-19.4 = 2755) Driver Examiner KATYA BOLAND LCBC W/PLT COUNT & AUTO [id number] 04:31:10 Test Item Value Reference Range Interpretation Comments WHITE BLOOD CELL COUNT 6.5 K/ L 3.5-10.5 (BEAKER) (test code = 775) RED BLOOD CELL COUNT 4.61 M/ L 3.93-5.22 (BEAKER) (test code = 761) HEMOGLOBIN (BEAKER) 13.9 GM/DL 11.2-15.7 (test code = 410) HEMATOCRIT (BEAKER) 40.2 % 34.1-44.9 (test code = 411) MEAN CORPUSCULAR 87.2 fL 79.4-94.8 Discordant MCV VOLUME (BEAKER) (test result s compared to code = 753) previous result s; clinical correl ation required. MEAN CORPUSCULAR 30.2 pg 25.6-32.2 HEMOGLOBIN (BEAKER) (test code = 751) MEAN CORPUSCULAR 34.6 GM/DL 32.2-35.5 HEMOGLOBIN CONC (BEAKER) (test code = 752) RED CELL DISTRIBUTION 12.6 % 11.7-14.4 WIDTH (BEAKER) (test code = 412) PLATELET COUNT 205 K/CU MM 150-450 (BEAKER) (test code = 756) MEAN PLATELET VOLUME 10.9 fL 9.4-12.3 (BEAKER) (test code = 754) NUCLEATED RED BLOOD 0 /100 WBC 0-0 CELLS (BEAKER) (test code = 413) NEUTROPHILS RELATIVE 40 % PERCENT (BEAKER) (test code = 429) LYMPHOCYTES RELATIVE 44 % PERCENT (BEAKER) (test code = 430) MONOCYTES RELATIVE 10 % PERCENT (BEAKER) (test code = 431) EOSINOPHILS RELATIVE 4 % PERCENT (BEAKER) (test code = 432) BASOPHILS RELATIVE 1 % PERCENT (BEAKER) (test code = 437) NEUTROPHILS ABSOLUTE 2.63 K/ L 1.56-6.13 COUNT (BEAKER) (test code = 670) LYMPHOCYTES ABSOLUTE 2.86 K/ L 1.18-3.74 COUNT (BEAKER) (test code = 414) MONOCYTES ABSOLUTE 0.67 K/ L 0.24-0.36 H COUNT (BEAKER) (test code = 415) EOSINOPHILS ABSOLUTE 0.26 K/ L 0.04-0.36 COUNT (BEAKER) (test code = 416) BASOPHILS ABSOLUTE 0.05 K/ L 0.01-0.08 COUNT (BEAKER) (test code = 417) IMMATURE 1 % 0-1 GRANULOCYTES-RELATIVE PERCENT (BEAKER) (test code = 2801) MR, BRAIN, WITHOUT [id number] 14:56:00Unlisted Reason for Exam - Click Yes and Enter Reason Below->No [facility] : 1940 Sex: FAddendum BeginsREPORT STATUS:A Addendum: Acute ischemic injury is in fact present in the paramedian left pontine region. There is no evidence of hemorrhagic conversion. Signed: JR Tavera Robert MDReport Verified Date/Time: 03/31/2021 14:56:01 Reading Location: [address] Neuro Reading RoomAddendum EndsFINAL REPORT MR, BRAIN, WITHOUT CONTRAST INDICATION: Stroke, follow up TECHNIQUE: Multiplanar, multisequence MR imaging of the brain without intravenous contrast. COMPARISON: None FINDINGS: There is no restricted diffusion. Moderate cerebral volume loss and advanced chronic white matter changes are present in the brain parenchyma. No evidence of recent hemorrhage. Normal midline position. Ex vacuo dilation of the ventricular spaces. Paranasal sinuses and mastoid air cells are clear. There is normal bone marrow signal intensity within the calvarium and skull base. IMPRESSION: Chronic involutional changes without recent infarct or hemorrhage. Signed: JR Tavera Robert MDReport Verified Date/Time: 03/31/2021 11:36:03 Reading Location: [address] Neuro Reading Room POCT-GLUCOSE [id number] 10:04:51 Test Item Value Reference Range Interpretation Comments POC-GLUCOSE METER 72 mg/dL 70-110 : TESTED A T [facility] 6720 (BEAKER) (test code = JANICENADER LANG [place], 1538) [address]3384: Driver Examiner/Techni ashley ID = [id number] for RACE JENNIFER MONET HEMOGLOBIN [id number] 08:25:44 Test Item Value Reference Range Interpretation Comments HEMOGLOBIN A1C (BEAKER) (test code = 5.0 % 4.3-6.1 368) T4, [id number] 07:15:55 Test Item Value Reference Range Interpretation Comments FREE T4 (BEAKER) (test code = 655) 1.32 ng/dL 0.70-1.48 Driver Examiner ID - AMY MCBC W/PLT COUNT & AUTO [id number] 07:06:35 Test Item Value Reference Range Interpretation Comments WHITE BLOOD CELL COUNT (BEAKER) 10.3 K/ L 3.5-10.5 (test code = 775) RED BLOOD CELL COUNT (BEAKER) 5.02 M/ L 3.93-5.22 (test code = 761) HEMOGLOBIN (BEAKER) (test code = 15.0 GM/DL 11.2-15.7 410) HEMATOCRIT (BEAKER) (test code = 46.5 % 34.1-44.9 H 411) MEAN CORPUSCULAR VOLUME (BEAKER) 92.6 fL 79.4-94.8 (test code = 753) MEAN CORPUSCULAR HEMOGLOBIN 29.9 pg 25.6-32.2 (BEAKER) (test code = 751) MEAN CORPUSCULAR HEMOGLOBIN CONC 32.3 GM/DL 32.2-35.5 (BEAKER) (test code = 752) RED CELL DISTRIBUTION WIDTH 12.5 % 11.7-14.4 (BEAKER) (test code = 412) PLATELET COUNT (BEAKER) (test 218 K/CU MM 150-450 code = 756) MEAN PLATELET VOLUME (BEAKER) 11.1 fL 9.4-12.3 (test code = 754) NUCLEATED RED BLOOD CELLS 0 /100 WBC 0-0 (BEAKER) (test code = 413) NEUTROPHILS RELATIVE PERCENT 50 % (BEAKER) (test code = 429) LYMPHOCYTES RELATIVE PERCENT 35 % (BEAKER) (test code = 430) MONOCYTES RELATIVE PERCENT 11 % (BEAKER) (test code = 431) EOSINOPHILS RELATIVE PERCENT 3 % (BEAKER) (test code = 432) BASOPHILS RELATIVE PERCENT 1 % (BEAKER) (test code = 437) NEUTROPHILS ABSOLUTE COUNT 5.17 K/ L 1.56-6.13 (BEAKER) (test code = 670) LYMPHOCYTES ABSOLUTE COUNT 3.57 K/ L 1.18-3.74 (BEAKER) (test code = 414) MONOCYTES ABSOLUTE COUNT (BEAKER) 1.15 K/ L 0.24-0.36 H (test code = 415) EOSINOPHILS ABSOLUTE COUNT 0.27 K/ L 0.04-0.36 (BEAKER) (test code = 416) BASOPHILS ABSOLUTE COUNT (BEAKER) 0.07 K/ L 0.01-0.08 (test code = 417) IMMATURE GRANULOCYTES-RELATIVE 0 % 0-1 PERCENT (BEAKER) (test code = 2801) TSH/FREE T4 IF [id number] 05:49:17 Test Item Value Reference Range Interpretation Comments THYROID STIMULATING HORMONE 0.082 uIU/mL 0.350-4.940 L (BEAKER) (test code = 772) Driver Examiner ID - AMY MVITAMIN B12 AND [id number] 05:47:38 Test Item Value Reference Range Interpretation Comments VITAMIN B12 593 pg/mL 213-816 (BEAKER) (test code = 774) FOLATE (BEAKER) 18.30 ng/mL See_Comment [Automated message] (test code = 362) The system which generated this result transmitted ref erence range: >=7.00. The reference range was not used to interpr et this result as normal/abnormal . Driver Examiner ID - AMY MBASIC METABOLIC [id number] 05:33:55 Test Item Value Reference Range Interpretation Comments SODIUM (BEAKER) 141 meq/L 136-145 (test code = 381) POTASSIUM (BEAKER) 3.5 meq/L 3.5-5.1 Specimen slightly (test code = 379) hemolyzed CHLORIDE (BEAKER) 106 meq/L 98-107 (test code = 382) CO2 (BEAKER) (test 18 meq/L 22-29 L code = 355) BLOOD UREA NITROGEN 15 mg/dL 7-21 (BEAKER) (test code = 354) CREATININE (BEAKER) 0.66 mg/dL 0.57-1.25 Specimen slightly (test code = 358) hemolyzed GLUCOSE RANDOM 51 mg/dL 70-105 L (BEAKER) (test code = 652) CALCIUM (BEAKER) 9.2 mg/dL 8.4-10.2 (test code = 697) EGFR (BEAKER) (test 86 mL/min/1.73 ESTIMA BALDO GFR IS code = 1092) sq m NOT ACCURATE CREATININE CLEARANCE IN PREDICTING GLOMERULAR FILTRATION RATE . ESTIMATED GFR I S NOT APPLICABLE FOR DIALYSIS PATIEN TS. Driver Examiner ID - AMY MLIPID [id number] 05:33:55 Test Item Value Reference Range Interpretation Comments TRIGLYCERIDES (BEAKER) 121 mg/dL Speci men slightly (test code = 540) hemolyzed CHOLESTEROL (BEAKER) 225 mg/dL Specime n slightly (test code = 631) hemolyzed HDL CHOLESTEROL (BEAKER) 46 mg/dL (test code = 976) LDL CHOLESTEROL 155 mg/dL CALCULATED (BEAKER) (test code = 633) Triglyceride Reference Range: Low Risk <150 Borderline 150-199 High Risk 200-499 Very High Risk >=500Cholesterol Reference Range: Low Risk <200 Borderline 200-239 High Risk >240HDL Cholesterol Reference Range: Low Risk >=60 High Risk <40LDL Cholesterol Reference Range: Optimal <100 Near Optimal 100-129 Borderline 130-159 High 160-189 Very High >=190 Driver Examiner KATYA Ventura
[2021-05-25 01:45] LABS: Protime INR 1.07
[2021-05-25 01:47] LABS: Absolute Lymphocytes (CBC) 2.9 K/uL (0.7-4.9); Hematocrit 45.9 % (36.0-45.0); Lymphocytes % 33.5 % (15.3-44.8); MPV 9.2 fL (7.6-11.3); RBC Red Blood Cell Count 5.14 M/uL (3.86-4.86)
[2021-05-25 02:05] LABS: SARS-COV-2 RT PCR NEGATIVE (NEGATIVE)
[2021-05-25 02:05] LABS: Urine Blood Negative (Negative); Urine Glucose Negative (Negative); Urine Protein Trace (Negative); Urine Specific Gravity 1.025 (1.005-1.030)
[2021-05-25 02:19] LABS: ALT/SGPT 27 U/L (12-78); AST/SGOT 17 U/L (15-37); Alkaline Phosphatase 123 U/L (45-117); BUN Blood Urea Nitrogen 13 mg/dL (7-18); Bicarbonate 28 mmol/L (21-32); Bilirubin Direct 0.1 mg/dL (0-0.2); Bilirubin Total 0.4 mg/dL (0.2-1.0); Glucose Level 111 mg/dL (74-106); Potassium 3.2 mmol/L (3.5-5.1); Protein, Total 7.4 g/dL (6.4-8.2); Sodium Level 142 mmol/L (136-145)
[2021-05-25 02:20] LABS: Albumin 3.5 g/dL (3.4-5.0); Magnesium 2.2 mg/dL (1.8-2.4); NT PRO-BNP 867 pg/mL (<450); Troponin (Emerg Dept Use Only) < 0.02 ng/mL (0.0-0.045)
--- NOTE | 2021-05-25 02:33 | EDPHYS ---
Physician Documentation [facility] Name: Radha Hastings Age: 81 yrs Sex: Female : 1940 Arrival Date: 05/25/2021 Time: 00:12 Bed 8 Private MD: ED Physician Kiran Clayton HPI: 05/25 00:21 This 81 yrs old Female presents to ER via EMS with complaints of Chest Pain. [facility] 00:21 The patient or guardian reports chest pain that is located primarily in the substernal mh7 area. Onset: yesterday. The pain does not radiate. Associated signs and symptoms: Pertinent positives: shortness of breath, Pertinent negatives: abdominal pain, cough, diaphoresis, dizziness, headache, lower extremity pain, lower extremity swelling, lightheadedness, nausea, near syncope, palpitations, recent travel, syncope, vomiting. The chest pain is described as dull. Duration: The patient or guardian reports multiple episodes, that are intermittent, that wax and wane, with no pattern. Modifying factors: The symptoms are alleviated by nothing. the symptoms are aggravated by nothing. Severity of pain: At its worst the pain was moderate just prior to arrival, today, in the emergency department the pain has improved moderately. Historical: - Allergies: 00:17 ambien; adverse reaction; nellie 00:17 Compazine; nellie 00:17 [place]; nellie 00:17 Valium; "nightmares"; nellie - Home Meds: 00:17 carbamazepine 200 mg Oral tab 1 tab nightly [Active]; clopidogrel 75 mg Oral tab 1 tab nellie once daily [Active]; digoxin 250 mcg Oral tab 1 tab once daily [Active]; duloxetine 60 mg Oral cpDR 1 cap once daily [Active]; felodipine 10 mg Oral Tb24 1 tab once daily [Active]; gabapentin 300 mg Oral cap 1 cap twice a day [Active]; levothyroxine 125 mcg tab 1 tab once daily [Active]; lisinopril 40 mg Oral tab 1 tab once daily [Active]; prednisone 10 mg Oral tab 1 tab once daily [Active]; - PMHx: 00:17 Thyroid problem; Opioid Dependence; Atrial Fib; BRAIN TUMOR; CVA; Depression; nellie Hypertension; - Immunization history:: Client reports receiving the 2nd dose of the Covid vaccine, Unknown brand. - Social history:: Smoking status: Patient denies any tobacco usage or history of. - Code Status:: Full code. ROS: 00:21 Constitutional: Negative for fever, chills, and weight loss, Eyes: Negative for injury, mh7 pain, redness, and discharge, ENT: Negative for injury, pain, and discharge, Neck: Negative for injury, pain, and swelling, Abdomen/GI: Negative for abdominal pain, nausea, vomiting, diarrhea, and constipation, Back: Negative for injury and pain, : Negative for injury, bleeding, discharge, and swelling, MS/Extremity: Negative for injury and deformity, Skin: Negative for injury, rash, and discoloration, Neuro: Negative for headache, weakness, numbness, tingling, and seizure, Psych: Negative for depression, anxiety, suicide ideation, homicidal ideation, and hallucinations, Allergy/Immunology: Negative for hives, rash, and allergies, Endocrine: Negative for neck swelling, polydipsia, polyuria, polyphagia, and marked weight changes, Hematologic/Lymphatic: Negative for swollen nodes, abnormal bleeding, and unusual bruising. Exam: 00:21 Constitutional: This is a well developed, well nourished patient who is awake, alert, mh7 and in no acute distress. Head/Face: Normocephalic, atraumatic. Eyes: Pupils equal round and reactive to light, extra-ocular motions intact. Lids and lashes normal. Conjunctiva and sclera are non-icteric and not injected. Cornea within normal limits. Periorbital areas with no swelling, redness, or edema. Neck: Trachea midline, no thyromegaly or masses palpated, and no cervical lymphadenopathy. Supple, full range of motion without nuchal rigidity, or vertebral point tenderness. No Meningismus. Chest/axilla: Normal chest wall appearance and motion. Nontender with no deformity. No lesions are appreciated. Cardiovascular: Regular rate and rhythm with a normal S1 and S2. No gallops, murmurs, or rubs. Normal PMI, no JVD. No pulse deficits. Respiratory: Lungs have equal breath sounds bilaterally, clear to auscultation and percussion. No rales, rhonchi or wheezes noted. No increased work of breathing, no retractions or nasal flaring. Abdomen/GI: Soft, non-tender, with normal bowel sounds. No distension or tympany. No guarding or rebound. No evidence of tenderness throughout. Back: No spinal tenderness. No costovertebral tenderness. Full range of motion. Skin: Warm, dry with normal turgor. Normal color with no rashes, no lesions, and no evidence of cellulitis. MS/ Extremity: Pulses equal, no cyanosis. Neurovascular intact. Full, normal range of motion. Neuro: Awake and alert, GCS 15, oriented to person, place, time, and situation. Cranial nerves II-XII grossly intact. Motor strength 5/5 in all extremities. Sensory grossly intact. Cerebellar exam normal. Normal gait. Psych: Awake, alert, with orientation to person, place and time. Behavior, mood, and affect are within normal limits. Vital Signs: 00:12 BP 157 / 98; Pulse 90; Resp 20; Temp 97.8(O); Pulse Ox 90% on R/A; nellie 00:24 BP 157 / 98; Pulse 85; Resp 19; Pulse Ox 92% on R/A; Weight 81.65 kg (R); Height 5 ft. nellie 4 in. (162.56 cm) (R); 02:12 BP 136 / 97; Pulse 90; Resp 16; Pulse Ox 96% on 2 lpm NC; nellie 02:36 BP 134 / 88; Pulse 82; Resp 18; Pulse Ox 96% on 2 lpm NC; nellie 03:09 BP 127 / 90; Pulse 84; Resp 16; Temp 97.8; Pulse Ox 96% on 2 lpm NC; tw5 00:24 Body Mass Index 30.90 (81.65 kg, 162.56 cm) nellie MDM: 02:28 Differential diagnosis: abnormal EKG, acute myocardial infarction, acute pericarditis, [facility] anxiety, coronary artery disease chest wall pain, congestive heart failure costochondritis, esophagitis, gastroesophageal reflux disease (GERD), pericarditis, pleurisy, pneumonia. HEART Score: History: Moderately Suspicious (1), ECG: Non specific repolarization disturbance / LBTB / PM (1), Age: > or = 65 years (2), Risk Factors: 1 or 2 risk factors (1), [Hypertension] Troponin: < or = 1 x Normal Limit (0), Total Score = 5. 02:30 The patient was given aspirin in the Emergency Department. Data reviewed: vital signs, mh7 nurses notes, EMS record, lab test result(s), cardiac enzymes, CBC, electrolytes, EKG, radiologic studies, plain films. Data interpreted: Pulse oximetry: on room air is 96 %. Interpretation: normal. Counseling: I had a detailed discussion with the patient and/or guardian regarding: the historical points, exam findings, and any diagnostic results supporting the discharge/admit diagnosis, the presence of at least one elevated blood pressure reading (>120/80) during this emergency department visit, lab results, radiology results, the need for further work-up and treatment in the hospital. Response to treatment: the patient's symptoms have mildly improved after treatment. 02:32 Patient medically screened. [facility] 05/25 00:20 Order name: Basic Metabolic Panel; Complete Time: 02:23 [facility] 05/25 00:20 Order name: CBC with Diff; Complete Time: 02:08 [facility] 05/25 00:20 Order name: LFT's; Complete Time: 02:23 [facility] 05/25 00:20 Order name: Magnesium; Complete Time: 02:23 [facility] 05/25 00:20 Order name: NT PRO-BNP; Complete Time: 02:23 [facility] 05/25 00:20 Order name: PT-INR; Complete Time: 01:46 [facility] 05/25 00:20 Order name: Troponin (emerg Dept Use Only); Complete Time: 02:23 [facility] 05/25 00:20 Order name: XRAY Chest (1 view) [facility] 05/25 00:20 Order name: EKG; Complete Time: 00:21 [facility] 05/25 00:21 Order name: COVID-19/FLU A+B (Document "Date of Onset" if Symptomatic); Complete Time: [facility] 02:08 05/25 01:55 Order name: Urine Microscopic Only tw5 05/25 02:05 Order name: Urine Dipstick-Ancillary; Complete Time: 02:08 EDMS 05/25 00:20 Order name: Cardiac monitoring; Complete Time: 00:21 [facility] 05/25 00:20 Order name: EKG - Nurse/Tech; Complete Time: 00:21 [facility] 05/25 00:20 Order name: IV Saline Lock; Complete Time: 02:42 [facility] 05/25 00:20 Order name: Labs collected and sent; Complete Time: 03:13 [facility] 05/25 00:20 Order name: O2 Per Protocol; Complete Time: 03:13 7 05/25 00:20 Order name: O2 Sat Monitoring; Complete Time: 00:21 [facility] 05/25 00:20 Order name: Urine Dipstick-Ancillary (obtain specimen); Complete Time: 02:15 [facility] Administered Medications: 02:56 Drug: Aspirin Chewable Tablet 162 mg Route: PO; nellie 03:01 Follow up: Response: No adverse reaction nellie 02:56 Drug: Potassium Chloride 40 mEq Route: PO; nellie 03:01 Follow up: Response: No adverse reaction nellie Disposition Summary: 05/25/21 02:32 Hospitalization Ordered Hospitalization Status: Inpatient Admission [facility] Provider: Alejandro Green Condition: Stable [facility] Problem: new [facility] Symptoms: have improved [facility] Bed/Room Type: Standard [facility] Location: Intensive Care Unit(05/25/21 02:48) mw Room Assignment: 1-(05/25/21 02:48) Diagnosis - Chest pain, unspecified [facility] Forms: - Medication Reconciliation Form [facility] - SBAR form [facility] Signatures: Dispatcher [employer] EDLeigha Liu RN RN Kiran Clements MD MD [facility] Subha Mena RN RN bo Corrections: (The following items were deleted from the chart) 02:48 02:32 Telemetry/MedSurg (Inpatient) [facility] 02:48 02:32 [facility]
--- NOTE | 2021-05-25 02:33 | ER ---
Nurse's Notes [facility] Name: Radha Hastings Age: 81 yrs Sex: Female : 1940 Arrival Date: 05/25/2021 Time: 00:12 Bed 8 Private MD: Diagnosis: Chest pain, unspecified Presentation: 05/25 00:12 Chief complaint: Patient states: Chest pain. Coronavirus screen: Vaccine status: nellie Patient reports receiving the 2nd dose of the covid vaccine. unknown brand. Ebola Screen: Patient negative for fever greater than or equal to 101.5 degrees Fahrenheit, and additional compatible Ebola Virus Disease symptoms Patient denies exposure to infectious person. Patient denies travel to an Ebola-affected area in the 21 days before illness onset. No symptoms or risks identified at this time. Initial Sepsis Screen: Does the patient meet any 2 criteria? No. Patient's initial sepsis screen is negative. Does the patient have a suspected source of infection? No. Patient's initial sepsis screen is negative. Risk Assessment: Do you want to hurt yourself or someone else? Patient reports no desire to harm self or others. Onset of symptoms was May 25, 2021. 00:12 Method Of Arrival: EMS: [facility] nellie 00:12 Acuity: [place]ASIA 3 nellie Triage Assessment: 00:21 General: Appears in no apparent distress. Behavior is calm, cooperative. Pain: nellie Complains of pain in chest. Per pt's report,"right in the center". Historical: - Allergies: 00:17 ambien; adverse reaction; nellie 00:17 Compazine; nellie 00:17 [place]; nellie 00:17 Valium; "nightmares"; nellie - Home Meds: 00:17 carbamazepine 200 mg Oral tab 1 tab nightly [Active]; clopidogrel 75 mg Oral tab 1 tab nellie once daily [Active]; digoxin 250 mcg Oral tab 1 tab once daily [Active]; duloxetine 60 mg Oral cpDR 1 cap once daily [Active]; felodipine 10 mg Oral Tb24 1 tab once daily [Active]; gabapentin 300 mg Oral cap 1 cap twice a day [Active]; levothyroxine 125 mcg tab 1 tab once daily [Active]; lisinopril 40 mg Oral tab 1 tab once daily [Active]; prednisone 10 mg Oral tab 1 tab once daily [Active]; - PMHx: 00:17 Thyroid problem; Opioid Dependence; Atrial Fib; BRAIN TUMOR; CVA; Depression; nellie Hypertension; - Immunization history:: Client reports receiving the 2nd dose of the Covid vaccine, Unknown brand. - Social history:: Smoking status: Patient denies any tobacco usage or history of. - Code Status:: Full code. Screenin:24 Abuse screen: Denies threats or abuse. Denies injuries from another. Nutritional nellie screening: Pt reports she eats soft food, as she doesn't wear her dentures. Tuberculosis screening: No symptoms or risk factors identified. Fall Risk Fall in past 12 months (25 points). Ambulatory Aid- None/Bed Rest/Nurse Assist (0 pts). Gait- Impaired (20 pts.). Mental Status- Oriented to own ability (0 pts). Assessment: 00:24 General: Appears in no apparent distress. Pain: Complains of pain in chest. Per pt's nellie report,"right in the middle". Pain does not radiate. Pain began 1 hour ago. Neuro: Reports Hx of CVA and weakness to right side. . Cardiovascular: Rhythm is atrial fibrillation. 02:37 Derm: Skin is intact, Sacrum is slightly red, but intact. nellie 02:39 GI: Last BM was May 25, 2021. nellie 03:26 GI:. : Urine is Pt's diaper changed, as she had urinated and was able to articulate nellie this. Vital Signs: 00:12 BP 157 / 98; Pulse 90; Resp 20; Temp 97.8(O); Pulse Ox 90% on R/A; nellie 00:24 BP 157 / 98; Pulse 85; Resp 19; Pulse Ox 92% on R/A; Weight 81.65 kg (R); Height 5 ft. nellie 4 in. (162.56 cm) (R); 02:12 BP 136 / 97; Pulse 90; Resp 16; Pulse Ox 96% on 2 lpm NC; nellie 02:36 BP 134 / 88; Pulse 82; Resp 18; Pulse Ox 96% on 2 lpm NC; nellie 03:09 BP 127 / 90; Pulse 84; Resp 16; Temp 97.8; Pulse Ox 96% on 2 lpm NC; tw5 00:24 Body Mass Index 30.90 (81.65 kg, 162.56 cm) nellie ED Course: 00:12 Patient arrived in ED. nellie 00:13 Kiran Clayton MD is Attending Physician. mh7 00:17 Triage completed. nellie 00:21 EKG done, by ED staff, reviewed by Kiran Clayton MD. tw5 00:24 Patient has correct armband on for positive identification. Placed in gown. Bed in low nellie position. Call light in reach. Side rails up X2. nuclear monitoring technician on. Pulse ox on. NIBP on. Door closed. Lights dimmed. Warm blanket given. Rolled sheet beneath her head. 00:29 XRAY Chest (1 view) In Process Unspecified. EDMS 01:06 Subha Mena, EREN is Primary Nurse. nellie 01:08 Missed attempt(s): 22 gauge in right forearm. The pt was extremely cooperative. . nellie 01:09 COVID-19/FLU A+B (Document "Date of Onset" if Symptomatic) Sent. nellie 01:36 Initial lab(s) drawn, by me. Inserted saline lock: 20 gauge in left antecubital area, tw5 using aseptic technique. Blood collected. 02:10 Inserted saline lock: 20 gauge in left antecubital area, using aseptic technique. nellie ,using aseptic technique. EREN Sotelo was successful in placing, using US. 02:11 Oxygen administration via nasal cannula \\T\\ 2L/min. nellie 02:13 Straight cath inserted, using sterile technique, Specimen obtained. Patient tolerated. nellie 02:14 No apparent distress. Appears to be sleeping. nellie 02:15 Urine Microscopic Only Sent. nellie 02:31 Alejandro Green DO is Hospitalizing Provider. mh7 02:39 Head of bed elevated. Cleaned of incontinence. nellie 02:40 Admitting physician to see patient. Jhon is at bedside discussing the pt being admitted. nellie She is in agreement with the POC. 02:58 No provider procedures requiring assistance completed. nellie 03:10 Inserted saline lock: Patient admitted, IV remains in place. tw5 03:11 Arm band placed on. tw5 Administered Medications: 02:56 Drug: Aspirin Chewable Tablet 162 mg Route: PO; nellie 03:01 Follow up: Response: No adverse reaction nellie 02:56 Drug: Potassium Chloride 40 mEq Route: PO; nellie 03:01 Follow up: Response: No adverse reaction nellie Outcome: 02:32 Decision to Hospitalize by Provider. mh7 02:59 Condition: unchanged nellie 03:11 Admitted to ICU accompanied by nurse, via stretcher, with oxygen, on monitor, with tw5 chart, Report called to Lori 03:11 Instructed on the need for admit. 03:12 Patient left the ED. tw5 Signatures: Dispatcher [employer] Kiran Mcclure MD MD mh Ashleigh Paulson tw5 Subha Mena RN EREN nellie
[2021-05-25] MEDS ORDERED: ASPIRIN 81 MG CHEWABLE TABLET ONE (02:44)
[2021-05-25] MEDS ORDERED: POTASSIUM CL SA 10 MEQ TAB PO ONE (02:45)
--- NOTE | 2021-05-25 02:58 | P.HP ---
Certification for Inpatient Patient admitted to: Observation With expected LOS: <2 Midnights Patient will require the following post-hospital care: None Practitioner: I am a practitioner with admitting privileges, knowledge of patient current condition, hospital course, and medical plan of care. Services: Services provided to patient in accordance with Admission requirements found in Title 42 Section 412.3 of the Code of Federal Regulations Patient History Date of Service: 05/25/21 Primary Care Provider: Dr. Gillis Reason for admission: Chest pain History of Present Illness: 81-year-old female with history of atrial fibrillation, hypothyroidism, hypertension presents the emergency department complaining of chest pain. Patient reports substernal chest pain described as pressure that began this afternoon. Patient denies prior episodes similar. Reports that she has had a stress test many years ago as well as a heart catheterization but cannot define exactly when or what the results were. Patient was evaluated in the emergency department labs were significant for hemoglobin 15.4 hematocrit 45.9 potassium 3.2 GFR 77 glucose 111 BNP 867. EKG without signs of acute infarct, ED provider wishes to admit for ACS rule out. Allergies aspirin Allergy (Verified 04/16/15 16:53) Nausea/Vomiting Home Medications: Duloxetine [Cymbalta *] 60 mg PO DAILY 04/17/15 Felodipine [Plendil] 10 mg PO DAILY 04/17/15 Lisinopril [Zestril] 40 mg PO BEDTIME 04/17/15 Acetaminophen 325 mg PO DAILY 03/18/19 Clopidogrel Bisulfate [Plavix*] 75 mg PO DAILY 03/18/19 Digoxin [Lanoxin*] 1 tab PO DAILY 03/18/19 Gabapentin 300 mg PO TID 03/18/19 Hyoscyamine Sulfate [Levsin TAB*] 1 tab PO DAILY 03/18/19 Promethazine HCl 25 mg PO DAILY 03/18/19 bisacodyL [Bisacodyl] 10 mg RC DAILY 03/18/19 predniSONE [Prednisone*] 15 mg PO DAILY 03/18/19 - Past Medical/Surgical History Diabetic: No -: hypertension -: Hypothyroidism -: Atrial fibrillation -: CVA right-sided weakness -: bone graft in neck -: back surgery -: appendectomy -: cholecysectomy -: Thyroidectomy Psychosocial/ Personal History: Patient is retired, lives at home with her family/granddaughter - Family History Father -: Heart disease Mother -: Heart disease - Social History Smoking Status: Never smoker Alcohol use: No CD- Drugs: No Caffeine use: No Place of Residence: Home Review of Systems 10-point ROS is otherwise unremarkable Cardiovascular: Chest Pain Physical Examination - Physical Exam General: Alert, In no apparent distress, Oriented x3 HEENT: Atraumatic, PERRLA, Mucous membr. moist/pink, EOMI, Sclerae nonicteric Neck: Supple, 2+ carotid pulse no bruit, No LAD, Without JVD or thyroid abnormality Respiratory: Clear to auscultation bilaterally, Normal air movement Cardiovascular: Regular rate/rhythm, Normal S1 S2 Gastrointestinal: Normal bowel sounds, No tenderness Musculoskeletal: No tenderness Integumentary: No rashes Neurological: Normal gait, Normal speech, Normal tone, Normal affect, Abnormal strength (Right-sided weakness from previous stroke) - Studies Laboratory Data (last 24 hrs) 05/25/21 01:00: PT 12.3, INR 1.07 05/25/21 01:00: WBC 8.60, Hgb 15.4 H, Hct 45.9 H, Plt Count 219 05/25/21 01:00: Sodium 142, Potassium 3.2 L, BUN 13, Creatinine 0.73, Glucose 111 H, Magnesium 2.2, Total Bilirubin 0.4, AST 17, ALT 27, Alkaline Phosphatase 123 H Assessment and Plan - Plan Assessment: Chest pain rule out ACS Atrial fibrillation Hypertension Hypothyroidism Hypokalemia Plan: Chest pain rule out ACS: Trend troponins, monitor on telemetry, cardiology consulted. Obtain and continue medications as appropriate, patient is unsure of her medications although it does appear that she is allergic to aspirin. Patient reports distant history stress test/cardiac catheterization but unsure of results. Has not followed with cardiology recently. Appreciate further input from cardiology. Atrial fibrillation: Previous on medications include Plavix although unsure if she is taking any formal anticoagulant or stillness medication. Will need to obtain verify home medications with pharmacy. Will restart as appropriate, monitor on telemetry. Hypertension: Blood pressure within normal is at this time, will restart medications as appropriate. Hypothyroidism: Thyroid panel morning labs, continue medications as appropriate Hypokalemia: Replaced in the ER, protocol in place. DVT PPX: Lovenox Code status: Full code Discharge Plan: Home Plan to discharge in: 24 Hours - Advance Directives Does patient have a Living Will: No Does patient have a Durable POA for Healthcare: Yes - Code Status/Comfort Care Code Status Assessed: Yes (Full code) Critical Care: No Time Spent Managing Pts Care (In Minutes): 55
[2021-05-25 03:26] LABS: Urine Amorphous Sediment 3+ /HPF (NONE SEEN); Urine Urothelial Cells <5 /HPF (NONE SEEN)
[2021-05-25 03:27] LABS: Urine Bacteria <20 /HPF (<20); Urine RBC <5 /HPF (NONE SEEN)
[2021-05-25] MEDS ORDERED: ONDANSETRON 4 MG/2 ML VIAL IV PRN (03:51)
[2021-05-25 04:09] VITALS: O2SAT 2; BMI 30.9
--- NOTE | 2021-05-25 05:48 | P.DS ---
Admission Date: 05/25/21 Discharge Date: 05/25/21 Primary Care Provider: Dr. Gillis Disposition: ROUTINE DISCHARGE Discharge Condition: GOOD Reason for Admission: Chest pain Consultations: none Procedures: COVID: Negative Influenza: Negative Medical Problem List: Chest pain Atrial fibrillation on chronic anticoagulation Hypertension Hypothyroidism Hypokalemia Hx of CVA with right sided residual weakness Dementia Depression with anxiety Brief History of Present Illness: 81-year-old female with history of atrial fibrillation on chronic anticoagulation therapy, hypertension, hypothyroidism, dementia, depression. Patient presented with chest pain and elevated blood pressure. Most of information came from the granddaughter. Granddaughter reports patient was recently evaluated for CVA and transferred to [place]. She was sent to skilled facility to recuperate. Since being home it has been difficult to get her medications from the correction. Her blood pressure was elevated at home. Patient reported some chest pain. Patient was evaluated in the emergency room and admitted for further evaluation. Hospital Course: Patient presented with chest pain. Patient with underlying history of atrial fibrillation on chronic anticoagulation therapy, hypertension, hypothyroidism, recent CVA with right-sided residual weakness, dementia and depression. Patient was evaluated and observed. Cardiac enzymes unremarkable. No significant EKG changes noted. Case discussed in detail with granddaughter. Granddaughter reports it was difficult to get refills on her medications after she was discharged from skilled facility after her recent CVA. Blood pressure improved. No further intervention required. At discharge patient will continue with her current medications including Eliquis 2.5 mg 1 pill twice daily, carvedilol 25 mg 1 pill twice daily, lisinopril 40 mg daily, folic acid 1 mg daily, and Lipitor 40 mg daily. Recommend follow-up with PCP within 1 week to follow-up his hospitalization. Patient will continue with home health and physical therapy at discharge. Patient with atrial fibrillation on chronic anticoagulation therapy. A. fib rate controlled. At discharge she will continue with Eliquis 2.5 mg 1 pill twice daily and carvedilol 25 mg 1 pill twice daily. Recommend follow-up with cardiology as an outpatient to further evaluate and monitor. Patient with hypertension. Blood pressures were elevated at home. Blood pressure improved in the hospital. Patient given medication. As mentioned above it had been difficult to get refills on her medication. Will make sure she gets refills at discharge. At discharge we will continue with carvedilol 25 mg 1 pill twice daily and lisinopril 40 mg daily. Recommend to maintain blood pressure less than 130/80. Hold blood pressure medication if blood pressure systolic less than 110. Patient with hypothyroidism. Thyroid function stable. At discharge we will continue with levothyroxine 112 mcg daily. This can be followed up with her PCP. Patient with recent CVA with right-sided residual weakness. Patient was hospitalized in [place] and sent to [facility]. She recently got out of the facility about 3 and half weeks ago. Patient continues with home health and physical therapy. This will be continued at discharge. Patient will continue with medication as stated above including folic acid 1 mg daily, Lipitor 40 mg daily and blood pressure medication. Patient also takes Eliquis. Fall precautions in place. Patient may follow-up with her neurologistDr. Charles in 2 to 4 weeks. Patient with underlying dementia and depression. At discharge she may continue with her medications including Aricept 10 mg daily, carbamazepine 200 mg 1 pill twice daily, and fluoxetine 60 mg daily. Patient also takes mirtazapine 7.5 mg at bedtime as needed for insomnia. Recommend follow-up with her PCP and neurology as directed. Vital Signs/Physical Exam: Temp Pulse Resp BP Pulse Ox 96.9 F 76 16 154/94 H 96 05/25/21 03:51 05/25/21 03:51 05/25/21 03:51 05/25/21 03:51 05/25/21 03:51 General: Alert, In no apparent distress, Cooperative, Demented HEENT: Atraumatic Neck: Supple Respiratory: Clear to auscultation bilaterally, Normal air movement Cardiovascular: Irregular heart rate/rhythm (A. fib rate controlled) Gastrointestinal: Normal bowel sounds, No tenderness, No masses, No rebound, No guarding Musculoskeletal: No erythema, No tenderness, No warmth Integumentary: No tenderness/swelling, No erythema, No warmth, No cyanosis Neurological: Abnormal strength (Right-sided residual weakness) Laboratory Data at Discharge: WBC 8.60 K/uL (4.3-10.9) 05/25/21 01:00 Hgb 15.4 g/dL (12.0-15.0) H 05/25/21 01:00 Hct 45.9 % (36.0-45.0) H 05/25/21 01:00 Plt Count 219 K/uL (152-406) 05/25/21 01:00 PT 12.3 SECONDS (9.5-12.5) 05/25/21 01:00 INR 1.07 05/25/21 01:00 Sodium 142 mmol/L (136-145) 05/25/21 01:00 Potassium 3.2 mmol/L (3.5-5.1) L 05/25/21 01:00 BUN 13 mg/dL (7-18) 05/25/21 01:00 Creatinine 0.73 mg/dL (0.55-1.3) 05/25/21 01:00 Glucose 111 mg/dL (74-106) H 05/25/21 01:00 Magnesium 2.2 mg/dL (1.8-2.4) 05/25/21 01:00 Total Bilirubin 0.4 mg/dL (0.2-1.0) 05/25/21 01:00 AST 17 U/L (15-37) 05/25/21 01:00 ALT 27 U/L (12-78) 05/25/21 01:00 Alkaline Phosphatase 123 U/L (45-117) H 05/25/21 01:00 Home Medications: Apixaban [Eliquis *] 2.5 mg PO BID #60 tablet 05/25/21 Atorvastatin Calcium [Lipitor] 40 mg PO BEDTIME #30 tab 05/25/21 Donepezil [Aricept*] 10 mg PO BEDTIME #60 tab 05/25/21 Fluoxetine HCl 60 mg PO DAILY #30 tablet 05/25/21 Folic Acid 1 mg PO DAILY #30 tablet 05/25/21 Levothyroxine [Synthroid*] 0.112 mg PO DAILYAC #30 tab 05/25/21 Lisinopril [Zestril] 40 mg PO DAILY #30 tablet 05/25/21 Mirtazapine [Remeron*] 7.5 mg PO BEDTIME PRN #10 tab 05/25/21 carBAMazepine [Tegretol*] 200 mg PO BID #60 tab 05/25/21 carvediloL [Coreg*] 25 mg PO BID 6AM 6PM #60 tab 05/25/21 New Medications: Donepezil [Aricept*] 10 mg PO BEDTIME #60 tab carvediloL [Coreg*] 25 mg PO BID 6AM 6PM #60 tab Apixaban [Eliquis *] 2.5 mg PO BID #60 tablet Fluoxetine HCl 60 mg PO DAILY #30 tablet Folic Acid 1 mg PO DAILY #30 tablet Atorvastatin Calcium [Lipitor] 40 mg PO BEDTIME #30 tab Mirtazapine [Remeron*] 7.5 mg PO BEDTIME PRN #10 tab PRN Reason: Insomnia Levothyroxine [Synthroid*] 0.112 mg PO DAILYAC #30 tab carBAMazepine [Tegretol*] 200 mg PO BID #60 tab Lisinopril [Zestril] 40 mg PO DAILY #30 tablet Physician Discharge Instructions: Patient presented with chest pain. Patient with underlying history of atrial fibrillation on chronic anticoagulation therapy, hypertension, hypothyroidism, recent CVA with right-sided residual weakness, dementia and depression. Patient was evaluated and observed. Cardiac enzymes unremarkable. No significant EKG changes noted. Case discussed in detail with granddaughter. Granddaughter reports it was difficult to get refills on her medications after she was discharged from skilled facility after her recent CVA. Blood pressure improved. No further intervention required. At discharge patient will continue with her current medications including Eliquis 2.5 mg 1 pill twice daily, carvedilol 25 mg 1 pill twice daily, lisinopril 40 mg daily, folic acid 1 mg daily, and Lipitor 40 mg daily. Recommend follow-up with PCP within 1 week to follow-up his hospitalization. Patient will continue with home health and physical therapy at discharge. Patient with atrial fibrillation on chronic anticoagulation therapy. A. fib rate controlled. At discharge she will continue with Eliquis 2.5 mg 1 pill twice daily and carvedilol 25 mg 1 pill twice daily. Recommend follow-up with cardiology as an outpatient to further evaluate and monitor. Patient with hypertension. Blood pressures were elevated at home. Blood pressure improved in the hospital. Patient given medication. As mentioned above it had been difficult to get refills on her medication. Will make sure she gets refills at discharge. At discharge we will continue with carvedilol 25 mg 1 pill twice daily and lisinopril 40 mg daily. Recommend to maintain blood pressure less than 130/80. Hold blood pressure medication if blood pressure systolic less than 110. Patient with hypothyroidism. Thyroid function stable. At discharge we will continue with levothyroxine 112 mcg daily. This can be followed up with her PCP. Patient with recent CVA with right-sided residual weakness. Patient was hospitalized in [place] and sent to skilled facility. She recently got out of the facility about 3 and half weeks ago. Patient continues with home health and physical therapy. This will be continued at discharge. Patient will continue with medication as stated above including folic acid 1 mg daily, Lipitor 40 mg daily and blood pressure medication. Patient also takes Eliquis. Fall precautions in place. Patient may follow-up with her neurologistDr. Charles in 2 to 4 weeks. Patient with underlying dementia and depression. At discharge she may continue with her medications including Aricept 10 mg daily, carbamazepine 200 mg 1 pill twice daily, and fluoxetine 60 mg daily. Patient also takes mirtazapine 7.5 mg at bedtime as needed for insomnia. Recommend follow-up with her PCP and neurology as directed. Diet: AHA Activity: Fall precautions Followup: NONE,NONE [Primary Care Provider] - Time spent managing pt's care (in minutes): 55
[2021-05-25 05:49] LABS: HDL Cholesterol 40 mg/dL (40-60); LDL Cholesterol, Calculated 87 (<130); Thyroid Stimulating Hormone 0.636 uIU/mL (0.360-3.740); Troponin I < 0.02 ng/mL (0.0-0.045)
[2021-05-25] MEDS ORDERED: METOPROLOL TAR 25 MG TAB PO SCH (06:00)
--- NOTE | 2021-05-25 08:32 | RAD REPORT ---
EXAM DESCRIPTION: RAD - Chest Single View - 05/25/2021 12:30 am CLINICAL HISTORY: CHEST PAIN Chest pain. COMPARISON: Chest Single View dated 03/30/2021; Chest Single View dated 07/16/2019; Chest Pa And Lat (2 Views) dated 03/18/2019; Chest Single View dated 03/13/2019 FINDINGS: Portable technique limits examination quality. The lungs are grossly clear. The heart is mildly enlarged in size. No displaced fractures.Left port c atheter its tip in the SVC.
[2021-05-25 08:41] VITALS: BP 126/77
[2021-05-25 08:48] VITALS: TEMP 96.8
[2021-05-25] MEDS ORDERED: FLUOXETINE 20 MG CAP PO SCH (09:00)
[2021-05-25] MEDS ORDERED: ENOXAPARIN 40 MG/0.4 ML SQ SCH (09:00)
[2021-05-25] MEDS ORDERED: APIXABAN 2.5 MG TABLET PO SCH (09:00)
[2021-05-25] MEDS ORDERED: carBAMazepine 200 MG TAB PO SCH (09:00)
[2021-05-25] MEDS ORDERED: lisinopriL 20 MG TAB PO SCH (09:00)
[2021-05-25] MEDS ORDERED: FOLIC ACID 1 MG TABLET PO SCH (09:00)
[2021-05-25] MEDS ORDERED: carvediloL 25 MG TAB PO SCH (18:00)
[2021-05-25] MEDS ORDERED: MIRTAZAPINE 15 MG TAB PO SCH (21:00)
[2021-05-25] MEDS ORDERED: ATORVASTATIN 40 MG TAB PO SCH (21:00)
[2021-05-25] MEDS ORDERED: DONEPEZIL HCL 5 MG TAB PO SCH (21:00)
[2021-05-26] MEDS ORDERED: LEVOTHYROXINE SOD 0.112 MG TAB PO SCH (06:30)
== END 2021-05-25 11:44 | disposition home or self-care (01) ==
LOC: ER 00:03 → ERHOLD 03:14 → 3RD-ICU 03:29
PROVIDERS: ADMIT Family Medicine; ATTEND Family Medicine
DX: R07.9 Chest pain, unspecified (principal); I48.91 Unspecified atrial fibrillation; I10 Essential (primary) hypertension; I69.951 Hemiplegia and hemiparesis following unspecified cerebrovascular disease affecting right dominant side; E87.6 Hypokalemia; E89.0 Postprocedural hypothyroidism; F03.90 Unspecified dementia, unspecified severity, without behavioral disturbance, psychotic disturbance, mood disturbance, and anxiety; F41.8 Other specified anxiety disorders; Z20.822 Contact with and (suspected) exposure to COVID-19; Z79.01 Long term (current) use of anticoagulants; Z79.02 Long term (current) use of antithrombotics/antiplatelets; Z88.6 Allergy status to analgesic agent; Z88.8 Allergy status to other drugs, medicaments and biological substances; Z91.018 Allergy to other foods; Z90.49 Acquired absence of other specified parts of digestive tract; Z82.49 Family history of ischemic heart disease and other diseases of the circulatory system
CPT/HCPCS: 0240U; 36415; 51702; 71045; 80048; 80061; 80076; 81003; 81015; 83735; 83880; 84439; 84443; 84484; 85025; 85610; 93005; 99285; G0378

== ENCOUNTER 2024-05-29 21:29 | Inpatient (IN) | payer OTHER ==
[2024-05-29] MEDS ORDERED: ALBUTEROL 2.5 MG/3 ML NEB SOL ONE (22:07)
[2024-05-29] MEDS ORDERED: VANCOMYCIN 1 GM/VIAL ONE (22:08)
[2024-05-29] MEDS ORDERED: ACETAMINOPHEN 500 MG TAB ONE (22:08)
[2024-05-29] MEDS ORDERED: IPRATROPIUM BROM 0.5MG/2.5ML ONE (22:08)
[2024-05-29] MEDS ORDERED: HYDROCORTISONE SUC 100 MG INJ ONE (22:08)
[2024-05-29] MEDS ORDERED: ONDANSETRON 4 MG/2 ML VIAL ONE (22:08)
[2024-05-29] MEDS ORDERED: Mupirocin NASAL 2 APPL/1 GM TUBE NAS ONE (22:09)
[2024-05-29] MEDS ORDERED: NA CHLORIDE 0.9% 1,000 ML ONE (22:09)
[2024-05-29] MEDS ORDERED: NA CHLORIDE 0.9% 100 ML ONE (22:09)
[2024-05-29] MEDS ORDERED: NA CHLORIDE 0.9% 250 ML ONE (22:09)
[2024-05-29] MEDS ORDERED: CEFEPIME 2 GM VIAL ONE (22:09)
[2024-05-29] MEDS ORDERED: NA CHLORIDE 0.9% 500 ML ONE (22:09)
[2024-05-29 22:15] LABS: Absolute Basophils 0.1 K/uL (0-0.5); Absolute Monocytes 1.3 K/uL (0.1-1.3); Absolute Neutrophil 15.9 K/uL (1.8-8.0); Basophils % 0.3 % (0-1.3); Eosinophils % 0.1 % (0-4.4); Hematocrit 50.3 % (36.0-45.0); Hemoglobin 16.4 g/dL (12.0-15.0); Lymphocytes % 5.4 % (15.3-44.8); MCH 29.8 pg (27.0-35.0); MCHC 32.5 g/dL (32.0-36.0); MCV 91.7 fL (80-100); MPV 9.1 fL (7.6-11.3); Monocytes % 6.9 % (3.3-12.3); Neutrophils % 87.3 % (41.7-73.7); Platelets 297 thou/uL (152-406); RBC Red Blood Cell Count 5.48 M/uL (3.86-4.86); Red Cell Distribution Width 15.9 % (12.1-15.2)
[2024-05-29 22:19] LABS: PT Prothrombin Time 12.2 SECONDS (9.4-12.5); PTT, Activated Partial Thromb 30.5 SECONDS (24.3-36.9); Protime INR 1.09
[2024-05-29 22:26] LABS: Albumin 3.8 g/dL (3.4-5.0); Albumin/Globulin Ratio 0.9 (1.1-1.8); Anion Gap 11.4 mEq/L (5.0-15.0); Bilirubin Total 0.5 mg/dL (0.2-1.0); Globulin 4.2 g/dL (2.3-3.5); Potassium 4.4 mEq/L (3.5-5.1); Troponin High Sensitivity 11.3 pg/mL (<58.9)
--- NOTE | 2024-05-29 22:28 | RAD REPORT ---
EXAM: CT brain without contrast HISTORY: CONFUSED COMPARISON: 03/30/2021 TECHNIQUE: Multiple contiguous axial images were obtained and a CT of the brain without contrast. Sag ittal and coronal reformats were performed. One or more of the following dose reduction techniques were used: Automated exposure control, adjust ment of the mA and/or kV according to patient size, and/or iterative reconstruction. FINDINGS: No evidence of hydrocephalus, intracranial hemorrhage, or extra-axial fluid collection. Moderate brain atrophy with moderate periventricular and deep white matter chronic microvascular isc hemic changes present. No evidence of midline shift or areas of brain edema. The calvarium is intact. The visualized paranasal sinuses and mastoid air cells are essentially clear . IMPRESSION: No evidence of acute intracranial abnormality.
[2024-05-29 22:30] LABS: C-Reactive Protein 32.7 mg/L (<3.00)
[2024-05-29 22:33] LABS: Thyroid Stimulating Hormone 6.35 uIU/mL (0.358-3.740)
--- NOTE | 2024-05-29 22:35 | RAD REPORT ---
EXAM: CT CHEST, ABDOMEN AND PELVIS WITHOUT CONTRAST CLINICAL INDICATION: CHEST PAIN TECHNIQUE: CT chest, abdomen and pelvis was performed without contrast, as per department protocol. A xial, sagittal and coronal reconstructions were obtained. One or more of the following dose reduction techniques were used: Automated exposure control, adjustment of the mA and/or kV according to patient size, and/or iterative reconstruction. Unless otherwise specified, incidental findings do not require dedicated imaging follow-up. Examination is limited by the lack of intravenous contrast material. COMPARISON: 09/25/2020, 06/09/2020 FINDINGS: LUNGS: Mild bilateral pulmonary opacities are present which may represent alveolitis/infection or mil d interstitial pulmonary edema. Small hiatal hernia. PLEURA: No pleural effusion. No pneumothorax. MEDIASTINUM AND LYMPH NODES: No mediastinal mass or fluid collection. Normal size mediastinal, hilar, and axillary lymph nodes. OSSEOUS STRUCTURES AND CHEST WALL: Intact. LIVER: Normal in size and contour. No focal lesion or biliary dilatation. Cholecystectomy clips. PANCREAS: No mass, ductal dilation, or tisha-pancreatic fluid. SPLEEN: Normal size. No focal lesion. ADRENALS: Normal; no mass. KIDNEYS: Normal size and contour. No hydronephrosis. URINARY BLADDER: Normal contour. GASTROINTESTINAL TRACT: No bowel obstruction, free air, significant free fluid or abscess. Mild sig moid diverticulosis without diverticulitis. APPENDIX: Normal appendix. LYMPH NODES: No lymphadenopathy. MUSCULOSKELETAL: Diffuse osteopenia seen. Vertebroplasty cement is in L1. Mild compression deformity of T12. OTHER: IMPRESSION: Mild bilateral groundglass opacities may represent alveolitis. Early interstitial pulmonary edema is a secondary possibility.
[2024-05-29 22:49] LABS: Band Neutrophils 10 % (0-1); Differential Total Cells Count 100; Lymphocytes 5 % (15-42); Monocytes 5 % (0-10); Reactive Lymphocytes 3 %; Segmented Neutrophils 76 % (40-80)
[2024-05-29 22:50] LABS: Blood Morphology Comment NOT SEEN (NOT SEEN); Platelet Estimate ADEQ
[2024-05-29 23:07] LABS: Blood O2 Saturation 93.3 % (92-98.5)
[2024-05-29 23:08] LABS: Arterial Blood Carboxyhemoglob 0.9 % (0-1.5); Blood Gas Oxyhemoglobin 90.8 % (94-97); Blood Gas THB 17.4 g/dl (12-18)
[2024-05-30 00:07] LABS: Specific Gravity 1.013 (1.005-1.030); Urine Bacteria <20 /HPF (<20); Urine Bilirubin NEGATIVE (Negative); Urine Blood 3+ (OVER) (Negative); Urine Clarity Extremely Turbid (Clear); Urine Color Brown (Yellow); Urine Crystals Unidentified Many /HPF (None Seen); Urine Culture Reflex Order REFLEXED; Urine Glucose NEGATIVE (Negative); Urine Ketones NEGATIVE (Negative); Urine Microscopic Reflex YN ORDER UMIC; Urine Nitrite NEGATIVE (Negative); Urine Protein 3+ (Negative); Urine RBC >50 /HPF (None Seen); Urine Urobilinogen Normal (Normal); Urine WBC >50 /HPF (<5); Urine WBC Clump Many /HPF (None Seen); Urine pH 8.5 (5.0-7.0)
[2024-05-30] MEDS ORDERED: ACETAMINOPHEN 325 MG TABLET PO PRN (00:08)
[2024-05-30] MEDS ORDERED: ONDANSETRON 4 MG/2 ML VIAL IV PRN (00:08)
[2024-05-30] MEDS ORDERED: ALBUTEROL 2.5 MG/3 ML NEB SOL NEB PRN (00:08)
[2024-05-30] MEDS ORDERED: IPRATROPIUM BROM 0.5MG/2.5ML NEB PRN (00:08)
--- NOTE | 2024-05-30 00:11 | EDPHYS ---
Physician Documentation [facility] Name: Radha Hastings Age: 84 yrs Sex: Female : 1940 Arrival Date: 05/29/2024 Time: 21:29 Bed 4 Private MD: ED Physician Kameron Spicer HPI: 05/29 21:41 This 84 yrs old Female presents to ER via Unassigned with complaints of cough sp4 and dyspnea . 23:44 84-year-old female jail patient from [facility] presents with sp4 tachycardia dyspnea respiratory distress tachypnea and bilateral crackles. Patient's primary physician Dr. Emile Figueroa. Patient has indwelling Bauer catheter also history of right femur fracture. Right femur fracture is being managed with knee immobilizer.. 23:47 Past medical history includes respiratory failure, benign neoplasm of brain, shaft of sp4 the right femur fracture, hypertension, hyperlipidemia, insomnia, generalized weakness, abnormality of gait, dementia, osteoarthritis, osteoporosis, meningioma, dysphagia, history of CVA with hemiparesis, history of hypothyroidism, history of intracranial hemorrhage, spastic hemiplegia, right hemiparesis, poor coordination, frequent UTIs. Patient's medications include lidocaine patch, acetaminophen codeine, potassium chloride, carbamazepine, fish oil, folic acid, amlodipine, amlodipine besylate, docusate, duloxetine, vitamin D, levothyroxine, atorvastatin, gabapentin, amantadine, carvedilol, ondansetron, lactulose, acetaminophen.. Historical: - Allergies: 21:50 ambien; adverse reaction; cp4 21:50 Compazine; cp4 21:50 [place]; cp4 21:50 Valium; cp4 - Home Meds: 21:50 carbamazepine 200 mg Oral tab 1 tab nightly [Active]; clopidogrel 75 mg Oral tab 1 tab cp4 once daily [Active]; digoxin 250 mcg Oral tab 1 tab once daily [Active]; duloxetine 60 mg Oral cpDR 1 cap once daily [Active]; felodipine 10 mg Oral Tb24 1 tab once daily [Active]; gabapentin 300 mg Oral cap 1 cap twice a day [Active]; levothyroxine 125 mcg tab 1 tab once daily [Active]; lisinopril 40 mg Oral tab 1 tab once daily [Active]; prednisone 10 mg Oral tab 1 tab once daily [Active]; - PMHx: 21:50 Atrial Fib; BRAIN TUMOR; CVA; Depression; Hypertension; Opioid Dependence; Thyroid cp4 problem; - Immunization history:: Adult Immunizations up to date. - Infectious Disease History:: Denies. - Social history:: Smoking status: Patient denies any tobacco usage or history of. - Family history:: not pertinent. ROS: 05/30 00:39 Constitutional: Positive for respiratory distress, positive for generalized weakness, sp4 positive for shortness of breath. Full HPI and ROS not available All other systems are negative, Unable to obtain ROS due to baseline dementia, Exam: 00:39 Constitutional: Patient is frail elderly female, patient has indwelling Bauer sp4 catheter, there is right knee immobilizer, signs of physical deconditioning and immobility, signs of mild to moderate dementia, patient is acutely in distress secondary to tachypnea. Head/Face: Normocephalic, atraumatic. Eyes: Pupils equal round and reactive to light, extra-ocular motions intact. Lids and lashes normal. Conjunctiva and sclera are not injected. Cornea within normal limits. Periorbital areas with no swelling, redness, or edema. ENT: Nares patent. No nasal discharge, no septal abnormalities noted. Tympanic membranes are normal and external auditory canals are clear. Oropharynx with no redness, swelling, or masses, exudates, or evidence of obstruction, uvula midline. Dry mucous membranes Neck: Trachea midline, no thyromegaly or masses palpated, and no cervical lymphadenopathy. Supple, full range of motion without nuchal rigidity, or vertebral point tenderness. Chest/axilla: Normal chest wall appearance and motion. Nontender with no deformity. No lesions are appreciated. Cardiovascular: Irregularly irregular tachycardia, no gallops, murmurs, or rubs. Normal PMI, no JVD. No pulse deficits. Respiratory: Lungs have equal breath sounds bilaterally, bilateral crackles, bilateral wheezing, dyspnea tachypnea moderate respiratory distress Abdomen/GI: Soft, with normal bowel sounds. No distension or tympany. No guarding or rebound. No evidence of tenderness throughout. Back: No spinal tenderness. No costovertebral tenderness. Female : Normal external genitalia. Indwelling Bauer catheter Skin: Warm, dry with normal turgor. Normal color with no rashes, no lesions, and no evidence of cellulitis. MS/ Extremity: Pulses equal, no cyanosis. Neurovascular intact. There is right lower extremity splint and knee immobilizer. The right lower extremity swelling Neuro: Awake and alert, GCS 15, oriented to person . Cranial nerves II-XII grossly intact. Motor strength 5/5 in all extremities. Sensory grossly intact. 00:47 ECG was reviewed by the Attending Physician. EKG at 2143 atrial fibrillation with sp4 RVR rate 132, Vital Signs: 05/29 21:48 BP 131 / 108; Pulse 132; Resp 22; Temp 98.9; Pulse Ox 92% on 6 lpm NC; Pain 0/10; cp4 22:30 BP 144 / 106; Pulse 120; Resp 18; Pulse Ox 95% on 5 lpm NC; cp4 23:53 BP 124 / 78; Pulse 107; Resp 18; Pulse Ox 96% on 5 lpm NC; cp4 05/30 00:20 Weight 83.91 kg; cp4 01:28 BP 140 / 90; Pulse 104; Resp 22; Pulse Ox 96% on 5 lpm NC; Pain 0/10; cp4 05/29 21:48 Pain Scale: Adult cp4 01:28 Pain Scale: Adult cp4 Jeanette Coma Score: 00:39 Eye Response: spontaneous(4). Motor Response: obeys commands(6). Verbal Response: sp4 oriented(5). Total: 15. MDM: 05/29 22:23 Medical Screening Exam initiated sp4 23:46 ED course: EXAM: CT CHEST, ABDOMEN AND PELVIS WITHOUT CONTRAST CLINICAL INDICATION: sp4 CHEST PAIN TECHNIQUE: CT chest, abdomen and pelvis was performed without contrast, as per department protocol. Axial, sagittal and coronal reconstructions were obtained. One or more of the following dose reduction techniques were used: Automated exposure control, adjustment of the mA and/or kV according to patient size, and/or iterative reconstruction. Unless otherwise specified, incidental findings do not require dedicated imaging follow-up. Examination is limited by the lack of intravenous contrast material. COMPARISON: 09/25/2020, 06/09/2020 FINDINGS: LUNGS: Mild bilateral pulmonary opacities are present which may represent alveolitis/infection or mild interstitial pulmonary edema. Small hiatal hernia. PLEURA: No pleural effusion. No pneumothorax. MEDIASTINUM AND LYMPH NODES: No mediastinal mass or fluid collection. Normal size mediastinal, hilar, and axillary lymph nodes. OSSEOUS STRUCTURES AND CHEST WALL: Intact. LIVER: Normal in size and contour. No focal lesion or biliary dilatation. Cholecystectomy clips. PANCREAS: No mass, ductal dilation, or [place]-pancreatic fluid. SPLEEN: Normal size. No focal lesion. ADRENALS: Normal; no mass. KIDNEYS: Normal size and contour. No hydronephrosis. URINARYBLADDER: Normal contour. GASTROINTESTINAL TRACT: No bowel obstruction, free air, significant free fluid or abscess. Mild sigmoid diverticulosis without diverticulitis. APPENDIX: Normal appendix. LYMPH NODES: No lymphadenopathy. MUSCULOSKELETAL: Diffuse osteopenia seen. Vertebroplasty cement is in L1. Mild compression deformity of T12. OTHER: IMPRESSION: Mild bilateral groundglass opacities may represent alveolitis. Early interstitial pulmonary edema is a secondary possibility. . 23:46 ED course: EXAM: CT brain without contrast HISTORY: CONFUSED COMPARISON: 03/30/2021 sp4 TECHNIQUE: Multiple contiguous axial images were obtained and a CT of the brain without contrast. Sagittal and coronal reformats were performed. One or more of the following dose reduction techniques were used: Automated exposure control, adjustment of the mA and/or kV according to patient size, and/or iterative reconstruction. FINDINGS: No evidence of hydrocephalus, intracranial hemorrhage, or extra-axial fluid collection. Moderate brain atrophy with moderate periventricular and deep white matter chronic microvascular ischemic changes present. No evidence of midline shift or areas of brain edema. The calvarium is intact. The visualized paranasal sinuses and mastoid air cells are essentially clear. IMPRESSION: No evidence of acute intracranial abnormality. . 05/30 00:44 Differential Diagnosis: Obstructed Airway Bronchitis Influenza Upper Respiratory sp4 Infection Sinusitis. 00:45 Data reviewed: vital signs, nurses notes, EMS record, jail records, old medical sp4 records, lab test result(s), EKG, radiologic studies, CT scan, plain films. Consideration of Admission/Observation Escalation of care including admission/observation considered. ED course: Sepsis reevaluation completed. Heart rate much improved after Bauer catheter decompressed urinary bladder.. Patient improved significantly after Bauer catheter was exchanged. Bloody urine was obtained.. 05/29 21:42 Order name: Blood Culture Adult (2) sp4 05/29 21:42 Order name: CBC with Diff; Complete Time: 23:28 sp4 05/29 21:42 Order name: CMP; Complete Time: 23:28 [facility] 05/29 21:42 Order name: Lactate w/ 2H reflex if indic.; Complete Time: 23:28 [facility] 05/29 21:42 Order name: Protime (+inr); Complete Time: 23:28 [facility] 05/29 21:42 Order name: Ptt, Activated; Complete Time: 23:28 [facility] 05/29 21:42 Order name: Urinalysis w/ reflexes; Complete Time: 00:46 [facility] 05/29 21:42 Order name: ABG; Complete Time: 23:28 [facility] 05/29 21:42 Order name: Troponin High Sensitivity; Complete Time: 23:28 [facility] 05/29 21:42 Order name: BNP; Complete Time: 23:28 [facility] 05/29 21:45 Order name: CRP; Complete Time: 23:28 [facility] 05/29 21:45 Order name: TSH; Complete Time: 23:28 [facility] 05/29 21:45 Order name: T4 Free; Complete Time: 23:28 [facility] 05/29 22:18 Order name: Manual Differential; Complete Time: 23:28 [facility] 05/29 22:32 Order name: Ghost Lactate-NO COLLECT Timer; Complete Time: 00:46 [facility] 05/30 00:10 Order name: Urine Culture [facility] 05/30 00:13 Order name: Urinalysis w/ reflexes [facility] 05/30 00:13 Order name: CBC with Automated Diff [facility] 05/30 00:13 Order name: CBC with Automated Diff [facility] 05/30 00:13 Order name: Comprehensive Metabolic Panel [facility] 05/30 00:13 Order name: Comprehensive Metabolic Panel [facility] 05/30 00:45 Order name: Influenza Screen (a \T\ B) [facility] 05/30 00:45 Order name: SARS RAPID [facility] 05/30 01:15 Order name: Lactate Sepsis 2 HR Follow-up [facility] 05/29 21:42 Order name: CT Head Brain wo Cont; Complete Time: 23:28 [facility] 05/29 21:44 Order name: BIPAP [facility] 05/29 21:45 Order name: CT Chest Abdomen Pelvis W/O Contrast; Complete Time: 23:28 [facility] 05/29 21:42 Order name: EKG; Complete Time: 21:43 [facility] 05/29 21:42 Order name: Accucheck; Complete Time: 22:21 sp4 05/29 21:42 Order name: Cardiac monitoring; Complete Time: 22:04 sp4 05/29 21:42 Order name: Cath; Complete Time: 23:09 sp4 05/29 21:42 Order name: EKG - Nurse/Tech; Complete Time: 22:21 sp4 05/29 21:42 Order name: IV Saline Lock - Large Bore; Complete Time: 22: sp4 05/29 21:42 Order name: Labs collected and sent; Complete Time: 22: sp4 05/29 21:42 Order name: O2 Per Protocol; Complete Time: 22: sp4 05/29 21:42 Order name: O2 Sat Monitoring; Complete Time: : sp4 05/29 21:42 Order name: Vital Signs; Complete Time: 22:04 sp4 05/29 21:45 Order name: Central Line Dressing Kit; Complete Time: 22:03 sp4 05/29 21:45 Order name: Central Line Kit; Complete Time: 22:03 sp4 05/29 21:45 Order name: Chlorhexidine prep; Complete Time: 22:03 sp4 05/29 21:45 Order name: Consent for central line completed; Complete Time: 22:03 sp4 05/29 21:45 Order name: Line Caps x3; Complete Time: 22:03 sp4 05/29 21:45 Order name: NS Flushes x3; Complete Time: 22:03 sp4 05/29 21:45 Order name: Sterile Gloves; Complete Time: 22:03 sp4 05/29 21:45 Order name: Sterile Probe Cover; Complete Time: 22:03 sp4 EC/26 21:43 Rate is 132 beats/min. Rhythm is irregularly irregular, A fib with Rapid ventricular sp4 response. QRS [place] is Normal. QRS interval is normal. QT interval is normal. No Q waves. No ST changes noted. Clinical impression: Atrial Fibrillation. Interpreted by me. Reviewed by me. Administered Medications: 22:40 Drug: Albuterol Inhalation 2.5 mg Inhalation every 20 minutes x3 Route: Inhalation; cp4 22:40 Drug: Ipratropium Inhalation Aerosol 0.5 mg Inhalation once; Every 20 min for a total cp4 of 3 treatments x3 Route: Inhalation; 22:40 Drug: Cefepime IVPB 2 grams IVPB at 200 ml/hr once over 30 mins; (mix in NS 100 mL) cp4 Route: IVPB; Rate: 200 ml/hr; Infused Over: 30 mins; Site: right forearm; 23:07 Follow up: Response: No adverse reaction; IV Status: Completed infusion cp4 22:40 Drug: Solu-CORTEF IVP 100 mg IVP once Route: IVP; Site: right forearm; cp4 05/30 00:03 Follow up: Response: No adverse reaction cp4 05/29 22:40 Drug: Ondansetron IVP 4 mg IVP once; over 2 minutes Route: IVP; Site: right forearm; cp4 05/30 00:03 Follow up: Response: No adverse reaction 4 05/29 22:40 Drug: NS 0.9% IV 500 ml 500 ml IV at 1 bolus once; to be given as a bolus over 30 cp4 minutes Volume: 500 ml; Route: IV; Rate: 1 bolus; Site: right forearm; 23:30 Follow up: IV Status: Completed infusion cp4 23:00 Drug: Albuterol Inhalation 2.5 mg Inhalation every 20 minutes x3 Route: Inhalation; cp4 23:00 Drug: Ipratropium Inhalation Aerosol 0.5 mg Inhalation once; Every 20 min for a total cp4 of 3 treatments x3 Route: Inhalation; 23:06 Drug: Mupirocin Topical Ointment 2 % 1 application Topical in both nares once; Pea cp4 sized amount to both nares Route: Topical; Site: affected area; 23:08 Drug: Albuterol Inhalation 2.5 mg Inhalation every 20 minutes x3 Route: Inhalation; cp4 23:08 Drug: Ipratropium Inhalation Aerosol 0.5 mg Inhalation once; Every 20 min for a total cp4 of 3 treatments x3 Route: Inhalation; 23:09 Drug: Acetaminophen PO 1000 mg PO once Route: PO; cp4 05/30 00:04 Follow up: Response: No adverse reaction 4 05/29 23:09 Drug: vancoMYCIN IVPB 1 grams IVPB once over 2 hrs Route: IVPB; Infused Over: 2 hrs; cp4 Site: right forearm; 05/30 00:06 Follow up: IV Status: Completed infusion cp4 00:04 Drug: NS 0.9% IV 1000 ml IV at 125 ml/hr Per protocol; to be given as a bolus over 60 cp4 minutes Route: IV; Rate: 125 ml/hr; Site: right forearm; 01:30 Follow up: IV Status: Infusion continued upon admission cp4 Disposition Summary: 05/30/24 00:10 Hospitalization Ordered Notes: Hospitalization Status: Inpatient Admission sp4 Provider: Marino Willard sp4 Location: Telemetry/[facility] (Inpatient) sp4 Condition: Serious sp4 Problem: new sp4 Symptoms: have improved sp4 Bed/Room Type: Standard sp4 Room Assignment: [facility](05/30/24 00:29) Diagnosis - Severe sepsis without septic shock sp4 - Atrial fibrillation, acute renal insufficiency, acute urinary catheter obstruction, sp4 urinary bladder distention, atrial fibrillation with RVR, urinary tract infection, acute pyelonephritis, physical deconditioning, complications of immobility Forms: - Medication Reconciliation Form sp4 - SBAR form sp4 - Leadership Thank You Letter sp4 Critical care time excluding procedures: 00:39 Critical care time: Bedside Care: 36 minutes, Consultation: 12 minutes, Family sp4 Intervention: 12 minutes. Total time: 60 minutes Signatures: Dispatcher [employer] EDKameron Camejo MD MD sp4 Hilda Vora 4 Felecia Meng Corrections: (The following items were deleted from the chart) 05/29 21:46 21:45 THYROID STIMULAT HORMONE+C.LAB.BRZ ordered. EDMS EDMS 21:46 21:45 T4 FREE+C.LAB.BRZ ordered. EDMO EDMS 05/30 00:29 00:10 sp4 hw
--- NOTE | 2024-05-30 00:11 | ER ---
Nurse's Notes [facility] Name: Radha Hastings Age: 84 yrs Sex: Female : 1940 Arrival Date: 05/29/2024 Time: 21:29 Bed 4 Private MD: Diagnosis: Severe sepsis without septic shock;Atrial fibrillation, acute renal insufficiency, acute urinary catheter obstruction, urinary bladder distention, atrial fibrillation with RVR, urinary tract infection, acute pyelonephritis, physical deconditioning, complications of immobility Presentation: 05/29 21:48 Chief complaint: EMS states: shortness of breath and possible food aspiration when cp4 patient fell asleep eating. Also reports foul urine smell. Coronavirus screen: Client denies travel out of the [place] in the last 14 days. At this time, the client does not indicate any symptoms associated with coronavirus-19. Ebola Screen: Patient negative for fever greater than or equal to 101.5 degrees Fahrenheit, and additional compatible Ebola Virus Disease symptoms Patient denies exposure to infectious person. Patient denies travel to an Ebola-affected area in the 21 days before illness onset. No symptoms or risks identified at this time. Initial Sepsis Screen: Does the patient meet any 2 criteria? RR > 20 per min. HR > 90 bpm. Yes Does the patient have a suspected source of infection? No. Patient's initial sepsis screen is negative. Risk Assessment: Do you want to hurt yourself or someone else? Patient reports no desire to harm self or others. Onset of symptoms was May 29, 2024. 21:48 Method Of Arrival: EMS: [facility] cp4 21:48 Acuity: [place]ASIA 2 cp4 Triage Assessment: 21:50 General: Appears distressed, uncomfortable, Behavior is calm. Pain: Denies pain. EENT: cp4 No signs and/or symptoms were reported regarding the EENT system. Neuro: Level of Consciousness is awake, alert, obeys commands, Oriented to person, place, time, situation. Cardiovascular: Patient's skin is warm and dry. Rhythm is atrial fibrillation with rapid ventricular response. Respiratory: Reports shortness of breath labored breathing Onset: The symptoms/episode began/occurred just prior to arrival, the patient has moderate shortness of breath. Historical: - Allergies: 21:50 ambien; adverse reaction; cp4 21:50 Compazine; cp4 21:50 Jean Cladue; cp4 21:50 Valium; cp4 - Home Meds: 21:50 carbamazepine 200 mg Oral tab 1 tab nightly [Active]; clopidogrel 75 mg Oral tab 1 tab cp4 once daily [Active]; digoxin 250 mcg Oral tab 1 tab once daily [Active]; duloxetine 60 mg Oral cpDR 1 cap once daily [Active]; felodipine 10 mg Oral Tb24 1 tab once daily [Active]; gabapentin 300 mg Oral cap 1 cap twice a day [Active]; levothyroxine 125 mcg tab 1 tab once daily [Active]; lisinopril 40 mg Oral tab 1 tab once daily [Active]; prednisone 10 mg Oral tab 1 tab once daily [Active]; - PMHx: 21:50 Atrial Fib; BRAIN TUMOR; CVA; Depression; Hypertension; Opioid Dependence; Thyroid cp4 problem; - Immunization history:: Adult Immunizations up to date. - Infectious Disease History:: Denies. - Social history:: Smoking status: Patient denies any tobacco usage or history of. - Family history:: not pertinent. Screenin:02 [facility] ED Fall Risk Assessment (Adult) History of falling in the last 3 months, cp4 including since admission No falls in past 3 months (0 pts) Confusion or Disorientation No (0 pts) Intoxicated or Sedated No (0 pts) Impaired Gait Yes (1 pt) Mobility Assist Device Used Yes (1 pt) Altered Elimination Yes (1 pt) Score/Fall Risk Level 3 or more points = High Risk Oriented to surroundings, Maintained a safe environment, Assessed \T\ reinforced patient's understanding of fall precautions, Hourly rounding (assess needs \T\ fall precautionary measures) done. Abuse screen: Denies threats or abuse. Nutritional screening: No deficits noted. Tuberculosis screening: No symptoms or risk factors identified. Assessment: 22:00 Cardiovascular: Rhythm is atrial fibrillation with rapid ventricular response. cp4 Respiratory: Airway is patent Respiratory effort is even, labored, gasping, Breath sounds with crackles bilaterally. GI: No signs and/or symptoms were reported involving the gastrointestinal system. : Parent/caregiver report the patient having foul urine order. EENT: No signs and/or symptoms were reported regarding the EENT system. Derm: No signs and/or symptoms reported regarding the dermatologic system. Musculoskeletal: No signs and/or symptoms reported regarding the musculoskeletal system. 22:02 Reassessment: No changes from previously documented assessment. cp4 Vital Signs: 21:48 BP 131 / 108; Pulse 132; Resp 22; Temp 98.9; Pulse Ox 92% on 6 lpm NC; Pain 0/10; cp4 22:30 BP 144 / 106; Pulse 120; Resp 18; Pulse Ox 95% on 5 lpm NC; cp4 23:53 BP 124 / 78; Pulse 107; Resp 18; Pulse Ox 96% on 5 lpm NC; cp4 05/30 00:20 Weight 83.91 kg; cp4 01:28 BP 140 / 90; Pulse 104; Resp 22; Pulse Ox 96% on 5 lpm NC; Pain 0/10; cp4 05/29 21:48 Pain Scale: Adult cp4 01:28 Pain Scale: Adult cp4 [place] Coma Score: 00:39 Eye Response: spontaneous(4). Motor Response: obeys commands(6). Verbal Response: sp4 oriented(5). Total: 15. ED Course: 05/29 21:40 Patient arrived in ED. lg3 21:41 Kameron Spicer MD is Attending Physician. sp4 21:47 Hilda Vora is Primary Nurse. cp4 21:50 Triage completed. cp4 21:50 Arm band placed on right wrist. Patient placed in an exam room, on a stretcher. cp4 22:02 Placed in gown. Bed in low position. Call light in reach. Side rails up X 1. cp4 22:02 Inserted saline lock: 20 gauge in right forearm, using aseptic technique. Blood cp4 collected. Flushed with 10 mL NS. 22:15 First set of blood cultures drawn by ED staff, Second set of blood cultures drawn by ED cp4 staff, Urine collected: Bauer catheter specimen, blood tinged. Bauer cath inserted, using sterile technique, 18 Fr., by ar, balloon inflated, to gravity drainage, urine specimen collected. 22:21 CT Head Brain wo Cont In Process Unspecified. EDMS 22:21 CT Chest Abdomen Pelvis W/O Contrast In Process Unspecified. EDMS 23:12 Warm blanket given. Pillow given. Cleaned of incontinence. Linen changed. cp4 05/30 00:07 Marino Willard MD is Hospitalizing Provider. sp4 01:29 Provided Education on: admission. cp4 01:29 No provider procedures requiring assistance completed. Patient admitted, IV remains in cp4 place. Administered Medications: 05/29 22:40 Drug: Albuterol Inhalation 2.5 mg Inhalation every 20 minutes x3 Route: Inhalation; cp4 22:40 Drug: Ipratropium Inhalation Aerosol 0.5 mg Inhalation once; Every 20 min for a total cp4 of 3 treatments x3 Route: Inhalation; 22:40 Drug: Cefepime IVPB 2 grams IVPB at 200 ml/hr once over 30 mins; (mix in NS 100 mL) cp4 Route: IVPB; Rate: 200 ml/hr; Infused Over: 30 mins; Site: right forearm; 23:07 Follow up: Response: No adverse reaction; IV Status: Completed infusion cp4 22:40 Drug: Solu-CORTEF IVP 100 mg IVP once Route: IVP; Site: right forearm; cp4 05/30 00:03 Follow up: Response: No adverse reaction 4 05/29 22:40 Drug: Ondansetron IVP 4 mg IVP once; over 2 minutes Route: IVP; Site: right forearm; cp4 05/30 00:03 Follow up: Response: No adverse reaction 4 05/29 22:40 Drug: NS 0.9% IV 500 ml 500 ml IV at 1 bolus once; to be given as a bolus over 30 cp4 minutes Volume: 500 ml; Route: IV; Rate: 1 bolus; Site: right forearm; 23:30 Follow up: IV Status: Completed infusion cp4 23:00 Drug: Albuterol Inhalation 2.5 mg Inhalation every 20 minutes x3 Route: Inhalation; cp4 23:00 Drug: Ipratropium Inhalation Aerosol 0.5 mg Inhalation once; Every 20 min for a total cp4 of 3 treatments x3 Route: Inhalation; 23:06 Drug: Mupirocin Topical Ointment 2 % 1 application Topical in both nares once; Pea cp4 sized amount to both nares Route: Topical; Site: affected area; 23:08 Drug: Albuterol Inhalation 2.5 mg Inhalation every 20 minutes x3 Route: Inhalation; cp4 23:08 Drug: Ipratropium Inhalation Aerosol 0.5 mg Inhalation once; Every 20 min for a total cp4 of 3 treatments x3 Route: Inhalation; 23:09 Drug: Acetaminophen PO 1000 mg PO once Route: PO; cp4 05/30 00:04 Follow up: Response: No adverse reaction cp4 05/29 23:09 Drug: vancoMYCIN IVPB 1 grams IVPB once over 2 hrs Route: IVPB; Infused Over: 2 hrs; cp4 Site: right forearm; 05/30 00:06 Follow up: IV Status: Completed infusion cp4 00:04 Drug: NS 0.9% IV 1000 ml IV at 125 ml/hr Per protocol; to be given as a bolus over 60 cp4 minutes Route: IV; Rate: 125 ml/hr; Site: right forearm; 01:30 Follow up: IV Status: Infusion continued upon admission cp4 Medication: 05/29 22:02 VIS not applicable for this client. cp4 Outcome: 05/30 00:10 Decision to Hospitalize by Provider. sp4 01:29 Admitted to Med/surg accompanied by tech, via stretcher, with oxygen, with chart, cp4 01:29 Condition: stable 01:29 Instructed on the need for admit, 01:31 Patient left the ED. cp4 Signatures: Dispatcher [employer] Gaby Sanchez RN RN lg3 Kameron Spicer MD MD sp4 Hilda Vora cp4 Corrections: (The following items were deleted from the chart) 05/29 23:06 23:06 Solu-CORTEF IVP 100 mg IVP in right forearm cp4 cp4
--- NOTE | 2024-05-30 00:13 | P.HP ---
Certification for Inpatient Patient admitted to: Inpatient With expected LOS: >2 Midnights Practitioner: I am a practitioner with admitting privileges, knowledge of patient current condition, hospital course, and medical plan of care. Services: Services provided to patient in accordance with Admission requirements found in Title 42 Section 412.3 of the Code of Federal Regulations Patient History Date of Service: 05/30/24 Reason for admission: SOB, UTI History of Present Illness: 84 yrs old Female who is a long term resident with past medical history includes respiratory failure, benign neoplasm of brain, shaft of the right femur fracture, hypertension, hyperlipidemia, insomnia, generalized weakness, abnormality of gait, dementia, osteoarthritis, osteoporosis, meningioma, dysphagia, history of CVA with hemiparesis, history of hypothyroidism, history of intracranial hemorrhage, spastic hemiplegia, right hemiparesis, poor coordination, frequent UTIs.was transferred to ER with shortness of breath and cough and generalized weakness. Patient is a resident of [facility]. She presents with tachycardia dyspnea respiratory distress tachypnea and bilateral crackles. Patient has indwelling Bauer catheter also history of right femur fracture. Right femur fracture is being managed with knee immobilizer. Patient was assessed in the ER and was found to have UTI with hematuria and Bauer was exchanged. Patient also noted to have leukocytosis and lactic acidosis and was admitted for further management of sepsis. Allergies aspirin Allergy (Verified 04/16/15 16:53) Nausea/Vomiting Home medications list reviewed: Yes Home Medications: Folic Acid 1 mg PO DAILY #30 tablet 05/25/21 Acetaminophen [Tylenol] 650 mg PO Q8HP 05/30/24 Amantadine [Symmetrel] 100 mg PO BID 05/30/24 Amlodipine Besylate [Norvasc] 5 mg PO DAILY 05/30/24 Atorvastatin Calcium [Lipitor] 40 mg PO BEDTIME 05/30/24 Cholecalciferol (Vitamin D3) [Vitamin D3] 5,000 unit PO DAILY 05/30/24 Codeine/APAP [Tylenol W/Codeine #3 tab] 1 tab PO Q8HP PRN 05/30/24 Docosahexanoic AC/Epa [Fish Oil 1,000 MG CAP] 3 cap PO DAILY 05/30/24 Docusate Sodium 100 mg PO DAILY 05/30/24 Duloxetine HCl [Cymbalta] 30 mg PO DAILY 05/30/24 Gabapentin [Neurontin] 200 mg PO BID 05/30/24 Lactulose 30 ml PO DAILYPRN PRN 05/30/24 Levothyroxine [Synthroid*] 0.112 mg PO DAILYAC 05/30/24 Lidocaine 4% Patch [Lidoderm 5% Patch] 1 patch TP DAILY 05/30/24 Ondansetron HCl 4 mg PO Q8HP PRN 05/30/24 Potassium Chloride 10 meq PO DAILY 05/30/24 carBAMazepine [Tegretol*] 200 mg PO BEDTIME 05/30/24 carvediloL [Coreg*] 25 mg PO BID 05/30/24 - Past Medical/Surgical History Diabetic: No Past Medical History: Reviewed- Non-Contributory -: hypertension -: TIA 2004 -: Hypothyroidism -: Atrial fibrillation -: CVA right-sided weakness Past Surgical History: Reviewed- Non-Contributory -: bone graft in neck -: back surgery -: appendectomy -: cholecysectomy -: Thyroidectomy Psychosocial/ Personal History: Patient is retired, lives at home with her family/granddaughter - Family History Father -: Heart disease Mother -: Heart disease - Social History Smoking Status: Never smoker Alcohol use: No CD- Drugs: No Caffeine use: Yes Review of Systems is unable to be obtained Physical Examination - Physical Exam General: Mild distress, Confused, Delirious HEENT: Atraumatic, Normocephalic Neck: Supple Respiratory: Diminished, Crackles/rales Cardiovascular: Regular rate/rhythm, Normal S1 S2 Capillary refill: <2 Seconds Gastrointestinal: Soft and benign, W/out hepatosplenomegaly Musculoskeletal: No clubbing Integumentary: No rashes Neurological: Abnormal gait, Abnormal strength Lymphatics: No axilla or inguinal lymphadenopathy - Studies Laboratory Data (last 24 hrs) 05/29/24 05/29/24 05/29/24 21:56 21:56 21:56 WBC 18.20 H Hgb 16.4 H Hct 50.3 H Plt Count 297 PT 12.2 INR 1.09 APTT 30.5 Sodium 132 L Potassium 4.4 BUN 27 H Creatinine 1.30 H Glucose 156 H Total Bilirubin 0.5 AST 18 ALT 26 Alkaline Phosphatase 182 H Assessment and Plan - Plan Acute encephalopathy possibly metabolic/UTI induced CT head was negative for any acute changes Monitor neuro vital signs closely UTI Started on empiric antibiotic Will obtain cultures Change antibiotic as per sensitivity Hematuria Bauer was exchanged Will hold anticoagulation for now Hypertension Antihypertensives titrated Continue home medications and titrate as needed Hyperlipidemia Continue statin Acute kidney injury on CKD stage II Monitor renal parameters Electrolytes monitor and replace accordingly Lactic acidosis Bibasilar pneumonia/multifocal Pulmonary edema Will hold aggressive hydration for now Will get an echocardiogram Repeat lactic acid levels Continue antibiotics for now GI/DVT prophylaxis Advanced directive full code Discharge Plan: [facility] Plan to discharge in: 48 Hours - Advance Directives Does patient have a Living Will: No Does patient have a Durable POA for Healthcare: No - Code Status/Comfort Care Code Status: Full Code Time Spent Managing Pts Care (In Minutes): 48
[2024-05-30] MEDS: VANCOMYCIN 1 GM in NA CHLORIDE 0.9% 250 ML IVPB SCH (00:33)
[2024-05-30] MEDS: VANCOMYCIN 1.5 GM in NA CHLORIDE 0.9% 500 ML IVPB SCH (01:00)
[2024-05-30 01:34] LABS: SARS-CoV-2 Antigen CONTROL BLUE LINE VIS/BG OK; SARS-CoV-2 Antigen Rapid Res Negative (Negative)
[2024-05-30 01:51] VITALS: BMI 30.9
[2024-05-30] MEDS: PIPER TAZO 3.375 GM in NA CHLORIDE 0.9% 100 ML IV SCH (02:48)
[2024-05-30] MEDS: VANCOMYCIN 500 MG in NA CHLORIDE 0.9% 100 ML IVPB ONE (03:55)
[2024-05-30] MEDS: FUROSEMIDE 40 MG/4 ML VIAL IV ONE (09:37)
[2024-05-30] MEDS: NA CHLORIDE 0.9% 1,000 ML IV SCH (09:38)
[2024-05-30 09:50] LABS: Absolute Lymphocytes (CBC) 0.8 K/uL (0.7-4.9); Absolute Monocytes 0.9 K/uL (0.1-1.3); Absolute Neutrophil 12.9 K/uL (1.8-8.0); Basophils % 0.2 % (0-1.3); Eosinophils % 0.1 % (0-4.4); Hematocrit 44.8 % (36.0-45.0); Hemoglobin 14.6 g/dL (12.0-15.0); Lymphocytes % 5.5 % (15.3-44.8); MCHC 32.6 g/dL (32.0-36.0); MCV 91.9 fL (80-100); MPV 8.4 fL (7.6-11.3); Monocytes % 6.4 % (3.3-12.3); Neutrophils % 87.8 % (41.7-73.7); Platelets 210 thou/uL (152-406); RBC Red Blood Cell Count 4.87 M/uL (3.86-4.86); Red Cell Distribution Width 15.6 % (12.1-15.2)
[2024-05-30 09:56] LABS: Albumin 2.8 g/dL (3.4-5.0); Anion Gap 9.5 mEq/L (5.0-15.0); Magnesium 2.2 mg/dL (1.6-2.4); Phosphorus 3.7 mg/dL (2.5-4.9); Potassium 3.5 mEq/L (3.5-5.1)
[2024-05-30 10:02] LABS: Phosphorus 3.8 mg/dL (2.5-4.9)
--- NOTE | 2024-05-30 20:16 | P.PN ---
Subjective Date of Service: 06/02/24 Chief Complaint: SOB, UTI Lethargic, speech eval ordered, responds to verbal 96% O2 on 4 L, speech eval ordered recommend pureed diet, nectar liq, HE for meals <Katey Tatum - Last Filed: 06/02/24 11:11> Date of Service: 05/31/24 <Mary Lieberman - Last Filed: 06/03/24 03:29> Review of Systems 10-point ROS is otherwise unremarkable <Katey Tatum - Last Filed: 06/02/24 11:11> Physical Examination - Vital Signs Temperature: 97.3 F Blood Pressure: 128/78 Pulse: 95 Respirations: 16 Pulse Ox (%): 94 - Physical Exam General: Alert, In no apparent distress, Other (drowsy, eye open to verval) HEENT: Normocephalic, PERRLA Neck: Supple, 2+ carotid pulse no bruit Respiratory: Diminished, Crackles/rales, Other (Rhonchi, 4 L nasal cannula) Cardiovascular: Normal pulses, Regular rate/rhythm, Normal S1 S2 Capillary refill: <2 Seconds Gastrointestinal: Normal bowel sounds, Soft and benign Musculoskeletal: Clubbing, Swelling, Other (bed ridden) Neurological: Sensation intact, Abnormal speech, Abnormal strength, Dementia - Studies Laboratory Data (last 24 hrs) 05/29/24 05/29/24 05/29/24 21:56 21:56 21:56 WBC 18.20 H Hgb 16.4 H Hct 50.3 H Plt Count 297 PT 12.2 INR 1.09 APTT 30.5 Sodium 132 L Potassium 4.4 BUN 27 H Creatinine 1.30 H Glucose 156 H Total Bilirubin 0.5 AST 18 ALT 26 Alkaline Phosphatase 182 H <Katey Tatum - Last Filed: 06/02/24 11:11> Assessment And Plan - Plan Acute encephalopathy possibly metabolic/UTI induced CT head was negative for any acute changes Monitor neuro vital signs closely Speech eval ordered, recommend held elevated 90 degrees with nectar thickened medical Acute hypoxic respiratory failure secondary to bibasilar pneumonia Lactic acidosis Bibasilar pneumonia/multifocal Pulmonary edema Will hold aggressive hydration for now Will get an echocardiogram Repeat lactic acid levels Continue antibiotics for now O2 2 L keep sats greater than 92 per Sepsis secondary to acute cystitis Acute cystitis with hematuria Chronic indwelling Bauer cath Started on empiric antibiotic Will obtain cultures Change antibiotic as per sensitivity Bauer was exchanged Gentle hydration due to fluid overload/elevated BNP Hyperlipidemia Hypertension Antihypertensives titrated Continue home medications and titrate as needed Continue statin Acute kidney injury on CKD stage II Hypokalemia Monitor renal parameters Electrolytes monitor and replace accordingly GI/DVT prophylaxis Advanced directive full code Discharge Plan: [facility] Plan to discharge in: 48 Hours - Advance Directives Does patient have a Living Will: No Does patient have a Durable POA for Healthcare: No - Code Status/Comfort Care Code Status: Full Code Time Spent Managing Pts Care (In Minutes): 35 Time with patient 35-minute Discharge Plan: [facility] - Code Status/Comfort Care Code Status: Full Code Critical Care: No <Katey Tatum - Last Filed: 06/02/24 11:11> Date of Service: 05/31/24 Chart has been reviewed. Events of the last 24 hours have been noted. Case discussed with ARTEMIO. I performed a substantial part of the MDM during this patient's care today. I personally made or approved the documented management plan and acknowledge its risk of complications. I agree with the findings and documentation provided in the ARTEMIO's notes Continue with current antibiotic therapy. Neurologic status has improved. Continue with gentle hydration. Will continue with physical therapy and increase diet. <Mary Lieberman - Last Filed: 06/03/24 03:29>
[2024-05-31 05:50] LABS: Absolute Eosinophils 0.1 K/uL (0-0.5); Absolute Lymphocytes (CBC) 1.2 K/uL (0.7-4.9); Absolute Monocytes 0.9 K/uL (0.1-1.3); Absolute Neutrophil 9.3 K/uL (1.8-8.0); Basophils % 0.4 % (0-1.3); Eosinophils % 0.8 % (0-4.4); Hematocrit 37.7 % (36.0-45.0); Hemoglobin 12.4 g/dL (12.0-15.0); Lymphocytes % 10.1 % (15.3-44.8); MCHC 32.9 g/dL (32.0-36.0); MCV 91.4 fL (80-100); MPV 8.9 fL (7.6-11.3); Monocytes % 8.2 % (3.3-12.3); Neutrophils % 80.5 % (41.7-73.7); Platelets 173 thou/uL (152-406); RBC Red Blood Cell Count 4.12 M/uL (3.86-4.86); Red Cell Distribution Width 16.2 % (12.1-15.2)
[2024-05-31 06:11] LABS: Albumin 2.6 g/dL (3.4-5.0); Albumin/Globulin Ratio 0.8 (1.1-1.8); Anion Gap 8.9 mEq/L (5.0-15.0); Bilirubin Total 0.8 mg/dL (0.2-1.0); Globulin 3.3 g/dL (2.3-3.5); Potassium 2.9 mEq/L (3.5-5.1); Protein, Total 5.9 g/dL (6.4-8.2)
[2024-05-31] MEDS: KCL 20 MEQ/100 mL IVPB 20 MEQ/100 ML BAG IV SCH (07:36)
[2024-05-31] MEDS ORDERED: ALBUTEROL 2.5 MG/3 ML NEB SOL NEB PRN (09:29)
[2024-05-31] MEDS: VANCOMYCIN 1.5 GM in NA CHLORIDE 0.9% 500 ML IVPB SCH (10:39)
[2024-05-31] MEDS ORDERED: VANCOMYCIN 1.5 GM in NA CHLORIDE 0.9% 500 ML IVPB SCH (12:00)
[2024-05-31] MEDS: LEVALBUTEROL 1.25 MG/3 ML NEB NEB SCH (13:43)
[2024-05-31] MEDS: HYDROCORTISONE SUC 100 MG INJ IV ONE (13:46)
[2024-05-31] MEDS: WATER FOR INJ,STERILE 10 ML IV ONE (13:47)
[2024-05-31] MEDS: HYDROCODONE/APAP 5/325 MG TAB PO PRN (13:54)
[2024-05-31] MEDS: METOPROLOL TARTRATE 5 MG/5 ML INJ IV PRN (15:35)
[2024-05-31] MEDS ORDERED: GUAIFENESIN/DM 5 ML UCUP PO PRN (15:46)
[2024-05-31] MEDS: GUAIFENESIN/DM 5 ML UCUP PO PRN (15:52)
[2024-05-31 17:15] LABS: Anion Gap 7.9 mEq/L (5.0-15.0); Potassium 3.9 mEq/L (3.5-5.1)
[2024-06-01] MEDS: VANCOMYCIN 1.5 GM in NA CHLORIDE 0.9% 500 ML IVPB SCH (03:27)
[2024-06-01 08:26] LABS: Anion Gap 9.8 mEq/L (5.0-15.0)
[2024-06-01 08:27] LABS: Potassium 3.8 mEq/L (3.5-5.1)
--- NOTE | 2024-06-01 09:40 | P.PN ---
Date of Service: 06/01/24 Subjective more alert today,97% 4L NC Physical Examination - Vital Signs Reviewed - Physical Exam General: Alert, oriented x2 no acute distress noted Respiratory: Normal air movement, Diminished, poor cough reflex, rhonchi Cardiovascular: Normal pulses, Regular rate/rhythm, Normal S1 S2 Gastrointestinal: Normal bowel sounds, Other (No rebound tenderness), Tenderness Musculoskeletal: No clubbing, No swelling Integumentary: No breakdown, No significant lesion Neurological: No focal deficits, Assessment And Plan - Assessment/Plan Acute on chronic heart failure with reduced ejection fraction pulmonary edema Pulmonary hypertension aggressive Diureses Still has extra fluid on him which is 3rd space. Will continue with albumin Lasix drip. Monitor volume status closely. 02 4L nc, acute hypoxic respiratory failure secondary pulmonary edema/mild bilateral groundglass opacities may represent alveolitis o2 keep sats >92% nebs, guafenesin dysphagia speech eval, thick liq aspiation precaution Thrombocytopenia Platelet stable. Continue to monitor. Abdominal pain Current Visit: No Status: Acute Cc to him with those abnormal wound findings so for the anasarca. HTN (hypertension) Dyslipidemia (high LDL; low HDL) Continue with home medication statin at bedtime BPH (benign prostatic hyperplasia) Current Visit: Yes Status: Acute Flomax at bedtime - Advance Directives Does patient have a Living Will: No Does patient have a Durable POA for Healthcare: No Time with patient 35 minutes Discharge Plan: Home - Code Status/Comfort Care Code Status: Full Code Critical Care: No Time Spent Managing PTS Care (In Minutes): 35 <Katey Tatum - Last Filed: 06/02/24 11:12> Date of Service: 06/01/24 Chart has been reviewed. Events of the last 24 hours have been noted. Case discussed with ARTEMIO. I performed a substantial part of the MDM during this patient's care today. I personally made or approved the documented management plan and acknowledge its risk of complications. I agree with the findings and documentation provided in the ARTEMIO's notes Continue with current antibiotic therapy. Neurologic status has improved. Continue with gentle hydration. Will continue with physical therapy and increase diet. <Mary Lieberman - Last Filed: 06/03/24 03:30>
[2024-06-01] MEDS: Levofloxacin 750mg IV 750 MG/150 ML BAG IV SCH (10:30)
[2024-06-01 11:51] LABS: Absolute Eosinophils 0.2 K/uL (0-0.5); Absolute Lymphocytes (CBC) 1.1 K/uL (0.7-4.9); Absolute Monocytes 0.8 K/uL (0.1-1.3); Absolute Neutrophil 7.4 K/uL (1.8-8.0); Basophils % 0.5 % (0-1.3); Eosinophils % 1.8 % (0-4.4); Hematocrit 36.1 % (36.0-45.0); Hemoglobin 11.5 g/dL (12.0-15.0); Lymphocytes % 11.3 % (15.3-44.8); MCH 29.7 pg (27.0-35.0); MCV 92.8 fL (80-100); MPV 8.8 fL (7.6-11.3); Monocytes % 8.9 % (3.3-12.3); Neutrophils % 77.5 % (41.7-73.7); Platelets 179 thou/uL (152-406); RBC Red Blood Cell Count 3.89 M/uL (3.86-4.86)
[2024-06-01 12:06] LABS: Albumin 2.5 g/dL (3.4-5.0); Anion Gap 7.3 mEq/L (5.0-15.0); Bilirubin Total 0.5 mg/dL (0.2-1.0); Potassium 3.3 mEq/L (3.5-5.1)
[2024-06-01 12:07] LABS: Albumin/Globulin Ratio 0.7 (1.1-1.8); Globulin 3.5 g/dL (2.3-3.5)
[2024-06-01] MEDS: LEVALBUTEROL 1.25 MG/3 ML NEB ONE (21:22)
[2024-06-02] MEDS: MORPHINE 2 MG/ML SYR IV PRN (04:22)
--- NOTE | 2024-06-02 08:49 | P.PN ---
Date of Service: 06/02/24 Subjective Date of Service: 06/02/24 Chief Complaint: SOB, UTI responds to verbal 96% O2 on 4 L Review of Systems 10-point ROS is otherwise unremarkable "I don't know why I am here Physical Examination - Vital Signs reviewed - Physical Exam General: Alert, In mild respiratory distress, Other HEENT: Normocephalic, PERRLA Neck: Supple, 2+ carotid pulse no bruit Respiratory: Diminished, Crackles/rales, Other (Rhonchi, 4 L nasal cannula) Cardiovascular: Normal pulses, Regular rate/rhythm, Normal S1 S2 Capillary refill: <2 Seconds Gastrointestinal: Normal bowel sounds, Soft and benign Musculoskeletal: Clubbing, Swelling, Other (bed ridden), left foot drop, right in splint Neurological: Sensation intact, Abnormal speech, Abnormal strength, Dementia Assessment And Plan Acute encephalopathy possibly metabolic/UTI induced CT head was negative for any acute changes Monitor neuro vital signs closely Speech eval ordered, recommend held elevated 90 degrees with nectar thickened medical Awake, alert, confused Acute hypoxic respiratory failure secondary to bibasilar pneumonia Lactic acidosis Bibasilar pneumonia/multifocal Pulmonary edema Will hold aggressive hydration for now Will get an echocardiogram Repeat lactic acid levels (improved 06/02/24) Continue antibiotics for now O2 2 L keep sats greater than 92 per will add nebs, repeat CXR 06/02/24 add Rsv/flu eval 06/02/24 Sepsis secondary to acute cystitis Acute cystitis with hematuria Chronic indwelling Bauer cath Started on empiric antibiotic Will obtain cultures Change antibiotic as per sensitivity (on po Levaquin - cx sensitive - Proteus mirabelis) Bauer was exchanged on admission Gentle hydration due to fluid overload/elevated BNP Hyperlipidemia Hypertension Antihypertensives titrated Continue home medications and titrate as needed Continue statin Acute kidney injury on CKD stage II Hypokalemia Monitor renal parameters - resolved Electrolytes monitor and replace accordingly GI/DVT prophylaxis Advanced directive full code Discharge Plan: [facility] Plan to discharge in: 48 Hours - Advance Directives Does patient have a Living Will: No Does patient have a Durable POA for Healthcare: No - Code Status/Comfort Care Code Status: Full Code Time Spent Managing Pts Care (In Minutes): 35 Time with patient 35-minute Discharge Plan: [facility] - Code Status/Comfort Care Code Status: Full Code Critical Care: No <Bowles,Lyric Wilver - Last Filed: 06/02/24 08:51> Debilitating stroke complicated by neurogenic bladder and dysphagia Admitted for Proteus bacteremia secondary to catheter associated UTI Clinically improving on definitive antibiotics with Levaquin Patient is complaining of shortness of breath, wheezing on physical exam, consistent with mild pulmonary edema, will start IV furosemide and evaluate response. <MIRIAM Jiménez Ran - Last Filed: 06/02/24 17:46>
--- NOTE | 2024-06-02 10:11 | RAD REPORT ---
EXAMINATION: ONE VIEW CHEST XR CLINICAL INDICATION: eval SOB TECHNIQUE: Frontal chest projection is submitted. Examination is limited by patient positioning and t echnique. COMPARISON: 05/25/2021 FINDINGS: Mild bilateral pulmonary opacities likely representing mild pulmonary edema. Another possibility woul d be underlying bronchitis. No typical consolidation to indicate bacterial pneumonia. The heart is mildly enlarged in size. No displaced fractures identified. Catheter tubing is present medial left u pper arm.
--- NOTE | 2024-06-02 11:20 | EKG ---
Test Date: 2024-05-29 Test Time: 21:43:53 Handbag Stitcher: CAYLA MEASUREMENT RESULTS: Intervals: Rate: 132 TN: QRSD: 82 QT: 326 QTc: 483 [place]: P: TN: QRS: 35 T: 217 INTERPRETIVE STATEMENTS: Atrial fibrillation with rapid ventricular response Cannot rule out Anterior infarct, age undetermined Marked ST abnormality, possible inferior subendocardial injury Abnormal ECG Compared to ECG 05/25/2021 00:14:05 ST (T wave) deviation now present Myocardial infarct finding still present Electronically Signed On 06-02-24 11:14:30 BARMAID by Maciel Mena
[2024-06-02] MEDS: FUROSEMIDE 40 MG/4 ML VIAL IV ONE (11:36)
[2024-06-02] MEDS: FUROSEMIDE 20 MG/ 2ML VIAL IV SCH (16:11)
[2024-06-02] MEDS: carvediloL 25 MG TAB PO SCH (17:04)
[2024-06-02] MEDS ORDERED: carvediloL 25 MG TAB PO SCH (18:00)
[2024-06-02] MEDS: ATORVASTATIN 40 MG TAB PO SCH (20:19)
[2024-06-02] MEDS: AMANTADINE 100 MG CAP PO SCH (20:19)
[2024-06-02] MEDS: carBAMazepine 200 MG TAB PO SCH (20:19)
[2024-06-02] MEDS: GABAPENTIN 100 MG CAP PO SCH (20:20)
[2024-06-02] MEDS: LEVALBUTEROL 1.25 MG/3 ML NEB ONE (20:24)
[2024-06-03] MEDS: LEVOTHYROXINE SOD 0.112 MG TAB PO SCH (05:30)
[2024-06-03 07:01] LABS: Albumin 2.5 g/dL (3.4-5.0); Albumin/Globulin Ratio 0.6 (1.1-1.8); Bilirubin Total 0.5 mg/dL (0.2-1.0); Protein, Total 6.5 g/dL (6.4-8.2)
[2024-06-03 07:31] LABS: Absolute Basophils 0.1 K/uL (0-0.5); Absolute Eosinophils 0.4 K/uL (0-0.5); Absolute Lymphocytes (CBC) 2.2 K/uL (0.7-4.9); Absolute Neutrophil 5.5 K/uL (1.8-8.0); Basophils % 0.8 % (0-1.3); Eosinophils % 4.8 % (0-4.4); Hematocrit 39.4 % (36.0-45.0); Hemoglobin 12.6 g/dL (12.0-15.0); Lymphocytes % 23.6 % (15.3-44.8); MCH 29.5 pg (27.0-35.0); MCHC 32.1 g/dL (32.0-36.0); MCV 91.9 fL (80-100); MPV 9.2 fL (7.6-11.3); Monocytes % 10.8 % (3.3-12.3); Nucleated Red Blood Cells % 0.1 % (0-0); Platelets 217 thou/uL (152-406); RBC Red Blood Cell Count 4.29 M/uL (3.86-4.86); Red Cell Distribution Width 15.8 % (12.1-15.2)
[2024-06-03] MEDS: KCL 20 MEQ/100 mL IVPB 200 ML IV ONE (07:32)
[2024-06-03] MEDS: NA CHLORIDE 0.9% 250 ML ONE (07:32)
[2024-06-03] MEDS: KCL 20 MEQ/100 mL IVPB 20 MEQ/100 ML BAG IV SCH (07:43)
[2024-06-03 09:00] LABS: Blood Morphology Comment NOT SEEN (NOT SEEN); Platelet Estimate ADEQ; White Blood Cell Scan OK (OK)
[2024-06-03] MEDS: DOCOSAHEXANOIC AC/EPA 1000 MG PO SCH (09:33)
[2024-06-03] MEDS: DULOXETINE 30 MG CAP PO SCH (09:34)
[2024-06-03] MEDS: AMLODIPINE 5 MG TAB PO SCH (09:35)
[2024-06-03] MEDS: VITAMIN D 5,000 UNIT CAP PO SCH (09:35)
[2024-06-03] MEDS: FOLIC ACID 1 MG TABLET PO SCH (09:35)
[2024-06-03] MEDS: LIDOCAINE 4% PATCH TOP SCH (09:36)
[2024-06-03] MEDS: levoFLOXacin 750 MG TAB PO SCH (09:36)
[2024-06-03 10:03] VITALS: O2SAT 90
--- NOTE | 2024-06-03 12:00 | P.DS ---
Admission Date: 05/30/24 Discharge Date: 06/03/24 Disposition: TRANSFER TO HALF-WAY Discharge Condition: GOOD Reason for Admission: SOB, UTI Brief History of Present Illness: 84 yrs old Female who is a senior care resident with past medical history includes respiratory failure, benign neoplasm of brain, shaft of the right femur fracture, hypertension, hyperlipidemia, insomnia, generalized weakness, abnormality of gait, dementia, osteoarthritis, osteoporosis, meningioma, dysphagia, history of CVA with hemiparesis, history of hypothyroidism, history of intracranial hemorrhage, spastic hemiplegia, right hemiparesis, poor co ordination, frequent UTIs.was transferred to ER with shortness of breath and cough and generalized weakness. Patient is a resident of [facility]. She presents with tachycardia dyspnea respiratory distress tachypnea and bilateral crackles. Patient has indwelling Bauer catheter also history of right femur fracture. Right femur fracture is being managed with knee immobilizer. Patient was assessed in the ER and was found to have UTI with hematuria and Bauer was exchanged. Patient also noted to have leukocytosis and lactic acidosis and was admitted for further management of sepsis. Hospital Course: Ms. Hastings was noted to have Proteus Mirabella bacteremia. She was treated with IV antibiotics until culture sensitivities returned. Bacteria sensitive to Levaquin and patient changed to oral Levaquin 750 mg to be continued for a 14- day course in total. A urinary catheter needs to be replaced monthly otherwise catheter associated infections will continue. She did develop some pulmonary congestion and was given Lasix and neb treatments and has responded well. She is stable to return back to [facility]. Of note, she does have a recent right femur fracture and has a knee immobilizer to the right, and her left heel had suffered from a pressure sore from foot drop which we have kept clean and padded. Vital Signs/Physical Exam: Temp Pulse Resp BP Pulse Ox 97.8 F 61 12 155/81 H 91 06/03/24 08:00 06/03/24 09:35 06/03/24 08:00 06/03/24 09:35 06/03/24 08:00 General: Alert, Confused HEENT: Atraumatic, Normocephalic Neck: Supple Respiratory: Normal air movement, Expiratory wheezes Cardiovascular: No edema, Normal pulses Capillary refill: <2 Seconds Gastrointestinal: Normal bowel sounds Musculoskeletal: Contractures, Other (Recent long bone fracture in the right lower extremity with knee immobilizer in place) Integumentary: Pressure ulcer (Left heel) Neurological: Abnormal speech Lymphatics: No axilla or inguinal lymphadenopathy Urinary: Bauer catheter, Other (Chronic catheter needs replacement q 1 month) External genitalia: Deferred Rectal: Deferred Laboratory Data at Discharge: WBC 9.20 thou/uL (4.3-10.9) 06/03/24 06:25 Hgb 12.6 g/dL (12.0-15.0) 06/03/24 06:25 Hct 39.4 % (36.0-45.0) 06/03/24 06:25 Plt Count 217 thou/uL (152-406) 06/03/24 06:25 PT 12.2 SECONDS (9.4-12.5) 05/29/24 21:56 INR 1.09 05/29/24 21:56 APTT 30.5 SECONDS (24.3-36.9) 05/29/24 21:56 Sodium 138 mEq/L (136-145) 06/03/24 06:25 Potassium 3.0 mEq/L (3.5-5.1) L 06/03/24 06:25 BUN 21 mg/dL (7-18) H 06/03/24 06:25 Creatinine 0.67 mg/dL (0.55-1.02) 06/03/24 06:25 Glucose 90 mg/dL (74-106) 06/03/24 06:25 Phosphorus 3.7 mg/dL (2.5-4.9) 05/30/24 09:33 Phosphorus 3.8 mg/dL (2.5-4.9) 05/30/24 09:33 Magnesium 2.2 mg/dL (1.6-2.4) 05/30/24 09:33 Total Bilirubin 0.5 mg/dL (0.2-1.0) 06/03/24 06:25 AST 30 U/L (15-37) 06/03/24 06:25 ALT 39 U/L (13-56) 06/03/24 06:25 Alkaline Phosphatase 102 U/L (45-117) 06/03/24 06:25 Home Medications: Folic Acid 1 mg PO DAILY #30 tablet 05/25/21 Acetaminophen [Tylenol] 650 mg PO Q8HP 05/30/24 Amantadine [Symmetrel] 100 mg PO BID 05/30/24 Amlodipine Besylate [Norvasc] 5 mg PO DAILY 05/30/24 Atorvastatin Calcium [Lipitor] 40 mg PO BEDTIME 05/30/24 Cholecalciferol (Vitamin D3) [Vitamin D3] 5,000 unit PO DAILY 05/30/24 Codeine/APAP [Tylenol #3*] 1 tab PO Q8HP PRN 05/30/24 Docosahexanoic AC/Epa [Fish Oil 1,000 MG*] 3 cap PO DAILY 05/30/24 Docusate Sodium 100 mg PO DAILY 05/30/24 Duloxetine HCl [Cymbalta] 30 mg PO DAILY 05/30/24 Gabapentin [Neurontin*] 200 mg PO BID 05/30/24 Lactulose 30 ml PO DAILYPRN PRN 05/30/24 Levothyroxine [Synthroid*] 0.112 mg PO DAILYAC 05/30/24 Lidocaine 4% Patch [Lidoderm 5% Patch*] 1 patch TP DAILY 05/30/24 Potassium Chloride 10 meq PO DAILY 05/30/24 carBAMazepine [Tegretol*] 200 mg PO BEDTIME 05/30/24 carvediloL [Coreg*] 25 mg PO BID 05/30/24 Albuterol Neb [Proventil 0.083% Neb Soln] 2.5 mg NEB [id number] PRN #1 box 06/03/24 levoFLOXacin [Levaquin*] 750 mg PO DAILY #12 tab 06/03/24 New Medications: levoFLOXacin [Levaquin*] 750 mg PO DAILY #12 tab Albuterol Neb [Proventil 0.083% Neb Soln] 2.5 mg NEB [id number] PRN #1 box PRN Reason: Shortness Of Breath Physician Discharge Instructions: Ms. Hastings was noted to have Proteus Mirabella bacteremia. She was treated with IV antibiotics until culture sensitivities returned. Bacteria sensitive to Levaquin and patient changed to oral Levaquin 750 mg to be continued for a 14- day course in total. A urinary catheter needs to be replaced monthly otherwise catheter associated infections will continue. She did develop some pulmonary congestion and was given Lasix and neb treatments and has responded well. She is stable to return back to [facility]. Of note, she does have a recent right femur fracture and has a knee immobilizer to the right, and her left heel had suffered from a pressure sore from foot drop which we have kept clean and padded. Diet: Pured Activity: Turn every 2 hours Followup: NICHOLAS PETERSON [Primary Care Provider] -
[2024-06-03] MEDS: POTASSIUM 25 MEQ EFFERV TAB PO ONE (12:04)
[2024-06-03 17:54] VITALS: BP 148/97; TEMP 97.3
[2024-06-04] MEDS ORDERED: FUROSEMIDE 20 MG/ 2ML VIAL IV SCH (09:00)
== END 2024-06-03 13:27 | DRG 698 ==
LOC: ER 21:29 → ERHOLD 05-30 00:08 → 2ND 05-30 01:14
PROVIDERS: ADMIT Family Medicine; ATTEND Internal Medicine
PROC: 4A033R1 Measurement of Arterial Saturation, Peripheral, Percutaneous Approach (ICD-10-PCS; principal; 2024-05-30)
PROC: 0T9B70Z Drainage of Bladder with Drainage Device, Via Natural or Artificial Opening (ICD-10-PCS; 2024-05-30)
DX: T83.518A Infection and inflammatory reaction due to other urinary catheter, initial encounter (principal); A41.59 Other Gram-negative sepsis; G93.41 Metabolic encephalopathy; J18.9 Pneumonia, unspecified organism; J96.01 Acute respiratory failure with hypoxia; I50.23 Acute on chronic systolic (congestive) heart failure; R65.20 Severe sepsis without septic shock; N10 Acute pyelonephritis; E87.20 Acidosis, unspecified; N17.9 Acute kidney failure, unspecified; I13.0 Hypertensive heart and chronic kidney disease with heart failure and stage 1 through stage 4 chronic kidney disease, or unspecified chronic kidney disease; N39.0 Urinary tract infection, site not specified; N18.2 Chronic kidney disease, stage 2 (mild); I48.91 Unspecified atrial fibrillation; I27.20 Pulmonary hypertension, unspecified; E78.5 Hyperlipidemia, unspecified; E87.6 Hypokalemia; D69.6 Thrombocytopenia, unspecified; E03.9 Hypothyroidism, unspecified; F03.B0 Unspecified dementia, moderate, without behavioral disturbance, psychotic disturbance, mood disturbance, and anxiety; Z88.8 Allergy status to other drugs, medicaments and biological substances; Z88.6 Allergy status to analgesic agent; Z11.52 Encounter for screening for COVID-19; Z79.52 Long term (current) use of systemic steroids; Z79.02 Long term (current) use of antithrombotics/antiplatelets; Z91.018 Allergy to other foods; Z79.890 Hormone replacement therapy; Z79.899 Other long term (current) drug therapy; L89.612 Pressure ulcer of right heel, stage 2
CPT/HCPCS: 36415; 36600; 51702; 70450; 71045; 71250; 74176; 80048; 80053; 80069; 80156; 80202; 81001; 82805; 82947; 83605; 83735; 83880; 84100; 84439; 84443; 84484; 85025; 85610; 85730; 86140; 87040; 87077; 87086; 87088; 87186; 87205; 87804; 87807; 87811; 92610; 93005; 94640; 94760; 96361; 96365; 96367; 96375; 99285; J0692; J1720; J1940; J2003; J2270; J2405; J2543; J3480; J7030; J7040; J7050; J7613; J7614; J7644

== ENCOUNTER 2024-07-08 16:16 | Inpatient (IN) | payer OTHER ==
[2024-07-08] MEDS ORDERED: NA CHLORIDE 0.9% 1,000 ML ONE (17:13)
[2024-07-08] MEDS ORDERED: propofoL 1,000 MG/100 ML VIAL IV ONE (17:13)
--- NOTE | 2024-07-08 17:21 | RAD REPORT ---
EXAM: Chest Single View HISTORY: shortness of breath, intubation COMPARISON: 07/08/2024 FINDINGS: LUNGS/PLEURA: Likely small left pleural effusion and possibly underlying atelectasis. Mild atelectasi s versus airspace disease at the right lung base. MEDIASTINUM: The mediastinal silhouette is within normal limits. CARDIAC: Mild cardiomegaly UPPER ABDOMEN: Surgical clips in the right upper quadrant. BONES: No acute abnormality. Kyphoplasty/vertebroplasty changes in the upper lumbar spine. LINES/TUBES/OTHER: Endotracheal tube terminates at the level the kassie. Suggest retracting by 2.5 cm for more optimal positioning. NG tube in the stomach. Left subclavian approach port with tip overlying the left brachiocephalic vein. IMPRESSION: 1. Endotracheal tube at the level of the kassie. Recommend retracting by 2.5 cm for more optimal posi tioning. Enteric tube in the stomach. 2. Small left effusion and bibasilar airspace opacities that could reflect atelectasis or pneumonia/p neumonitis.
[2024-07-08 17:22] LABS: Absolute Lymphocytes (CBC) 0.7 K/uL (0.7-4.9); Absolute Monocytes 1.5 K/uL (0.1-1.3); Absolute Neutrophil 21.7 K/uL (1.8-8.0); Hematocrit 42.7 % (36.0-45.0); Hemoglobin 14.1 g/dL (12.0-15.0); Lymphocytes % 2.8 % (15.3-44.8); MCH 28.9 pg (27.0-35.0); MCHC 32.9 g/dL (32.0-36.0); MPV 9.5 fL (7.6-11.3); Monocytes % 6.2 % (3.3-12.3); Nucleated Red Blood Cells % 0.2 % (0-0); Platelets 114 thou/uL (152-406); RBC Red Blood Cell Count 4.86 M/uL (3.86-4.86); Red Cell Distribution Width 17.5 % (12.1-15.2)
--- NOTE | 2024-07-08 17:22 | RAD REPORT ---
EXAM: AP view(s) of the abdomen Abdomen 1 View (KUB) HISTORY: ngt COMPARISON: None FINDINGS: Nonobstructive bowel gas pattern.. Enteric tube tip overlies the lower stomach in satisfactory posit ion. No suspicious calcifications are seen. Surgical clips in right upper quadrant. No acute osseous abnormality. Kyphoplasty/vertebroplasty changes at L1. Other: n/a IMPRESSION: Nonobstructive bowel gas pattern. Enteric tube in the lower stomach in satisfactory posit ion.
[2024-07-08 17:30] LABS: PT Prothrombin Time 16.7 SECONDS (9.4-12.5); PTT, Activated Partial Thromb 38.2 SECONDS (24.3-36.9); Protime INR 1.6
[2024-07-08 17:39] LABS: Blood Gas Oxyhemoglobin 81.9 % (94-97); Blood O2 Saturation 84.2 % (92-98.5)
[2024-07-08 17:40] LABS: Arterial Blood Carboxyhemoglob 0.5 % (0-1.5); Blood Gas THB 15.3 g/dl (12-18)
[2024-07-08 17:40] LABS: Albumin 2.6 g/dL (3.4-5.0); Albumin/Globulin Ratio 0.7 (1.1-1.8); Anion Gap 13.8 mEq/L (5.0-15.0); Bilirubin Total 0.7 mg/dL (0.2-1.0); Globulin 3.6 g/dL (2.3-3.5); Potassium 3.8 mEq/L (3.5-5.1); Protein, Total 6.2 g/dL (6.4-8.2); Troponin High Sensitivity 105.9 pg/mL (<58.9)
[2024-07-08] MEDS ORDERED: NA CHLORIDE 0.9% 500 ML ONE (17:45)
[2024-07-08] MEDS ORDERED: NA CHLORIDE 0.9% 250 ML ONE (17:57)
[2024-07-08] MEDS ORDERED: CEFEPIME 2 GM VIAL ONE (17:57)
[2024-07-08] MEDS ORDERED: ACETAMINOPHEN 650MG/RECT SUPP PR ONE ×2 (17:57→21:44)
[2024-07-08] MEDS ORDERED: VANCOMYCIN 1 GM/VIAL ONE (17:57)
[2024-07-08] MEDS ORDERED: NA CHLORIDE 0.9% 100 ML ONE (17:58)
--- NOTE | 2024-07-08 18:25 | RAD REPORT ---
EXAM: Chest Single View HISTORY: POST ETT COMPARISON: Approximately 90 minutes prior FINDINGS: The endotracheal tube terminates at the kassie. Recommend retracting by approximately 2 cm. A right I J approach central line is in place with tip overlying the distal SVC. No pneumothorax. Left subclavian approach Port-A-Cath. Enteric tube below the diaphragm. IMPRESSION: 1. Right IJ approach central line has been placed. No pneumothorax. The tip overlies the distal SVC i n satisfactory position. 2. Endotracheal tube at the kassie. Recommend retracting by 2 cm.
[2024-07-08] MEDS ORDERED: FENTANYL CITR 100 MCG/2 ML ONE (18:32)
[2024-07-08] MEDS ORDERED: MIDAZOLAM HCL 2 MG/2 ML INJ ONE (19:38)
[2024-07-08 19:43] LABS: Platelet Estimate DECR; White Blood Cell Scan OK (OK)
[2024-07-08 19:44] LABS: Blood Morphology Comment NOT SEEN (NOT SEEN)
[2024-07-08] MEDS ORDERED: NOREPINEPHRINE BITARTRATE/D5W 4 MG/250 ML BAG IV ONE ×2 (20:11→23:31)
--- NOTE | 2024-07-08 20:18 | RAD REPORT ---
EXAMINATION: CT HEAD WITHOUT CONTRAST CLINICAL INDICATION: Female, 84 years old.ams TECHNIQUE: Axial CT images from the skull base to the vertex without intravenous contrast. Coronal an d sagittal reformatted images were created from the data set. One or more of the following dose reduction techniques were used: Automated exposure control, adjustment of the mA and/or kV according to patient size, and/or iterative reconstruction. Unless otherwise specified, incidental findings do not require dedicated imaging follow-up. [id number]. COMPARISON: No prior exam. FINDINGS: INTRACRANIAL: No acute intracranial hemorrhage. No hydrocephalus. No mass effect or midline shift. Mo derate chronic small vessel ischemic changes.Mild cerebral atrophy. VASCULATURE: No visualized abnormalities in the arteries or dural venous sinuses. SCALP/SKULL: No significant soft tissue or osseous abnormalities. SINUSES: The visualized paranasal sinuses and mastoid air cells are predominantly clear. NG tube in t he right nasal IMPRESSION: No acute intracranial abnormality.
--- NOTE | 2024-07-08 20:27 | RAD REPORT ---
EXAM: CT CHEST, ABDOMEN AND PELVIS WITHOUT CONTRAST CLINICAL INDICATION: Female, 84 years old sepsis TECHNIQUE: CT chest, abdomen and pelvis was performed, without IV contrast, as per department protoco l. Axial, sagittal and coronal reconstructions were obtained. One or more of the following dose reduction techniques were used: Automated exposure control, adjustment of the mA and/or kV according to the patient size, and/or iterative reconstruction. Unless otherwise specified, incidental findings do not require dedicated imaging follow-up. [id number]. COMPARISON: 05/29/2024 FINDINGS: The lack of intravenous contrast limits the sensitivity of this exam for evaluation of solid visceral organs, vascular structures, and retroperitoneum. Chest: LOWER NECK: Visualized thyroid gland and soft tissues are normal. Left upper chest wall Port-A-Cath. Right IJ approach central line. LUNGS AND AIRWAYS: Right lower lobe and to lesser extent medial left lower lobe consolidative airspac e disease. Endotracheal tube above the kassie.Motion artifact limits evaluation for pulmonary nodule detection. PLEURA: No pleural effusion. No pneumothorax. Hemidiaphragms are normally positioned. MEDIASTINUM AND LYMPH NODES: No mediastinal mass or fluid collection. Normal size mediastinal, hilar, and axillary lymph nodes. THORACIC AORTA: Ascending thoracic aortic aneurysm measuring 4 cm. PULMONARY ARTERIES: Caliber is within normal limits. HEART: Mild cardiomegaly. Multivessel coronary artery diseaseNo significant pericardial effusion. Abdomen/Pelvis UPPER GI: NG tube terminating in stomach. LIVER: Hepatic steatosis, but otherwise unremarkable. GALLBLADDER/BILE DUCTS: Cholecystectomy. Moderate extra-hepatic biliary ductal dilatation is likely r elated to the post-cholecystectomy state. Consider correlating with LFT's.? PANCREAS: Not well assessed due to motion SPLEEN: Unremarkable. ADRENALS: No adrenal masses. KIDNEYS AND URETERS: Mild bilateral hydroureteronephrosis.No suspicious renal mass. ABDOMINAL AORTA AND OTHER VESSELS: Moderate atherosclerotic changes without aortic aneurysm. PERITONEUM: No abnormal free fluid. No free air. LYMPH NODES: No pathologic lymphadenopathy. ABDOMINAL WALL: Unremarkable SMALL BOWEL/COLON: Small bowel has normal course and caliber. No colonic wall thickening or pericolon ic inflammatory changes.Nonspecific small bowel fluid. URINARY BLADDER: Bauer catheter in the bladder. Moderate bladder wall thickening. REPRODUCTIVE ORGANS: No pathologic process. MUSCULOSKELETAL: L1 kyphoplasty. No acute fracture. ADDITIONAL FINDINGS: None. IMPRESSION: 1. Right greater than left lower lobe consolidation likely reflecting aspiration. 2. Mild bilateral hydroureteronephrosis. The bladder is decompressed by Bauer catheter though the wal l appears thickened with stranding. The patient may have had urinary retention or urinary tract infection.
[2024-07-08 21:29] LABS: Specific Gravity 1.013 (1.005-1.030); Sqamous Epithelial None Seen /HPF (None Seen); Urine Bacteria 20-50 /HPF (<20); Urine Bilirubin NEGATIVE (Negative); Urine Blood 3+ (OVER) (Negative); Urine Clarity Extremely Turbid (Clear); Urine Color Red (Yellow); Urine Crystals Unidentified Many /HPF (None Seen); Urine Culture Reflex Order REFLEXED; Urine Glucose NEGATIVE (Negative); Urine Ketones NEGATIVE (Negative); Urine Microscopic Reflex YN ORDER UMIC; Urine Nitrite NEGATIVE (Negative); Urine Protein 3+ (Negative); Urine RBC >50 /HPF (None Seen); Urine Urobilinogen Normal (Normal); Urine WBC >50 /HPF (<5); Urine pH 8.5 (5.0-7.0)
--- NOTE | 2024-07-08 21:30 | ER ---
Nurse's Notes [facility] Name: Radha Hastings Age: 84 yrs Sex: Female : 1940 Arrival Date: 07/08/2024 Time: 16:16 Bed 4 Private MD: Diagnosis: Severe sepsis with septic shock;Acute respiratory failure with hypoxia;Pyelonephritis acute;Obstructed urinary catheter, right heel decubitus ulcer, bilateral hydronephrosis, acute on chronic renal failure;Bilateral aspiration pneumonia, right lower lung pneumonia, acute renal failure Presentation: 07/08 16:19 Chief complaint: EMS states: INCREASING SOB AND FEVER, AGONAL ON SCENE. Coronavirus bp screen: At this time, the client does not indicate any symptoms associated with coronavirus-19. Ebola Screen: No symptoms or risks identified at this time. Initial Sepsis Screen: Does the patient meet any 2 criteria? Temp <36.0*C (96.8*F)) or > 38.3*C (100.9*F). HR > 90 bpm. No. Patient's initial sepsis screen is negative. If YES to both, name of provider notified: Neptali Parker MD Risk Assessment: Do you want to hurt yourself or someone else? Patient reports no desire to harm self or others. Onset of symptoms was July 08, 2024. Care prior to arrival: Assisted ventilation, Oral intubation, NGT 16 FR \\T\\ 65CM IV initiated. 20 GA, in the left antecubital area, Glucose check: 101. 16:19 Method Of Arrival: EMS: [facility] bp 16:19 Acuity: [place]AS[place] 2 bp 16:27 Note FOR INTUBATION: 160 MG KETAMINE, 80MG GADIEL, LEVOPHED \\T\\ 0.2. bp Triage Assessment: 16:23 General: Appears distressed, Behavior is unresponsive. Pain: Unable to use pain scale. bp Patient is unresponsive. EENT: No deficits noted. Neuro: Level of Consciousness is unresponsive. Cardiovascular: Rhythm is sinus tachycardia. Respiratory: Airway via oral intubation. GI: No signs and/or symptoms were reported involving the gastrointestinal system. : Bauer in place Urine is cloudy. Derm: No deficits noted. Musculoskeletal: No deficits noted. Historical: - Allergies: 16:23 ambien; adverse reaction; bp 16:23 Compazine; bp 20:22 [place] (Anaphylaxis); jb4 20:22 Valium; nightmares; jb4 - PMHx: 16:23 Atrial Fib; BRAIN TUMOR; CVA; Opioid Dependence; Thyroid problem; Depression; bp Hypertension; - Immunization history:: Adult Immunizations up to date. - Infectious Disease History:: Denies. - Social history:: Smoking status: Patient denies any tobacco usage or history of. Screenin:26 [facility] ED Fall Risk Assessment (Adult) History of falling in the last 3 months, bp including since admission No falls in past 3 months (0 pts) Confusion or Disorientation No (0 pts) Intoxicated or Sedated Yes (3 pts) Impaired Gait No (0 pts) Mobility Assist Device Used No (0 pt) Altered Elimination No (0 pt) Score/Fall Risk Level 3 or more points = High Risk Oriented to surroundings. Abuse screen: Denies threats or abuse. Denies injuries from another. Nutritional screening: No deficits noted. Tuberculosis screening: No symptoms or risk factors identified. Assessment: 16:26 General: Appears distressed, ill, Behavior is unresponsive. bp 16:26 General: Appears distressed, ill, obese, Behavior is unresponsive. Pain: Unable to use jb4 pain scale. Patient is intubated. Patient is unresponsive. Neuro: Level of Consciousness is unresponsive. Cardiovascular: Patient's skin is warm and dry. Respiratory: Airway via oral intubation. : Bauer in place. Derm: Skin is pink, warm \\T\\ dry. Decubitus located on right heel(s) approximately 1.5 cm to 2.5 cm is stage I. 17:30 Reassessment: Pt remains intubated. no s/s of pain or distress noted at this time. jb4 18:30 Reassessment: Patient appears in no apparent distress at this time. No changes from jb4 previously documented assessment. Patient and/or family updated on plan of care and expected duration. Pain level reassessed. Family is at the bedside. 19:30 Reassessment: Patient appears in no apparent distress at this time. No changes from jb4 previously documented assessment. Patient and/or family updated on plan of care and expected duration. Pain level reassessed. 20:30 Reassessment: Patient appears in no apparent distress at this time. No changes from jb4 previously documented assessment. Patient and/or family updated on plan of care and expected duration. Pain level reassessed. 21:30 Reassessment: Pt remains intubated. No s/s of pain or distress noted at this time. jb4 Infusion flowing without issue. 22:30 Reassessment: Patient appears in no apparent distress at this time. No changes from banner previously documented assessment. Patient and/or family updated on plan of care and expected duration. Pain level reassessed. 23:00 Reassessment: IJ verification X-ray discussed with ER physician due to recommendation banner to withdraw the ET tube by 2cm. ED physician states " The Et tube is where it needs to be looking at the CT. Do not pull back on the ET tube any further." Receiving ICU nurse notified of discussion and ER physician comment. 23:30 Reassessment: Patient appears in no apparent distress at this time. No changes from banner previously documented assessment. Patient and/or family updated on plan of care and expected duration. Pain level reassessed. 07/09 00:30 Reassessment: Patient appears in no apparent distress at this time. Pt transported to [facility] ICU. Remains intubated and on Levophed and propofol. Levophed decreased to 0.15mck/kg/min and propofol remains at 7mcg/kg/min. Vital Signs: 0204 16:13 BP 160 / 103; Pulse 126; Resp 17; Pulse Ox 99% on ETT vent; FiO2 100 %; jb4 16:19 Pulse 170; Temp 103; Weight 81.65 kg; bp 16:30 BP 147 / 98; Pulse 127; Resp 18; Pulse Ox 99% on ETT vent; FiO2 100 %; jb4 17:00 BP 104 / 71; Pulse 111; Resp 16; Pulse Ox 98% on ETT vent; FiO2 100 %; jb4 17:30 BP 61 / 49; Pulse 116; Resp 16; Pulse Ox 100% on ETT vent; FiO2 100 %; jb4 17:45 BP 80 / 64; Pulse 103; Resp 17; Pulse Ox 100% on ETT vent; FiO2 100 %; 4 18:00 BP 74 / 55; Pulse 105; Resp 17; Temp 101.8(Ca); Pulse Ox 100% on ETT vent; FiO2 100 %; jb4 18:15 BP 103 / 73; Pulse 104; Resp 17; Pulse Ox 100% on ETT vent; FiO2 100 %; jb4 18:30 BP 114 / 80; Pulse 105; Resp 16; Temp 101.3(Ca); Pulse Ox 100% on ETT vent; FiO2 100 %; jb4 18:45 BP 113 / 96; Pulse 108; Resp 20; Temp 101.3(Ca); Pulse Ox 100% on ETT vent; FiO2 100 %; jb4 19:00 BP 112 / 86; Pulse 110; Resp 21; Temp 101.3(Ca); Pulse Ox 100% on ETT vent; FiO2 100 %; jb4 19:15 BP 107 / 84; Pulse 109; Resp 23; Temp 101.3(Ca); Pulse Ox 100% on ETT vent; FiO2 100 %; jb4 19:30 BP 110 / 73; Pulse 114; Resp 25; Pulse Ox 100% on ETT vent; FiO2 100 %; jb4 20:00 BP 110 / 80; Pulse 112; Resp 13; Temp 101.2(Ca); Pulse Ox 99% on ETT vent; FiO2 100 %; jb4 20:15 BP 105 / 81; Pulse 110; Resp 17; Temp 101.2(Ca); Pulse Ox 100% on ETT vent; FiO2 100 %; jb4 20:30 BP 110 / 81; Pulse 118; Resp 18; Temp 101.2(Ca); Pulse Ox 100% on ETT vent; FiO2 100 %; jb4 21:30 BP 114 / 84; Pulse 115; Resp 24; Pulse Ox 99% on ETT vent; FiO2 100 %; jb4 22:00 BP 121 / 79; Pulse 107; Resp 20; Pulse Ox 100% on ETT vent; FiO2 100 %; jb4 22:30 BP 118 / 82; Pulse 109; Resp 23; Temp 101.2(Ca); Pulse Ox 99% on ETT vent; FiO2 100 %; jb4 23:00 BP 122 / 77; Pulse 107; Resp 18; Temp 101.1(Ca); Pulse Ox 99% on ETT vent; FiO2 100 %; jb4 23:30 BP 115 / 81; Pulse 110; Resp 22; Temp 100.9(Ca); Pulse Ox 99% on ETT vent; FiO2 100 %; jb4 07/09 00:00 BP 117 / 78; Pulse 113; Resp 20; Temp 100.8(Ca); Pulse Ox 99% on ETT vent; FiO2 100 %; jb4 ED Course: 07/08 16:19 Patient arrived in ED. bp 16:22 Neptali Parker MD is Attending Physician. ms3 16:23 Triage completed. bp 16:23 Arm band placed on. bp 16:24 CHANNEL CEMENTER, MINIMAL DRAINAGE SINCE MCC INSERTION ON 07/06 NGT: 16FR \\T\\ 65CM CHANNEL CEMENTER. bp Maintain EMS IV. Dressing intact. Good blood return noted. Site clean \\T\\ dry. Gauge \\T\\ site: 20 LEFT AC. Flushed with 10 mL NS. 16:26 Patient has correct armband on for positive identification. bp 16:28 Desmond Hebert, RN is Primary Nurse. bp 16:58 CXR XRAY In Process Unspecified. EDMS 16:58 Abdomen 1 View (KUB) XRAY In Process Unspecified. EDMS 17:10 Accessed peripheral vein via ultrasound, utilizing dynamic ultrasound technique using bp 20G Nexia IV catheter per hospital protocol. 18:00 Bauer cath inserted, using sterile technique, 16 Fr., by casing fluid tender, balloon inflated, jb4 other By EREN Haque. 18:00 Assisted provider with central line placement. Set up central line tray. Triple lumen jb4 line placed in right internal jugular. Line placed by Cecil Clayton MD Placement verified by CXR, blood return, Dressed with Tegaderm. 18:18 Chest Single View XRAY In Process Unspecified. EDMS 18:48 Attending Physician role handed off by Neptali Parker MD ms3 18:48 Rehan Cano DO is Attending Physician. ms3 19:58 CT Head Brain wo Cont In Process Unspecified. EDMS 19:58 Chest Abd Pelvis Wo Con In Process Unspecified. EDMS 20:01 Attending Physician role handed off by Rehan Cano DO sp4 20:01 Kameron Spicer MD is Attending Physician. sp4 21:28 Cecil Clayton MD is Hospitalizing Provider. sp4 07/09 00:00 Patient admitted, IV remains in place. jb4 Administered Medications: 07/08 17:24 Not Given (Duplicate Order): fentanyl (pf)25 mcg/kg/h IV at calculated rate See rt Administration Instructions; (Standard concentration 500 mcg / 50 mL NS [10 mcg / 1 mL); Recommended max rate 4 mcg/kg/hr; Titrate 0.25 mcg/kg/hr as often as every 3 minutes to achieve goal (see titration policy); Goal parameter RASS score 0 to -2 17:28 Drug: NS 0.9% IV (30 ml/kg) 30 ml/kg IV at bolus once; Sepsis Protocol; to be given as jb4 a bolus over 90 minutes {Note: 1L given by EMS.} Route: IV; Rate: bolus; Site: right upper arm; 18:30 Follow up: Response: No adverse reaction; IV Status: Completed infusion; IV Intake: jb4 1500ml 17:28 Drug: Propofol IV 5 mcg/kg/min IV at calculated rate See Administration Instructions; jb4 Standard concentration 1000 mg / 100 mL; Recommended max rate 50 mcg/kg/min; Titrate 5 mcg/kg/min every 5 minutes to achieve goal (see titration policy); Goal parameter RASS score 0 to -2 {Note: started at 2mcg/kg/min per ER physician.} Route: IV; Rate: calculated rate; Site: right antecubital; 19:30 Follow up: Rate change 5 mcg/kg/min; Pt beginning to wake jb4 21:38 Follow up: Response: RASS: Light sedation (-2); IV Status: Infusion continued upon banner admission 18:15 Drug: Cefepime IVPB 2 grams IVPB at 200 ml/hr once over 30 mins; (mix in NS 100 mL) jb4 Route: IVPB; Rate: 200 ml/hr; Infused Over: 30 mins; Site: right jugular; 18:45 Follow up: Response: No adverse reaction; IV Status: Completed infusion; IV Intake: jb4 100ml 18:15 Drug: vancoMYCIN IVPB 1 grams IVPB once over 2 hrs Route: IVPB; Infused Over: 2 hrs; jb4 Site: right jugular; 20:15 Follow up: Response: No adverse reaction; IV Status: Completed infusion; IV Intake: jb4 250ml 18:15 Drug: Norepinephrine IV 0.1 mcg/kg/min IV at calculated rate Per protocol; (Standard jb4 concentration 4 mg / 250 mL D5W); Recommended max rate 3 mcg/kg/min; Titrate 0.05 mcg/kg/min as often as every 5 minutes to achieve goal (see titration policy); Goal parameter MAP greater than 65 mmHg. {Note: started at 0.25 mcg/kg/min per ER physician..} Route: IV; Rate: calculated rate; Site: right jugular; 21:38 Follow up: IV Status: Infusion continued upon admission jb4 18:37 Drug: Acetaminophen TX Suppository 650 mg TX once Route: TX; jb4 23:00 Follow up: Response: No adverse reaction jb4 18:37 Drug: fentaNYL (PF) IVP 50 mcg IVP once Route: IVP; Site: right upper arm; jb4 19:00 Follow up: Response: No adverse reaction; Marked relief of symptoms; RASS: Light jb4 sedation (-2) 19:55 Drug: Midazolam IVP or IV 2 mg IVP once Route: IVP; Site: right jugular; jb4 20:30 Follow up: Response: No adverse reaction; Marked relief of symptoms; RASS: Light jb4 sedation (-2) 22:00 Drug: Acetaminophen TX Suppository 650 mg TX once Route: TX; jb4 07/09 00:38 Follow up: Response: No adverse reaction; Marked relief of symptoms; Temperature is jb4 decreased Intake: 07/08 18:30 IV: 1500ml; Total: 1500ml. jb4 18:45 IV: 100ml; Total: 1600ml. jb4 20:15 IV: 250ml; Total: 1850ml. jb4 Output: 18:00 Urine: 500ml (Bauer); Total: 500ml. jb4 19:00 Drainage: 0ml; Total: 500ml. jb4 20:00 Urine: 0ml; Gastric: 300ml (NGT); Total: 800ml. jb4 21:00 Urine: 0ml; Total: 800ml. jb4 22:00 Urine: 0ml; Total: 800ml. jb4 23:00 Urine: 0ml; Total: 800ml. jb4 07/09 00:00 Urine: 50ml (Bauer); Total: 850ml. jb4 Outcome: 07/08 21:30 Decision to Hospitalize by Provider. sp4 07/09 00:00 Admitted to ICU accompanied by nurse, accompanied by tech, via stretcher, room 3, with jb4 oxygen, on monitor, with chart, Report called to EREN [place] Condition: improved Discharge instructions given to family, Instructed on the need for admit, 00:48 Patient left the ED. jb4 Signatures: Dispatcher [employer] EDMS Neri Fernandez, RN RN jb4 Desmond Hebert RN RN bp Rehan Cano, DO DO ms3 Neptali Parker MD MD rt Kameron Spicer MD MD sp4 Corrections: (The following items were deleted from the chart) 07/08 16:28 16:19 Pulse 170bpm; Temp 103F; bp bp 19:00 17:28 Propofol IV 408.25 mcg/min IV at calculated rate in right antecubital jb4 jb4 20:22 16:23 Allergies: [place]; bp jb4 20:22 16:23 Allergies: Valium; bp jb4 07/09 99:07/08 18:00 Drainage 500, output 500, jb4 jb4 07/09 99:07/08 20:00 Drainage 0, jb4 jb4 07/09 99:07/08 21:00 Drainage 0, jb4 jb4 07/09 99:07/08 22:00 Drainage 0, jb4 jb4 07/09 99:07/08 23:00 Drainage 0, jb4 jb4
--- NOTE | 2024-07-08 21:30 | EDPHYS ---
Physician Documentation [facility] Name: Radha Hastings Age: 84 yrs Sex: Female : 1940 Arrival Date: 07/08/2024 Time: 16:16 Bed 4 Private MD: ED Physician Kameron Spicer HPI: 07/08 18:32 This 84 yrs old Female presents to ER via EMS with complaints of Unresponsive. rt 18:32 Patient presents to the ED from [facility] for reported respiratory distress. Per rt report, oxygen saturations were 45% on room air, correcting with supplemental O2. Given respiratory distress, EMS intubated on scene, she was noted to be hypotensive, 700 cc of fluid and norepinephrine were started. No further history could be obtained due to patient's intubation status, symptoms are severe in severity, no other aggravating or alleviating factors.. Historical: - Allergies: 16:23 ambien; adverse reaction; bp 16:23 Compazine; bp 20:22 Kimball (Anaphylaxis); jb4 20:22 Valium; nightmares; jb4 - PMHx: 16:23 Atrial Fib; BRAIN TUMOR; CVA; Opioid Dependence; Thyroid problem; Depression; bp Hypertension; - Immunization history:: Adult Immunizations up to date. - Infectious Disease History:: Denies. - Social history:: Smoking status: Patient denies any tobacco usage or history of. ROS: 18:32 Unable to obtain ROS due to patient is on ventilator, rt 21:30 Constitutional: Positive for AMS sp4 21:30 All other systems are negative, Exam: 18:32 Chest/axilla: Normal chest wall appearance and motion. Nontender with no deformity. rt No lesions are appreciated. Cardiovascular: Regular rate and rhythm with a normal S1 and S2. No gallops, murmurs, or rubs. Normal PMI, no JVD. No pulse deficits. Skin: Warm, dry with normal turgor. Normal color with no rashes, no lesions, and no evidence of cellulitis. 18:32 Constitutional: The patient appears Intubated, unresponsive 18:32 ECG was reviewed by the Attending Physician. 18:32 Respiratory: Coarse breath sounds diffusely, ventilated, 18:32 Neuro: Pupils constricted, midline, withdraws to pain, Vital Signs: 16:13 BP 160 / 103; Pulse 126; Resp 17; Pulse Ox 99% on ETT vent; FiO2 100 %; jb4 16:19 Pulse 170; Temp 103; Weight 81.65 kg; bp 16:30 BP 147 / 98; Pulse 127; Resp 18; Pulse Ox 99% on ETT vent; FiO2 100 %; jb4 17:00 BP 104 / 71; Pulse 111; Resp 16; Pulse Ox 98% on ETT vent; FiO2 100 %; jb4 17:30 BP 61 / 49; Pulse 116; Resp 16; Pulse Ox 100% on ETT vent; FiO2 100 %; jb4 17:45 BP 80 / 64; Pulse 103; Resp 17; Pulse Ox 100% on ETT vent; FiO2 100 %; jb4 18:00 BP 74 / 55; Pulse 105; Resp 17; Temp 101.8(Ca); Pulse Ox 100% on ETT vent; FiO2 100 %; jb4 18:15 BP 103 / 73; Pulse 104; Resp 17; Pulse Ox 100% on ETT vent; FiO2 100 %; jb4 18:30 BP 114 / 80; Pulse 105; Resp 16; Temp 101.3(Ca); Pulse Ox 100% on ETT vent; FiO2 100 %; jb4 18:45 BP 113 / 96; Pulse 108; Resp 20; Temp 101.3(Ca); Pulse Ox 100% on ETT vent; FiO2 100 %; jb4 19:00 BP 112 / 86; Pulse 110; Resp 21; Temp 101.3(Ca); Pulse Ox 100% on ETT vent; FiO2 100 %; jb4 19:15 BP 107 / 84; Pulse 109; Resp 23; Temp 101.3(Ca); Pulse Ox 100% on ETT vent; FiO2 100 %; jb4 19:30 BP 110 / 73; Pulse 114; Resp 25; Pulse Ox 100% on ETT vent; FiO2 100 %; jb4 20:00 BP 110 / 80; Pulse 112; Resp 13; Temp 101.2(Ca); Pulse Ox 99% on ETT vent; FiO2 100 %; jb4 20:15 BP 105 / 81; Pulse 110; Resp 17; Temp 101.2(Ca); Pulse Ox 100% on ETT vent; FiO2 100 %; jb4 20:30 BP 110 / 81; Pulse 118; Resp 18; Temp 101.2(Ca); Pulse Ox 100% on ETT vent; FiO2 100 %; jb4 21:30 BP 114 / 84; Pulse 115; Resp 24; Pulse Ox 99% on ETT vent; FiO2 100 %; jb4 22:00 BP 121 / 79; Pulse 107; Resp 20; Pulse Ox 100% on ETT vent; FiO2 100 %; jb4 22:30 BP 118 / 82; Pulse 109; Resp 23; Temp 101.2(Ca); Pulse Ox 99% on ETT vent; FiO2 100 %; jb4 23:00 BP 122 / 77; Pulse 107; Resp 18; Temp 101.1(Ca); Pulse Ox 99% on ETT vent; FiO2 100 %; jb4 23:30 BP 115 / 81; Pulse 110; Resp 22; Temp 100.9(Ca); Pulse Ox 99% on ETT vent; FiO2 100 %; jb4 07/09 00:00 BP 117 / 78; Pulse 113; Resp 20; Temp 100.8(Ca); Pulse Ox 99% on ETT vent; FiO2 100 %; jb4 Procedures: 07/08 18:32 Central Line: the site was prepped with chlorhexidine, a triple lumen catheter was rt inserted, in the right internal jugular vein, in 1 attempts. placement was verified, by CXR, by blood return, the site was dressed with Chlorhexidine impregnated Tegaderm, the patient tolerated the procedure, well, Central line was placed due to poor IV access. MDM: 16:22 Medical Screening Exam initiated ms3 18:32 Differential Diagnosis Sepsis, pneumonia, UTI. Data reviewed: vital signs, nurses rt notes. I considered the following discharge prescriptions or medication management in the emergency department Medications were administered in the Emergency Department. See MAR. Independent interpretation of the following test(s) in the Emergency Department X-Ray: My interpretation is Appropriate central line placement on my interpretation of x-ray images. Care significantly affected by the following chronic conditions: Atrial fibrillation. Post IV fluid administration reassessment for Sepsis: Client prescribed 30 mL/kg IVF. Sepsis focused reassessment complete. Focused assessment performed: July 08, 2024 at 18:40 Heart: Irregular rhythm. Capillary refill examination performed. Capillary refill noted to be brisk. Neuro: Patient's neurological exam did not improve from previous exam. Cardio: Cardiovascular exam improved from previous exam. Heart rate and blood pressure have improved. Response to treatment: the patient's symptoms have markedly improved after treatment. Transition of care: After a detail discussion of the patient's case, care is transferred to Rehan Cano DO. ED course: Had a long discussion with the patient's POA who states that she did have a signed DNR as an outpatient. I discussed CPR if the patient were to decompensate in the emergency department states that that would not be in line with the patient's wishes nor her wishes, therefore, will not perform CPR if the patient's condition worsens at that point.. 18:45 Transition of care: Care assumed from Neptali Parker MD. ms3 20:05 Transition of care: After a detail discussion of the patient's case, care is ms3 transferred to Kameron Spicer MD. 21:32 ED course: IMPRESSION: CT chest abdomen pelvis 1. Right greater than left lower lobe sp4 consolidation likely reflecting aspiration. 2. Mild bilateral hydroureteronephrosis. The bladder is decompressed by Bauer catheter though the wall appears thickened with stranding. The patient may have had urinary retention or urinary tract infection. . ED course: COMPARISON: No prior exam. FINDINGS: INTRACRANIAL: No acute intracranial hemorrhage. No hydrocephalus. No mass effect or midline shift. Moderate chronic small vessel ischemic changes.Mild cerebral atrophy. VASCULATURE: No visualized abnormalities in the arteries or dural venous sinuses. SCALP/SKULL: No significant soft tissue or osseous abnormalities. SINUSES: The visualized paranasal sinuses and mastoid air cells are predominantly clear. NG tube in the right nasal IMPRESSION: No acute intracranial abnormality. . ED course: Chest X ray - COMPARISON: Approximately 90 minutes prior FINDINGS: The endotracheal tube terminates at the kassie. Recommend retracting by approximately 2 cm. A right IJ approach central line is in place with tip overlying the distal SVC. No pneumothorax. Left subclavian approach Port-A-Cath. Enteric tube below the diaphragm. IMPRESSION: 1. Right IJ approach central line has been placed. No pneumothorax. The tip overlies the distal SVC in satisfactory position. 2. Endotracheal tube at the kassie. Recommend retracting by 2 cm. . 07/08 16:27 Order name: Blood Culture Adult (2) rt 07/08 16:27 Order name: CBC with Diff; Complete Time: 20:06 rt 07/08 16:27 Order name: CMP; Complete Time: 18:45 rt 07/08 16:27 Order name: Lactate w/ 2H reflex if indic.; Complete Time: 18:45 rt 07/08 16:27 Order name: Protime (+inr); Complete Time: 18:45 rt 07/08 16:27 Order name: Ptt, Activated; Complete Time: 18:45 rt 07/08 16:27 Order name: Urinalysis w/ reflexes rt 07/08 16:27 Order name: ABG; Complete Time: 18:45 rt 07/08 16:27 Order name: Troponin High Sensitivity; Complete Time: 18:45 rt 07/08 17:32 Order name: Ghost Lactate-NO COLLECT Timer; Complete Time: 20:06 EDMS 07/08 19:44 Order name: CBC Smear Scan; Complete Time: 20:06 EDMS 07/08 20:46 Order name: Lactate Sepsis 2 HR Follow-up; Complete Time: 21:24 EDMS 07/08 22:15 Order name: Urine Culture EDMS 07/08 23:11 Order name: ABG Arterial Blood Gas EDMS 07/08 23:11 Order name: T4 Free EDMS 07/08 23:11 Order name: Thyroid Stimulating Hormone EDMS 07/08 23:11 Order name: Troponin High Sensitivity EDMS 07/08 23:11 Order name: Troponin High Sensitivity EDMS 07/08 23:11 Order name: Troponin High Sensitivity EDMS 07/08 23:11 Order name: Troponin High Sensitivity EDMS 07/08 16:23 Order name: CXR XRAY; Complete Time: 17:24 ms3 07/08 16:27 Order name: CT Head Brain wo Cont; Complete Time: 21:24 rt 07/08 16:37 Order name: Abdomen 1 View (KUB) XRAY; Complete Time: 17:24 rt 07/08 18:08 Order name: Chest Single View XRAY; Complete Time: 18:45 jb4 07/08 18:43 Order name: Chest Abd Pelvis Wo Con; Complete Time: 21:24 EDMS 02/04 23:11 Order name: Echo without Doppler (2D) EDMS 07/08 16:27 Order name: EKG; Complete Time: 16:28 rt 07/08 16:27 Order name: Accucheck; Complete Time: 17: rt 07/08 16:27 Order name: Cardiac monitoring; Complete Time: 17:26 rt 07/08 16:27 Order name: EKG - Nurse/Tech; Complete Time: 19:06 rt 07/08 16:27 Order name: IV Saline Lock - Large Bore; Complete Time: 17: rt 07/08 16:27 Order name: Labs collected and sent; Complete Time: 17: rt 07/08 16:27 Order name: O2 Per Protocol; Complete Time: 17:25 rt 07/08 16:27 Order name: O2 Sat Monitoring; Complete Time: 17: rt 07/08 16:27 Order name: Vital Signs; Complete Time: 17:25 rt 07/08 19:41 Order name: Misc. Order: RECOLLECT LACTATE- DARK GREEN; Complete Time: 20:19 rv1 EC:32 Rate is 110 beats/min. Rhythm is regular, A fib with No ectopy. QRS [place] is Normal. CT rt interval is normal. QRS interval is normal. QT interval is normal. No Q waves. Administered Medications: 17:24 Not Given (Duplicate Order): fentanyl (pf)25 mcg/kg/h IV at calculated rate See rt Administration Instructions; (Standard concentration 500 mcg / 50 mL NS [10 mcg / 1 mL); Recommended max rate 4 mcg/kg/hr; Titrate 0.25 mcg/kg/hr as often as every 3 minutes to achieve goal (see titration policy); Goal parameter RASS score 0 to -2 17:28 Drug: NS 0.9% IV (30 ml/kg) 30 ml/kg IV at bolus once; Sepsis Protocol; to be given as jb4 a bolus over 90 minutes {Note: 1L given by EMS.} Route: IV; Rate: bolus; Site: right upper arm; 18:30 Follow up: Response: No adverse reaction; IV Status: Completed infusion; IV Intake: jb4 1500ml 17:28 Drug: Propofol IV 5 mcg/kg/min IV at calculated rate See Administration Instructions; jb4 Standard concentration 1000 mg / 100 mL; Recommended max rate 50 mcg/kg/min; Titrate 5 mcg/kg/min every 5 minutes to achieve goal (see titration policy); Goal parameter RASS score 0 to -2 {Note: started at 2mcg/kg/min per ER physician.} Route: IV; Rate: calculated rate; Site: right antecubital; 19:30 Follow up: Rate change 5 mcg/kg/min; Pt beginning to wake jb4 21:38 Follow up: Response: RASS: Light sedation (-2); IV Status: Infusion continued upon [facility] admission 18:15 Drug: Cefepime IVPB 2 grams IVPB at 200 ml/hr once over 30 mins; (mix in NS 100 mL) jb4 Route: IVPB; Rate: 200 ml/hr; Infused Over: 30 mins; Site: right jugular; 18:45 Follow up: Response: No adverse reaction; IV Status: Completed infusion; IV Intake: jb4 100ml 18:15 Drug: vancoMYCIN IVPB 1 grams IVPB once over 2 hrs Route: IVPB; Infused Over: 2 hrs; 4 Site: right jugular; 20:15 Follow up: Response: No adverse reaction; IV Status: Completed infusion; IV Intake: jb4 250ml 18:15 Drug: Norepinephrine IV 0.1 mcg/kg/min IV at calculated rate Per protocol; (Standard jb4 concentration 4 mg / 250 mL D5W); Recommended max rate 3 mcg/kg/min; Titrate 0.05 mcg/kg/min as often as every 5 minutes to achieve goal (see titration policy); Goal parameter MAP greater than 65 mmHg. {Note: started at 0.25 mcg/kg/min per ER physician..} Route: IV; Rate: calculated rate; Site: right jugular; 21:38 Follow up: IV Status: Infusion continued upon admission jb4 18:37 Drug: Acetaminophen CT Suppository [address] once Route: CT; 4 23:00 Follow up: Response: No adverse reaction jb4 18:37 Drug: fentaNYL (PF) IVP 50 mcg IVP once Route: IVP; Site: right upper arm; jb4 19:00 Follow up: Response: No adverse reaction; Marked relief of symptoms; RASS: Light jb4 sedation (-2) 19:55 Drug: Midazolam IVP or IV 2 mg IVP once Route: IVP; Site: right jugular; 4 20:30 Follow up: Response: No adverse reaction; Marked relief of symptoms; RASS: Light jb4 sedation (-2) 22:00 Drug: Acetaminophen CT Suppository [address] once Route: CT; jb4 07/09 00:38 Follow up: Response: No adverse reaction; Marked relief of symptoms; Temperature is jb4 decreased Disposition Summary: 07/08/24 21:30 Hospitalization Ordered Notes: Hospitalization Status: Inpatient Admission sp4 Provider: Cecil Clayton sp4 Location: Intensive Care Unit sp4 Condition: Serious sp4 Problem: new sp4 Symptoms: have improved sp4 Bed/Room Type: Standard sp4 Room Assignment: 3-(07/08/24 22:57) lg3 Diagnosis - Severe sepsis with septic shock sp4 - Acute respiratory failure with hypoxia sp4 - Pyelonephritis acute sp4 - Obstructed urinary catheter, right heel decubitus ulcer, bilateral sp4 hydronephrosis, acute on chronic renal failure - Bilateral aspiration pneumonia, right lower lung pneumonia, acute renal failure sp4 Forms: - Medication Reconciliation Form sp4 - SBAR form sp4 - Leadership Thank You Letter sp4 Critical care time excluding procedures: 07/08 21:30 Critical care time: Bedside Care: 36 minutes, Consultation: 12 minutes, Family sp4 Intervention: 12 minutes. Total time: 60 minutes Signatures: Dispatcher [employer] EDNeri Buitrago RN RN jb4 Desmond Hebert RN RN bp Able, Lacie, RN RN lg3 Rehan Cano DO DO ms3 Neptali Parker MD MD rt Villegas, Rebecca rv1 Kameron Spicer MD MD sp4 Corrections: (The following items were deleted from the chart) 16:37 16:37 Abdomen 1 View (KUB)+RAD.RAD.BRZ ordered. EDMS EDMS 18:43 16:28 Chest Abdomen Pelvis W Con+CT.RAD.BRZ ordered. EDMS EDMS 20:04 18:45 Transition of care: After a detail discussion of the patient's case, care is ms3 transferred to Neptali Parker MD ms3 20:22 16:23 Allergies: Jean Claude; bp jb4 20:22 16:23 Allergies: Valium; bp jb4 22:57 21:30 sp4 lg3
--- NOTE | 2024-07-08 22:55 | P.HP ---
Certification for Inpatient Patient admitted to: Inpatient With expected LOS: >2 Midnights Practitioner: I am a practitioner with admitting privileges, knowledge of patient current condition, hospital course, and medical plan of care. Services: Services provided to patient in accordance with Admission requirements found in Title 42 Section 412.3 of the Code of Federal Regulations Patient History Date of Service: 07/09/24 Reason for admission: septic shock History of Present Illness: Unresponsiveness 84-year-old female with history of stroke, brain tumor, A-fib, hypothyroidism who presents with unresponsiveness from [facility]. Patient was noted to be in respiratory distress. Saturating 45% on room air. She was intubated by EMS. Patient also hypotensive. In ED given vancomycin, cefempime, and IVF Currently on pressors and vent support Granddaughter is POA and at bedside. Reports that patient previously was DNR/DNI. Currently will want to be DNR but okay for vent support for now Allergies aspirin Allergy (Verified 04/16/15 16:53) Nausea/Vomiting baltazar Allergy (Verified 07/09/24 05:46) Anaphylaxis diazepam [From Valium] Adverse Reaction (Intermediate, Verified 07/09/24 05:46) Nausea/Vomiting Home Medications: Folic Acid 1 mg PO DAILY #30 tablet 05/25/21 Acetaminophen [Tylenol] 650 mg PO Q8HP 05/30/24 Amantadine [Symmetrel] 100 mg PO BID 05/30/24 Amlodipine Besylate [Norvasc] 5 mg PO DAILY 05/30/24 Atorvastatin Calcium [Lipitor] 40 mg PO BEDTIME 05/30/24 Cholecalciferol (Vitamin D3) [Vitamin D3] 5,000 unit PO DAILY 05/30/24 Codeine/APAP [Tylenol #3*] 1 tab PO Q8HP PRN 05/30/24 Docosahexanoic AC/Epa [Fish Oil 1,000 MG*] 3 cap PO DAILY 05/30/24 Docusate Sodium 100 mg PO DAILY 05/30/24 Duloxetine HCl [Cymbalta] 30 mg PO DAILY 05/30/24 Gabapentin [Neurontin*] 200 mg PO BID 05/30/24 Lactulose 30 ml PO DAILYPRN PRN 05/30/24 Levothyroxine [Synthroid*] 0.112 mg PO DAILYAC 05/30/24 Lidocaine 4% Patch [Lidoderm 5% Patch*] 1 patch TP DAILY 05/30/24 Potassium Chloride 10 meq PO DAILY 05/30/24 carBAMazepine [Tegretol*] 200 mg PO BEDTIME 05/30/24 carvediloL [Coreg*] 25 mg PO BID 05/30/24 Albuterol Neb [Proventil 0.083% Neb Soln] 2.5 mg NEB [id number] PRN #1 box 06/03/24 Furosemide [Lasix] 20 mg PO DAILY #7 tab 06/03/24 levoFLOXacin [Levaquin*] 750 mg PO DAILY #12 tab 06/03/24 - Past Medical/Surgical History Diabetic: No -: hypertension -: TIA 2004 -: Hypothyroidism -: Atrial fibrillation -: CVA right-sided weakness -: bone graft in neck -: back surgery -: appendectomy -: cholecysectomy -: Thyroidectomy Psychosocial/ Personal History: Patient is retired, lives at home with her family/granddaughter - Family History Father -: Heart disease Mother -: Heart disease - Social History Alcohol use: No CD- Drugs: No Caffeine use: Yes Review of Systems is unable to be obtained Physical Examination - Vital Signs Pulse: 113 Pulse Ox (%): 100 - Physical Exam General: Other (Sedated) HEENT: Atraumatic, Normocephalic Respiratory: Other (on vent) Cardiovascular: Other (tachycardia) Gastrointestinal: Soft and benign Musculoskeletal: No clubbing, No swelling Integumentary: No rashes, No breakdown - Studies Laboratory Data (last 24 hrs) 07/08/24 07/08/24 07/08/24 17:10 17:10 17:10 WBC 23.90 H Hgb 14.1 Hct 42.7 Plt Count 114 L PT 16.7 H INR 1.60 APTT 38.2 H Sodium 147 H Potassium 3.8 BUN 40 H Creatinine 3.13 H Glucose 117 H Total Bilirubin 0.7 AST 36 ALT 33 Alkaline Phosphatase 103 Assessment and Plan - Problems (Diagnosis) (1) Septic shock Current Visit: Yes Status: Acute (2) Respiratory failure Current Visit: Yes Status: Acute (3) UTI (urinary tract infection) Current Visit: Yes Status: Acute (4) YASMEEN (acute kidney injury) Current Visit: Yes Status: Acute (5) Troponin I above reference range Current Visit: Yes Status: Acute - Plan 84-year-old female with history of CVA, A-fib presents with unresponsiveness. Septic shock Acute hypoxic respiratory failure Aspiration pneumonia Urinary tract infection Acute kidney injury History of CVA history A-fib Evaded troponin Plan: Admit to ICU, consult pulmonary Continue IV fluids, levophed Will continue vancomycin and Zosyn Follow-up urine and blood cultures repeat blood gas Check echocardiogram Repeat troponin on vent-propofol Code: no chest compression - Advance Directives Does patient have a Living Will: No Does patient have a Durable POA for Healthcare: No
[2024-07-08] MEDS ORDERED: ACETAMINOPHEN 650MG/RECT SUPP PR PRN (23:05)
[2024-07-08] MEDS ORDERED: VANCOMYCIN 1.5 GM in NA CHLORIDE 0.9% 500 ML IVPB ONE (23:30)
[2024-07-09] MEDS: NOREPINEPHRINE 4 MG in D5W 250 ML IV SCH (00:36)
[2024-07-09] MEDS: propofoL 1,000 MG/100 ML VIAL IV SCH (00:36)
[2024-07-09] MEDS: HEPARIN 5000 UNIT/ML 1 ML VIAL SQ SCH (01:00)
--- NOTE | 2024-07-09 01:00 | P.PN ---
Subjective Date of Service: 07/09/24 HAD LONG DISCUSSION WITH FAMILY. PATIENT DOES NOT WANT ANY AGGRESSIVE INTERVENTION AT THIS TIME. PLAN TO WEAN OFF OF VASOPRESSORS TODAY. AND HOPEFULLY TOMORROW WE CAN EXTUBATE. ONCE PATIENT EXTUBATED PLAN TO NOT REINTUBATE PATIENT AND TO CLARIFY TO NURSING FACILITY PATIENT HAS A DO NOT ATTEMPT RESUSCITATION. Review of Systems is unable to be obtained Physical Examination - Vital Signs Temperature: 101.8 F Blood Pressure: 74/55 Pulse: 113 Respirations: 17 Pulse Ox (%): 100 - Physical Exam General: Other (intubated and sedated) HEENT: Atraumatic, PERRLA, EOMI Neck: Supple, JVD not distended Respiratory: Diminished, Rhonchi/gurgles Cardiovascular: Regular rate/rhythm, Normal S1 S2, Systolic murmur Gastrointestinal: Normal bowel sounds, Soft and benign, Non-distended, No tenderness Musculoskeletal: No clubbing, No swelling, No tenderness Integumentary: No rashes - Studies Laboratory Data (last 24 hrs) 07/08/24 07/08/24 07/08/24 17:10 17:10 17:10 WBC 23.90 H Hgb 14.1 Hct 42.7 Plt Count 114 L PT 16.7 H INR 1.60 APTT 38.2 H Sodium 147 H Potassium 3.8 BUN 40 H Creatinine 3.13 H Glucose 117 H Total Bilirubin 0.7 AST 36 ALT 33 Alkaline Phosphatase 103 Medications List Reviewed: Yes Assessment & Plan - Problems (Diagnosis) (1) Respiratory failure Current Visit: Yes Status: Acute (2) Septic shock Current Visit: Yes Status: Acute (3) Weakness Onset Date: 04/19/15 Current Visit: No Status: Acute (4) YASMEEN (acute kidney injury) Current Visit: Yes Status: Acute (5) Atrial fibrillation Current Visit: Yes Status: Acute - Plan PLAN: 1. SEPTIC SHOCK WITH ACUTE RESPIRATORY FAILURE; CONTINUE TO WEAN OFF LEVOPHED AND CONTINUE WITH ANTIBIOTIC THERAPY. CULTURES ARE PENDING. ALSO SLOWLY WEAN OFF THE VENTILATOR. FAMILY WANTS PATIENT TO BE A DNAR. 2. YASMEEN; CONTINUE MONITOR RENAL FUNCTION. CONTINUE WITH HYDRATION HOPEFULLY RENAL FUNCTION GETS BETTER 3. ATRIAL FIBRILLATION; CONTINUE WITH MONITORING RHYTHM. RATE HAS BEEN ON THE LOW SIDE. WILL HOLD OFF ON MEDICATION FOR RATE CONTROL 4. GI/DVT PROPHYLAXIS Discharge Plan: Jail Plan to discharge in: Greater than 2 days - Advance Directives Does patient have a Living Will: No Does patient have a Durable POA for Healthcare: No - Code Status/Comfort Care Code Status Assessed: Yes Code Status: Do Not Attempt Resuscitat Critical Care: Yes Time Spent Managing PTS Care (In Minutes): 45
[2024-07-09] MEDS: PIPER TAZO 3.375 GM in NA CHLORIDE 0.9% 100 ML IV SCH ×2 (01:30→08:32)
[2024-07-09 02:00] LABS: Thyroid Stimulating Hormone 3.27 uIU/mL (0.358-3.740)
[2024-07-09] MEDS: NA CHLORIDE 0.9% 1,000 ML IV SCH (02:16)
[2024-07-09] MEDS: PIPER TAZO 3.375 GM in NA CHLORIDE 0.9% 100 ML IV ONE (02:16)
[2024-07-09 05:00] LABS: Arterial Blood Carboxyhemoglob 0.4 % (0-1.5); Blood Gas Oxyhemoglobin 96.4 % (94-97); Blood Gas THB 12.2 g/dl (12-18); Blood O2 Saturation 98.7 % (92-98.5)
[2024-07-09 05:43] LABS: Absolute Lymphocytes (CBC) 1.6 K/uL (0.7-4.9); Absolute Neutrophil 22.2 K/uL (1.8-8.0); Basophils % 0.1 % (0-1.3); Hemoglobin 11.8 g/dL (12.0-15.0); Lymphocytes % 6.3 % (15.3-44.8); MCH 28.7 pg (27.0-35.0); MCHC 32.6 g/dL (32.0-36.0); MPV 9.7 fL (7.6-11.3); Monocytes % 3.8 % (3.3-12.3); Neutrophils % 89.8 % (41.7-73.7); Platelets 82 thou/uL (152-406); Red Cell Distribution Width 17.3 % (12.1-15.2)
[2024-07-09 05:58] LABS: Anion Gap 10.4 mEq/L (5.0-15.0); Magnesium 1.8 mg/dL (1.6-2.4); Phosphorus 4.3 mg/dL (2.5-4.9); Potassium 3.4 mEq/L (3.5-5.1)
[2024-07-09] MEDS ORDERED: VANCOMYCIN 1 GM in NA CHLORIDE 0.9% 250 ML IVPB SCH (06:00)
[2024-07-09] MEDS: NOREPINEPHRINE BITARTRATE/D5W 4 MG/250 ML KIT IV ONE (06:17)
--- NOTE | 2024-07-09 09:55 | P.CNS ---
Date of Consult: 07/09/24 Reason for Consult: Respiratory failure Chief Complaint: septic shock History of Present Illness: Patient is 84 years of age [facility] resident found unresponsive was intubated on the field he was noted to be in respiratory failure respiratory distress hypotensive and was admitted to the ICU currently stable on a ventilator propofol drip/NR was revoked Allergies aspirin Allergy (Verified 04/16/15 16:53) Nausea/Vomiting baltazar Allergy (Verified 07/09/24 05:46) Anaphylaxis diazepam [From Valium] Adverse Reaction (Intermediate, Verified 07/09/24 05:46) Nausea/Vomiting Home Medications: Folic Acid 1 mg PO DAILY #30 tablet 05/25/21 Acetaminophen [Tylenol] 650 mg PO Q8HP 05/30/24 Amantadine [Symmetrel] 100 mg PO BID 05/30/24 Amlodipine Besylate [Norvasc] 5 mg PO DAILY 05/30/24 Atorvastatin Calcium [Lipitor] 40 mg PO BEDTIME 05/30/24 Cholecalciferol (Vitamin D3) [Vitamin D3] 5,000 unit PO DAILY 05/30/24 Codeine/APAP [Tylenol #3*] 1 tab PO Q8HP PRN 05/30/24 Docosahexanoic AC/Epa [Fish Oil 1,000 MG*] 3 cap PO DAILY 05/30/24 Docusate Sodium 100 mg PO DAILY 05/30/24 Duloxetine HCl [Cymbalta] 30 mg PO DAILY 05/30/24 Gabapentin [Neurontin*] 200 mg PO BID 05/30/24 Lactulose 30 ml PO DAILYPRN PRN 05/30/24 Levothyroxine [Synthroid*] 0.112 mg PO DAILYAC 05/30/24 Lidocaine 4% Patch [Lidoderm 5% Patch*] 1 patch TP DAILY 05/30/24 Potassium Chloride 10 meq PO DAILY 05/30/24 carBAMazepine [Tegretol*] 200 mg PO BEDTIME 05/30/24 carvediloL [Coreg*] 25 mg PO BID 05/30/24 Albuterol Neb [Proventil 0.083% Neb Soln] 2.5 mg NEB [id number] PRN #1 box 06/03/24 Furosemide [Lasix] 20 mg PO DAILY #7 tab 06/03/24 levoFLOXacin [Levaquin*] 750 mg PO DAILY #12 tab 06/03/24 - Past Medical/Surgical History Diabetic: No -: hypertension -: TIA 2004 -: Hypothyroidism -: Atrial fibrillation -: CVA right-sided weakness -: bone graft in neck -: back surgery -: appendectomy -: cholecysectomy -: Thyroidectomy Psychosocial/ Personal History: Patient is retired, lives at home with her family/granddaughter - Family History Father Medical History: Heart disease Mother Medical History: Heart disease - Social History Smoking Status: Unknown if ever smoked Alcohol use: No CD- Drugs: No Caffeine use: Yes Place of Residence: Assisted Review of Systems is unable to be obtained Physical Examination Temp Pulse Resp BP Pulse Ox 98.2 F 86 19 86/60 L 99 07/09/24 08:00 07/09/24 09:30 07/09/24 09:30 07/09/24 09:30 07/09/24 09:30 General: Unresponsive Respiratory: Clear to auscultation bilaterally Cardiovascular: No edema, Regular rate/rhythm, Normal S1 S2 Gastrointestinal: Normal bowel sounds, Soft and benign Laboratory Data (last 24 hrs) 07/08/24 07/08/24 07/08/24 17:10 17:10 17:10 WBC 23.90 H Hgb 14.1 Hct 42.7 Plt Count 114 L PT 16.7 H INR 1.60 APTT 38.2 H Sodium 147 H Potassium 3.8 BUN 40 H Creatinine 3.13 H Glucose 117 H Total Bilirubin 0.7 AST 36 ALT 33 Alkaline Phosphatase 103 - Problems (1) Septic shock Current Visit: Yes Status: Acute Plan: Patient is 84 years of age [facility] resident was found to be in respiratory distress currently she is intubated vasopressors on a ventilator are was revoked patient has gram-negative rods in the blood continue with present antibiotics chest CT scan shows a right lower lobe infiltrate bolus with IV fluids wean off propofol start on Precedex patient is in renal failure 45% FiO2 add IV hydrocortisone
[2024-07-09] MEDS: HYDROCORTISONE SUC 100 MG INJ IV SCH (10:37)
[2024-07-09 10:41] LABS: Band Neutrophils 16 % (0-1); Differential Total Cells Count 100; Lymphocytes 5 % (15-42); Monocytes 3 % (0-10); Platelet Estimate DECR; Segmented Neutrophils 75 % (40-80); Toxic Granulation 1+
[2024-07-09 10:42] LABS: Blood Morphology Comment NOT SEEN (NOT SEEN)
[2024-07-09] MEDS: DEXMEDETOMIDINE HCL 200 MCG in NA CHLORIDE 0.9% 98 ML IV SCH (11:07)
--- NOTE | 2024-07-09 11:29 | EKG ---
Test Date: 2024-07-08 Test Time: 17:36:52 Clearance Coordinator: GHAZALA MEASUREMENT RESULTS: Intervals: Rate: 110 HI: QRSD: 76 QT: 362 QTc: 489 Cache: P: HI: QRS: 23 T: -28 INTERPRETIVE STATEMENTS: Atrial fibrillation with rapid ventricular response Nonspecific ST and T wave abnormality Abnormal ECG Compared to ECG 05/29/2024 21:43:53 Myocardial infarct finding no longer present ST (T wave) deviation still present Electronically Signed On 07-09-24 11:27:45 TIE FASTENER by Maciel Mena
[2024-07-09] MEDS: NOREPINEPHRINE BITARTRATE/D5W 4 MG/250 ML KIT IV SCH (12:00)
[2024-07-09] MEDS: ALBUMIN HUMAN 25% 100 ML IV ONE (13:22)
--- NOTE | 2024-07-09 13:27 | ECHO ---
HEIGHT: 5 ft 5 in WEIGHT: 168 lb 8 oz DATE OF STUDY: 07/09/[address]: Cecil Clayton MD 2-DIMENSIONAL: YES M.MODE: YES DOPPLER: YES COLOR FLOW: YES TDS: YES PORTABLE: YES DEFINITY: BUBBLE STUDY: DIAGNOSIS: HYPOTENSION CARDIAC HISTORY: CATHERIZATION: NO SURGERY: NO PROSTHETIC VALVE: NO PACEMAKER: NO MEASUREMENTS (cm) DIASTOLIC (NORMALS) SYSTOLIC (NORMALS) IVSd 1.3 (0.6-1.2) LA Diam 3.9 (1.9-4.0) LVEF 54% LVIDd 3.6 (3.5-5.7) LVIDs 2.6 (2.0-3.5) %FS 27% LVPWd 1.4 (0.6-1.2) Ao Diam 3.0 (2.0-3.7) 2 DIMENSIONAL ASSESSMENT: RIGHT ATRIUM: NORMAL LEFT ATRIUM: SEVERELY DILATED RIGHT VENTRICLE: NORMAL LEFT VENTRICLE: NORMAL TRICUSPID VALVE: MILD TRICUSPID REGURGITATION MITRAL VALVE: MILD MITRAL ANNULAR CALCIFICATION PULMONIC VALVE: NORMAL AORTIC VALVE: CALCIFIED PERICARDIAL EFFUSION: NONE AORTIC ROOT: MILD DILATED LEFT VENTRICULAR WALL MOTION: NORMAL DOPPLER/COLOR FLOW: DIASTOLIC DYSFUNCTION COMMENTS: 1. NORMAL LEFT VENTRICULAR SYSTOLIC FUNCTION, EJECTION FRACTION 55-55%, NORMAL WALL MOTION 2. DIASTOLIC DYSFUNCTION 3. CALCIFIED AORTIC VALVE WITH MODERATE AORTIC STENOSIS (AORTIC VALVE AREA 1.2 CENTIMETERS SQUARED, MEAN GRADIENT 19 mmHg) 4. MILD ELEVATED FILLING PRESSURE (RIGHT ATRIAL PRESSURE 10-15 mmHg) TECHNOLOGIST: JULIEN URBANO
[2024-07-09] MEDS ORDERED: NOREPINEPHRINE BITARTRATE/D5W 4 MG/250 ML KIT IV SCH (14:00)
[2024-07-09] MEDS: DEXMEDETOMIDINE HCL 1,000 MCG in NA CHLORIDE 0.9% 490 ML IV SCH (16:51)
[2024-07-09] MEDS: FENTANYL CITR 100 MCG/2 ML IV PRN (19:48)
--- NOTE | 2024-07-10 05:02 | P.PN ---
Date of Service: 07/10/24 Subjective A Physical Examination - Vital Signs REVIEWED - Physical Exam General: Other (intubated and sedated) HEENT: Atraumatic, PERRLA, EOMI Neck: Supple, JVD not distended Respiratory: Diminished, Rhonchi/gurgles Cardiovascular: Regular rate/rhythm, Normal S1 S2, Systolic murmur Gastrointestinal: Normal bowel sounds, Soft and benign, Non-distended, No tenderness Musculoskeletal: No clubbing, No swelling, No tenderness Integumentary: No rashes Assessment & Plan - Problems (Diagnosis) (1) Respiratory failure Current Visit: Yes Status: Acute (2) Septic shock Current Visit: Yes Status: Acute (3) Weakness Onset Date: 04/19/15 Current Visit: No Status: Acute (4) YASMEEN (acute kidney injury) Current Visit: Yes Status: Acute (5) Atrial fibrillation Current Visit: Yes Status: Acute - Plan CONTINUE WITH PLAN OF CARE MENTIONED BELOW: 1. SEPTIC SHOCK WITH ACUTE RESPIRATORY FAILURE; CONTINUE TO WEAN OFF LEVOPHED AND CONTINUE WITH ANTIBIOTIC THERAPY. CULTURES ARE PENDING. ALSO SLOWLY WEAN OFF THE VENTILATOR. FAMILY WANTS PATIENT TO BE A DNAR. 2. YASMEEN; CONTINUE MONITOR RENAL FUNCTION. CONTINUE WITH HYDRATION HOPEFULLY RENAL FUNCTION GETS BETTER 3. ATRIAL FIBRILLATION; CONTINUE WITH MONITORING RHYTHM. RATE HAS BEEN ON THE LOW SIDE. WILL HOLD OFF ON MEDICATION FOR RATE CONTROL 4. GI/DVT PROPHYLAXIS Discharge Plan: Retirement Plan to discharge in: Greater than 2 days - Advance Directives Does patient have a Living Will: No Does patient have a Durable POA for Healthcare: No - Code Status/Comfort Care Code Status Assessed: Yes Code Status: Do Not Attempt Resuscitat Critical Care: Yes Time Spent Managing PTS Care (In Minutes): 35
[2024-07-10 06:05] LABS: Absolute Lymphocytes (CBC) 1.4 K/uL (0.7-4.9); Absolute Monocytes 0.6 K/uL (0.1-1.3); Absolute Neutrophil 20.1 K/uL (1.8-8.0); Basophils % 0.1 % (0-1.3); Hematocrit 35.6 % (36.0-45.0); Hemoglobin 11.6 g/dL (12.0-15.0); Lymphocytes % 6.5 % (15.3-44.8); MCH 28.5 pg (27.0-35.0); MCHC 32.6 g/dL (32.0-36.0); MCV 87.3 fL (80-100); MPV 9.9 fL (7.6-11.3); Monocytes % 2.6 % (3.3-12.3); Neutrophils % 90.8 % (41.7-73.7); Nucleated Red Blood Cells % 0.1 % (0-0); Platelets 66 thou/uL (152-406); RBC Red Blood Cell Count 4.08 M/uL (3.86-4.86); Red Cell Distribution Width 17.3 % (12.1-15.2)
[2024-07-10] MEDS: HYDRALAZINE HCL 20 MG/ML VIAL IV ONE (06:13)
[2024-07-10 06:30] LABS: Anion Gap 9.9 mEq/L (5.0-15.0); Magnesium 1.7 mg/dL (1.6-2.4); Phosphorus 2.7 mg/dL (2.5-4.9); Potassium 2.9 mEq/L (3.5-5.1)
--- NOTE | 2024-07-10 07:45 | P.PN ---
Subjective Date of Service: 07/10/24 Chief Complaint: septic shock Subjective: Improving (Patient is doing much better more alert responsive medically stable) Review of Systems is unable to be obtained Physical Examination - Vital Signs Temperature: 101.8 F Blood Pressure: 125/70 Pulse: 78 Respirations: 16 Pulse Ox (%): 98 - Physical Exam General: Alert, Cooperative Respiratory: Clear to auscultation bilaterally Cardiovascular: No edema, Regular rate/rhythm, Normal S1 S2 - Studies Medications List Reviewed: Yes Assessment And Plan - Current Problems (Diagnosis) (1) Septic shock Current Visit: Yes Status: Acute Plan: Patient is 84 years of age admitted with septic shock I suspect from urinary tract infection cultures are pending urinalysis positive for infection white count is declining chest x-ray is clear plan to wean and extubate renal function has also improved DC vancomycin DC hydrocortisone
[2024-07-10] MEDS: KCL 20 MEQ/100 mL IVPB 20 MEQ/100 ML BAG IV SCH ×2 (08:15→22:00)
[2024-07-10] MEDS: MAGNESIUM SULFATE 1 gm IVPB 1 GM/100 ML BAG IV ONE (08:15)
[2024-07-10 17:15] LABS: Anion Gap 9.4 mEq/L (5.0-15.0); Potassium 3.4 mEq/L (3.5-5.1)
[2024-07-10] MEDS: KCL 20 MEQ/100 mL IVPB 100 ML IV ONE (21:01)
[2024-07-11 00:19] VITALS: BMI 27.9
[2024-07-11] MEDS: METOPROLOL TARTRATE 5 MG/5 ML INJ IV STA (09:22)
[2024-07-11] MEDS: METOPROLOL TAR 50 MG TAB PO SCH (17:18)
[2024-07-11] MEDS: METOPROLOL TARTRATE 5 MG/5 ML INJ IV SCH (17:22)
[2024-07-11] MEDS ORDERED: VANCOMYCIN 1 GM in NA CHLORIDE 0.9% 250 ML IVPB SCH (18:00)
[2024-07-12] MEDS: D5 0.45 NS 1,000 ML IV SCH (12:49)
[2024-07-12 16:32] VITALS: BP 159/88; TEMP 97.5
[2024-07-12 18:02] VITALS: O2SAT 96
== END 2024-07-12 19:20 | disposition hospice, home (50) | DRG 871 ==
LOC: ER 16:16 → ERHOLD 23:05 → 3RD-ICU 23:52 → 4TH 07-11 02:01
PROVIDERS: ADMIT Internal Medicine; ATTEND Hospitalist
PROC: 4A033R1 Measurement of Arterial Saturation, Peripheral, Percutaneous Approach (ICD-10-PCS; principal; 2024-07-08)
PROC: 5A1935Z Respiratory Ventilation, Less than 24 Consecutive Hours (ICD-10-PCS; 2024-07-08)
PROC: 0BH17EZ Insertion of Endotracheal Airway into Trachea, Via Natural or Artificial Opening (ICD-10-PCS; 2024-07-08)
PROC: 02HV33Z Insertion of Infusion Device into Superior Vena Cava, Percutaneous Approach (ICD-10-PCS; 2024-07-08)
PROC: 3E043XZ Introduction of Vasopressor into Central Vein, Percutaneous Approach (ICD-10-PCS; 2024-07-08)
PROC: 0DH67UZ Insertion of Feeding Device into Stomach, Via Natural or Artificial Opening (ICD-10-PCS; 2024-07-08)
DX: A41.9 Sepsis, unspecified organism (principal); J69.0 Pneumonitis due to inhalation of food and vomit; J96.01 Acute respiratory failure with hypoxia; R65.21 Severe sepsis with septic shock; N10 Acute pyelonephritis; N17.9 Acute kidney failure, unspecified; I69.351 Hemiplegia and hemiparesis following cerebral infarction affecting right dominant side; I12.9 Hypertensive chronic kidney disease with stage 1 through stage 4 chronic kidney disease, or unspecified chronic kidney disease; N18.9 Chronic kidney disease, unspecified; I48.91 Unspecified atrial fibrillation; E03.9 Hypothyroidism, unspecified; R79.89 Other specified abnormal findings of blood chemistry; Z66 Do not resuscitate; Z78.1 Physical restraint status; Z88.1 Allergy status to other antibiotic agents; Z91.018 Allergy to other foods; Z79.899 Other long term (current) drug therapy; Z79.890 Hormone replacement therapy; Z79.02 Long term (current) use of antithrombotics/antiplatelets; Z90.49 Acquired absence of other specified parts of digestive tract
CPT/HCPCS: 36415; 36556; 36600; 51702; 70450; 71045; 71250; 74018; 74176; 80048; 80053; 81001; 82805; 82947; 83605; 83735; 84100; 84439; 84443; 84484; 85025; 85610; 85730; 87040; 87077; 87086; 87088; 87186; 87205; 92610; 93005; 93306; 94002; 94003; 99291; 99292; J0360; J0692; J1644; J1720; J2250; J2543; J2704; J3010; J3475; J3480; J7030; J7040; J7050; J7799; P9047